=== PATIENT | male | born 1960 | race Caucasian/White ===

== ENCOUNTER → 2023-06-04 13:24 | Outpatient (REF) | payer OTHER, SELFPAY | LOC: HWRAD 13:24 | PROVIDERS: ATTENDING PHYSICIAN Surgery; FAMILY PHYSICIAN Internal Medicine | DX: K62.89 Other specified diseases of anus and rectum (principal) | CPT/HCPCS: 72192 ==

== ENCOUNTER → 2023-06-16 08:35 | Outpatient (REF) | payer OTHER, SELFPAY | LOC: MRI 3T 08:35 | PROVIDERS: ATTENDING PHYSICIAN Surgery; FAMILY PHYSICIAN Internal Medicine | DX: K62.89 Other specified diseases of anus and rectum (principal) | CPT/HCPCS: 72197; A9575 ==

== ENCOUNTER 2023-06-24 12:11 | Inpatient (IN) | payer OTHER, SELFPAY ==
[2023-06-24] VITALS (18 sets, daily range): BP systolic 65–157; BP diastolic 71–96; BMI 30.8; BMI 30.1
--- NOTE | 2023-06-24 07:31 | ED.GENMED ---
History of Present Illness
General
Chief Complaint: Abdominal Symptoms
Source: patient
Exam Limitations: none
Time Seen by Provider: 06/24/23 07:21
Nursing documentation reviewed up to this point in time: agreed with except (pain went away last p.m. is pain free now)
Travel History
Have you had any contact with someone who has COVID-19?: No
Do you have any symptoms of coronavirus? Fever > 100 degrees, chills, cough, shortness of breath, sore throat, loss of taste or smell, muscle aches, or headache?: No
History of Present Illness
History of Present Illness:
62 yo here for nausea starting last night. Hx Bladder cancer, that is post urostomy status post cystectomy, had sigmoid, anus, rectum resected as the chemo wash for bladder Ca infiltrated per pt and . Surgery done at [facility]. MRI 06/16/23 showing
abscesses and possibly osteomyelitis of sacrum. Hx. coronary artery disease with stent. Scheduled for IR to drain abscess 1 p.m. today but here due to extreme nausea, states pain suddenly dissipated last p.m. He is pain free, but significantly
nauseous, no vomiting. Denies fever, CP, SOB, abdominal pain. Urostomy draining well but with foul odor since yesterday. Producing stool through colostomy well.
Past History
Past History
ED Past Medical History: Other (Bladder cancer, that is post urostomy status post cystectomy, coronary artery disease with stent)
ED Past Surgical History: Bowel resection (has colostomy) and Urological
Social History
Tobacco: Former smoker
Alcohol: Occasional
Drug: None
Personal:
Living: with family
Employment: Employed
Family History
Family History: Other (Noncontributory)
Review of Systems
Review of Systems
Allergies reviewed?: Yes
All Other Systems: ROS reviewed and negative except as documented in HPI and ROS
Constitutional: Denies fever or chills
Respiratory: Denies trouble breathing
Cardiac: Denies chest pain
ABD/GI: Reports nausea; Denies abdominal pain, vomiting, diarrhea or constipated
: Reports other (urostomy draining well urine 'foul odor')
Musculoskeletal: Denies edema
Skin: Reports no symptoms
Neurological: Reports no symptoms
Phy Exam
Physical Exam
Physical Exam:
GENERAL: No acute distress. A&Ox3.
CONSTITUTIONAL: Afebrile.
EYES: clear, conjunctivae normal
ENMT: moist mucus membranes, Pharynx nl
RESPIRATORY: Regular respirations, nonlabored, lungs clear.
CARDIOVASCULAR: Regular rate and rhythm, no murmurs, no rubs.
GI: Soft, nontender, urostomy draining clear tonya urine. Colostomy bag intact stoma normal appearing, normal BS
MUSCULOSKELETAL: Moves with ease. Well perfused.
SKIN: Warm, dry, pink
PSYCH:Depressed mood and affect. Well kept, interactive and appropriate
NEUROLOGIC: Awake, alert and oriented. No focal neurological deficits
Course
Orders/Labs/Results
Orders:
Orders
06/24/23 Breakfast
NPO
Allow oral meds: Yes
Allow clear liquids: No
06/24/23 07:31
Complete Blood Count/With Diff Urgent
Comprehensive Metabolic Panel Urgent
Lactic Acid Urgent
06/24/23 07:33
Ondansetron Injectable [Zofran] 4 mg IV NOW STA
06/24/23 07:34
0.9% Sodium Chloride 500 ml [Nss] 500 ml IV BOLUS
06/24/23 07:36
Blood Culture Q30M
ROXANNE Source: Blood/Venous
Specimen Description:
06/24/23 07:48
Blood Culture Q30M
ROXANNE Source: Blood/Venous
Specimen Description:
06/24/23 09:10
INFECTIOUS DISEASE CONSULT Urgent
Consulting Provider: Nancy Guadalupe
Was physician already notified: Yes
06/24/23 09:11
ColoRectal Surgery Consult Urgent
Consulting Provider: Michael Newman
Was physician already notified: Yes
Reason for consult: abd abscess
06/24/23 09:12
Consult Interventional Radiology [IRAD CONSULT] Routine
Consulting Provider: Michael Newman
Was physician already notified: Yes
Reason for consult: abscess drainage
06/24/23 09:27
Urinalysis Reflex To Culture Urgent
Date Specimen was Collected: 06/24/23
Time Specimen was Collected: 08:13
Urine Microscopic Reflex Cult Urgent
Urine Culture Urgent
ROXANNE Source: U
Specimen Description:
Date Specimen was Collected: 06/24/23
Time Specimen was Collected: 08:13
06/24/23 09:37
Acetaminophen 1000MG/100Ml [Ofirmev] 1,000 mg in 100 ml IV ONCE
Acetaminophen IV Indication:: No OK & No Enteral Access
06/24/23 11:22
HYDROmorphone [Dilaudid] 0.5 mg IV NOW STA
06/24/23 11:49
Admit/Transfer Patient As Directed
Co-Sign Provider:
Level of Care: Inpatient admission
Assign to:: Medical/Surgical
Physician / Group: Cassie/hospitalist
Diagnosis: abdominal abscess
Reason for Hospitalization: abdominal abscess
Expected length of stay greater than two midnights?: Yes
ELOS- Estimated Length of Stay in days: 5
I certify the patient meets the requirements for IP care: Yes
06/24/23 11:50
Code Status As Directed
Resuscitation Status: Full Code
06/24/23 15:04
Acetaminophen [Tylenol] 500 mg PO DAILYPRN PRN
Docusate Sodium [Colace] 200 mg PO DAILYPRN PRN
Ondansetron Injectable [Zofran] 4 mg IV Q6HPRN PRN
Polyethylene Glycol Powder [Miralax] 17 grams PO DAILYPRN PRN
Tramadol HCl [Ultram] 50 mg PO Q6HPRN PRN
vaxnwpk-gbhvabdilemsm-mzvmzidp [Excedrin Extra Strength] 1 tablet PO Q6HPRN PRN
06/24/23 15:04
Activity As Directed
Activity Level: As Tolerated
Vital Signs As Directed
Frequency: Per unit guidelines
DX Deep Vein Thrombosis Video Routine
06/24/23 20:00
Heparin 5,000 units SC Q12
06/25/23 06:00
Complete Blood Count/With Diff IN AM
Comprehensive Metabolic Panel IN AM
Magnesium IN AM
06/25/23 07:00
Levothyroxine [Synthroid] 50 mcg PO DAILY@0700
06/25/23 08:00
Aspirin Low Dose EC [Aspir Low (Enteric Coated)] 81 mg PO DAILY
Abnormal Lab Results
06/24/23 06/24/23
07:31 09:27
WBC 11.8 H 10^3/uL
(4.8-10.8)
MPV 11.3 H fL
(7.4-10.4)
Absolute Neuts (auto) 9.9 H 10^3/uL
(1.4-6.5)
Absolute Lymphs (auto) 0.6 L 10^3/uL
(1.2-3.4)
Absolute Monos (auto) 1.3 H 10^3/uL
(0.1-0.6)
Neutrophils % 83.7 H %
(42.2-75.2)
Lymphocytes % 5.0 L %
(20.5-51.1)
Monocytes % 10.7 H %
(1.7-9.3)
BUN 27 H mg/dl
(9-20)
Creatinine 1.7 H mg/dL
(0.7-1.3)
Glucose 116 H mg/dl
(70-99)
Total Bilirubin 1.5 H mg/dl
(0.2-1.3)
AST 238 H U/L
(17-59)
ALT 300 H U/L
(0-50)
Alkaline Phosphatase 346 H U/L
(38-126)
Ur Occult Blood Reflex 1+ A
(Negative)
Urine Nitrite (Reflex) Positive A
(Negative)
Leukocyte Esterase Rfl 2+ A
(Negative)
Urine RBC 7-10 A /HPF
(0-2)
Urine WBC (Reflex) 80-90 A /HPF
(0-5)
Urine Bacteria (Reflex) Many A
(Negative)
06/24/23 07:31
06/24/23 07:31
Vital Signs
Initial and Last Documented VS:
Initial Vital Signs
Temp Pulse Resp BP Pulse Ox
98.2 F 89 18 122/90 97
06/24/23 07:00 06/24/23 07:00 06/24/23 07:00 06/24/23 07:00 06/24/23 07:00
Last Documented Vital Signs
Temp Pulse Resp BP Pulse Ox
98.1 F 75 18 148/85 95
06/24/23 15:11 06/24/23 15:11 06/24/23 15:11 06/24/23 15:11 06/24/23 15:11
MDM/Problems Addressed
Differential Diagnosis Includes:
ruptured abscess, UTI
MDM/Problems Addressed:
62 yo here for nausea starting last night. Hx Bladder cancer, that is post urostomy status post cystectomy, had sigmoid, anus, rectum resected as the chemo wash for bladder Ca infiltrated per pt and . Surgery done at [facility]. MRI 06/16/23 showing
abscess and possibly osteomyelitis of sacrum. Hx. coronary artery disease with stent. Scheduled for IR to drain abscess 1 p.m. today but here due to extreme nausea, states pain suddenly dissipated last p.m. He is pain free, but significantly
nauseous, no vomiting. Denies fever, CP, SOB, abdominal pain. Urostomy draining well but with foul odor since yesterday. Producing stool through colostomy well.
Afebril, NAD
06/24/2023 0814 AM
CBC: WBC 11.8
CMP: Consistent with his baseline kidney functions with BUN 27, creat 1.7. Liver enzymes were modestly elevated
Notified Dr. Pringle of pt arrival, he will contact Dr. Newman
06/24/2023 0903 AM
Colorectal RAG ROOM SUPERVISOR Velma in to see patient. Requests admit to Hospitalist, ID consult.
Hospitalist and ID Dr. Guadalupe notified.
Pt asking for 'something mild' for pain. Ofirmev ordered as he is npo
06/24/2023 1015 AM
UA results are back, he has a urinary tract infection.
Holding off on antibiotics for now, requested by colorectal until they can culture the abdominal abscess. Patient remained stable, afebrile
Hospitalist notified of UTI
06/24/2023 1122 AM
Patient requesting something stronger for pain in right abdomen, he has to flex his right knee for comfort, Dilaudid 0.5 mg ordered
*Critical Care Note
Total Time (30-74mins, 75-104mins- exclusive of procedures): Not Applicable
ED Attending Note
-
Portions of this chart may have been created with voice recognition software.� Occasional wrong word or��sound alike� substitutions may have occurred due to the inherent limitations of voice recognition software.
Discharge Plan
Departure
Patient Disposition: Admit
Date of Disposition: 06/24/23
Time of Disposition: 09:15
Admit to: Med/Surg
Presentation/result/management discussed w/ accepting MD/DO: Hospitalist
Condition: Fair
Discharge Problem:
Abdominal abscess
Interventions
Interventions:
*Risk Screen - Suicide Last Done: 06/24/23 07:00
*General Assessment Last Done: 06/24/23 07:00
*Neglect/Abuse Screening Last Done: 06/24/23 07:00
*ED COVID-19 Vaccine History Last Done: 06/24/23 15:48
*Nursing Disposition Last Done: 06/24/23 15:02
[facility] Assessment Last Done: 06/24/23 09:03
Discharge Date and Time
Discharge Date/Time: 06/24/23 15:02
[2023-06-24] MEDS: ZOFRAN 4 MG IV (07:37)
[2023-06-24] MEDS: NSS 500 IV (07:38)
[2023-06-24 07:43] LABS: % Basophils 0.2 % (0-2); % Eosinophils 0.1 % (0-6); % Immature Granulocytes 0.3 % (0-0.5); % Monocytes 10.7 % (1.7-9.3); % Neutrophils 83.7 % (42.2-75.2); Absolute Lymphocytes 0.6 10^3/uL (1.2-3.4); Absolute Monocytes 1.3 10^3/uL (0.1-0.6); Absolute Neutrophils 9.9 10^3/uL (1.4-6.5); Mean Corp Hgb Conc. 33.3 g/dL (33.0-37.0); Mean Corpuscular Hgb 29.2 pg (27.0-31.0); Mean Corpuscular Volume 87.5 fL (80.0-94.0); Mean Platelet Volume 11.3 fL (7.4-10.4); Nucleated Red Blood Cells % 0 % (-); Platelet Count 236 10^3/uL (130-400); Red Blood Cell Count 5.14 10^6/uL (4.70-6.10); Red Cell Dist. Width 13.2 % (11.5-14.5); White Blood Cell Count 11.8 10^3/uL (4.8-10.8)
[2023-06-24 07:55] LABS: Lactic Acid 1.5 mmol/L (0.7-2.0)
[2023-06-24 07:56] LABS: ALT (SGPT) 300 U/L (0-50); AST (SGOT) 238 U/L (17-59); Albumin 3.8 g/dl (3.5-5.0); Alkaline Phosphatase 346 U/L (38-126); Blood Urea Nitrogen 27 mg/dl (9-20); Calcium 9.4 mg/dl (8.4-10.2); Carbon Dioxide 24 mmol/L (22-30); Chloride 105 mmol/L (98-107); Estimated Creatinine Clearance 54 ml/min; Glucose 116 mg/dl (70-99); Potassium 4.1 mmol/L (3.5-5.1); Sodium 136 mmol/L (135-145); Total Bilirubin 1.5 mg/dl (0.2-1.3); Total Protein 7.4 g/dl (6.3-8.2); eGFR 45.02
[2023-06-24 09:54] LABS: Urine Albumin Trace (Neg - Trace); Urine Bilirubin Negative (Negative); Urine Character Slightly Cloudy (Clear); Urine Color Yellow; Urine Glucose Negative (Negative); Urine Ketone Negative (Negative); Urine Leukocyte 2+ (Negative); Urine Nitrite Positive (Negative); Urine Occult Blood 1+ (Negative); Urine Specific Gravity 1.015 (<1.030); Urine Urobilinogen Negative (Neg - 1+)
[2023-06-24] MEDS: OFIRMEV 100 IV (10:14)
[2023-06-24 10:37] LABS: Urine Urothelial Cell 0-2 /LPF (FEW)
[2023-06-24 10:38] LABS: Urine White Cell 80-90 /HPF (0-5)
[2023-06-24 10:39] LABS: Urine Bacteria Many (Negative)
--- NOTE | 2023-06-24 11:28 | CON.CRS ---
Consultation
-
Date/Time Consultation Requested: 06/24/2023, 09:11
Date/Time Consultation Performed: 06/24/2023, 9:20
Requesting Provider: Antonina Polanco
Performing Provider: Robin Cruz MD
Reason for Consultation: pelvic abscess
Medical History
-
Chief Complaint: vomiting
History of Present Illness:
62-year-old male presents emergency room drug eluding and vomiting since last night. The patient was recently seen in the office with Dr. Newman on 05/30/2023 due to a complicated surgical history and rectal pain. The patient states that in 2016 he
had blood in his urine that led to a TURP. This was performed at [facility]. 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 subsequent to that he had multiple operations mainly in the [facility]
between 2016 and 2020. He ended up having an ileal conduit on the right side and his bladder and part of his prostate were removed. He also had a left colostomy in the left side and completion proctectomy with anal resection by Dr. Lamar at [facility]
in 2020. He no longer has an anal orifice. His bladder cancer is essentially cured. He has chronic renal insufficiency with a creatinine of 1.7 at baseline. He has had 3 previous MIs but he is not on blood thinners. He has stents. He has
undergone colonoscopies in the past. He thinks he is due in 2024. He had been complaining of rectal pain for at least 2 months in the area where his anus was.
He underwent a pelvic MRI which confirmed an abscess in the pelvis and showed some evidence of sacral osteomyelitis. Dr. Newman reviewed the images with Dr. Lobo of interventional radiology who believes that this could be aspirated. The patient
was scheduled for today at [address] procedure[address] Dr. Newman also contacted Dr. Phelan of infectious disease and he was to follow-up with her in a few days after his drain placement.
The patient states last night he started dry heaving. He has not been able to eat or drink in 'days'. The most he has had has been Jell-O, broth, and soup. He is having normal bowel function out of his colostomy. He denies any bleeding. He felt
'flush' but did not have a recorded fever at home. He denies headaches. Denies abdominal pain. He has had rectal pain over the past couple days but this resolved the other day but now it has returned in the past few hours. We have been consulted
for further surgical opinion.
Past Medical History
Past Medical History: CAD, Cancer (testicular, bladder), Hypercholesterolemia, Hypothyroidism, DC (NSTEMI) and Other (colostomy)
Social History
Tobacco: Former Smoker
Alcohol: None
Personal:
Family History
Family History: Reviewed & Not Pertinent
Allergies / Home Medications
Allergy/AdvReac Type Severity Reaction Status Date / Time
egg Allergy Unknown Verified 04/06/23 11:38
shellfish derived Allergy Unknown Verified 04/06/23 11:38
Medication Instructions Recorded Confirmed Type
aspirin 81 mg tablet,delayed 81 mg PO DAILY 06/23/23 06/24/23 History
release (Ecotrin Low Strength)
lgdmefc-dkfknheskjvpv-dbnndoez 250 1 tab PO Q6HPRN PRN mild pain 06/23/23 06/24/23 History
mg-250 mg-65 mg tablet (Excedrin
Extra Strength)
ezetimibe 10 mg tablet (Zetia) 10 mg PO DAILY 06/23/23 06/24/23 History
Dulcolax (bisacodyl) 2 gummy PO DAILYPRN PRN 06/24/23 06/24/23 History
constipation
acetaminophen 500 mg tablet 500 mg PO DAILYPRN PRN mild pain 06/24/23 06/24/23 History
(Tylenol Extra Strength)
atorvastatin 80 mg tablet 80 mg PO DAILY 06/24/23 06/24/23 History
docusate sodium 100 mg capsule 200 mg PO DAILY PRN constipation 06/24/23 06/24/23 History
(Stool Softener)
levothyroxine 50 mcg tablet 50 mcg PO DAILY 06/24/23 06/24/23 History
polyethylene glycol 3350 17 gram 17 g PO DAILY PRN constipation 06/24/23 06/24/23 History
oral powder packet (Miralax)
tramadol 50 mg tablet 50 mg PO Q6H PRN severe pain 06/24/23 06/24/23 History
Review of Systems
-
History Source: Patient
Constitutional: Other ('flush feeling')
Abdomen/GI: Nausea and Vomiting
A 10 point review of systems was completed, and was negative except as per HPI.
Physical Exam
Vital Signs
Temp 98.2 F 06/24/23 07:00
Pulse 89 06/24/23 07:00
Resp Rate 18 06/24/23 07:00
Blood pressure 136/83 06/24/23 09:00
SaO2 96 06/24/23 09:00
06/23/23 06/24/23 06/25/23
06:59 06:59 06:59
Actual Weight 100 kg
Body Mass Index (BMI) 30.8
Lab Results / Allergies
06/24/23 07:31
06/24/23 07:31
WBC 11.8 10^3/uL (4.8-10.8) H 06/24/23 07:31
Hgb 15.0 g/dL (13.0-18.0) 06/24/23 07:31
Hct 45.0 % (39.0-52.0) 06/24/23 07:31
Plt Count 236 10^3/uL (130-400) 06/24/23 07:31
Abs Immat Gran (auto) 0.0 10^3/uL (0-0.05) 06/24/23 07:31
Neutrophils % 83.7 % (42.2-75.2) H 06/24/23 07:31
Allergy/AdvReac Type Severity Reaction Status Date / Time
egg Allergy Unknown Verified 04/06/23 11:38
shellfish derived Allergy Unknown Verified 04/06/23 11:38
Physical Exam
General: Well Developed and Well Nourished
GI: Soft, Non Tender, Non Distended and Other (colostomy warm and pink, slight prolapse)
Skin: Warm and Dry
Neuro: AO x 3
Psych: Calm
Data Reviewed
-
CT Scan: Report Reviewed by me and Discussed with Physician
Assessment / Plan
-
Assessment: 62yo male with a h/o multiple abdominal surgeries s/p ileal conduit and left colostomy with complettion proctectomy and anal resection by Dr. Lamar at [facility], with known pelvis abscess scheduled for aspiration today by IR, presents to
the ER with vomiting and dry heaving since last night, WBC 11.8, vitals normal.
Plan:
Patient will be admitted. I called IR and they can still place the drain today at 1pm. I have asked them to do cultures. Recommend ID consult for IV antibiotics. Remain NPO for IR. No plans for surgery at this time. Continue IV Zofran. I did offer
patient to be transferred to [facility], but he would like to remain at [facility]. Discussed plan with patient and at bedside.
[2023-06-24] MEDS: DILAUDID 0.5 MG IV (11:29)
--- NOTE | 2023-06-24 11:37 | HPS.HSE ---
Family Physician
-
Family Physician: Sagar Jade
Chief Complaint
-
Nausea
History of Present Illness
62 yo PMH Bladder cancer (s/p cystectomy now), had chemo for bladder cancer which permeated through his gut and resulted in sigmoid/anus/rectum resection now with colostomy, Coronary artery disease with stent; p/w nausea ongoing for days/weeks.
His recent MRI 06/16/23 showed abscesses and possibly osteomyelitis of sacrum.
Pt was scheduled for IR to drain abscess 1 p.m. on DOA but here due to extreme nausea. He denies to significant pain currently.
He denies to fever/chills, CP/SOB etc.
Medical History
Past Medical History
Past Medical History: Reports Other
Additional Past Medical History:
Bladder cancer (s/p cystectomy now)
had chemo for bladder cancer which permeated through bladder to his gut and resulted in sigmoid/anus/rectum resection now with colostomy
Coronary artery disease with stent
Past Surgical History: Reports Other
Additional Past Surgical History:
see above
Social History
Tobacco: Non-smoker
Alcohol: None
Personal:
Living: With Family
Family History
Family History: Not pertinent
Allergies / Home Medications
Allergies reflects when Allergies were last updated in [facility].
Home Medications with original date entered in [facility]
Allergy/Medication List:
Allergies
Allergy/AdvReac Type Severity Reaction Status Date / Time
egg Allergy Unknown Verified 04/06/23 11:38
shellfish derived Allergy Unknown Verified 04/06/23 11:38
Home Medications
aspirin 81 mg tablet,delayed release (Ecotrin Low Strength) 81 mg PO DAILY 06/23/23
sgimasb-rwhbjonnupzye-ocudytiq 250 mg-250 mg-65 mg tablet (Excedrin Extra Strength) 1 tab PO Q6HPRN PRN mild pain 06/23/23
ezetimibe 10 mg tablet (Zetia) 10 mg PO DAILY 06/23/23
Dulcolax (bisacodyl) 2 gummy PO DAILYPRN PRN constipation 06/24/23
acetaminophen 500 mg tablet (Tylenol Extra Strength) 500 mg PO DAILYPRN PRN mild pain 06/24/23
atorvastatin 80 mg tablet 80 mg PO DAILY 06/24/23
docusate sodium 100 mg capsule (Stool Softener) 200 mg PO DAILY PRN constipation 06/24/23
levothyroxine 50 mcg tablet 50 mcg PO DAILY 06/24/23
polyethylene glycol 3350 17 gram oral powder packet (Miralax) 17 g PO DAILY PRN constipation 06/24/23
tramadol 50 mg tablet 50 mg PO Q6H PRN severe pain 06/24/23
Review of Systems
-
Abdomen/GI: Reports See HPI and Nausea
Physical Exam
Vital Signs
Vital Signs
Temp Pulse Resp BP Pulse Ox
36.8 C 89 18 136/83 96
06/24/23 07:00 06/24/23 07:00 06/24/23 07:00 06/24/23 09:00 06/24/23 09:00
Physical Exam
General: Well Developed, Well Nourished, No Apparent Distress, Comfortable and Conversant
HEENT: NormoCephalic, Moist mucous membranes, Atraumatic, Nose Appears Normal and Ears Appear Normal
Respiratory: Clear and Non Labored Respirations; No Accessory Resp Muscle Use
Cardiac: S1/S2 and Regular Rhythm; No Murmur or Rub
GI: Soft, Non Tender and Ostomy
Rectal: Deferred by Provider
Genito-urinary: Other (urostomy)
Musculoskeletal: No Clubbing, No Cyanosis and No Edema
Neuro: Awake and Alert
Psych: Calm and Intact Judgment/Insight
Laboratory Results
-
06/24/23 07:31
06/24/23 07:31
Laboratory Results
Lactic Acid 1.5 mmol/L (0.7-2.0) 06/24/23 07:31
Total Bilirubin 1.5 mg/dl (0.2-1.3) H 06/24/23 07:31
AST 238 U/L (17-59) H 06/24/23 07:31
ALT 300 U/L (0-50) H 06/24/23 07:31
Alkaline Phosphatase 346 U/L (38-126) H 06/24/23 07:31
Data Reviewed
-
Lab Data: Labs Reviewed by me
Impression/Plan
-
HPI: 62 yo PMH Bladder cancer (s/p cystectomy now), had chemo for bladder cancer which permeated through his gut and resulted in sigmoid/anus/rectum resection now with colostomy, Coronary artery disease with stent; p/w nausea ongoing for days/weeks.
His recent MRI 06/16/23 showed abscesses and possibly osteomyelitis of sacrum.
Pt was scheduled for IR to drain abscess 1 p.m. on DOA but here due to extreme nausea. He denies to significant pain currently.
He denies to fever/chills, CP/SOB etc.
A/P:
# Nausea
# Bladder cancer s/p cystectomy, now with urostomy
# Chemo for bladder cancer which permeated through his gut and resulted in sigmoid/anus/rectum resection, now with colostomy
# MRI 06/16/23 showed several abscesses in pelvis, possibly osteomyelitis of sacrum, possibly infectious myositis of the bilateral psoas and obturator muscles.
# ?complicated UTI
Follow blood and urine Cx
IR to drain abdominal abscesses
CRS consulted
ID CS, defer Abx to ID
# CKD stage 3
# Elevated LFT, likely reactive
cont to monitor LFT
Will NOT resume TAXICAB STARTER statin/Zetia for now
Consider Abd US
# CAD s/p stent
DVT ppx: HSQ
FC
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
[2023-06-24] MEDS: NSS (PRESERVATIVE FREE) 10 ML IV (18:15)
[2023-06-24] MEDS: MAXIPIME 2000 MG IV (18:15)
[2023-06-24] MEDS: STERILE WATER FOR INJECTION 10 ML IV (18:16)
[2023-06-24] MEDS: PROTONIX IV 40 MG IV (18:16)
[2023-06-24] MEDS: FLAGYL 500 MG PO (22:03)
[2023-06-24] MEDS: ULTRAM 50 MG PO (22:06)
[2023-06-25] MEDS: ZOFRAN 4 MG IV (01:03)
[2023-06-25 01:20] VITALS: BP 137/87
[2023-06-25] MEDS: DILAUDID 0.5 MG IV ×2 (01:22→11:45)
[2023-06-25] MEDS: STERILE WATER FOR INJECTION 10 ML IV ×2 (05:36→16:48)
[2023-06-25] MEDS: MAXIPIME 2000 MG IV ×2 (05:36→16:47)
[2023-06-25] MEDS: SYNTHROID PO (05:39)
[2023-06-25] MEDS: COMPAZINE 5 MG IV ×3 (06:08→23:27)
[2023-06-25] MEDS: TYLENOL 500 MG PO (06:14)
--- NOTE | 2023-06-25 06:23 | PTCARENOTE ---
Patient with nausea and vomiting this shift. Patient received zofran with some effect but had recurrent n/v and too early for zofran. 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 Patient also received a 1 time dose of dilaudid d/t no relief from tramadol (see
MAR) Patient empties his own urostomy and colostomy bag. Did not know the amounts so that staff could record. Patient states, ' I'm fine. '
[2023-06-25 07:20] VITALS: BP 130/75
[2023-06-25 08:03] LABS: % Basophils 0.2 % (0-2); % Eosinophils 0.2 % (0-6); % Immature Granulocytes 0.3 % (0-0.5); % Lymphocytes 6.1 % (20.5-51.1); % Monocytes 11.7 % (1.7-9.3); % Neutrophils 81.5 % (42.2-75.2); Absolute Lymphocytes 0.6 10^3/uL (1.2-3.4); Absolute Monocytes 1.1 10^3/uL (0.1-0.6); Absolute Neutrophils 7.4 10^3/uL (1.4-6.5); Hematocrit 41.9 % (39.0-52.0); Hemoglobin 13.6 g/dL (13.0-18.0); Mean Corp Hgb Conc. 32.5 g/dL (33.0-37.0); Mean Corpuscular Hgb 28.9 pg (27.0-31.0); Mean Corpuscular Volume 89.1 fL (80.0-94.0); Mean Platelet Volume 11.7 fL (7.4-10.4); Nucleated Red Blood Cells % 0 % (-); Platelet Count 213 10^3/uL (130-400); Red Cell Dist. Width 13.2 % (11.5-14.5); White Blood Cell Count 9.1 10^3/uL (4.8-10.8)
[2023-06-25] MEDS: ASPIR LOW (ENTERIC COATED) PO ×2 (08:19→08:27)
[2023-06-25] MEDS: FLAGYL 500 MG PO (08:19)
[2023-06-25] MEDS: PROTONIX IV 40 MG IV (08:20)
[2023-06-25] MEDS: NSS (PRESERVATIVE FREE) 10 ML IV (08:21)
[2023-06-25 10:05] LABS: ALT (SGPT) 225 U/L (0-50); AST (SGOT) 175 U/L (17-59); Albumin 3.2 g/dl (3.5-5.0); Alkaline Phosphatase 296 U/L (38-126); Blood Urea Nitrogen 31 mg/dl (9-20); Calcium 9.5 mg/dl (8.4-10.2); Carbon Dioxide 28 mmol/L (22-30); Chloride 100 mmol/L (98-107); Estimated Creatinine Clearance 48 ml/min; Glucose 101 mg/dl (70-99); Potassium 4.3 mmol/L (3.5-5.1); Sodium 137 mmol/L (135-145); Total Bilirubin 1.5 mg/dl (0.2-1.3); Total Protein 6.6 g/dl (6.3-8.2); eGFR 45.02
--- NOTE | 2023-06-25 11:32 | W.PN.CRS1 ---
Today's Communication / Plan
-
Abdominal x-rays
Assessment/Plan
-
Assessment: 62yo male with a h/o multiple abdominal surgeries s/p ileal conduit and left colostomy with complettion proctectomy and anal resection by Dr. Lamar at [facility], with known pelvis abscess scheduled for aspiration today by IR, presents to
the ER with vomiting and dry heaving since last night, WBC 11.8, vitals normal.
Plan:
1. Given vomiting, will order an abdominal x-ray.
2. Cultures from aspiration are pending.
3. Continue regular diet.
4. WBC normal. Vitals normal.
5. Antibiotics per infectious disease.
6. Continue daily MiraLAX.
7. No surgery indicated at this time.
Subjective Data
Subjective Data
Date of Service: June 25, 2023
Patient states he vomited a few times last night. Overall his night was 'bad'. He is having flatus. He has not had any bowel movements.
Objective Data
-
Vital Signs
Temp Pulse Resp BP Pulse Ox
98.0 F 65 18 130/75 94
06/25/23 07:20 06/25/23 07:20 06/25/23 07:20 06/25/23 07:20 06/25/23 07:20
Intake & Output
06/24/23 06/25/23 06/26/23
06:59 06:59 06:59
Intake Total 150 / 150
Balance 150 / 150
Intake:
IV piggybacks 150 / 150
Lab Results
06/25/23 06:22
06/25/23 06:22
Physical Exam
-
General: No Acute Distress and AOx3
Abdomen: Soft, Non Distended and Non Tender
Skin: Warm and Dry
--- NOTE | 2023-06-25 11:59 | PTCARENOTE ---
Patient with complaints of pain in sacral area near abcess. Rates pain a 6/10 on pain scale. Patient states that he took Ultram last night and had nausea and vomited. contacted and ordered a one time dose of 0.5 mg dilauded IV. Administered
dilauded and awaiting pain relief.
[2023-06-25] MEDS: MIRALAX 17 GRAMS PO (12:32)
--- NOTE | 2023-06-25 12:42 | PTCARENOTE ---
Patient with abdominal xray showing large amount of stool. Miralax given.
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
--- NOTE | 2023-06-25 13:58 | W.PN.HOSP.TC ---
Today's Communication/Plan
-
cont current ABX
apprec all consultants
Assessment / Plan
Assessment / Plan
pt is a 62 year old male
Nausea--ongoing--initially thought due to pain medications--apprec CRS--x-ray 06/25 with constipation and large fecal burden--will defer to CRS next steps
Bladder cancer s/p cystectomy, now with urostomy (Chemo for bladder cancer which permeated through his gut and resulted in sigmoid/anus/rectum resection) now with colostomy--MRI 06/16/23 showed several abscesses in pelvis, possibly osteomyelitis of
sacrum, possibly infectious myositis of the bilateral psoas and obturator muscles--cont ABX as per ID although aspirate culture is negative --WBC 11 on admission, now WNL--urine with gm negative bacilli--apprec IR/CRS/ID--abx per ID
CKD stage 3--renal dose meds--creat at baseline
Elevated LFT, likely reactive--cont to monitor LFT--Will NOT resume SHERIFFS DETECTIVE statin/Zetia for now
CAD s/p stent
DVT ppx: HSQ
FC
Anticipated Discharge: > 48 hours
Subjective/Interval History
-
Date of Service: June 25, 2023
pt still c/o pain--required IV dose of dilaudid
Objective Data
-
Labs:
Laboratory Results
06/25/23
06:22
WBC 9.1
Hgb 13.6
Hct 41.9
Plt Count 213
Sodium 137
Potassium 4.3
Chloride 100
Carbon Dioxide 28
BUN 31 H
Creatinine 1.7 H
Glucose 101 H
Calcium 9.5
Total Bilirubin 1.5 H
AST 175 H
ALT 225 H
Alkaline Phosphatase 296 H
Vital Signs:
max temp for 24 hours
06/24/23
22:35
Temp 98.1 F
Vital Signs
Temp Pulse Resp BP Pulse Ox
98.0 F 65 18 130/75 97
06/25/23 07:20 06/25/23 07:20 06/25/23 07:20 06/25/23 07:20 06/25/23 11:30
I&O
06/24/23 06/25/23 06/26/23
06:59 06:59 06:59
Intake Total 150 / 150
Balance 150 / 150
Review of Systems
-
All other systems: Reviewed and negative
Physical Exam
-
General: Well Developed, Well Nourished and No Apparent Distress
HEENT: Normocephalic and Atraumatic
Respiratory: Clear to Auscultation; Negative Wheezes, Rales or Rhonchi
Cardiac: Regular Rhythm and S1/S2; Negative Murmur
GI: Soft, Nontender, Nondistended, Normal Bowel Sounds and Ostomy (colostomy, urostomy)
Musculoskeletal: No Clubbing, No Cyanosis and No Edema
Skin: Warm
Neuro: Awake
[2023-06-25] MEDS: FLAGYL PO ×2 (15:17→22:00)
[2023-06-25 15:55] VITALS: BP 132/75
--- NOTE | 2023-06-25 17:01 | CM ---
Patient seen at bedside with physician and patient . Patient lives in a 2 story home with his . Patient PCP is Elisabeth Nugent in [place] and he has no DME. Patient has no discharge planning needs. CM will continue to follow for
discharge planning needs.
Plan; home with no needs anticipated.
--- NOTE | 2023-06-25 19:53 | PTCARENOTE ---
Patient given tap water enema at 6pm - 500 mls. Patient only had a very small piece of stool. Did not have results from enema. Offered him an additional dose of Miralax but refused because he stated that he was sure he would not keep it down.
Patient given Compazine after enema.
[2023-06-25] MEDS: COLACE 200 MG PO (20:08)
[2023-06-25 23:24] VITALS: BP 120/73
[2023-06-25] MEDS: MILK OF MAGNESIA 30 ML PO (23:30)
[2023-06-26] MEDS: MAXIPIME 2000 MG IV (05:09)
[2023-06-26] MEDS: STERILE WATER FOR INJECTION 10 ML IV (05:10)
[2023-06-26] MEDS: SYNTHROID PO (06:10)
--- NOTE | 2023-06-26 06:28 | PTCARENOTE ---
Received patient in bed beginning of shift. 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
Patient states that he is passing gas, no stool. Urostomy draining light tonya colored urine, patient empties himself. Patient refused flagyl last night and refused synthroid this a.m. Patient is currently ambulating around the unit with steady
gait.
[2023-06-26 07:22] VITALS: BP 147/86
[2023-06-26 07:35] LABS: Hematocrit 43.5 % (39.0-52.0); Hemoglobin 14.2 g/dL (13.0-18.0); Mean Corp Hgb Conc. 32.6 g/dL (33.0-37.0); Mean Corpuscular Hgb 29.1 pg (27.0-31.0); Mean Corpuscular Volume 89.1 fL (80.0-94.0); Mean Platelet Volume 11.6 fL (7.4-10.4); Platelet Count 221 10^3/uL (130-400); Red Blood Cell Count 4.88 10^6/uL (4.70-6.10); White Blood Cell Count 8.4 10^3/uL (4.8-10.8)
[2023-06-26 08:14] LABS: ALT (SGPT) 242 U/L (0-50); AST (SGOT) 191 U/L (17-59); Albumin 3.5 g/dl (3.5-5.0); Alkaline Phosphatase 405 U/L (38-126); Blood Urea Nitrogen 31 mg/dl (9-20); Calcium 9.4 mg/dl (8.4-10.2); Carbon Dioxide 27 mmol/L (22-30); Chloride 104 mmol/L (98-107); Estimated Creatinine Clearance 48 ml/min; Glucose 99 mg/dl (70-99); Magnesium 2.2 mg/dl (1.6-2.3); Potassium 4.3 mmol/L (3.5-5.1); Sodium 137 mmol/L (135-145); Total Bilirubin 1.4 mg/dl (0.2-1.3); Total Protein 6.8 g/dl (6.3-8.2); eGFR 45.02
[2023-06-26] MEDS: ULTRAM 50 MG PO (09:53)
[2023-06-26] MEDS: FLAGYL PO (09:59)
[2023-06-26] MEDS: PROTONIX IV 40 MG IV (09:59)
[2023-06-26] MEDS: ASPIR LOW (ENTERIC COATED) PO (09:59)
[2023-06-26] MEDS: NSS (PRESERVATIVE FREE) 10 ML IV (10:00)
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
--- NOTE | 2023-06-26 10:26 | W.PN.CRS1 ---
Today's Communication / Plan
-
magnesium citrate
Assessment/Plan
-
Assessment: 62yo male with a h/o multiple abdominal surgeries s/p ileal conduit and left colostomy with completion proctectomy and anal resection by Dr. Lamar at [facility], with known pelvis abscess scheduled for aspiration today by IR, presents to the
ER with vomiting and dry heaving since last night, WBC 8.4, vitals normal.
Plan:
1.� Patient tried an enema and milk of magnesia yesterday with bowel movement, magnesium citrate ordered this AM.
2.� Cultures from aspiration are pending.
3.� Continue regular diet.
4.� WBC normal.� Vitals normal.
5.� Antibiotics per infectious disease.
6.� Continue daily MiraLAX.
7.� No surgery indicated at this time.
8. Recommend outpatient pain management. Recommendation placed in discharge instructions.
Subjective Data
Subjective Data
Date of Service: June 26, 2023
Patient states he feels a little bit better today. He is still working. He has no stool in his ostomy. He still has rectal pain that comes and goes but is overall improved since the aspiration. He is still nauseous. He had milk of magnesia last
night with no results.
Objective Data
-
Vital Signs
Temp Pulse Resp BP Pulse Ox
98.0 F 80 16 147/86 94
06/26/23 07:22 06/26/23 07:22 06/26/23 07:22 06/26/23 07:22 06/26/23 07:22
Intake & Output
06/25/23 06/26/23 06/27/23
06:59 06:59 06:59
Intake Total 150 / 150 480 / 480
Balance 150 / 150 480 / 480
Intake:
Oral fluids 480 / 480
IV piggybacks 150 / 150
Other:
Number of approximated MODERATE 4
amounts of urine
Number of immeasurable emeses? 1
Lab Results
06/26/23 06:15
06/26/23 06:15
Physical Exam
-
General: No Acute Distress and AOx3
Abdomen: Soft, Non Distended, Non Tender and Other (colostomy warm and pink, fecal smear in bag)
Skin: Warm and Dry
[2023-06-26] MEDS: DILAUDID 0.5 MG IV (10:46)
[2023-06-26] MEDS: COMPAZINE 5 MG IV ×2 (10:52→18:01)
[2023-06-26] MEDS: CITROMA 300 ML PO (11:27)
--- NOTE | 2023-06-26 13:31 | CM ---
Patient seen at bedside with physician and present. ID physician requested CM identify cost of IV antibiotics for patient. CM sent documentation to [facility] and awaiting cost of medications. CM will continue to follow for discharge planning
needs.
Plan; IV antibiotics, pending VN supports
[2023-06-26] MEDS: CUBICIN 10 MG IV (13:35)
--- NOTE | 2023-06-26 14:55 | W.PN.HOSP.TC ---
Today's Communication/Plan
-
CT scan
Assessment / Plan
Assessment / Plan
pt is a 62 year old male
Nausea--ongoing--apprec CRS--x-ray 06/25 with constipation and large fecal burden--did not tolerate mag citrate--CRS checking CT scan
Bladder cancer s/p cystectomy, now with urostomy (Chemo for bladder cancer which permeated through his gut and resulted in sigmoid/anus/rectum resection) now with colostomy
sacral osteomyelitis? and E. coli and Klebsiella oxytoca UTI (although pt does have a urostomy)--MRI 06/16/23 showed several abscesses in pelvis, possibly osteomyelitis of sacrum, possibly infectious myositis of the bilateral psoas and obturator
muscles--cont ABX as per ID although aspirate culture is negative, rec Ertapenem and Daptomycin x 6 weeks, will need PICC line--WBC 11 on admission, now WNL--urine with E. coli and Klebsiella oxytoca apprec IR/CRS/ID
CKD stage 3--renal dose meds--creat at baseline
Elevated LFT, likely reactive--cont to monitor LFT--Will NOT resume SOCKET PULLER statin/Zetia for now
CAD s/p stent
DVT ppx: HSQ
code status--FULL CODE
Anticipated Discharge: > 48 hours
Subjective/Interval History
-
Date of Service: June 26, 2023
pt could not keep down the mag citrate
Objective Data
-
Labs:
Laboratory Results
06/26/23
06:15
WBC 8.4
Hgb 14.2
Hct 43.5
Plt Count 221
Sodium 137
Potassium 4.3
Chloride 104
Carbon Dioxide 27
BUN 31 H
Creatinine 1.7 H
Glucose 99
Calcium 9.4
Total Bilirubin 1.4 H
AST 191 H
ALT 242 H
Alkaline Phosphatase 405 H
Vital Signs:
max temp for 24 hours
06/25/23
23:24
Temp 98.1 F
Vital Signs
Temp Pulse Resp BP Pulse Ox
98.0 F 80 16 147/86 94
06/26/23 07:22 06/26/23 07:22 06/26/23 07:22 06/26/23 07:22 06/26/23 07:22
I&O
06/25/23 06/26/23 06/27/23
06:59 06:59 06:59
Intake Total 150 / 150 480 / 480
Balance 150 / 150 480 / 480
Review of Systems
-
All other systems: Reviewed and negative
Abdomen/GI: Reports Nausea and Vomiting
Physical Exam
-
General: Well Developed, Well Nourished and No Apparent Distress
HEENT: Normocephalic and Atraumatic
Respiratory: Clear to Auscultation; Negative Wheezes or Rhonchi
Cardiac: Regular Rhythm and S1/S2; Negative Murmur
GI: Soft, Nontender, Nondistended and Ostomy; Negative Normal Bowel Sounds (hypoactive)
Genito-urinary: Other (urostomy)
Musculoskeletal: No Clubbing, No Cyanosis and No Edema
Neuro: Awake
Psych: Calm
[2023-06-26] MEDS: INVANZ 60 MG IV (15:05)
[2023-06-26 15:16] VITALS: BP 160/94
[2023-06-26] MEDS: NSS 1000 IV (17:04)
[2023-06-26] MEDS: COMPAZINE IV (17:05)
[2023-06-26 23:06] VITALS: BP 129/76
[2023-06-27] VITALS (10 sets, daily range): BP systolic 62–167; BP diastolic 51–85
[2023-06-27] MEDS: NSS 1000 IV ×3 (01:40→21:40)
--- NOTE | 2023-06-27 04:32 | PTCARENOTE ---
Patient has had several formed bowel movements this shift. Urostomy draining clear tonya urine. No c/o n/v or pain. Plan of care continues
[2023-06-27] MEDS: SYNTHROID 50 MCG PO (05:57)
[2023-06-27 06:34] LABS: % Basophils 0.4 % (0-2); % Eosinophils 0.5 % (0-6); % Immature Granulocytes 0.4 % (0-0.5); % Lymphocytes 8.5 % (20.5-51.1); % Monocytes 11.1 % (1.7-9.3); % Neutrophils 79.1 % (42.2-75.2); Absolute Lymphocytes 0.6 10^3/uL (1.2-3.4); Absolute Monocytes 0.8 10^3/uL (0.1-0.6); Absolute Neutrophils 5.9 10^3/uL (1.4-6.5); Hematocrit 42.4 % (39.0-52.0); Hemoglobin 13.6 g/dL (13.0-18.0); Mean Corp Hgb Conc. 32.1 g/dL (33.0-37.0); Mean Corpuscular Hgb 28.7 pg (27.0-31.0); Mean Corpuscular Volume 89.5 fL (80.0-94.0); Mean Platelet Volume 11.1 fL (7.4-10.4); Nucleated Red Blood Cells % 0 % (-); Platelet Count 217 10^3/uL (130-400); Red Blood Cell Count 4.74 10^6/uL (4.70-6.10); Red Cell Dist. Width 13.1 % (11.5-14.5); White Blood Cell Count 7.5 10^3/uL (4.8-10.8)
[2023-06-27 06:59] LABS: ALT (SGPT) 242 U/L (0-50); AST (SGOT) 258 U/L (17-59); Albumin 3.3 g/dl (3.5-5.0); Alkaline Phosphatase 490 U/L (38-126); Blood Urea Nitrogen 34 mg/dl (9-20); Calcium 9.2 mg/dl (8.4-10.2); Carbon Dioxide 23 mmol/L (22-30); Chloride 106 mmol/L (98-107); Creatine Phosphokinase 99 U/L (55-170); Estimated Creatinine Clearance 54 ml/min; Glucose 83 mg/dl (70-99); Magnesium 2.3 mg/dl (1.6-2.3); Potassium 4.6 mmol/L (3.5-5.1); Sodium 138 mmol/L (135-145); Total Protein 6.6 g/dl (6.3-8.2); eGFR 52.31
[2023-06-27] MEDS: PROTONIX IV 40 MG IV ×2 (08:29→19:52)
[2023-06-27] MEDS: ASPIR LOW (ENTERIC COATED) 81 MG PO (08:29)
[2023-06-27] MEDS: NSS (PRESERVATIVE FREE) 10 ML IV ×2 (08:32→19:50)
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
--- NOTE | 2023-06-27 10:00 | W.PN.CRS1 ---
Addendum entered and electronically signed by Michael Newman MD 06/27/23 17:04:
I saw and examined the patient.
The PA's note was reviewed and I agree with the note.
Comment:
Seen in a.m. with PA.
Still with pelvic discomfort. No vomiting since yesterday, however had some nausea and dry heaving overnight.
Vitals and blood work reasonable. White count normal.
Abdomen unchanged. Both stomas viable and with output.
CT abdomen pelvis reviewed from yesterday. This shows stable pelvic/presacral abscess and stable/unchanged sacral osteomyelitis. The colon is filled with stool being consistent with constipation. There is no evidence for obstruction. Of concern,
the liver shows a number of hypodense lesions concerning for metastatic disease of unclear source.
We did reach out to ET nursing to arrange irrigation of the colostomy. This may help with the constipation.
The nausea is of unclear cause. Dr. Oosrio did reach out to GI again for their opinion. There is no obstruction.
As for the liver nodules, Dr. Osorio has arranged biopsy. Medical oncology evaluation may be considered.
Encourage p.o. intake.
Original Note:
Today's Communication / Plan
-
Medical oncology
GI consult
Stoma flushes
Assessment/Plan
-
Assessment: 62yo male with a h/o multiple abdominal surgeries s/p ileal conduit and left colostomy with completion proctectomy and anal resection by Dr. Lamar at [facility], with known pelvis abscess scheduled for aspiration today by IR, presents to the
ER with vomiting and dry heaving since last night, WBC 8.4, vitals normal.
Plan:
1.� CT abdomen and pelvis performed yesterday shows grossly stable presacral abscess. Moderate fecal material in the colon, stable. Postsurgical changes. Hypodense hepatic lesions consistent with metastatic disease and till proven otherwise.
New. Given these findings, recommend medical oncology consult.
2.� Cultures from aspiration show no growth.
3.� Continue regular diet.
4.� WBC normal.� Vitals normal.
5.� Antibiotics per infectious disease.
6.� Continue daily MiraLAX.
7.� No surgery indicated at this time.
8.� Recommend outpatient pain management. Recommendation placed in discharge instructions.
9. Will discuss stoma irrigations with wound nurse.
10. Given continuous nausea and vomiting, recommend gastroenterology consult.
Subjective Data
Subjective Data
Date of Service: June 27, 2023
Patient states he is still nauseous and vomited yesterday. He is now having bowel function from his ostomy. He still complains of rectal pain and pressure.
Objective Data
-
Vital Signs
Temp Pulse Resp BP Pulse Ox
98.2 F 85 18 150/85 96
06/27/23 07:30 06/27/23 07:30 06/27/23 07:30 06/27/23 07:30 06/27/23 07:30
Intake & Output
06/26/23 06/27/23 06/28/23
06:59 06:59 06:59
Intake Total 480 / 480 1140 / 1140
Balance 480 / 480 1140 / 1140
Intake:
Oral fluids 480 / 480 1140 / 1140
Other:
Number of approximated MODERATE 4 2
amounts of urine
Number of approximated LARGE 1
amounts of urine
Number of immeasurable emeses? 1 2
Lab Results
06/27/23 06:16
06/27/23 06:16
Physical Exam
-
General: No Acute Distress and AOx3
Abdomen: Soft, Non Distended, Non Tender and Other (colostomy warm and pink with function)
Skin: Warm and Dry
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
[2023-06-27 10:44] LABS: INR 1.12; PT 14.3 Sec (11.4-14.6)
--- NOTE | 2023-06-27 10:51 | PTCARENOTE ---
Patient for liver biopsy tomorrow. NPO after midnight tonight. Coagulation studies ordered for the morning.
[2023-06-27] MEDS: CUBICIN 10 MG IV (12:32)
[2023-06-27] MEDS: INVANZ 60 MG IV ×2 (12:32)
--- NOTE | 2023-06-27 13:10 | W.PN.HOSP.TC ---
Addendum entered and electronically signed by Ele Blair MD 06/27/23 17:45:
I saw and examined the patient.
The PASTE UP ARTIST APPRENTICE or PA's note was reviewed and I agree with the note.
Comment:
This patient is a 62-year-old man with a history of bladder cancer status post cystectomy and urostomy who also had a sigmoid and rectal resection with colostomy. He had a question of a sacral osteomyelitis and an abdominal abscess. He has been
having worsening nausea which is why we were consulted. He states that today with his current treatment his nausea has improved he was able to have a fruit cup.
unable to examine abdomen as he is s/p IR bx and on his side
he is alert and oriented
impression:
n/v improved
abnl lfts
plan:
PPI
antiemetics
po as tolerated
follow lfts
hold hepatotoxic meds
Original Note:
Today's Communication/Plan
-
for liver mass biopsy today
consult GI for persist n/v
consideration for brain MRI if not improved
Assessment / Plan
Assessment / Plan
pt is a 62 year old male
Nausea--ongoing--apprec CRS--x-ray 06/25 with constipation and large fecal burden--did not tolerate mag citrate--CT scan shows hypodense hepatic lesions--IR consulted for biopsy
Bladder cancer s/p cystectomy, now with urostomy (Chemo for bladder cancer which permeated through his gut and resulted in sigmoid/anus/rectum resection) now with colostomy
sacral osteomyelitis? and E. coli and Klebsiella oxytoca UTI (although pt does have a urostomy)--MRI 06/16/23 showed several abscesses in pelvis, possibly osteomyelitis of sacrum, possibly infectious myositis of the bilateral psoas and obturator
muscles--cont ABX as per ID although aspirate culture is negative, rec Ertapenem and Daptomycin x 6 weeks, will need PICC line--WBC 11 on admission, now WNL--urine with E. coli and Klebsiella oxytoca apprec IR/CRS/ID
CKD stage 3--renal dose meds--creat at baseline
Elevated LFT, likely reactive--cont to monitor LFT--Will NOT resume MANAGER METAL statin/Zetia for now
CAD s/p stent
DVT ppx: HSQ
code status--FULL CODE
Anticipated Discharge: 24 - 48 hours
Subjective/Interval History
-
Date of Service: June 27, 2023
pt feeling much better with IVF
Objective Data
-
Labs:
Laboratory Results
06/27/23 06/27/23
06:16 10:19
WBC 7.5
Hgb 13.6
Hct 42.4
Plt Count 217
PT 14.3
INR 1.12
Sodium 138
Potassium 4.6
Chloride 106
Carbon Dioxide 23
BUN 34 H
Creatinine 1.5 H
Glucose 83
Calcium 9.2
Total Bilirubin 2.0 H
AST 258 H
ALT 242 H
Alkaline Phosphatase 490 H
Vital Signs:
max temp for 24 hours
06/26/23
23:06
Temp 98.1 F
Vital Signs
Temp Pulse Resp BP Pulse Ox
98.2 F 85 18 150/85 95
06/27/23 07:30 06/27/23 07:30 06/27/23 07:30 06/27/23 07:30 06/27/23 10:38
I&O
06/26/23 06/27/23 06/28/23
06:59 06:59 06:59
Intake Total 480 / 480 1140 / 1140
Balance 480 / 480 1140 / 1140
Review of Systems
-
All other systems: Reviewed and negative
Physical Exam
-
General: Well Developed, Well Nourished and No Apparent Distress
HEENT: Normocephalic and Atraumatic; Negative Oxygen
Respiratory: Clear to Auscultation; Negative Wheezes or Rhonchi
Cardiac: Regular Rhythm and S1/S2; Negative Murmur
GI: Soft, Nontender, Nondistended, Normal Bowel Sounds and Ostomy
Genito-urinary: Other (urostomy)
Musculoskeletal: No Clubbing, No Cyanosis and No Edema
Skin: Warm
Neuro: Awake
Psych: Calm
[2023-06-27 13:24] LABS: Hepatitis B Surface Antigen Negative (Negative)
--- NOTE | 2023-06-27 13:37 | WOUNDNOTE ---
[facility] RN NOTE: Patient consulted for colostomy flush. Reviewed chart and met with patient while he was on the way to liver biopsy. Per patient and RN Alejandra , patient is no longer reports nausea and colostomy is draining soft, formed stool. Velma
Armani notified, and plan is to hold off on stoma flush right now. Will follow as needed.
[2023-06-27 13:41] LABS: Hepatitis B Core Ab, Total Negative (Negative); Hepatitis B Surface Antibody Negative; Hepatitis C Antibody Negative (Negative)
--- NOTE | 2023-06-27 13:54 | PTCARENOTE ---
Patient went for liver biopsy this afternoon. Coags WNL. Awaiting his return to unit.
[2023-06-27 14:19] LABS: Hepatitis A Antibody, Total Negative (Negative)
--- NOTE | 2023-06-27 14:57 | CM ---
Patient seen at bedside with and physician. Patient for liver biopsy possibly today. Patient updated that the IV antibiotics would be covered at 100% per Khadijah from [facility], text to CM. CM called and left message for Khadijah, CM also spoke
with Juliann at [facility]; Patient would not be able to get medication prior to Friday at this time.
However, if PICC and Xray, latest physician note is faxed to Melida from [facility] who is covering over the weekend; call [phone]/fax [phone], [facility] may be able to have medication delivered to patient by Friday pm. CM will continue
to follow for discharge planning needs.
--- NOTE | 2023-06-27 20:06 | PTCARENOTE ---
Patient's activity restrictions removed at 1700. Liver biopsy site on right lower abdomen with band-aid. No bleeding or oozing noted. Patient resting comfortably in bed. Denies nausea or pain. No vomiting. Patient ate small amount of dinner and
tolerated it well.
[2023-06-28 01:58] LABS: PSA Total 0.1 ng/mL (0.0-4.0)
[2023-06-28] MEDS: SYNTHROID 50 MCG PO (06:15)
[2023-06-28 06:58] LABS: Hematocrit 40.9 % (39.0-52.0); Hemoglobin 13.2 g/dL (13.0-18.0); Mean Corp Hgb Conc. 32.3 g/dL (33.0-37.0); Mean Corpuscular Hgb 29.1 pg (27.0-31.0); Mean Corpuscular Volume 90.3 fL (80.0-94.0); Mean Platelet Volume 11.2 fL (7.4-10.4); Platelet Count 202 10^3/uL (130-400); Red Blood Cell Count 4.53 10^6/uL (4.70-6.10); Red Cell Dist. Width 13.2 % (11.5-14.5); White Blood Cell Count 6.7 10^3/uL (4.8-10.8)
[2023-06-28 07:28] LABS: ALT (SGPT) 299 U/L (0-50); AST (SGOT) 415 U/L (17-59); Alkaline Phosphatase 555 U/L (38-126); Blood Urea Nitrogen 30 mg/dl (9-20); Calcium 8.9 mg/dl (8.4-10.2); Carbon Dioxide 25 mmol/L (22-30); Chloride 109 mmol/L (98-107); Estimated Creatinine Clearance 58 ml/min; Glucose 91 mg/dl (70-99); Magnesium 2.2 mg/dl (1.6-2.3); Potassium 4.9 mmol/L (3.5-5.1); Sodium 138 mmol/L (135-145); Total Bilirubin 3.1 mg/dl (0.2-1.3); Total Protein 6.2 g/dl (6.3-8.2); eGFR 56.83
[2023-06-28 07:42] VITALS: BP 137/64
[2023-06-28] MEDS: NSS 1000 IV (08:59)
[2023-06-28] MEDS: ASPIR LOW (ENTERIC COATED) 81 MG PO (09:01)
[2023-06-28] MEDS: NSS (PRESERVATIVE FREE) 10 ML IV ×2 (09:03→20:41)
[2023-06-28] MEDS: FLUSH (NSS) 1 FLUSH IV ×2 (09:03→12:26)
[2023-06-28] MEDS: PROTONIX IV 40 MG IV ×2 (09:03→20:41)
--- NOTE | 2023-06-28 10:49 | W.PN.GI.CBS2 ---
Addendum entered and electronically signed by Ele Blair MD 06/28/23 14:17:
I saw and examined the patient.
The [employer] MAT INSPECTOR or PA's note was reviewed and I agree with the note.
Comment:
Pt w/o n/v this morning. feels better since biopsy
abd soft
impression:
N/v
abnl lfts
plan:
PPI
outpt f/u for liver bx and f/u liver labs
will sign off call with questions
Addendum entered and electronically signed by Mora Major NP 06/28/23 11:46:
If not discharged can repeat labs inpatient Friday. (Hospitalist note reviewed)
Original Note:
Today's Communication / Plan
-
Daily PPI. Once daily MiraLax to avoid constipation. He will follow-up with oncology when his liver biopsy results are back (he is requesting Dr. Martin). Would advise he repeat liver enzymes early next week (slip left on the chart). He can
follow-up in the GI office in 4-6 weeks. Will sign off call back with questions or concerns.
Assessment / Plan
-
The patient is a 62-year-old male with a complex past medical history significant for bladder cancer (diagnosed in 2018) status post chemotherapy with cystectomy secondary to bladder perforation and placement of ileal conduit with subsequent fistula
to the sigmoid colon requiring partial colectomy, anal resection, and prostatectomy with colostomy placement in 2019 at [facility] by Dr. Lamar, CAD status post cardiac stenting in 2017 x 1 stent, remote history of testicular cancer with radiation
therapy in the , chronic kidney disease, hyperlipidemia, hypothyroidism, who presented to the emergency room on 06/24 with complaints of nausea and rectal pain. Events as noted above, with persistent nausea for the past 5 to 6 weeks. Admitted
for sacral abscess which was drained and started on IV antibiotics. Being followed by infectious disease and colorectal surgery. X-ray imaging showed a large fecal burden. CT imaging was done after intolerance of mag citrate which did show a
moderate fecal burden but also with findings concerning for hepatic metastasis. His nausea has since improved after moving his bowels overnight. He has not required any further Compazine since yesterday evening
Problem list:
-Intractable nausea/vomiting, resolved
-Complicated history of bladder cancer with multiple abdominal surgeries with placement ileal conduit and partial colectomy with colostomy
-CT imaging showing concerning findings of hepatic lesions,?malignancy; status post liver biopsy on 06/26
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
-Chronic kidney disease
-Abnormal LFTs; uptrending
Other pertinent medical history:
-CAD status post cardiac stent in 2017
-Remote history of testicular cancer with radiation therapy
-Hyperlipidemia
-Hypothyroidism
Recommendations:
-Etiology of persistent nausea/vomiting possibly secondary to constipation versus other upper GI source (such as H. pylori versus peptic ulcer disease) versus medication induced versus other
---His nausea has resolved at this point in time, likely secondary to constipation with improved bowel habits. He is tolerating his diet and has not required any further antiemetics. He would like to be discharged today.
-Can continue PPI at discharge once daily.
-Would recommend to continue a bowel regimen of some sort. Would recommend MiraLAX 1 capful daily and adjust based on stool response.
-Noted with uptrending LFTs total bilirubin 3.1, AST 415, ALT 299, alk phos 555. He denies any abdominal pain and does not appear to have any significant jaundice. I did discuss with the Dr. Blair who is okay for discharge from GI standpoint in
regards to his LFTs with close follow-up and repeat labs early next week. I did advise patient that if he develops any significant jaundice, dark urine, or abdominal pain he will need to return to the emergency room for reevaluation. There could be
many reason for this elevation with his liver lesions versus recent liver biopsy versus drug-induced versus other. Discussed with Dr. Osorio.
-Hepatitis serologies are negative
-To consider eventual outpatient EGD if recurrent nausea symptoms.
-Infectious disease and colorectal surgery are following
-Antibiotics as per ID
-No new GI recommendations at this time. He will follow-up with oncology when his liver biopsy results are back (he is requesting Dr. Martin). Would advise he repeat liver enzymes early next week (slip left on the chart). He can follow-up in
the GI office if he wishes. Will have our office reach out to him for a follow-up in 4 to 6 weeks. Will sign off call back with questions or concerns.
Discharge recommendations:
-Once daily PPI, can continue for 2 to 4 weeks and wean off if no recurrent nausea/no reflux symptoms. Consider OP EGD.
-Recommend to start on a daily bowel regimen with MiraLAX 1 capful daily/17 g and adjust based on stool response to avoid constipation.
-Repeat LFTs early next week. I did give him ER precautions for signs of obstructive jaundice.
-Follow-up with oncology pending liver biopsy results.
-Outpatient GI follow-up in 4 to 6 weeks for follow-up on liver enzymes and nausea.
Subjective
Subjective
Date of Service: June 28, 2023
The pt was seen and examined at the bedside. He is tolerating regular diet with adequate output from his colostomy. He would like to be discharged today. He has not had no further nausea or vomiting. Notable with increasing liver enzymes. He
denies abdominal pain and does not appear jaundiced. Status post liver biopsy yesterday.
Objective
Data Reviewed
Laboratory Data:
Laboratory Results
06/28/23 06:22
06/28/23 06:22
Laboratory Results
PT 14.3 Sec (11.4-14.6) 06/27/23 10:19
INR 1.12 06/27/23 10:19
Magnesium 2.2 mg/dl (1.6-2.3) 06/28/23 06:22
Total Bilirubin 3.1 mg/dl (0.2-1.3) H D 06/28/23 06:22
AST 415 U/L (17-59) H 06/28/23 06:22
ALT 299 U/L (0-50) H 06/28/23 06:22
Alkaline Phosphatase 555 U/L (38-126) H 06/28/23 06:22
Vital Signs and I&O:
Vital Signs
Temp Pulse Resp BP Pulse Ox
97.4 F 74 18 137/64 99
06/28/23 07:42 06/28/23 07:42 06/28/23 07:42 06/28/23 07:42 06/28/23 08:58
I&O
06/27/23 06/28/23 06/29/23
06:59 06:59 06:59
Intake Total 1140 / 1140 1310 / 1310
Balance 1140 / 1140 1310 / 1310
Physical Exam
Physical Exam
HEENT: Anicteric
Cardiology: S1 and S2 (Regular rate/rhythm)
Pulmonary: Clear
GI: Soft, Non Distended, Non Tender, Normal Bowel Sounds and Other (Left lower quadrant ileal conduit with yellow drainage, right lower quadrant colostomy)
Extremities: No Edema
Neuro: Non Focal
--- NOTE | 2023-06-28 11:21 | W.PN.HOSP.TC ---
Today's Communication/Plan
-
cannot leave until Friday--needs IV ABX set up
Picc today
follow LFTs
Assessment / Plan
Assessment / Plan
pt is a 62 year old male
Nausea-resolved/constipation resolved---apprec CRS--x-ray 06/25 with constipation and large fecal burden---CT scan shows hypodense hepatic lesions
Bladder cancer s/p cystectomy, now with urostomy (Chemo for bladder cancer which permeated through his gut and resulted in sigmoid/anus/rectum resection) now with colostomy
sacral osteomyelitis? and E. coli and Klebsiella oxytoca UTI (although pt does have a urostomy)--MRI 06/16/23 showed several abscesses in pelvis, possibly osteomyelitis of sacrum, possibly infectious myositis of the bilateral psoas and obturator
muscles--cont ABX as per ID although aspirate culture is negative, Ertapenem and Daptomycin daily x 6 weeks-- PICC line--WBC 11 on admission, now WNL--urine with E. coli and Klebsiella oxytoca apprec IR/CRS/ID
CKD stage 3--renal dose meds--creat at baseline
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
CAD s/p stent
DVT ppx: HSQ
code status--FULL CODE
Anticipated Discharge: > 48 hours
Subjective/Interval History
-
Date of Service: June 28, 2023
pt wants to go home but IV ABX not set up yet
Objective Data
-
Labs:
Laboratory Results
06/28/23
06:22
WBC 6.7
Hgb 13.2
Hct 40.9
Plt Count 202
Sodium 138
Potassium 4.9
Chloride 109 H
Carbon Dioxide 25
BUN 30 H
Creatinine 1.4 H
Glucose 91
Calcium 8.9
Total Bilirubin 3.1 H D
AST 415 H
ALT 299 H
Alkaline Phosphatase 555 H
Vital Signs:
max temp for 24 hours
06/27/23
23:34
Temp 98.6 F
Vital Signs
Temp Pulse Resp BP Pulse Ox
97.4 F 74 18 137/64 99
06/28/23 07:42 06/28/23 07:42 06/28/23 07:42 06/28/23 07:42 06/28/23 08:58
I&O
06/27/23 06/28/23 06/29/23
06:59 06:59 06:59
Intake Total 1140 / 1140 1310 / 1310
Balance 1140 / 1140 1310 / 1310
Review of Systems
-
All other systems: Reviewed and negative
Physical Exam
-
General: Well Developed, Well Nourished and No Apparent Distress
HEENT: Normocephalic and Atraumatic
Respiratory: Clear to Auscultation; Negative Wheezes or Rhonchi
Cardiac: Regular Rhythm and S1/S2; Negative Murmur
GI: Soft, Nontender, Nondistended, Normal Bowel Sounds, Ostomy and Other (urostomy)
Musculoskeletal: No Clubbing, No Cyanosis and No Edema
Neuro: Awake
--- NOTE | 2023-06-28 11:35 | W.PN.GS2 ---
Today's Communication / Plan
-
Care per primary, surgery will sign off at this time.
Assessment / Plan
-
This is a 62-year-old male with a history of multiple abdominal surgeries status post ileal conduit and left colostomy with completion proctectomy and anal resection at [facility] here with a pelvic abscess as well as nausea vomiting
? Possible ileus that is now resolved.
Can advance diet as tolerated.
Antibiotics per ID.
No acute surgical intervention warranted, colorectal surgery will sign off for now.
Please call with any questions or concerns. Patient to follow-up with his surgeon at [facility] [place]
Time Spent
Total Time Spent with Patient (in minutes): 20
Subjective Data
-
Date of Service: June 28, 2023
Interval Events:
No acute events overnight. Slept well. Pain Controlled. Denies Nausea/Vomiting, ostomy working. Pain resolved.
Objective Data
-
Intake and Output
06/27/23 06/28/23 06/29/23
06:59 06:59 06:59
Intake Total 1140 / 1140 1310 / 1310
Balance 1140 / 1140 1310 / 1310
Intake:
Oral fluids 1140 / 1140 360 / 360
IV fluids (Total) 800 / 800
IV piggybacks 150 / 150
Other:
Number of approximated MODERATE 2
amounts of urine
Number of approximated LARGE 1 1
amounts of urine
Number of immeasurable emeses? 2
Vital Signs
Temp Pulse Resp BP Pulse Ox
97.4 F 74 18 137/64 99
06/28/23 07:42 06/28/23 07:42 06/28/23 07:42 06/28/23 07:42 06/28/23 08:58
Lab Results
06/28/23 06:22
06/28/23 06:22
Calcium 8.9 mg/dl (8.4-10.2) 06/28/23 06:22
Magnesium 2.2 mg/dl (1.6-2.3) 06/28/23 06:22
Total Bilirubin 3.1 mg/dl (0.2-1.3) H D 06/28/23 06:22
AST 415 U/L (17-59) H 06/28/23 06:22
ALT 299 U/L (0-50) H 06/28/23 06:22
Alkaline Phosphatase 555 U/L (38-126) H 06/28/23 06:22
Total Protein 6.2 g/dl (6.3-8.2) L 06/28/23 06:22
Albumin 3.0 g/dl (3.5-5.0) L 06/28/23 06:22
Physical Exam
-
GENERAL/NEURO: Awake, Alert, no distress
CHEST: Unlabored breathing on RA
ABDOMEN: Soft, Non-Tender, Non-Distended, stomas are pink patent and productive. His urostomy is productive of urine, his left colostomy is productive of stool and gas.
[2023-06-28] MEDS: INVANZ 60 MG IV (12:25)
[2023-06-28] MEDS: CUBICIN 10 MG IV (12:25)
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
[2023-06-28] MEDS: TYLENOL 650 MG PO (15:28)
--- NOTE | 2023-06-28 15:34 | CM ---
Addendum entered by Rhiannon Muir 06/28/23 15:45:
Chest xray completed and faxed to [facility].
Original Note:
Chart reviewed and PICC line has been placed for home IV ABX, still waiting on chest xray. Will need to fax both to [facility] infusion, case resource manager will also re fax prescription for IV ABX.
Plan; To follow up with [facility] infusion, and fax PICC line information, chest xray information.
[2023-06-28 15:38] VITALS: BP 138/85
--- NOTE | 2023-06-28 15:57 | PTCARENOTE ---
Pt AAO x3, LIMON well, OOB in room/woods, laney well. VSS. On room air- pulse ox 96%, no SOB noted. Abd large, soft, laney reg diet. Colostomy patent soft brown BM- self care by pt. Urostomy patent tonya urine-self care by pt; pt instructed on
monitoring I&O. RUE single PICC intact; CXR to verify placement completed. Resting in bed at present, no c/o. Will continue to monitor.
[2023-06-28 23:30] VITALS: BP 153/82
[2023-06-29] MEDS: COMPAZINE 5 MG IV ×3 (04:07→17:06)
[2023-06-29] MEDS: TYLENOL 650 MG PO ×3 (04:17→21:01)
[2023-06-29] MEDS: SYNTHROID 50 MCG PO (06:06)
[2023-06-29 07:05] VITALS: BP 142/88
[2023-06-29 08:18] LABS: Hematocrit 41.7 % (39.0-52.0); Hemoglobin 13.5 g/dL (13.0-18.0); Mean Corp Hgb Conc. 32.4 g/dL (33.0-37.0); Mean Corpuscular Hgb 28.9 pg (27.0-31.0); Mean Corpuscular Volume 89.3 fL (80.0-94.0); Mean Platelet Volume 11.1 fL (7.4-10.4); Platelet Count 183 10^3/uL (130-400); Red Blood Cell Count 4.67 10^6/uL (4.70-6.10); Red Cell Dist. Width 13.2 % (11.5-14.5); White Blood Cell Count 10.1 10^3/uL (4.8-10.8)
[2023-06-29] MEDS: ASPIR LOW (ENTERIC COATED) 81 MG PO (08:26)
--- NOTE | 2023-06-29 08:30 | PTCARENOTE ---
Pt. refused to let this nurse assess his sacrum and liver biopsy sites. Education provided on the importance of this assessment. Pt. still unwilling to allow this nurse to assess his skin. Will continue to monitor and report on pt.
[2023-06-29] MEDS: NSS (PRESERVATIVE FREE) IV (08:31)
[2023-06-29] MEDS: PROTONIX IV IV (08:31)
[2023-06-29 08:53] LABS: ALT (SGPT) 406 U/L (0-50); AST (SGOT) 642 U/L (17-59); Albumin 3.3 g/dl (3.5-5.0); Alkaline Phosphatase 628 U/L (38-126); Blood Urea Nitrogen 23 mg/dl (9-20); Calcium 8.8 mg/dl (8.4-10.2); Carbon Dioxide 25 mmol/L (22-30); Chloride 106 mmol/L (98-107); Estimated Creatinine Clearance 58 ml/min; Glucose 158 mg/dl (70-99); Potassium 3.7 mmol/L (3.5-5.1); Sodium 136 mmol/L (135-145); Total Bilirubin 5.2 mg/dl (0.2-1.3); Total Protein 6.4 g/dl (6.3-8.2); eGFR 56.83
--- NOTE | 2023-06-29 10:05 | PTCARENOTE ---
Dr. Osorio made aware pt with c/o right side abd severe pain, Pt. states, its right under his rib. Pt. doesn't want anything but Tylenol and it is to early at this time to administer, this nurse will administer when it is time. No new orders at
this time. Will continue to monitor and report on pt.
--- NOTE | 2023-06-29 11:20 | W.PN.HOSP.TC ---
Today's Communication/Plan
-
home with IV abx after set up tomorrow
Assessment / Plan
Assessment / Plan
pt is a 62 year old male
Nausea-resolved/constipation resolved---apprec CRS--x-ray 06/25 showed constipation and large fecal burden---CT scan shows hypodense hepatic lesions
Bladder cancer s/p cystectomy, now with urostomy (Chemo for bladder cancer which permeated through his gut and resulted in sigmoid/anus/rectum resection) now with colostomy
sacral osteomyelitis? and E. coli and Klebsiella oxytoca UTI (although pt does have a urostomy)--MRI 06/16/23 showed several abscesses in pelvis, possibly osteomyelitis of sacrum, possibly infectious myositis of the bilateral psoas and obturator
muscles--cont ABX as per ID although aspirate culture is negative, Ertapenem and Daptomycin IV daily x 6 weeks at home-- PICC line placed--WBC 11 on admission, now WNL--urine with E. coli and Klebsiella oxytoca apprec IR/CRS/ID
presumed muscular pain--will try lidoderm patch
CKD stage 3--renal dose meds--creat at baseline
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
CAD s/p stent
DVT ppx: HSQ
code status--FULL CODE
Anticipated Discharge: Within 24 hours
Subjective/Interval History
-
Date of Service: June 29, 2023
pt c/o right sided pain above iliac crest but below ribs--tender to touch
Objective Data
-
Labs:
Laboratory Results
06/29/23
08:07
WBC 10.1
Hgb 13.5
Hct 41.7
Plt Count 183
Sodium 136
Potassium 3.7
Chloride 106
Carbon Dioxide 25
BUN 23 H
Creatinine 1.4 H
Glucose 158 H
Calcium 8.8
Total Bilirubin 5.2 H D
AST 642 H*
ALT 406 H
Alkaline Phosphatase 628 H
Vital Signs:
max temp for 24 hours
06/28/23
23:30
Temp 97.8 F
Vital Signs
Temp Pulse Resp BP Pulse Ox
98 F 80 16 142/88 93
06/29/23 07:05 06/29/23 07:05 06/29/23 07:05 06/29/23 07:05 06/29/23 07:05
I&O
06/28/23 06/29/23 06/30/23
06:59 06:59 06:59
Intake Total 1310 / 1310 1300 / 1300
Output Total 900 / 900
Balance 1310 / 1310 400 / 400
Review of Systems
-
All other systems: Reviewed and negative
Musculoskeletal: Reports Other (pain)
Physical Exam
-
General: Well Developed, Well Nourished and No Apparent Distress
HEENT: Normocephalic and Atraumatic
Respiratory: Clear to Auscultation; Negative Wheezes or Rhonchi
Cardiac: Regular Rhythm and S1/S2; Negative Murmur
GI: Soft, Nontender, Nondistended, Normal Bowel Sounds, Ostomy and Other (urostomy)
Musculoskeletal: No Clubbing, No Cyanosis, No Edema and Other (right sided muscular pain)
Neuro: Awake
Psych: Calm
[2023-06-29] MEDS: INVANZ 60 MG IV (11:25)
[2023-06-29] MEDS: LIDOCAINE 4% PATCH 1 PATCH TOPICAL (11:25)
--- NOTE | 2023-06-29 14:14 | W.DCSUMMARY ---
Discharge Summary
Discharge Data
Date of Admission: 06/24/23
Date of Discharge: 06/29/23
-
Pending Results: Yes
Additional Pending Results:
Liver mass biopsy
Hospital Course
Primary care physician : Sagar Jade
Principal Discharge diagnosis : Nausea/vomiting/constipation, pelvic abscesses, elevated liver function tests, Escherichia coli and Klebsiella oxytoca urinary tract infection
Chronic Discharge diagnosis : Bladder cancer status post cystectomy and urostomy, colostomy as a result of chemo from bladder cancer which permeated through his gut and resulted in sigmoid/anus/rectum resection, chronic kidney disease stage III,
coronary artery disease status post stent
Hospital Course : Patient was a 62-year-old male with a history of bladder cancer and chemotherapy for bladder cancer now with colostomy who presented with nausea and vomiting for days to weeks. He had a recent pelvic MRI which showed abscesses and
possible osteomyelitis of the sacrum. Patient presented due to extreme nausea. He was admitted.
Problem #1: Nausea/vomiting/constipation. Patient initially thought this was due to the pain medications he was taking as an outpatient. However, imaging studies revealed significant constipation. He did not tolerate the magnesium citrate. He
was seen in consultation by GI and colorectal surgery. Eventually CAT scan was done which showed moderate fecal material in the colon. Eventually, he did get his bowels moving and nausea and vomiting improved. He was also given IV fluids while he
was nauseous.
Problem #2: Pelvic abscesses. Aspiration by interventional radiology was obtained, however, cultures were negative. MRI shows the possibility of osteomyelitis of the sacrum along with infectious myositis of the bilateral psoas and obturator
muscles. White blood cell count was 11 on admission and now is within normal limits. Plan is for 6 weeks of IV ertapenem and daptomycin. Conversation was had with orthopedics but formal consult was not placed as this is not an orthopedic surgical
issue.
Problem #3: Elevated liver function test. Patient did have a biopsy which could have resulted in some elevated liver function test. Patient was on a statin and daptomycin. Daptomycin was stopped by ID and labs should be followed. It is unclear
at this time whether daptomycin will continue on his discharge antibiotic regimen.
Problem #4: Escherichia coli and Klebsiella oxytoca urinary tract infection. Both of these bacteria were isolated from his urine culture. However, patient does have a urostomy and is unclear whether this is truly an infection or colonization.
Nevertheless, he is being treated with IV ertapenem for the pelvic abscesses/sacral osteomyelitis which covers both of these organisms.
Problem #5: All other medical issues. These include Bladder cancer status post cystectomy and urostomy, colostomy as a result of chemo from bladder cancer which permeated through his gut and resulted in sigmoid/anus/rectum resection, chronic kidney
disease stage III, coronary artery disease status post stent. These medical issues were stable during his hospitalization. Medications were continued as able.
Patient is stable to return home with visiting nurses for his IV antibiotics. PICC line has been placed. If there are any questions regarding this dictation or his hospital stay, please not hesitate to call. Our office number is [phone].
Time for discharge 40 minutes.
Important imaging findings :
PELVIC MRI 06/16 IMPRESSION:
Severe presacral inflammatory change with abscesses as described.
Probable reactive lymphadenopathy within the pelvis and left inguinal regions.
Findings highly suspicious for osteomyelitis involving the right hemisacrum inferiorly.
Edema involving the medial aspects of the bilateral psoas and obturator muscles which likely reflects reactive sterile versus infectious myositis.
ABDOMEN/PELVIS CT IMPRESSION: Findings suggesting a grossly stable presacral abscess as described above.
Moderate fecal material in the colon. Stable.
Postsurgical change. Stable
Hypodense hepatic lesions consistent with metastatic disease until proven otherwise. New
Punctate hepatic and splenic calcifications consistent with prior benign granulomatous disease.
Procedure findings :
ASPIRATION IMPRESSION:
Successful CT guided aspiration of presacral fluid collection.
Discharge Plan
-
Patient Disposition: Home with Home Care
Discharge Diagnosis/Procedures: Abdominal pain with nausea and vomiting�resolved, pelvic abscesses along with sacral osteomyelitis, Escherichia coli and Klebsiella oxytoca urinary tract infection, history of bladder cancer status post cystectomy
with urostomy and ostomy from chemo for bladder cancer which permeated through the gut resulted in sigmoid anus and rectum resection, liver mass status post biopsy, elevated liver function test, chronic kidney disease stage III, coronary artery
disease, presumed muscular pain
Condition: Good
Diet: As tolerated
Activity: As tolerated
Driving Restrictions: As prior to admission
Bathing Restrictions: None
Other Services: VN
Activity Restrictions/Additional Instructions:
Will need IV antibiotics for 6 weeks at home
Referrals:
William Méndez MD [Active] - in one to two weeks
Sagar Jade MD [Family Provider] - in less than 1 week
Nancy Guadalupe MD [Active] - in three to four weeks
Prescriptions:
New
DAPTOmycin [Cubicin] 500 MG
Syringe [Syringe-Pump] 0 ML
As Directed mls/hr IV Q24H
Reason for use: Infection
Ordered By: Kristi Osorio MD
Last Taken: 06/28/23 12:25 10 mls
Ertapenem [Invanz] 1000 MG
0.9% Sodium Chloride [Nss] 50 ML
120 mls/hr IV Q24H
Reason for use: Infection
Ordered By: Kristi Osorio MD
Last Taken: 06/29/23 11:25 60 mls
Continued
aspirin [Ecotrin Low Strength] 81 mg Tablet,Delayed Release (Dr/Ec)
81 mg PO DAILY
ezetimibe [Zetia] 10 mg Tablet
10 mg PO DAILY
atorvastatin 80 mg Tablet
80 mg PO DAILY
polyethylene glycol 3350 [Miralax] 17 gram Powder In Packet
17 g PO DAILY PRN (Reason: constipation)
tramadol 50 mg Tablet
50 mg PO Q6H PRN (Reason: severe pain)
Patient Comments:
06/24/2023, pt. filled this med. on 06/20/2023 for 25 tablets according to PDMP.
levothyroxine 50 mcg Tablet
50 mcg PO DAILY
docusate sodium [Stool Softener] 100 mg Capsule
200 mg PO DAILY PRN (Reason: constipation)
Dulcolax (bisacodyl)
2 gummy PO DAILYPRN PRN (Reason: constipation)
acetaminophen [Tylenol Extra Strength] 500 mg Tablet
500 mg PO DAILYPRN PRN (Reason: mild pain)
Discontinued
Excedrin Extra Strength 250-250-65 mg Tablet
1 tab PO Q6HPRN PRN (Reason: mild pain)
[2023-06-29 15:15] VITALS: BP 119/81
[2023-06-29] MEDS: DILAUDID 0.5 MG IV (15:33)
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
--- NOTE | 2023-06-29 17:10 | PTCARENOTE ---
Pt. reported n/v, Compazine administer as ordered. Will continue to monitor and report on pt.
[2023-06-29 18:12] LABS: Creatine Phosphokinase 164 U/L (55-170)
--- NOTE | 2023-06-29 18:30 | PTCARENOTE ---
Pt. resting in bed at this time comfortably. Reports Compazine was effective.
[2023-06-29] MEDS: PROTONIX IV 40 MG IV (20:58)
[2023-06-29] MEDS: NSS (PRESERVATIVE FREE) 10 ML IV (20:58)
[2023-06-29 23:23] VITALS: BP 123/75
--- NOTE | 2023-06-30 04:00 | PTCARENOTE ---
Pt is complaining 8/10 pain but refusing pain medication besides Tylenol due to n/v. RN notified [employer] due to high LFT's- ordered to continue Tylenol PRN. RN given Tylenol for pain. Pt is now resting comfortably w/ call talavera within reach.
[2023-06-30] MEDS: TYLENOL 650 MG PO ×3 (04:13→23:41)
[2023-06-30] MEDS: SYNTHROID 50 MCG PO (04:13)
[2023-06-30 05:39] LABS: Hematocrit 41.3 % (39.0-52.0); Hemoglobin 13.5 g/dL (13.0-18.0); Mean Corp Hgb Conc. 32.7 g/dL (33.0-37.0); Mean Corpuscular Hgb 28.8 pg (27.0-31.0); Mean Corpuscular Volume 88.2 fL (80.0-94.0); Mean Platelet Volume 11.6 fL (7.4-10.4); Platelet Count 176 10^3/uL (130-400); Red Blood Cell Count 4.68 10^6/uL (4.70-6.10); Red Cell Dist. Width 13.6 % (11.5-14.5)
[2023-06-30 05:58] LABS: ALT (SGPT) 342 U/L (0-50); AST (SGOT) 418 U/L (17-59); Albumin 3.1 g/dl (3.5-5.0); Alkaline Phosphatase 593 U/L (38-126); Blood Urea Nitrogen 21 mg/dl (9-20); Calcium 8.8 mg/dl (8.4-10.2); Carbon Dioxide 26 mmol/L (22-30); Chloride 105 mmol/L (98-107); Estimated Creatinine Clearance 58 ml/min; Glucose 114 mg/dl (70-99); Magnesium 1.8 mg/dl (1.6-2.3); Potassium 3.6 mmol/L (3.5-5.1); Sodium 136 mmol/L (135-145); Total Bilirubin 6.9 mg/dl (0.2-1.3); Total Protein 6.2 g/dl (6.3-8.2); eGFR 56.83
[2023-06-30 07:35] VITALS: BP 147/84
[2023-06-30] MEDS: PROTONIX IV 40 MG IV ×2 (08:17→20:19)
[2023-06-30] MEDS: NSS (PRESERVATIVE FREE) 10 ML IV ×2 (08:18→20:19)
--- NOTE | 2023-06-30 09:03 | W.PN.GI.CBS2 ---
Addendum entered and electronically signed by Ele Blair MD 06/30/23 18:24:
I saw and examined the patient.
The TOUCHER [employer] or PA's note was reviewed and I agree with the note.
Comment:
Pt with pain yesterday, liver bx alice. CTA today showed dilated biliary ducts. Unclear if new
icteric
oriented
impression:
jaundice
abnl lfts etiology is metastatic liver lesions vs obstructive causes
plan:
EUS +/- ERCP tomorrow
follow lfts
Addendum entered and electronically signed by Mora Major NP 06/30/23 14:56:
Updated the pt and his at the bedside. They are agreeable with the plan for EUS/ERCP tomorrow.
Addendum entered and electronically signed by Mora Major NP 06/30/23 14:13:
Discussed the case with Dr. Beltran. He will do EUS/ERCP tomorrow. MRCP cancelled. Dr. Blair to discuss with the pt. The nurse is aware. OK for CLD and NPO after MN.
Addendum entered and electronically signed by Mora Major NP 06/30/23 13:36:
CT findings noted. Discussed with radiologist and Dr. Blair. Will order MRI with MRCP for further evaluation. Will discuss with the patient at the bedside.
Original Note:
Today's Communication / Plan
-
Will check CT angio abdomen/pelvis as recommended by IR physician. Trend LFTs. Avoid hepatotoxins. N.p.o. until CT scan is complete/resulted.
Assessment / Plan
-
The patient is a 62-year-old male with a complex past medical history significant for bladder cancer (diagnosed in 2018) status post chemotherapy with cystectomy secondary to bladder perforation and placement of ileal conduit with subsequent fistula
to the sigmoid colon requiring partial colectomy, anal resection, and prostatectomy with colostomy placement in 2019 at [facility] by Dr. Lamar, CAD status post cardiac stenting in 2017 x 1 stent, remote history of testicular cancer with radiation
therapy in the , chronic kidney disease, hyperlipidemia, hypothyroidism, who presented to the emergency room on 06/24 with complaints of nausea and rectal pain. Events as noted above, with persistent nausea for the past 5 to 6 weeks. Admitted
for sacral abscess which was drained and started on IV antibiotics. Being followed by infectious disease and colorectal surgery. X-ray imaging showed a large fecal burden. CT imaging was done after intolerance of mag citrate which did show a
moderate fecal burden but also with findings concerning for hepatic metastasis. S/p liver bx on 06/26, pathology is pending. After improvement of his bowels he did have resolution of his nausea and vomiting. He has had increased LFT's since admission
but onset of RUQ pain on 06/28 with up-trending bilirubin which continues to rise.
Problem list:
-Hyperbilirubinemia, abnormal LFTs; rising
-Complicated history of bladder cancer with multiple abdominal surgeries with placement ileal conduit and partial colectomy with colostomy
-CT imaging showing concerning findings of hepatic lesions,?malignancy; status post liver biopsy on 06/26
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
-Chronic kidney disease, stable
-Intractable nausea/vomiting, resolved
Other pertinent medical history:
-CAD status post cardiac stent in 2017
-Remote history of testicular cancer with radiation therapy
-Hyperlipidemia
-Hypothyroidism
Recommendations:
-Etiology of rising LFTs possibly secondary to hepatic lesions versus DILI (Cubicin was discontinued by ID) versus complication from liver biopsy (cannot rule out hematoma with new onset of right upper quadrant pain) versus other biliary etiology
---Hepatitis serologies are negative. His acute right upper quadrant pain has improved this morning.
-I did reach out to interventional radiology to see what imaging would be best in case there needs to be some IR intervention with his recent liver biopsy. They recommend CT angio of the abdomen and pelvis with IV contrast for further evaluation
(spoke with Dr. Geller).
-Will await CT imaging
-Continue n.p.o.
-Continue to trend LFTs
-Avoid hepatotoxins
-His nausea and vomiting has resolved. Continue daily PPI
-Infectious disease is following, antibiotics per them
-Bowel regimen with MiraLAX 1 capful/17 g daily if the patient is agreeable to this, otherwise can use as needed
-Will follow
Subjective
Subjective
Date of Service: June 30, 2023
The patient seen and examined at the bedside. He reports that his right upper quadrant pain is markedly improved today. His bilirubin continues to trend up today at 6.9, otherwise LFTs remain stable. He denies any blood from his ostomy.
Ultrasound the abdomen is pending today.
Objective
Data Reviewed
Laboratory Data:
Laboratory Results
06/30/23 05:12
06/30/23 05:12
Laboratory Results
PT 14.3 Sec (11.4-14.6) 06/27/23 10:19
INR 1.12 06/27/23 10:19
Magnesium 1.8 mg/dl (1.6-2.3) 06/30/23 05:12
Total Bilirubin 6.9 mg/dl (0.2-1.3) H 06/30/23 05:12
AST 418 U/L (17-59) H 06/30/23 05:12
ALT 342 U/L (0-50) H 06/30/23 05:12
Alkaline Phosphatase 593 U/L (38-126) H 06/30/23 05:12
Vital Signs and I&O:
Vital Signs
Temp Pulse Resp BP Pulse Ox
98 F 80 16 147/84 95
06/30/23 07:35 06/30/23 07:35 06/30/23 07:35 06/30/23 07:35 06/30/23 07:35
I&O
06/29/23 06/30/23 07/01/23
06:59 06:59 06:59
Intake Total 1300 / 1300 [id number]
Output Total 900 / 900
Balance 400 / 400 2039
Physical Exam
Physical Exam
Cardiology: S1 and S2 (Regular rate/rhythm)
Pulmonary: Clear
GI: Soft, Non Distended, Tender (Minimally tender to the right upper quadrant), Normal Bowel Sounds and Other (Right lower quadrant ileal conduit with dark tonya urine, left lower quadrant colostomy with brown stool and pink stoma)
Extremities: No Edema
Neuro: Non Focal
[2023-06-30] MEDS: NSS 500 IV ×2 (09:36→11:23)
[2023-06-30 09:52] LABS: Direct Bilirubin 5.3 mg/dl (0.0-0.4)
--- NOTE | 2023-06-30 11:07 | W.PN.HOSP.TC ---
Today's Communication/Plan
-
cannot discharge today with persistent severe nausea and now vomiting
Compazine PRN
follow CT AP angio,
NPO for now, cont IVF
Assessment / Plan
Assessment / Plan
A/P:
# Nausea
# constipation, resolved
apprec CRS
x-ray 06/25 showed constipation and large fecal burden
CT scan shows hypodense hepatic lesions
CT angio abdomen/pelvis was obtained 06/29 due to elevated LFT, pending report
NPO until CT AP report is out, cont IVF before and after CT scan for renal protection
Compazine PRN for nausea/vomiting
# Elevated LFT, likely due to metastatic disease
CT imaging showed concerning findings of hepatic lesions,?malignancy;�status post liver biopsy on 06/26, Pending path
Daptomycin was stopped
Trend LFTs- improving
Avoid hepatotoxins. [employer] statin/Zetia stopped. Informed about judicious use of Tylenol
# RUQ abd pain, ?due to liver mass
Informed about judicious use of Tylenol
Cont lidocaine patch
consider tramadol PRN with daily Miralax to prevent constipation
# Bladder cancer s/p cystectomy, now with urostomy (Chemo for bladder cancer which permeated through his gut and resulted in sigmoid/anus/rectum resection- now with colostomy)
# sacral osteomyelitis?
# E. coli and Klebsiella oxytoca UTI (although pt does have a urostomy)
urine with E. coli and Klebsiella oxytoca
MRI 06/16/23 showed several abscesses in pelvis, possibly osteomyelitis of sacrum, possibly infectious myositis of the bilateral psoas and obturator muscles
cont ABX as per ID although aspirate culture is negative: Cont Ertapenem and added Vancomycin, with plan for IV Abx for 6 weeks at home
Off Daptomycin due to elevated LFT
PICC line placed
WBC was 11 on admission, now WNL
apprec IR/CRS/ID
# presumed muscular pain
cont trial of lidoderm patch
# CKD stage 3--renal dose meds--creat at baseline
# CAD s/p stent
DVT ppx: HSQ
code status--FULL CODE
DW RN
DW at bedside
total time spent 52 min
Anticipated Discharge: 24 - 48 hours
Subjective/Interval History
-
Date of Service: June 30, 2023
Objective Data
-
Labs:
Laboratory Results
06/30/23
05:12
WBC 12.0 H
Hgb 13.5
Hct 41.3
Plt Count 176
Sodium 136
Potassium 3.6
Chloride 105
Carbon Dioxide 26
BUN 21 H
Creatinine 1.4 H
Glucose 114 H
Calcium 8.8
Total Bilirubin 6.9 H
AST 418 H
ALT 342 H
Alkaline Phosphatase 593 H
Vital Signs:
Vital Signs
Temp Pulse Resp BP Pulse Ox
36.6 C 80 16 147/84 95
06/30/23 07:35 06/30/23 07:35 06/30/23 07:35 06/30/23 07:35 06/30/23 09:58
I&O
06/29/23 06/30/23 07/01/23
06:59 06:59 06:59
Intake Total 1300 / 1300 2039
Output Total 900 / 900
Balance 400 / 400 2039
Review of Systems
-
All other systems: Reviewed and negative
Abdomen/GI: Reports Nausea and Vomiting
Physical Exam
-
General: Well Developed, Well Nourished and No Apparent Distress
HEENT: Normocephalic and Atraumatic
Respiratory: Clear to Auscultation and Non Labored Respirations; Negative Wheezes, Rhonchi or Accessory Resp Muscle Use
Cardiac: Regular Rhythm and S1/S2; Negative Murmur
GI: Soft, Nontender, Nondistended, Normal Bowel Sounds, Ostomy and Other (urostomy)
Musculoskeletal: No Clubbing, No Cyanosis and No Edema
Neuro: Awake
Psych: Calm and Intact Judgement/Insight
Data Reviewed
-
Labs: Labs Reviewed by me
[2023-06-30] MEDS: LIDOCAINE 4% PATCH 1 PATCH TOPICAL (11:24)
[2023-06-30] MEDS: INVANZ 60 MG IV (11:24)
[2023-06-30] MEDS: COMPAZINE 5 MG IV ×2 (12:34→18:34)
--- NOTE | 2023-06-30 12:35 | PHA.VAN.IN ---
Assessment
- Assessment
Renal Function: Appears similar to baseline
Maximum Temperature: 98.8
Minimum Temperature: 97.4
Concomitant Antimicrobials: Ertapenem
Plan
- Plan
Initial / Loading Dose: 1500mg
Maintenance Regimen: Dose by level
Monitoring: Random level ordered for 06/30 @0600
Pharmacokinetics Vancomycin I
- -
Patient Age: 62
Patient Sex: Male
Vancomycin Day #: 1
Indication: Gi / Intra-Abdominal
Requesting Provider: Vaishnavi Guadalupe
Pertinent Antimicrobial Allergies:
NKDA
Height / Weight:
Height 5 ft 11 in
Actual Weight 97.749 kg
Pertinent Past Medical History: CKD, Bladder cancer
- Vital Signs / Lab Results
Temp Pulse Resp BP Pulse Ox
98 F 80 16 147/84 95
06/30/23 07:35 06/30/23 07:35 06/30/23 07:35 06/30/23 07:35 06/30/23 09:58
Lab Results - Hematology
06/28/23 06/29/23 06/30/23
06:22 08:07 05:12
WBC 6.7 10.1 12.0 H
Lab Results - Chemistry
06/28/23 06/29/23 06/30/23
06:22 08:07 05:12
BUN 30 H 23 H 21 H
Creatinine 1.4 H 1.4 H 1.4 H
Estimated Creat Clear 58 58 58
Albumin 3.0 L 3.3 L 3.1 L
Microbiology Results
06/24/23 07:36 Blood Culture - Final
Blood/Venous No Growth - Final Report
06/24/23 07:48 Blood Culture - Final
Blood/Venous No Growth - Final Report
[2023-06-30] MEDS: KCL 20 MEQ PO (13:01)
[2023-06-30] MEDS: ASPIR LOW (ENTERIC COATED) 81 MG PO (13:02)
[2023-06-30] MEDS: VANCOCIN 300 ML IV (13:03)
[2023-06-30] MEDS: VANCOCIN 300 MG IV (13:03)
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
[2023-06-30 15:45] VITALS: BP 143/87
[2023-06-30 23:35] VITALS: BP 129/74
[2023-07-01] VITALS (12 sets, daily range): BP systolic 121–147; BP diastolic 66–89; BMI 30.1
[2023-07-01] MEDS: COMPAZINE 5 MG IV ×2 (00:37→07:20)
[2023-07-01 04:51] LABS: Hematocrit 38.6 % (39.0-52.0); Hemoglobin 12.7 g/dL (13.0-18.0); Mean Corp Hgb Conc. 32.9 g/dL (33.0-37.0); Mean Corpuscular Hgb 29.1 pg (27.0-31.0); Mean Corpuscular Volume 88.3 fL (80.0-94.0); Mean Platelet Volume 11.7 fL (7.4-10.4); Platelet Count 160 10^3/uL (130-400); Red Blood Cell Count 4.37 10^6/uL (4.70-6.10); Red Cell Dist. Width 13.7 % (11.5-14.5); White Blood Cell Count 11.5 10^3/uL (4.8-10.8)
[2023-07-01 05:15] LABS: ALT (SGPT) 261 U/L (0-50); AST (SGOT) 242 U/L (17-59); Albumin 2.8 g/dl (3.5-5.0); Alkaline Phosphatase 440 U/L (38-126); Blood Urea Nitrogen 22 mg/dl (9-20); Carbon Dioxide 28 mmol/L (22-30); Chloride 105 mmol/L (98-107); Estimated Creatinine Clearance 58 ml/min; Glucose 108 mg/dl (70-99); Potassium 3.6 mmol/L (3.5-5.1); Sodium 139 mmol/L (135-145); Total Bilirubin 6.8 mg/dl (0.2-1.3); Total Protein 5.9 g/dl (6.3-8.2); eGFR 56.83
[2023-07-01 05:25] LABS: Vancomycin Random 10.5 ug/ml
[2023-07-01] MEDS: SYNTHROID 50 MCG PO (05:57)
[2023-07-01] MEDS: NSS (PRESERVATIVE FREE) 10 ML IV (08:19)
[2023-07-01] MEDS: PROTONIX IV 40 MG IV (08:19)
[2023-07-01] MEDS: LIDOCAINE 4% PATCH TOPICAL (08:20)
[2023-07-01] MEDS: FLUSH (NSS) 2 FLUSH IV (08:21)
--- NOTE | 2023-07-01 08:57 | PHA.VAN.FU ---
Vancomycin Assessment / Plan
- Assessment
Renal Function: Stable
WBC's are: Stable
In the past 24 hrs, patient has been: Afebrile
Concomitant Antimicrobials: ertapenem
- Assessment - Therapeutic Drug Monitoring
Random Level: 10.5 - drawn ~15.5H after initial dose of 1500mg
- Dosing Plan
Dosing by Level: Re-dose today (Vanc 1500mg)
Dosing Comments: re-dose with ~15mg/kg today to follow accumulation trend
- Monitoring Plan
Random Level: 07/01 0600
- Follow Up
Pharmacy will continue to follow.
Vancomycin Follow UP
- -
Patient Age: 62
Patient Sex: Male
Vancomycin Day #: 2
Indication: Gi / Intra-Abdominal
Requesting Provider: Dr. Guadalupe
Pertinent Antimicrobial Allergies:
NKDA
Height / Weight:
Height 5 ft 11 in
Actual Weight 97.749 kg
Pertinent Past Medical History: BMI ~30, CKD, Bladder cancer
- Vital Signs / Lab Results
Temp Pulse Resp BP Pulse Ox
98.7 F 71 18 136/81 96
07/01/23 07:45 07/01/23 07:45 07/01/23 07:45 07/01/23 07:45 07/01/23 07:45
Lab Results - Hematology
06/29/23 06/30/23 07/01/23
08:07 05:12 04:25
WBC 10.1 12.0 H 11.5 H
Lab Results - Chemistry
06/29/23 06/30/23 07/01/23
08:07 05:12 04:25
BUN 23 H 21 H 22 H
Creatinine 1.4 H 1.4 H 1.4 H
Estimated Creat Clear 58 58 58
Albumin 3.3 L 3.1 L 2.8 L
Microbiology Results
06/24/23 07:36 Blood Culture - Final
Blood/Venous No Growth - Final Report
06/24/23 07:48 Blood Culture - Final
Blood/Venous No Growth - Final Report
Therapeutic Drug Monitoring
Random Vancomycin 10.5 ug/ml 07/01/23 04:25
--- NOTE | 2023-07-01 11:27 | W.PN.HOSP.TC ---
Today's Communication/Plan
-
see A/P
Assessment / Plan
Assessment / Plan
A/P:
# Nausea
# constipation, resolved
apprec CRS
x-ray 06/25 showed constipation and large fecal burden
CT scan shows hypodense hepatic lesions
CT angio AP obtained 06/29 due to elevated LFT, noted possible vascular injury related to recent hepatic biopsy, also moderate to severe intrahepatic and extrahepatic biliary dilation, again innumerable hepatic metastases,
Retroperitoneal/peritoneal/pelvic and inguinal lymphadenopathy consistent with metastasis.
s/p ERCP by GI 06/30: noted a single severe biliary stricture at the lower third of the main bile duct. The stricture was malignant appearing. A biliary sphincterotomy was performed. Cells for cytology obtained in the lower third of the main duct.
Biopsy was performed in the lower third of the main duct. The lower third of the main bile duct was successfully dilated. One covered metal stent was placed into the common bile duct.
Start clears
Follow cytology results and await path results.
Onc CS
Cont Compazine PRN for nausea/vomiting
# Elevated LFT, likely due to metastatic disease, ?dilated biliary ducts
CT AP noted�hepatic lesions consistent with metastatic disease
status post liver biopsy on 06/26, Pending path
Daptomycin stopped
Trend LFTs- improving
Avoid hepatotoxins. [employer] statin/Zetia stopped. Informed about judicious use of Tylenol
# RUQ abd pain, ?due to liver mass
Informed about judicious use of Tylenol
Cont lidocaine patch
consider tramadol PRN with daily Miralax to prevent constipation
# Bladder cancer s/p cystectomy, now with urostomy (Chemo for bladder cancer which permeated through his gut and resulted in sigmoid/anus/rectum resection- now with colostomy)
# sacral osteomyelitis?
# E. coli and Klebsiella oxytoca UTI (although pt does have a urostomy)
urine with E. coli and Klebsiella oxytoca
MRI 2/19/24 showed several abscesses in pelvis, possibly osteomyelitis of sacrum, possibly infectious myositis of the bilateral psoas and obturator muscles
cont ABX as per ID although aspirate culture is negative: Cont Ertapenem and Vancomycin per ID, plan for IV Abx 6 weeks. Off Daptomycin due to elevated LFT
PICC line placed
WBC was 11 on admission, now WNL
apprec IR/CRS/ID
# presumed muscular pain
cont trial of lidoderm patch
# CKD stage 3--renal dose meds--creat at baseline
# CAD s/p stent
DVT ppx: HSQ
code status--FULL CODE
DW RN
DW at bedside
total time spent 52 min
Anticipated Discharge: > 48 hours
Subjective/Interval History
-
Date of Service: July 01, 2023
Objective Data
-
Labs:
Laboratory Results
07/01/23
04:25
WBC 11.5 H
Hgb 12.7 L
Hct 38.6 L
Plt Count 160
Sodium 139
Potassium 3.6
Chloride 105
Carbon Dioxide 28
BUN 22 H
Creatinine 1.4 H
Glucose 108 H
Calcium 9.0
Total Bilirubin 6.8 H
AST 242 H
ALT 261 H
Alkaline Phosphatase 440 H
Vital Signs:
Vital Signs
Temp Pulse Resp BP Pulse Ox
37.1 C 71 18 136/81 96
07/01/23 07:45 07/01/23 07:45 07/01/23 07:45 07/01/23 07:45 07/01/23 07:45
I&O
06/30/23 07/01/23 07/02/23
06:59 06:59 06:59
Intake Total 2039
Balance 2039
Review of Systems
-
Abdomen/GI: Reports Nausea and Vomiting
Physical Exam
-
General: Well Developed, Well Nourished, No Apparent Distress, Comfortable and Appears Chronically Ill
HEENT: Normocephalic and Atraumatic
Respiratory: Clear to Auscultation and Non Labored Respirations; Negative Wheezes, Rhonchi or Accessory Resp Muscle Use
Cardiac: Regular Rhythm and S1/S2; Negative Murmur
GI: Soft, Nontender, Nondistended, Normal Bowel Sounds, Ostomy and Other (urostomy)
Musculoskeletal: No Clubbing, No Cyanosis and No Edema
Neuro: Awake
Psych: Calm and Intact Judgement/Insight
Data Reviewed
-
CT Scan: Report Reviewed by me
Labs: Labs Reviewed by me
--- NOTE | 2023-07-01 13:02 | PTCARENOTE ---
received from PACU post EUS/ERCP- assisted to bed. drowsy but responding appropriately. denied pain, slight nausea. vitals noted. at bedside, call talavera in reach- plan of care on going.
[2023-07-01] MEDS: INVANZ 60 MG IV (13:08)
[2023-07-01] MEDS: FLUSH (NSS) 3 FLUSH IV (13:09)
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
[2023-07-01] MEDS: NSS 1000 IV (14:13)
[2023-07-01] MEDS: VANCOCIN 300 ML IV (14:13)
[2023-07-01] MEDS: VANCOCIN 300 MG IV (14:13)
[2023-07-01] MEDS: ASPIR LOW (ENTERIC COATED) PO (14:17)
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
[2023-07-01] MEDS: NSS (PRESERVATIVE FREE) IV (20:34)
[2023-07-01] MEDS: PROTONIX IV IV (20:34)
--- NOTE | 2023-07-01 21:09 | PTCARENOTE ---
Patient refused 2000 medications. Patient educated on the importance of Protonix and heparin SC. Patient ambulatory in the halls, no edema. Patient still refused Protonix stating he wants to see how he feels without it.
[2023-07-01] MEDS: TYLENOL 650 MG PO (23:25)
[2023-07-02] MEDS: COMPAZINE 5 MG IV ×2 (00:40→12:15)
[2023-07-02] MEDS: SYNTHROID 50 MCG PO (04:50)
[2023-07-02 06:10] LABS: Hematocrit 39.1 % (39.0-52.0); Hemoglobin 12.5 g/dL (13.0-18.0); Mean Corpuscular Hgb 28.7 pg (27.0-31.0); Mean Corpuscular Volume 89.7 fL (80.0-94.0); Mean Platelet Volume 12.2 fL (7.4-10.4); Platelet Count 220 10^3/uL (130-400); Red Blood Cell Count 4.36 10^6/uL (4.70-6.10); Red Cell Dist. Width 13.9 % (11.5-14.5); White Blood Cell Count 14.8 10^3/uL (4.8-10.8)
[2023-07-02 06:26] LABS: ALT (SGPT) 185 U/L (0-50); AST (SGOT) 145 U/L (17-59); Albumin 2.8 g/dl (3.5-5.0); Alkaline Phosphatase 420 U/L (38-126); Blood Urea Nitrogen 29 mg/dl (9-20); Calcium 8.7 mg/dl (8.4-10.2); Carbon Dioxide 24 mmol/L (22-30); Chloride 109 mmol/L (98-107); Estimated Creatinine Clearance 51 ml/min; Glucose 154 mg/dl (70-99); Sodium 137 mmol/L (135-145); Total Bilirubin 2.2 mg/dl (0.2-1.3); Total Protein 5.8 g/dl (6.3-8.2); eGFR 48.41
[2023-07-02 07:35] VITALS: BP 132/71
[2023-07-02] MEDS: NSS (PRESERVATIVE FREE) 10 ML IV (08:13)
[2023-07-02] MEDS: LIDOCAINE 4% PATCH TOPICAL (08:13)
[2023-07-02] MEDS: NSS 1000 IV (08:14)
[2023-07-02] MEDS: ASPIR LOW (ENTERIC COATED) 81 MG PO (08:14)
[2023-07-02] MEDS: PROTONIX IV 40 MG IV (08:14)
--- NOTE | 2023-07-02 09:20 | W.PN.GI.CBS2 ---
Today's Communication / Plan
-
adv diet
if tolerates ok for DC from GI perspective
Assessment / Plan
-
The patient is a 62-year-old male with a complex past medical history significant for bladder cancer (diagnosed in 2017) status post chemotherapy with cystectomy secondary to bladder perforation and placement of ileal conduit with subsequent fistula
to the sigmoid colon requiring partial colectomy, anal resection, and prostatectomy with colostomy placement in 2019 at [facility] by Dr. Lamar, CAD status post cardiac stenting in 2016 x 1 stent, remote history of testicular cancer with radiation
therapy in the , chronic kidney disease, hyperlipidemia, hypothyroidism, who presented to the emergency room on 06/24 with complaints of nausea and rectal pain. Events as noted above, with persistent nausea for the past 5 to 6 weeks. Admitted
for sacral abscess which was drained and started on IV antibiotics. Being followed by infectious disease and colorectal surgery. X-ray imaging showed a large fecal burden. CT imaging was done after intolerance of mag citrate which did show a
moderate fecal burden but also with findings concerning for hepatic metastasis. S/p liver bx on 06/26, pathology is pending. After improvement of his bowels he did have resolution of his nausea and vomiting. He has had increased LFT's since admission
but onset of RUQ pain on 06/28 with up-trending bilirubin which continues to rise.
Problem list:
-Hyperbilirubinemia, abnormal LFTs; rising
-Complicated history of bladder cancer with multiple abdominal surgeries with placement ileal conduit and partial colectomy with colostomy
-CT imaging showing concerning findings of hepatic lesions,?malignancy; status post liver biopsy on 06/26
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
-Chronic kidney disease, stable
-Intractable nausea/vomiting, resolved
Other pertinent medical history:
-CAD status post cardiac stent in 2016
-Remote history of testicular cancer with radiation therapy
-Hyperlipidemia
-Hypothyroidism
Recommendations:
Metastatic disease with mets to liver and also has malignant biliary stricture, status post liver biopsy on 06/26 Path pending, and status post ERCP 06/30 with metal stent to CBD biopsies and brushings also obtained from malignant biliary stricture
Pain is markedly improved no further nausea or vomiting and LFTs are also trending down.
Will start him on diet and if he tolerates okay to DC home from a GI perspective with follow-up with oncology
Constipation also resolved had a bowel movement yesterday continue bowel regimen.
Noted input from ID no concern for pelvic abscess off antibiotics now
Repeat CT also there was no concern for hematoma post liver biopsy and hemoglobin remained stable
Follow-up with Dr. Beltran as outpatient
will sign off and will be available as needed
Subjective
Subjective
Date of Service: July 02, 2023
Pain is markedly improved today no further nausea or vomiting,
LFTs markedly improved also status post ERCP with stent
Objective
Data Reviewed
Laboratory Data:
Laboratory Results
07/02/23 05:41
07/02/23 05:41
Laboratory Results
PT 14.3 Sec (11.4-14.6) 06/27/23 10:19
INR 1.12 06/27/23 10:19
Magnesium 2.0 mg/dl (1.6-2.3) 07/01/23 04:25
Total Bilirubin 2.2 mg/dl (0.2-1.3) H D 07/02/23 05:41
AST 145 U/L (17-59) H 07/02/23 05:41
ALT 185 U/L (0-50) H 07/02/23 05:41
Alkaline Phosphatase 420 U/L (38-126) H 07/02/23 05:41
Vital Signs and I&O:
Vital Signs
Temp Pulse Resp BP Pulse Ox
97.9 F 51 18 132/71 96
07/02/23 07:35 07/02/23 07:35 07/02/23 07:35 07/02/23 07:35 07/02/23 07:35
I&O
07/01/23 07/02/23 07/03/23
06:59 06:59 06:59
Intake Total 2660 / 2660 2350 / 2350
Output Total 500 / 500
Balance 2660 / 2660 185 / 185
Physical Exam
Physical Exam
Cardiology: Normal Sinus Rhythm
Pulmonary: Clear
GI: Non Distended, Non Tender and Normal Bowel Sounds
--- NOTE | 2023-07-02 11:37 | CM ---
Addendum entered by Rissa Talamantes RN 07/03/23 07:56:
Spoke with patient he did not want VN.
MD placed order for dc after CM left.
PLAN Home no needs
Original Note:
As per ID will not need IV antibiotics at home. Khadijah from [facility] notified.
Started low residue diet.
Has Urostomy he does self care.
Awaiting liver bx results.
Had ERCP.
PLAN Home with ask if he would like VN
--- NOTE | 2023-07-02 12:07 | W.PN.HOSP.TC ---
Addendum entered and electronically signed by Molly Matthews MD 07/02/23 19:06:
total DC time 45 min
Original Note:
Today's Communication/Plan
-
see A/P
Assessment / Plan
Assessment / Plan
A/P:
# Nausea
# constipation, resolved
apprec CRS
x-ray 06/25 showed constipation and large fecal burden
CT scan shows hypodense hepatic lesions
CT angio AP obtained 06/29 due to elevated LFT, noted possible vascular injury related to recent hepatic biopsy, also moderate to severe intrahepatic and extrahepatic biliary dilation, again innumerable hepatic metastases,
Retroperitoneal/peritoneal/pelvic and inguinal lymphadenopathy consistent with metastasis.
s/p ERCP by GI 06/30: noted a single severe biliary stricture at the lower third of the main bile duct. The stricture was malignant appearing. A biliary sphincterotomy was performed. Cells for cytology obtained in the lower third of the main duct.
Biopsy was performed in the lower third of the main duct. The lower third of the main bile duct was successfully dilated. One covered metal stent was placed into the common bile duct.
Restarted diet and advanced to low fat per GI.
Follow cytology results and await path results.
appreciate Onc input
Cont Compazine PRN for nausea/vomiting
# Elevated LFT, likely due to metastatic disease, ?dilated biliary ducts
CT AP noted�hepatic lesions consistent with metastatic disease
status post liver biopsy on 06/26, Pending path
Daptomycin stopped
Trend LFTs- improving
Avoid hepatotoxins. [employer] statin/Zetia stopped. Informed about judicious use of Tylenol
# RUQ abd pain, ?due to liver mass
Informed about judicious use of Tylenol
Cont lidocaine patch
tramadol PRN with daily Miralax to prevent constipation
# Bladder cancer s/p cystectomy, now with urostomy (Chemo for bladder cancer which permeated through his gut and resulted in sigmoid/anus/rectum resection- now with colostomy)
# sacral osteomyelitis?
# E. coli and Klebsiella oxytoca UTI (although pt does have a urostomy)
urine with E. coli and Klebsiella oxytoca
MRI 06/16/23 showed several abscesses in pelvis, possibly osteomyelitis of sacrum, possibly infectious myositis of the bilateral psoas and obturator muscles
ID has discontinued ABx, felt low suspicion for pelvic abscess/osteo. Off Ertapenem and Vancomycin.
If no further IV Abx anticipated upon discharge, would consider discontinue PICC line.
Cont to monitor WBC, increased to 14.8 today (likely reactive), was 11 on admission
apprec IR/CRS/ID
# presumed muscular pain
cont trial of lidoderm patch
# CKD stage 3--renal dose meds--creat at baseline
# CAD s/p stent
DVT ppx: HSQ
code status--FULL CODE
DW RN
DW at bedside
total time spent 50 min
Anticipated Discharge: Within 24 hours
Subjective/Interval History
-
Date of Service: July 02, 2023
Objective Data
-
Labs:
Laboratory Results
07/02/23
05:41
WBC 14.8 H
Hgb 12.5 L
Hct 39.1
Plt Count 220 D
Sodium 137
Potassium 4.0
Chloride 109 H
Carbon Dioxide 24
BUN 29 H
Creatinine 1.6 H
Glucose 154 H
Calcium 8.7
Total Bilirubin 2.2 H D
AST 145 H
ALT 185 H
Alkaline Phosphatase 420 H
Vital Signs:
Vital Signs
Temp Pulse Resp BP Pulse Ox
36.6 C 51 18 132/71 96
07/02/23 07:35 07/02/23 07:35 07/02/23 07:35 07/02/23 07:35 07/02/23 10:24
I&O
07/01/23 07/02/23 07/03/23
06:59 06:59 06:59
Intake Total 2659 / 0 235 / 235
Output Total 500 / 500
Balance 0 / 0 1850 / 1850
Review of Systems
-
Abdomen/GI: Reports Nausea
Physical Exam
-
General: Well Developed, Well Nourished, No Apparent Distress, Comfortable and Appears Chronically Ill
HEENT: Normocephalic and Atraumatic
Respiratory: Clear to Auscultation and Non Labored Respirations; Negative Wheezes, Rhonchi or Accessory Resp Muscle Use
Cardiac: Regular Rhythm and S1/S2; Negative Murmur
GI: Soft, Nontender, Nondistended, Normal Bowel Sounds, Ostomy and Other (urostomy)
Musculoskeletal: No Clubbing, No Cyanosis and No Edema
Neuro: Awake
Psych: Calm and Intact Judgement/Insight
Data Reviewed
-
CT Scan: Report Reviewed by me
Labs: Labs Reviewed by me
[2023-07-02 15:35] VITALS: BP 151/76
--- NOTE | 2023-07-02 18:53 | W.DCSUMMARY ---
Discharge Summary
Discharge Data
Date of Admission: 06/24/23
Date of Discharge: 07/02/23
-
Pending Results: No
Hospital Course
Principal Diagnosis:
Nausea and vomiting, with Right-sided abdominal pain with newly diagnosed liver metastases
Elevated liver enzymes, likely due to metastatic disease versus obstructed biliary ducts
Possible sacral osteomyelitis on imaging, but this was felt less likely per ID
E. coli and Klebsiella oxytoca urinary tract infection
Chronic Diagnoses:�
Chronic kidney disease stage III
Coronary artery disease status post stent
Bladder cancer status post cystectomy
Previous chemo for bladder cancer permeated through gut and resulted in sigmoid/anus/rectum resection- now with colostomy
Consultations:�
Infectious disease
Gastroenterology
Procedures:�
ERCP by GI 06/30:�noted a single severe biliary stricture at the lower third of the main bile duct. The stricture was malignant appearing. A biliary sphincterotomy was performed. Cells for cytology obtained in the lower third of the main duct. Biopsy
was performed in the lower third of the main duct. The lower third of the main bile duct was successfully dilated. One covered metal stent was placed into the common bile duct.
Clinical course:�
This is a 62-year-old male with past medical history as stated above, who presented with nausea, vomiting, and right upper quadrant abdominal pain.
Problem 1:
Nausea and vomiting, with Right-sided abdominal pain with newly diagnosed liver metastases.
This was associated with elevated liver enzymes, likely due to metastatic disease versus obstructed biliary ducts.
His presentation was initially felt to be due to constipation, which resolved after bowel regimen.
He underwent liver biopsy on06/26 (pathology report was still pending at the time of discharge).
However, due to his persistent nausea and vomiting, as well as worsening liver function tests, a subsequent CT angio was obtained which noted moderate to severe intrahepatic and extrahepatic biliary dilation.
The patient underwent ERCP by GI 06/30 with placement of a stent in his common bile duct to relieve the severe biliary stricture that was noted. Cytology was sent (report also still pending at the time of discharge).
He can follow-up the liver biopsy and biliary tract cytology result outpatient with GI oncology.
He can continue to take Compazine as needed for nausea and vomiting.
Due to his elevated LFT, his prior to admission statin and Zetia were discontinued during this admission. He has been informed to use Tylenol judiciously.
He can check repeat LFT with result to his PCP outpatient.
Problem 2:
Possible sacral osteomyelitis on imaging, but this was felt less likely per ID.
The patient also had E. coli and Klebsiella oxytoca urinary tract infection (although he has a urostomy).
He was treated with IV antibiotic during his hospital stay, with ertapenem, daptomycin which was discontinued and changed to vancomycin.
Further antibiotic was discontinued by infectious disease given it was felt less likely that he had pelvic abscess/osteo.
He can check repeat WBC and follow-up with ID outpatient.
As for the rest of his medical problems, they were stable during his hospital stay.
Discharge Plan
-
Patient Disposition: Home with Home Care
Discharge Diagnosis/Procedures: Abdominal pain with nausea and vomiting, liver masses status post biopsy, severe biliary stricture status post stent placement, pelvic abscesses along with sacral osteomyelitis, Escherichia coli and Klebsiella oxytoca
urinary tract infection, history of bladder cancer status post cystectomy with urostomy and ostomy from chemo for bladder cancer which permeated through the gut resulted in sigmoid anus and rectum resection
Condition: Fair
Diet: As tolerated and Low Fat
Activity: As tolerated
Driving Restrictions: As prior to admission
Bathing Restrictions: None
Blood Work: CBC, CMP in 1 week, result to PCP
Other Services: VN
Activity Restrictions/Additional Instructions:
Follow up cytology results and liver biopsy result with GI and oncologist outpatient.
Referrals:
William Méndez MD [Active] - in one to two weeks
Katia Martin MD [Active] - in two to three weeks
Sagar Jade MD [Family Provider] - in less than 1 week
Nancy Guadalupe MD [Active] - in three to four weeks
Additional Discharge Medication Instructions: Take Tylenol sparingly. Stop Lipitor and Zetia due to elevated liver function tests. Continue with Compazine as needed for nausea and vomiting.
Prescriptions:
New
prochlorperazine maleate [Compazine] 10 mg tablet
10 mg PO Q8H PRN (Reason: nausea and vomiting) Qty: 30 0RF
Continued
aspirin [Ecotrin Low Strength] 81 mg Tablet,Delayed Release (Dr/Ec)
81 mg PO DAILY
polyethylene glycol 3350 [Miralax] 17 gram Powder In Packet
17 g PO DAILY PRN (Reason: constipation)
tramadol 50 mg Tablet
50 mg PO Q6H PRN (Reason: severe pain)
Patient Comments:
06/24/2023, pt. filled this med. on 06/20/2023 for 25 tablets according to PDMP.
levothyroxine 50 mcg Tablet
50 mcg PO DAILY
docusate sodium [Stool Softener] 100 mg Capsule
200 mg PO DAILY PRN (Reason: constipation)
Dulcolax (bisacodyl)
2 gummy PO DAILYPRN PRN (Reason: constipation)
acetaminophen [Tylenol Extra Strength] 500 mg Tablet
500 mg PO DAILYPRN PRN (Reason: mild pain)
Discontinued
Excedrin Extra Strength 250-250-65 mg Tablet
1 tab PO Q6HPRN PRN (Reason: mild pain)
ezetimibe [Zetia] 10 mg Tablet
10 mg PO DAILY
atorvastatin 80 mg Tablet
80 mg PO DAILY
Discharge Orders:
Discharge Patient (As Directed); Ordered 07/02/23
Ordered By: Molly Matthews
Discharge Date and Time
Discharge Date/Time: 07/02/23 18:27
== END 2023-07-02 18:27 | disposition home or self-care (01) | DRG 444 ==
LOC: 4 EAST ACU 12:11
PROVIDERS: Internal Medicine; Internal Medicine Gastroenterology; Nurse Practitioner Family; Radiology Vascular & Interventional Radiology; Registered Nurse; ADMITTING PHYSICIAN Internal Medicine; CONSULT PHYSICIAN Internal Medicine; CONSULT PHYSICIAN Internal Medicine Hematology & Oncology; CONSULT PHYSICIAN Internal Medicine Infectious Disease; EMERGENCY PHYSICIAN Student in an Organized Health Care Education/Training Program; FAMILY PHYSICIAN Internal Medicine; OTHER PHYSICIAN Surgery
PROC: 0FB03ZX Excision of Liver, Percutaneous Approach, Diagnostic (ICD-10-PCS; 2023-06-27)
PROC: 0FD98ZX Extraction of Common Bile Duct, Via Natural or Artificial Opening Endoscopic, Diagnostic (ICD-10-PCS; 2023-07-01)
PROC: 02HV33Z Insertion of Infusion Device into Superior Vena Cava, Percutaneous Approach (ICD-10-PCS; 2023-07-01)
PROC: 0F798DZ Dilation of Common Bile Duct with Intraluminal Device, Via Natural or Artificial Opening Endoscopic (ICD-10-PCS; 2023-07-01)
DX: K83.1 Obstruction of bile duct (principal); K65.1 Peritoneal abscess; C78.7 Secondary malignant neoplasm of liver and intrahepatic bile duct; N39.0 Urinary tract infection, site not specified; M46.28 Osteomyelitis of vertebra, sacral and sacrococcygeal region; C67.9 Malignant neoplasm of bladder, unspecified; N18.30 Chronic kidney disease, stage 3 unspecified; Z93.3 Colostomy status; I25.10 Atherosclerotic heart disease of native coronary artery without angina pectoris; Z95.5 Presence of coronary angioplasty implant and graft; Z85.51 Personal history of malignant neoplasm of bladder; Z90.6 Acquired absence of other parts of urinary tract; Z79.82 Long term (current) use of aspirin; K22.89 Other specified disease of esophagus; K86.89 Other specified diseases of pancreas
CPT/HCPCS: 88172; 88173; 88305; 88307; 10160; 47000; 71045; 74019; 74174; 74176; 74330; 76000; 76942; 77012; 80053; 80202; 81003; 81015; 82248; 82550; 83605; 83735; 84153; 84154; 85025; 85027; 85610; 86704; 86706; 86708; 86803; 87040; 87070; 87077; 87086; 87186; 87205; 87340; 88112; 88333; 88341; 88342; 88360; 96361; 96374; 96375; 99152; 99153; 99285; 99406; C1769; J0878; J1335; Q9967

== ENCOUNTER 2023-07-15 15:57 | Emergency (ER) | payer OTHER, SELFPAY ==
[2023-07-15 15:59] VITALS: BP 115/83
--- NOTE | 2023-07-15 16:31 | ED.GENMED ---
History of Present Illness
General
Chief Complaint: Abdominal Symptoms
Time Seen by Provider: 07/15/23 16:20
Travel History
Have you had any contact with someone who has COVID-19?: No
Do you have any symptoms of coronavirus? Fever > 100 degrees, chills, cough, shortness of breath, sore throat, loss of taste or smell, muscle aches, or headache?: No
History of Present Illness
History of Present Illness:
63-year-old male with history of metastatic bladder cancer status post urostomy, testicular cancer, and sigmoid/partial colectomy with subsequent ostomy presents to the emergency department for evaluation of intractable vomiting over the past day.
He was admitted to this hospital 2 weeks ago at which time a bile duct stent was placed. He has tried using Compazine at home without relief. Denies any abdominal pain. Still having good output into his ostomy bag. He also notes
clear/light-colored urine and dark stool output. No fevers or chills.
Past History
Past History
ED Past Medical History: Other (Bladder cancer, that is post urostomy status post cystectomy, coronary artery disease with stent)
ED Past Surgical History: Bowel resection (has colostomy) and Urological
Social History
Tobacco: Former smoker
Alcohol: Occasional
Drug: None
Personal:
Living: with family
Employment: Employed
Family History
Family History: Other (Noncontributory)
Review of Systems
Review of Systems
Allergies reviewed?: Yes
All Other Systems: ROS reviewed and negative except as documented in HPI and ROS
Phy Exam
Physical Exam
Physical Exam:
GEN: Well appearing, NAD, WDWN
Eyes: PERRLA, EOMs intact, no scleral icterus
HENT: NCAT, oral mucosa moist
Lungs: CTAB, no wheezes, rales, rhonchi, normal chest wall excursion
Cardiac: Tachycardic, regular
Abdomen: Soft, nontender. Right lower quadrant urostomy bag is present, no signs of skin infection, urine is clear. Left lower quadrant colostomy noted, no signs of skin infection, brown/green stool in the bag
Neuro: AO x 3, no focal deficits to BUE/BLE, normal sensation throughout
MSK: No gross deformity or ecchymosis. No edema. No digital clubbing
Skin: No rashes, petechiae. Normal color, no pallor or jaundice.
Psych: Calm, cooperative, proper hygiene
Course
Orders/Labs/Results
Orders:
Orders
07/15/23 16:29
Lactated Ringers [Lr] 1,000 ml IV BOLUS
07/15/23 16:33
Complete Blood Count/With Diff Urgent
Comprehensive Metabolic Panel Urgent
Lactic Acid Q4H
Comment: CANCEL 2nd LACTIC ACID IF 1st LACTIC ACID IS LESS THAN 2
Lipase Urgent
Blood Culture Q30M
ROXANNE Source: Blood/Venous
Specimen Description:
07/15/23 16:39
Electrocardiogram (*1) Urgent
Reason for Study: QTc Monitoring
EKG- Treatment ONCE
07/15/23 16:47
Blood Culture Q30M
ROXANNE Source: Blood/Venous
Specimen Description:
07/15/23 17:42
CT Abd/Pel (IV only)-DH only Urgent
Comment:
Reason For Exam: N/V, recent biliary stent placement
07/15/23 19:11
Metoclopramide [Reglan] 10 mg IV NOW STA
Abnormal Lab Results
07/15/23
16:33
WBC 17.9 H 10^3/uL
(4.8-10.8)
MPV 11.8 H fL
(7.4-10.4)
Abs Immat Gran (auto) 0.1 H 10^3/uL
(0-0.05)
Absolute Neuts (auto) 15.0 H 10^3/uL
(1.4-6.5)
Absolute Lymphs (auto) 0.8 L 10^3/uL
(1.2-3.4)
Absolute Monos (auto) 1.9 H 10^3/uL
(0.1-0.6)
Immature Gran % 0.6 H %
(0-0.5)
Neutrophils % 83.8 H %
(42.2-75.2)
Lymphocytes % 4.5 L %
(20.5-51.1)
Monocytes % 10.6 H %
(1.7-9.3)
Sodium 132 L mmol/L
(135-145)
BUN 28 H mg/dl
(9-20)
Creatinine 1.9 H mg/dL
(0.7-1.3)
Glucose 128 H mg/dl
(70-99)
Total Bilirubin 1.9 H mg/dl
(0.2-1.3)
AST 161 H U/L
(17-59)
ALT 84 H U/L
(0-50)
Alkaline Phosphatase 322 H U/L
(38-126)
Lipase 866 H U/L
(23-300)
07/15/23 16:33
07/15/23 16:33
Vital Signs
Initial and Last Documented VS:
Initial Vital Signs
Temp Pulse Resp BP Pulse Ox
98.3 F 131 18 115/83 96
07/15/23 15:59 07/15/23 15:59 07/15/23 15:59 07/15/23 15:59 07/15/23 15:59
Last Documented Vital Signs
Temp Pulse Resp BP Pulse Ox
98.3 F 96 29 140/94 96
07/15/23 15:59 07/15/23 20:30 07/15/23 20:30 07/15/23 20:00 07/15/23 15:59
MDM/Problems Addressed
MDM/Problems Addressed:
62-year-old male presents with intractable vomiting. He was given IV fluids and antiemetics and was able to tolerate p.o. fluids throughout the duration of the emergency department stay. He has noted to have leukocytosis however CT scan shows no
evidence for acute pathology. Patient's transaminases are trending down and this is reassuring against biliary stent obstruction. His mildly elevated lipase is likely on the basis of vomiting coupled with a recent biliary stenting, he has no
abdominal tenderness suggestive of pancreatitis. Patient was given the option for admission for further IV fluid resuscitation however he declines and would prefer discharge home which is not unreasonable given his improved vital signs and
tolerance of p.o. fluids. ED return parameters discussed
*Critical Care Note
Total Time (30-74mins, 75-104mins- exclusive of procedures): Not Applicable
ED Attending Note
-
Portions of this chart may have been created with voice recognition software.� Occasional wrong word or��sound alike� substitutions may have occurred due to the inherent limitations of voice recognition software.
Discharge Plan
Departure
Patient Disposition: Home (Routine Discharge)
Date of Disposition: 07/15/23
Time of Disposition: 20:30
Patient with high blood pressure during this ER visit?: No
Discharge Problem:
Nausea and vomiting
Instructions: Nausea and Vomiting, Adult (DC)
Prescriptions:
No Action
aspirin [Ecotrin Low Strength] 81 mg Tablet,Delayed Release (Dr/Ec)
81 mg PO DAILY
polyethylene glycol 3350 [Miralax] 17 gram Powder In Packet
17 g PO DAILY PRN (Reason: constipation)
tramadol 50 mg Tablet
50 mg PO Q6H PRN (Reason: severe pain)
Patient Comments:
07/15/2023: last filled 06/20/23, 25 tabs for 7 days from [facility]
levothyroxine 50 mcg Tablet
50 mcg PO DAILY
docusate sodium [Stool Softener] 100 mg Capsule
200 mg PO DAILY PRN (Reason: constipation)
Dulcolax (bisacodyl)
2 gummy PO DAILYPRN PRN (Reason: constipation)
acetaminophen [Tylenol Extra Strength] 500 mg Tablet
500 mg PO DAILYPRN PRN (Reason: mild pain)
prochlorperazine maleate [Compazine] 10 mg tablet
10 mg PO Q8H PRN (Reason: nausea and vomiting) Qty: 30 0RF
Referrals:
Sagar Jade MD [Family Provider] -
Activity Restrictions/Additional Instructions:
You may take a repeat dose of compazine tonight at 11pm
Return if symptoms worsen
Interventions
Interventions:
*Risk Screen - Suicide Last Done: 07/15/23 16:31
*General Assessment Last Done: 07/15/23 16:31
*Neglect/Abuse Screening Last Done: 07/15/23 16:31
ED- Fall Risk Assessment Last Done: 07/15/23 16:33
*ED COVID-19 Vaccine History Last Done: 07/15/23 16:31
*Nursing Disposition Last Done: 07/15/23 20:49
KS-Kbjhya-Qqlaqawqvf Assessment Last Done: 07/15/23 16:32
Discharge Date and Time
Discharge Date/Time: 07/15/23 20:50
[2023-07-15] MEDS: LR 1000 IV (16:39)
[2023-07-15 16:51] LABS: % Basophils 0.4 % (0-2); % Eosinophils 0.1 % (0-6); % Immature Granulocytes 0.6 % (0-0.5); % Lymphocytes 4.5 % (20.5-51.1); % Monocytes 10.6 % (1.7-9.3); % Neutrophils 83.8 % (42.2-75.2); Absolute Basophils 0.1 10^3/uL (0-0.2); Absolute Immature Granulocytes 0.1 10^3/uL (0-0.05); Absolute Lymphocytes 0.8 10^3/uL (1.2-3.4); Absolute Monocytes 1.9 10^3/uL (0.1-0.6); Hematocrit 46.7 % (39.0-52.0); Hemoglobin 15.4 g/dL (13.0-18.0); Mean Corpuscular Hgb 28.6 pg (27.0-31.0); Mean Corpuscular Volume 86.6 fL (80.0-94.0); Mean Platelet Volume 11.8 fL (7.4-10.4); Nucleated Red Blood Cells % 0 % (-); Platelet Count 274 10^3/uL (130-400); Red Blood Cell Count 5.39 10^6/uL (4.70-6.10); White Blood Cell Count 17.9 10^3/uL (4.8-10.8)
[2023-07-15 17:04] LABS: Lactic Acid 1.9 mmol/L (0.7-2.0)
[2023-07-15 17:08] VITALS: BP 114/85
[2023-07-15 17:12] LABS: ALT (SGPT) 84 U/L (0-50); AST (SGOT) 161 U/L (17-59); Albumin 3.9 g/dl (3.5-5.0); Alkaline Phosphatase 322 U/L (38-126); Blood Urea Nitrogen 28 mg/dl (9-20); Calcium 9.5 mg/dl (8.4-10.2); Carbon Dioxide 25 mmol/L (22-30); Chloride 99 mmol/L (98-107); Glucose 128 mg/dl (70-99); Lipase 866 U/L (23-300); Potassium 4.8 mmol/L (3.5-5.1); Sodium 132 mmol/L (135-145); Total Bilirubin 1.9 mg/dl (0.2-1.3); Total Protein 7.9 g/dl (6.3-8.2); eGFR 39.15
[2023-07-15 18:00] VITALS: BP 113/71
[2023-07-15 19:00] VITALS: BP 106/67
[2023-07-15] MEDS: REGLAN 10 MG IV (19:33)
[2023-07-15 20:00] VITALS: BP 140/94
== END 2023-07-15 20:50 | disposition home or self-care (01) ==
LOC: EMR 15:57
PROVIDERS: Physician Assistant; EMERGENCY PHYSICIAN Student in an Organized Health Care Education/Training Program; FAMILY PHYSICIAN Internal Medicine
DX: R11.2 Nausea with vomiting, unspecified (principal); Z93.3 Colostomy status; Z98.890 Other specified postprocedural states; Z87.891 Personal history of nicotine dependence
CPT/HCPCS: 99285; 96374; 96361; 74177; 80053; 83605; 83690; 85025; 87040; 93005; Q9967

== ENCOUNTER → 2023-07-17 08:25 | Outpatient (REF) | payer OTHER, SELFPAY ==
[2023-07-17 08:49] VITALS: BP 133/93; BP_SYST 91
[2023-07-17] MEDS: ANCEF 10 IV (09:18)
[2023-07-17] MEDS: COMPAZINE 5 MG IV (10:13)
[2023-07-17 11:15] VITALS: BP 133/74; BP_SYST 81
[2023-07-17 11:28] VITALS: BP 130/79
== END ==
LOC: RADI 08:25
PROVIDERS: ATTENDING PHYSICIAN Internal Medicine Hematology & Oncology; FAMILY PHYSICIAN Internal Medicine
DX: C67.9 Malignant neoplasm of bladder, unspecified (principal)
CPT/HCPCS: 36561; 76937; 77001; 99152; 99153; C1788

== ENCOUNTER 2023-07-20 09:43 | Inpatient (IN) | payer OTHER, SELFPAY ==
[2023-07-20] VITALS (10 sets, daily range): BP systolic 116–158; BP diastolic 80–98; BMI 28.3
--- NOTE | 2023-07-20 07:34 | ED.GENMED ---
History of Present Illness
General
Chief Complaint: Abdominal Symptoms
Source: patient
Time Seen by Provider: 07/20/23 06:59
Travel History
Have you had any contact with someone who has COVID-19?: No
Do you have any symptoms of coronavirus? Fever > 100 degrees, chills, cough, shortness of breath, sore throat, loss of taste or smell, muscle aches, or headache?: Yes
Symptoms:: temp
History of Present Illness
History of Present Illness:
63-year-old male presents to the emergency room complaining of intractable nausea and vomiting. Patient has had recent prolonged hospitalization due to nausea, vomiting, abdominal pain and was found to have extensive metastatic disease to to his
liver with bile duct obstruction. He had a biliary stent placed. He also had a infusion port placed on the . Patient states he has been unable to tolerate much oral intake. He has been using Compazine at home without any improvement.
Past History
Past History
ED Past Medical History: Other (Bladder cancer, that is post urostomy status post cystectomy, coronary artery disease with stent)
ED Past Surgical History: Bowel resection (has colostomy) and Urological
Social History
Tobacco: Former smoker
Alcohol: Occasional
Drug: None
Personal:
Living: with family
Employment: Employed
Family History
Family History: Other (Noncontributory)
Phy Exam
Physical Exam
Physical Exam:
General: Awake, Alert, Oriented X3. No acute distress.
Vitals: Tachycardic
Head: Atraumatic
Eyes: Pupils equal, EOMI
Throat: Airway intact, no exudates, dry mucosa
Neck: Trachea midline
Lungs: Clear and equal b/l
Heart: Regular rate, no murmurs
Abd: Soft, Nontender, ileostomy and urostomy noted both with appropriate amounts of fluid and stool no pulsatile mass
Neuro: non-focal
Skin: Warm, dry, no rash
Extremities: pulses equal b/l, 1+ edema
Course
Orders/Labs/Results
Orders:
Orders
07/20/23 06:45
EKG [Electrocardiogram (*1)] Urgent
Reason for Study: Tachycardia
EKG- Treatment ONCE
07/20/23 07:32
0.9% Sodium Chloride 1000 ml [Nss] 1,000 ml IV BOLUS
Ondansetron Injectable [Zofran] 8 mg IV NOW STA
07/20/23 07:42
Diphenhydramine [Benadryl] 25 mg IV NOW STA
Prochlorperazine [Compazine] 10 mg IV NOW STA
07/20/23 07:45
Complete Blood Count/With Diff Urgent
Comprehensive Metabolic Panel Urgent
Lipase Urgent
07/20/23 08:49
GASTROINTESTINAL CONSULT Routine
Consulting Provider: William Campbell
Was physician already notified: Yes
ONCOLOGY CONSULT Routine
Consulting Provider: Fish Walker
Was physician already notified: Yes
07/20/23 09:27
Admit/Transfer Patient As Directed
Co-Sign Provider:
Level of Care: Inpatient admission
Assign to:: Medical/Surgical
Physician / Group: Cassie/hospitalist
Diagnosis: N/V, metastatic cancer
Reason for Hospitalization: N/V, metastatic cancer
Expected length of stay greater than two midnights?: Yes
ELOS- Estimated Length of Stay in days: 3
I certify the patient meets the requirements for IP care: Yes
07/20/23 09:28
Code Status As Directed
Resuscitation Status: Full Code
07/20/23 Lunch
NPO
Allow oral meds: Yes
Allow clear liquids: Sips of Clears
07/20/23 13:16
Lactated Ringers [Lr] 1,000 ml IV 120 mls/hr
Prochlorperazine [Compazine] 10 mg IV Q6HPRN PRN
07/20/23 13:16
Activity As Directed
Activity Level: As Tolerated
Vital Signs As Directed
Frequency: Per unit guidelines
DX Deep Vein Thrombosis Video Routine
07/20/23 14:00
Pantoprazole [Protonix IV] 40 mg IV DAILY
07/20/23 20:00
Heparin 5,000 units SC Q12
07/21/23 06:00
Complete Blood Count/With Diff IN AM
Comprehensive Metabolic Panel IN AM
Lipase IN AM
Magnesium IN AM
07/21/23 07:00
Levothyroxine [Synthroid] 50 mcg PO DAILY@0700
07/21/23 08:00
Aspirin Low Dose EC [Aspir Low (Enteric Coated)] 81 mg PO DAILY
Abnormal Lab Results
07/20/23
07:45
WBC 15.7 H 10^3/uL
(4.8-10.8)
MCHC 32.9 L g/dL
(33.0-37.0)
MPV 11.9 H fL
(7.4-10.4)
Abs Immat Gran (auto) 0.1 H 10^3/uL
(0-0.05)
Absolute Neuts (auto) 14.4 H 10^3/uL
(1.4-6.5)
Absolute Lymphs (auto) 0.2 L 10^3/uL
(1.2-3.4)
Absolute Monos (auto) 1.0 H 10^3/uL
(0.1-0.6)
Neutrophils % 91.7 H %
(42.2-75.2)
Lymphocytes % 1.0 L %
(20.5-51.1)
Sodium 133 L mmol/L
(135-145)
BUN 26 H mg/dl
(9-20)
Creatinine 1.6 H mg/dL
(0.7-1.3)
Glucose 112 H mg/dl
(70-99)
Total Bilirubin 2.0 H mg/dl
(0.2-1.3)
AST 281 H U/L
(17-59)
ALT 118 H U/L
(0-50)
Alkaline Phosphatase 644 H U/L
(38-126)
Albumin 3.3 L g/dl
(3.5-5.0)
Lipase 1388 H* U/L
(23-300)
07/20/23 07:45
07/20/23 07:45
Vital Signs
Initial and Last Documented VS:
Initial Vital Signs
Pulse Resp Pulse Ox
130 37 94
07/20/23 06:39 07/20/23 06:39 07/20/23 06:39
Last Documented Vital Signs
Temp Pulse Resp BP Pulse Ox
99.3 F 107 20 158/98 97
07/20/23 13:25 07/20/23 13:25 07/20/23 13:25 07/20/23 13:25 07/20/23 13:25
MDM/Problems Addressed
Differential Diagnosis Includes:
Pancreatitis, dehydration, renal failure
MDM/Problems Addressed:
Patient presents with primarily intractable nausea vomiting. Labs showing mildly elevated white blood cell count. BUN and creatinine are. LFTs are elevated more so than they were recently as his his lipase. Lipase suggestive of pancreatitis
though certainly this may be also from obstruction due to his tumor burden. Case discussed with GI. Given he had a CAT scan just 5 days ago they agree there is no need for repeat imaging. Patient will require hospitalization to manage symptoms.
*Pulse Oximetry
Patient hypoxic: no
*EKG
Interpretation: abnormal
Heart Rate: 127
Rate: tachycardiac
Rhythm: sinus tachycardia
Interval: normal interval
QRS Pattern: normal QRS
Ischemia: no ischemia
*Manager Strategy Interpretation
Rate: tachycardiac
Interpretation: abnormal
Heart Rate: 127
Rhythm: sinus tachycardia
*Critical Care Note
Total Time (30-74mins, 75-104mins- exclusive of procedures): Not Applicable
ED Attending Note
-
Portions of this chart may have been created with voice recognition software.� Occasional wrong word or��sound alike� substitutions may have occurred due to the inherent limitations of voice recognition software.
Discharge Plan
Departure
Patient Disposition: Admit
Date of Disposition: 07/20/23
Time of Disposition: 08:35
Admit to: Med/Surg
Presentation/result/management discussed w/ accepting MD/DO: Hospitalist
Condition: Fair
Discharge Problem:
Pancreatitis, acute, Intractable nausea and vomiting
Interventions
Interventions:
*Risk Screen - Suicide Last Done: 07/20/23 06:35
*General Assessment Last Done: 07/20/23 06:35
*Neglect/Abuse Screening Last Done: 07/20/23 06:35
ED- Fall Risk Assessment Last Done: 07/20/23 13:21
*ED COVID-19 Vaccine History Last Done: 07/20/23 07:52
*Nursing Disposition Last Done: 07/20/23 13:22
KH-Cratbg-Rrefftxlru Assessment Last Done: 07/20/23 07:52
Discharge Date and Time
Discharge Date/Time: 07/20/23 13:25
[2023-07-20] MEDS: NSS 1000 IV (07:48)
[2023-07-20] MEDS: BENADRYL 25 MG IV (07:48)
[2023-07-20] MEDS: COMPAZINE 10 MG IV ×2 (07:50→21:02)
[2023-07-20 07:56] LABS: % Basophils 0.3 % (0-2); % Eosinophils 0.1 % (0-6); % Immature Granulocytes 0.5 % (0-0.5); % Monocytes 6.4 % (1.7-9.3); % Neutrophils 91.7 % (42.2-75.2); Absolute Immature Granulocytes 0.1 10^3/uL (0-0.05); Absolute Lymphocytes 0.2 10^3/uL (1.2-3.4); Absolute Neutrophils 14.4 10^3/uL (1.4-6.5); Hematocrit 43.1 % (39.0-52.0); Hemoglobin 14.2 g/dL (13.0-18.0); Mean Corp Hgb Conc. 32.9 g/dL (33.0-37.0); Mean Corpuscular Hgb 28.6 pg (27.0-31.0); Mean Corpuscular Volume 86.7 fL (80.0-94.0); Mean Platelet Volume 11.9 fL (7.4-10.4); Nucleated Red Blood Cells % 0 % (-); Platelet Count 211 10^3/uL (130-400); Red Blood Cell Count 4.97 10^6/uL (4.70-6.10); Red Cell Dist. Width 13.6 % (11.5-14.5); White Blood Cell Count 15.7 10^3/uL (4.8-10.8)
[2023-07-20 08:13] LABS: ALT (SGPT) 118 U/L (0-50); AST (SGOT) 281 U/L (17-59); Albumin 3.3 g/dl (3.5-5.0); Alkaline Phosphatase 644 U/L (38-126); Blood Urea Nitrogen 26 mg/dl (9-20); Carbon Dioxide 24 mmol/L (22-30); Chloride 104 mmol/L (98-107); Estimated Creatinine Clearance 50 ml/min; Glucose 112 mg/dl (70-99); Lipase 1388 U/L (23-300); Potassium 4.3 mmol/L (3.5-5.1); Sodium 133 mmol/L (135-145); Total Protein 6.9 g/dl (6.3-8.2); eGFR 48.11
--- NOTE | 2023-07-20 08:42 | HPS.HSE ---
Addendum entered and electronically signed by Molly Matthews MD 07/20/23 11:11:
per RN, pt states that his urine is darker and foul smelling, UA reflex Cx sent
Original Note:
Family Physician
-
Family Physician: Sagar Jade
Chief Complaint
-
recurrent N/V
History of Present Illness
HPI: 63-year-old male PMH bladder ca with liver mets, recent biliary stent placement; p/w recurrent nausea and vomiting.�
Patient has had a recent prolonged hospitalization due to nausea, vomiting, abdominal pain and was found to have extensive metastatic disease to his liver with bile duct obstruction. He had a biliary stent placed from recent admission.�He also had a
infusion port placed on the .�
Patient states he has been unable to tolerate much oral intake.� He has been using Compazine at home without any improvement.
Medical History
Past Medical History
Past Medical History: Reports Other
Additional Past Medical History:
Bladder cancer (s/p cystectomy) with liver/pancreatic head/CBD mets
s/p biliary stent
had chemo for bladder cancer which permeated through bladder to his gut and resulted in sigmoid/anus/rectum resection, now with colostomy
Coronary artery disease with stent
Past Surgical History: Reports Other
Additional Past Surgical History:
see above
Social History
Tobacco: Non-smoker
Alcohol: None
Personal:
Living: With Family
Family History
Family History: Not pertinent
Allergies / Home Medications
Allergies reflects when Allergies were last updated in [facility].
Home Medications with original date entered in [facility]
Allergy/Medication List:
Allergies
Allergy/AdvReac Type Severity Reaction Status Date / Time
egg Allergy Unknown Verified 04/06/23 11:38
shellfish derived Allergy Unknown Verified 04/06/23 11:38
Home Medications
aspirin 81 mg tablet,delayed release (Ecotrin Low Strength) 81 mg PO DAILY Blood Clot Prevention/Tx 06/23/23
Dulcolax (bisacodyl) 2 gummy PO DAILYPRN PRN constipation 06/24/23
acetaminophen 500 mg tablet (Tylenol Extra Strength) 500 mg PO DAILYPRN PRN mild pain 06/24/23
docusate sodium 100 mg capsule (Stool Softener) 200 mg PO DAILY PRN constipation 06/24/23
levothyroxine 50 mcg tablet 50 mcg PO DAILY Thyroid 06/24/23
polyethylene glycol 3350 17 gram oral powder packet (Miralax) 17 g PO DAILY PRN constipation 06/24/23
tramadol 50 mg tablet 50 mg PO Q6H PRN severe pain 06/24/23
prochlorperazine maleate 10 mg tablet (Compazine) 10 mg PO Q8H PRN nausea and vomiting #30 tabs 07/02/23
Review of Systems
-
Abdomen/GI: Reports See HPI, Nausea and Vomiting
Physical Exam
Vital Signs
Vital Signs
Temp Pulse Resp BP Pulse Ox
36.7 C 128 22 116/91 95
07/20/23 06:54 07/20/23 06:45 07/20/23 06:45 07/20/23 06:54 07/20/23 06:45
Physical Exam
General: Well Developed, No Apparent Distress, Conversant and Appears Chronically Ill
HEENT: NormoCephalic, Moist mucous membranes, Atraumatic, Nose Appears Normal and Ears Appear Normal
Respiratory: Clear and Non Labored Respirations; No Accessory Resp Muscle Use
Cardiac: S1/S2 and Regular Rhythm; No Murmur or Rub
GI: Soft, Non Tender and Ostomy
Rectal: Deferred by Provider
Genito-urinary: Other (urostomy)
Musculoskeletal: No Clubbing, No Cyanosis and No Edema
Neuro: Awake
Psych: Calm
Laboratory Results
-
07/20/23 07:45
07/20/23 07:45
Laboratory Results
Total Bilirubin 2.0 mg/dl (0.2-1.3) H 07/20/23 07:45
AST 281 U/L (17-59) H 07/20/23 07:45
ALT 118 U/L (0-50) H 07/20/23 07:45
Alkaline Phosphatase 644 U/L (38-126) H 07/20/23 07:45
Lipase 1388 U/L (23-300) H* 07/20/23 07:45
Data Reviewed
-
Lab Data: Labs Reviewed by me
Impression/Plan
-
HPI: 63-year-old male PMH bladder ca with liver mets, recent biliary stent placement; p/w recurrent nausea and vomiting.�
Patient has had a recent prolonged hospitalization due to nausea, vomiting, abdominal pain and was found to have extensive metastatic disease to his liver with bile duct obstruction. He had a biliary stent placed from recent admission.�He also had a
infusion port placed on the .�
Patient states he has been unable to tolerate much oral intake.� He has been using Compazine at home without any improvement.
A/P:
# Recurrent Nausea/ Vomiting, suspect relating to metastatic disease
# Bladder cancer with mets to liver, head of pancreas and CBD, s/p recent metal stent placement in CBD
# Elevated LFT due to liver mets
# Elevated lipase level may be related to mets to pancreas
# Leucocytosis likely related to metastatic cancer
suspect recurrent N/V due to progression of cancer metastasis
GI CS
Oncs CS
Keep NPO for now, IVF support with RL
Trend lipase level/ LFT
Defer further imaging to GI/Onc
IV Compazine PRN for nausea/vomiting
# Bladder cancer s/p cystectomy, now with urostomy (Chemo for bladder cancer permeated through his gut and resulted in sigmoid/anus/rectum resection- now with colostomy)
# CKD stage 3
SCr at 1.6; baseline SCr at ~1.6
# CAD s/p stent
DVT ppx: HSQ
code status: FULL CODE
DW at bedside
[2023-07-20 11:22] LABS: Urine Albumin Trace (Neg - Trace); Urine Bilirubin Negative (Negative); Urine Character Slightly Cloudy (Clear); Urine Color Yellow; Urine Glucose Negative (Negative); Urine Ketone Negative (Negative); Urine Leukocyte 1+ (Negative); Urine Nitrite Positive (Negative); Urine Occult Blood Negative (Negative); Urine Urobilinogen Negative (Neg - 1+)
[2023-07-20 11:30] LABS: Urine Squamous Cell 0-2 /LPF (Few)
[2023-07-20 11:31] LABS: Urine Bacteria Many (Negative); Urine Red Blood Cell None Seen /HPF (0-2); Urine White Cell 26-30 /HPF (0-5)
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
--- NOTE | 2023-07-20 13:24 | PTCARENOTE ---
pt admitted from the ED to [facility] by this nurse. pt is newly diagnosed with cancer, presenting with N/V from home. over last month has had a 20lb weight loss due to decreased appetite and weakness. pt has a urostomy bag as well as a colostomy bag.
pt's partner is at the bedside and states she will bring a copy of his advanced directive next time she comes in. pt has a R chest port that was placed on . pt to be a RUE restriction.
[2023-07-20] MEDS: LR 1000 IV ×2 (13:38→21:04)
[2023-07-20] MEDS: PROTONIX IV 40 MG IV (13:38)
[2023-07-20] MEDS: ZOSYN 50 IV ×2 (17:15→21:54)
[2023-07-20] MEDS: FLUSH (NSS) 2 FLUSH IV ×2 (21:03→21:54)
--- NOTE | 2023-07-21 02:46 | PTCARENOTE ---
Patient ambulating to bathroom to empty urostomy and colostomy independently. Asked to measure but patient stated he would rather empty it directly into toilet even after explaining I/O monitoring. Patient stated he had mild nausea tonight but if
feeling better with IVF. IV/IV Abx as ordered.
[2023-07-21] MEDS: ZOSYN 50 IV ×4 (03:24→22:05)
[2023-07-21] MEDS: FLUSH (NSS) 2 FLUSH IV (03:24)
[2023-07-21] MEDS: SYNTHROID 50 MCG PO (06:11)
[2023-07-21] MEDS: LR 1000 IV ×2 (06:11→14:22)
[2023-07-21 06:51] LABS: % Basophils 0.2 % (0-2); % Eosinophils 0.7 % (0-6); % Immature Granulocytes 0.6 % (0-0.5); % Lymphocytes 5.7 % (20.5-51.1); % Neutrophils 83.8 % (42.2-75.2); Absolute Eosinophils 0.1 10^3/uL (0-0.7); Absolute Immature Granulocytes 0.1 10^3/uL (0-0.05); Absolute Lymphocytes 0.7 10^3/uL (1.2-3.4); Absolute Monocytes 1.1 10^3/uL (0.1-0.6); Absolute Neutrophils 10.3 10^3/uL (1.4-6.5); Hematocrit 39.3 % (39.0-52.0); Hemoglobin 12.8 g/dL (13.0-18.0); Mean Corp Hgb Conc. 32.6 g/dL (33.0-37.0); Mean Corpuscular Hgb 28.5 pg (27.0-31.0); Mean Corpuscular Volume 87.5 fL (80.0-94.0); Mean Platelet Volume 11.7 fL (7.4-10.4); Nucleated Red Blood Cells % 0 % (-); Platelet Count 179 10^3/uL (130-400); Red Blood Cell Count 4.49 10^6/uL (4.70-6.10); Red Cell Dist. Width 13.8 % (11.5-14.5); White Blood Cell Count 12.3 10^3/uL (4.8-10.8)
[2023-07-21 07:15] VITALS: BP 134/85
[2023-07-21 07:24] LABS: ALT (SGPT) 87 U/L (0-50); AST (SGOT) 171 U/L (17-59); Albumin 2.8 g/dl (3.5-5.0); Alkaline Phosphatase 469 U/L (38-126); Blood Urea Nitrogen 29 mg/dl (9-20); Calcium 9.1 mg/dl (8.4-10.2); Carbon Dioxide 26 mmol/L (22-30); Chloride 103 mmol/L (98-107); Estimated Creatinine Clearance 47 ml/min; Glucose 101 mg/dl (70-99); Lipase 803 U/L (23-300); Magnesium 1.8 mg/dl (1.6-2.3); Potassium 4.3 mmol/L (3.5-5.1); Sodium 134 mmol/L (135-145); Total Bilirubin 1.7 mg/dl (0.2-1.3); Total Protein 6.2 g/dl (6.3-8.2); eGFR 44.74
--- NOTE | 2023-07-21 08:24 | W.PN.GI.CBS2 ---
Addendum entered and electronically signed by William Campbell MD 07/21/23 09:35:
I saw and examined the patient.
The CLARIFIER OPERATOR's note was reviewed and I agree with the note.
feeling better . Denies any abd pain/ N/V
--Complicated history of bladder cancer with multiple abdominal surgeries with placement ileal conduit and partial colectomy with colostomy
--Metastatic urothelial cancer with mets to liver/ pancreas/biliary ducts -s/p ERCP with placement of covered metal stent 07/01/2023
-- Abdominal pain/nausea/vomiting-possibly secondary to metastatic disease. Liver test remains elevated but relatively stable.� Bilirubin is down to 2 ( was 6.8 on last admission)
-- Elevated lipase -possibly secondary to metastatic disease to pancreas
plan
clear liquid diet. if tolerating advance as tolerated
antiemetics/ pain mx as per medical team
oncology follow up
Original Note:
Today's Communication / Plan
-
continue plan. If feeling ok advance to clears
Assessment / Plan
-
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
colon requiring partial colectomy, anal resection, and prostatectomy with colostomy placement in 2019 at [facility] by Dr. Lamar, CAD status post cardiac stenting in 2017 x 1 stent, remote history of testicular cancer with radiation therapy in the
, chronic kidney disease, hyperlipidemia, hypothyroidism, who presented to the emergency room today c/o of increased abdominal pain associated with nausea/vomiting and unable to tolerate oral intake. Patient was using Compazine at home for
nausea. Awaiting chemo to be started with oncology Dr. Martin this week
Patient was had a prolonged hospital stay during last admission 2023 with pelvic abscess/sacral osteomyelitis and was discharged on 07/02/2023. He underwent liver biopsy/EUS with FNA/ERCP with placement of Covered metallic stent during last
admission. Details above. Liver biopsy/FNA cytology suggestive of metastatic urothelial cancer.
--Complicated history of bladder cancer with multiple abdominal surgeries with placement ileal conduit and partial colectomy with colostomy
--Metastatic urothelial cancer with mets to pancreas/biliary ducts -s/p ERCP with placement of covered metal stent 07/01/2023
-- Abdominal pain/nausea/vomiting-possibly secondary to metastatic disease. Liver test remains elevated but relatively stable. Bilirubin is down to 2 ( was 6.8 on last admission)
-- Elevated lipase -possibly secondary to metastatic disease to pancreas
plan
N.p.o., continue ice chips. Probably advance to clear liquids later if still feeling ok.
IV hydration
Antiemetics/pain management as per medical team
Oncology eval pending -goals of care
Okay to hold off on repeat abdominal imaging for now. Last CT 07/15/2023 reviewed. If worsening symptoms we will consider repeat imaging
Will follow
Subjective
Subjective
Date of Service: July 21, 2023
Patient without any N/V or abdominal pain today. He has ostomy output. Tolerating ice chips. WBC and LFTs trending down.
Objective
Data Reviewed
Laboratory Data:
Laboratory Results
07/21/23 06:33
07/21/23 06:33
Laboratory Results
Magnesium 1.8 mg/dl (1.6-2.3) 07/21/23 06:33
Total Bilirubin 1.7 mg/dl (0.2-1.3) H 07/21/23 06:33
AST 171 U/L (17-59) H 07/21/23 06:33
ALT 87 U/L (0-50) H 07/21/23 06:33
Alkaline Phosphatase 469 U/L (38-126) H 07/21/23 06:33
Lipase 803 U/L (23-300) H 07/21/23 06:33
Vital Signs and I&O:
Vital Signs
Temp Pulse Resp BP Pulse Ox
97.0 F 81 16 134/85 97
07/21/23 07:15 07/21/23 07:15 07/21/23 07:15 07/21/23 07:15 07/21/23 07:15
I&O
07/20/23 07/21/23 07/22/23
06:59 06:59 06:59
Intake Total 2340 / 2340
Output Total 300 / 300
Balance 2039
Physical Exam
Physical Exam
HEENT: Anicteric
Cardiology: Normal Sinus Rhythm
Pulmonary: Clear (anterior)
GI: Soft, Non Distended, Non Tender, Normal Bowel Sounds and Other (ostomy LLQ, urostomy)
Neuro: Non Focal
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
[2023-07-21] MEDS: NSS (PRESERVATIVE FREE) 10 ML IV (09:01)
[2023-07-21] MEDS: PROTONIX IV 40 MG IV (09:01)
[2023-07-21] MEDS: ASPIR LOW (ENTERIC COATED) 81 MG PO (09:01)
--- NOTE | 2023-07-21 09:08 | PTCARENOTE ---
pt refused am dose of heparin despite education
--- NOTE | 2023-07-21 10:17 | W.PN.HOSP.TC ---
Addendum entered and electronically signed by Narciso Gannon MD 07/21/23 23:32:
Attending Addendum-
I saw and evaluated the patient. I reviewed the resident�s note and agree with findings and plan as documented in the resident�s note. Patient denies nausea, still feels weak. Full 12 point ROS reviewed and negative except as documented, Exam: gen
NAD heart RRR lungs clear abd soft urostomy-clear darker yellow urine, and colostomy solid stood LE no edema Plan:
# N/V- resolved advance diet as tolerated cont IVF as still mildly dehydrated
# Sepsis secondary to UTI- cont zosyn urine cx gram neg bacilli cont IVF repeat CBC in am
# CKD 3b- baseline cr @ 1.6 cont IVF repeat BMP in am avoid nephrotoxic agents
# Metastatic Bladder ca- to liver, panc, cbd- urostomy- cont care, colostomy- cont care, for new regimen chemo as OP, delay due to acute infection appreciate onc input
# Acute Pancreatitis- from malignancy, resolving cont IVF
# Acute Transaminitis- from malignancy- cont to trend cont IVF appreciate GI input
Dispo- cont current care- for DC home when able to transition to PO abx/tolerating PO
Time spent coordinating care, review of plan of care with resident, review of records, med rec, consults, notes, labs, rads, d/w nursing � 59 mins
Original Note:
Today's Communication/Plan
-
see a/p
Advance diet as tolerated
Continue Abx for UTI
Assessment / Plan
Assessment / Plan
Assessment
Urinary tract infection
Recurrent Nausea/ Vomiting, suspect relating to metastatic disease
Bladder cancer with mets to liver, head of pancreas and CBD, s/p recent metal stent placement in CBD
Elevated LFT due to liver mets
Elevated lipase level may be related to mets to pancreas
Leucocytosis likely related to metastatic cancer
Conditions Prior to Admission
Bladder cancer status post cystectomy, now with urostomy
History of pancreatitis
Hypothyroidism
History of hypokalemia
History of osteomyelitis of the sacrum
CKD stage III
CAD status post stent
Plan
#Urinary tract infection
-Urinalysis positive for nitrite and leukocyte esterase
-Urine culture pending
-Continue Zosyn pending final cultures
# Recurrent Nausea/ Vomiting, suspect relating to metastatic disease
# Bladder cancer with mets to liver, head of pancreas and CBD, s/p recent metal stent placement in CBD
# Bladder cancer s/p cystectomy, now with urostomy (Chemo for bladder cancer permeated through his gut and resulted in sigmoid/anus/rectum resection- now with colostomy)
# Elevated LFT due to liver mets
# Elevated lipase level may be related to mets to pancreas
# Leucocytosis likely related to metastatic cancer
#suspect recurrent N/V due to progression of cancer metastasis
-GI input appreciated
-Discussed with patient at bedside patient reports no nausea vomiting, advancing to clear liquids per GI recommendation
-Patient tolerated clear liquids, advance to full liquids
-Continue Compazine as needed for nausea
-Continue pain medication
-Oncology to follow
-Trend lipase level/LFT
# CKD stage III
Cre today 1.7, baseline 1.6
Continue to monitor
# Hypothyroidism
-Continue levothyroxine
# CAD s/p stent
DVT ppx: HSQ
code status: FULL CODE
Anticipated Discharge: > 48 hours
Subjective/Interval History
-
Presents with no new complaints today. Reports nausea improved with IVF. Denies abdominal pain. Discussed with RN regarding care. Advancing to clear liquids per GI recommendation
Objective Data
-
Labs:
Laboratory Results
07/21/23
06:33
WBC 12.3 H
Hgb 12.8 L
Hct 39.3
Plt Count 179
Sodium 134 L
Potassium 4.3
Chloride 103
Carbon Dioxide 26
BUN 29 H
Creatinine 1.7 H
Glucose 101 H
Calcium 9.1
Total Bilirubin 1.7 H
AST 171 H
ALT 87 H
Alkaline Phosphatase 469 H
Vital Signs:
Vital Signs
Temp Pulse Resp BP Pulse Ox
97.0 F 81 16 134/85 97
07/21/23 07:15 07/21/23 07:15 07/21/23 07:15 07/21/23 07:15 07/21/23 07:15
I&O
07/20/23 07/21/23 07/22/23
06:59 06:59 06:59
Intake Total 2340 / 2340
Output Total 300 / 300
Balance 2039 / 2039
Review of Systems
-
All other systems: Reviewed and negative (unless as documented )
Physical Exam
-
General: No Apparent Distress
HEENT: Normocephalic and Anicteric
Respiratory: Clear to Auscultation; Negative Rales or Rhonchi
Cardiac: Regular Rhythm and S1/S2
GI: Soft, Nontender, Nondistended, Normal Bowel Sounds and Other (Presents of ostomy LLQ, urostomy)
Musculoskeletal: No Clubbing and No Cyanosis
Skin: Warm
Neuro: Awake, Alert, Oriented and AO x 3
Psych: Calm
Data Reviewed
-
Labs: Labs Reviewed by me, Discussed with Physician and Discussed with Nurse
[2023-07-21 12:27] VITALS: BMI 28.3
--- NOTE | 2023-07-21 13:23 | CM ---
Initial assessment completed with patient and who live in a 2 story home with basement, B/B on 2nd floor with 1/2 bath on 1st, 2 steps to enter. 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
port for chemo. Pharmacy is [facility] in [place] and PCP is Dr. Sagar Jade. is HC POA and no psychiatric hospitalizations. Anticipate no needs at discharge.
[2023-07-21 15:00] VITALS: BP 152/88
[2023-07-21] MEDS: NSS 1000 IV (17:35)
[2023-07-21] MEDS: DECADRON 4 MG PO (17:35)
[2023-07-21 23:38] VITALS: BP 137/83
[2023-07-22] MEDS: ZOSYN 50 IV ×4 (04:36→21:15)
[2023-07-22] MEDS: SYNTHROID 50 MCG PO (05:16)
[2023-07-22] MEDS: NSS 1000 IV ×2 (05:16→16:19)
[2023-07-22 05:21] LABS: % Basophils 0.1 % (0-2); % Immature Granulocytes 0.4 % (0-0.5); % Lymphocytes 5.2 % (20.5-51.1); % Monocytes 5.4 % (1.7-9.3); % Neutrophils 88.9 % (42.2-75.2); Absolute Lymphocytes 0.5 10^3/uL (1.2-3.4); Absolute Monocytes 0.5 10^3/uL (0.1-0.6); Absolute Neutrophils 7.9 10^3/uL (1.4-6.5); Hematocrit 38.1 % (39.0-52.0); Hemoglobin 12.1 g/dL (13.0-18.0); Mean Corp Hgb Conc. 31.8 g/dL (33.0-37.0); Mean Corpuscular Hgb 27.9 pg (27.0-31.0); Mean Corpuscular Volume 87.8 fL (80.0-94.0); Mean Platelet Volume 11.8 fL (7.4-10.4); Nucleated Red Blood Cells % 0 % (-); Platelet Count 181 10^3/uL (130-400); Red Blood Cell Count 4.34 10^6/uL (4.70-6.10); Red Cell Dist. Width 13.5 % (11.5-14.5); White Blood Cell Count 8.9 10^3/uL (4.8-10.8)
[2023-07-22 05:55] LABS: ALT (SGPT) 69 U/L (0-50); AST (SGOT) 122 U/L (17-59); Albumin 2.6 g/dl (3.5-5.0); Alkaline Phosphatase 376 U/L (38-126); Blood Urea Nitrogen 29 mg/dl (9-20); Calcium 8.8 mg/dl (8.4-10.2); Carbon Dioxide 23 mmol/L (22-30); Chloride 104 mmol/L (98-107); Estimated Creatinine Clearance 54 ml/min; Glucose 141 mg/dl (70-99); Potassium 4.5 mmol/L (3.5-5.1); Sodium 132 mmol/L (135-145); Total Bilirubin 1.2 mg/dl (0.2-1.3); Total Protein 5.7 g/dl (6.3-8.2); eGFR 51.99
[2023-07-22 07:00] VITALS: BP 114/52
--- NOTE | 2023-07-22 07:24 | W.PN.ONC ---
Today's Communication / Plan
-
Await brain MRI to r/o metastatic disease as possible etiology for N/V
Continue low dose dexamethasone, 4mg/d, for now. Will switch to IV w/ GI upset. Continue PPI
Abx for Klebs UTI; infection may be contributing to N/V
Will plan to start systemic chemo (Padcev/Keytruda) as soon as he's discharged
Will follow along
Impression
Impression
Metastatic urothelial cancer with mets to liver, pancreas/CBD s/p radical cystectomy with complications
Acute/recurrent nausea, vomiting, poor oral intake (improving)
Recent stenting of CBD via ERCP (06/30/33)
Transaminitis
Leukocytosis
Neutrophilia
Elevated lipase
Hypoalbuminemia
Acute, recurrent UTI with urostomy
Hx CKD3
Plan
Plan
Await brain MRI to r/o metastatic disease as possible etiology for N/V
Continue low dose dexamethasone, 4mg/d, for now. Will switch to IV w/ GI upset. Continue PPI
Abx for Klebs UTI; infection may be contributing to N/V
Will plan to start systemic chemo (Padcev/Keytruda) as soon as he's discharged
Will follow along
Subjective/Objective
Subjective/Objective
Nausea/appetite improved w/ one dose oral decadron yesterday, but he had stomach pain overnight.
Vital Signs:
Vital Signs
Temp Pulse Resp BP Pulse Ox
97.6 F 54 18 114/52 96
07/21/23 23:38 07/22/23 07:00 07/22/23 07:00 07/22/23 07:00 07/22/23 07:00
Lab Results:
Laboratory Data
WBC 8.9 10^3/uL (4.8-10.8) 07/22/23 05:01
Hgb 12.1 g/dL (13.0-18.0) L 07/22/23 05:01
Plt Count 181 10^3/uL (130-400) 07/22/23 05:01
eGFR 51.99 07/22/23 05:01
Orders
Orders
Orders From Last 24 Hours
07/22/23 08:00
Dexamethasone Sod Phosphate [Decadron] 4 mg IV DAILY
[2023-07-22] MEDS: ASPIR LOW (ENTERIC COATED) 81 MG PO (08:10)
[2023-07-22] MEDS: NSS (PRESERVATIVE FREE) 10 ML IV (08:11)
[2023-07-22] MEDS: PROTONIX IV 40 MG IV (08:11)
[2023-07-22] MEDS: DECADRON 4 MG IV (08:11)
--- NOTE | 2023-07-22 10:22 | W.PN.HOSP.TC ---
Addendum entered and electronically signed by Narciso Gannon MD 07/22/23 21:05:
Attending Addendum-
I saw and evaluated the patient. I reviewed the resident�s note and agree with findings and plan as documented in the resident�s note. feels improved. no nausea/vomitting, tolerating PO. Full 12 point ROS reviewed and negative except as documented,
Exam: gen NAD heart RRR lungs clear abd soft urostomy-clear yellow urine, and colostomy solid stood LE no edema Plan:
# N/V- resolved advance diet as tolerated cont IVF for now, MRI brain-07/21-reviewed no acute intracranial process
# Hyponatremia- mildly lower, cont IVF for now, likely due to volume depletion repeat BMP in am
# Sepsis secondary to UTI- cx sensitivities reviewed start PO cipro and see if patient tolerates prior to DC, DC zosyn, repeat CBC in am
# CKD 3b- improved, baseline cr @ 1.6 cont IVF repeat BMP in am avoid nephrotoxic agents
# Metastatic Bladder ca- to liver, panc, cbd- urostomy- cont care, colostomy- cont care, for new regimen chemo as OP, delay due to acute infection appreciate onc input
# Acute Pancreatitis- from malignancy, cont IVF
# Acute Transaminitis- improved, from malignancy- cont to trend cont IVF appreciate GI input
Dispo-for DC home in AM if laney oral abx
Time spent coordinating care, review of plan of care with resident, review of records, med rec, consults, notes, labs, rads, d/w nursing and POA� 55 mins
Original Note:
Today's Communication/Plan
-
see a/p
Switch antibiotics to oral ciprofloxacin
Advance diet as tolerated
Assessment / Plan
Assessment / Plan
Assessment
Sepsis secondary to urinary tract infection
Recurrent Nausea/ Vomiting, suspect relating to metastatic disease
Bladder cancer with mets to liver, head of pancreas and CBD, s/p recent metal stent placement in CBD
Elevated LFT due to liver mets
Elevated lipase level may be related to mets to pancreas
Leucocytosis likely related to metastatic cancer
Conditions Prior to Admission
Bladder cancer status post cystectomy, now with urostomy
History of pancreatitis
Hypothyroidism
History of hypokalemia
History of osteomyelitis of the sacrum
CKD stage III
CAD status post stent
Plan
# Sepsis secondary to urinary tract infection
-Urine culture positive for Citrobacter and Pseudomonas aeruginosa
-Patient initially started on Zosyn, will switch antibiotics regimen to oral ciprofloxacin to target organism.
# Recurrent Nausea/ Vomiting, suspect relating to metastatic disease
-Patient resolved reports nausea and vomiting has resolved after initiation of IV steroids
# Bladder cancer with mets to liver, head of pancreas and CBD, s/p recent metal stent placement in CBD
# Bladder cancer s/p cystectomy, now with urostomy (Chemo for bladder cancer permeated through his gut and resulted in sigmoid/anus/rectum resection- now with colostomy)
# Elevated LFT due to liver mets
# Elevated lipase level may be related to mets to pancreas
# Leucocytosis likely related to metastatic cancer
#suspect recurrent N/V due to progression of cancer metastasis
-Patient tolerated advance to clear liquids, tolerated advance to full liquids, advance diet today as tolerated.
-Continue Compazine as needed for nausea as needed
-Oncology to follow.
-Trend lipase level/LFT
# CKD stage III
Cre today 1.7, baseline 1.6
Continue to monitor
Avoid nephrotoxic agents
# Hypothyroidism
-Continue levothyroxine
# CAD s/p stent
DVT ppx: HSQ
code status: FULL CODE
Anticipated Discharge: 24 - 48 hours
Subjective/Interval History
-
Patient denies nausea and vomiting at bedside. Discussed abdominal pain reported overnight, Patient reports abdominal pain started started a few minutes after being initiated on steroids. Patient reports abdominal pain was generalized and rated
it as 1 out of 10 pain. Patient reports pain lasted for a period of 1 hour. Patient denies abdominal pain at this time.
Objective Data
-
Labs:
Laboratory Results
07/22/23
05:01
WBC 8.9
Hgb 12.1 L
Hct 38.1 L
Plt Count 181
Sodium 132 L
Potassium 4.5
Chloride 104
Carbon Dioxide 23
BUN 29 H
Creatinine 1.5 H
Glucose 141 H
Calcium 8.8
Total Bilirubin 1.2
AST 122 H
ALT 69 H
Alkaline Phosphatase 376 H
Vital Signs:
Vital Signs
Temp Pulse Resp BP Pulse Ox
97.6 F 54 18 114/52 96
07/21/23 23:38 07/22/23 07:00 07/22/23 07:00 07/22/23 07:00 07/22/23 07:00
I&O
07/21/23 07/22/23 07/23/23
06:59 06:59 06:59
Intake Total 2340 / 2340 1360 / 1360
Output Total 300 / 300 2 / 2
Balance 2040 / 2040 1358 / 1358
Review of Systems
-
All other systems: Reviewed and negative (Except as documented)
Physical Exam
-
General: No Apparent Distress
HEENT: Normocephalic
Respiratory: Clear to Auscultation; Negative Wheezes, Rales or Rhonchi
Cardiac: Regular Rhythm and S1/S2
GI: Soft, Nontender, Nondistended and Other (colostomy bag)
Genito-urinary: Other (Presence of urostomy bag. Clear yellow urine. )
Musculoskeletal: No Clubbing, No Cyanosis and No Edema
Skin: Warm
Neuro: Awake, Alert, Oriented and AO x 3
Psych: Calm
Data Reviewed
-
Labs: Labs Reviewed by me and Discussed with Physician
--- NOTE | 2023-07-22 10:29 | W.PN.GI.CBS2 ---
Today's Communication / Plan
-
continue with anti emetics, tolerating CLD, can advance diet gradually as tolerated, GI s/o.
Assessment / Plan
-
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
colon requiring partial colectomy, anal resection, and prostatectomy with colostomy placement in 2019 at [facility] by Dr. Lamar, CAD status post cardiac stenting in 2017 x 1 stent, remote history of testicular cancer with radiation therapy in the
, chronic kidney disease, hyperlipidemia, hypothyroidism, who presented to the emergency room today c/o of increased abdominal pain associated with nausea/vomiting and unable to tolerate oral intake. Patient was using Compazine at home for
nausea. Awaiting chemo to be started with oncology Dr. Martin this week
Patient was had a prolonged hospital stay during last admission 2023 with pelvic abscess/sacral osteomyelitis and was discharged on 07/02/2023. He underwent liver biopsy/EUS with FNA/ERCP with placement of Covered metallic stent during last
admission. Details above. Liver biopsy/FNA cytology suggestive of metastatic urothelial cancer.
CT abd from 07/14 reviewed - metal stent is in good position. LFT continues to improve, normal bili today which confirms stent is functioning well. N/V w/o abdo pain. Denies vomiting and nausea is improving today. Waiting for brain MRI. Mx as
per oncology, anti-emetics, advance diet as tolerated. GI will w/o, pls call with questions.
Total Time Spent with Patient (in minutes): 35
Subjective
Subjective
Date of Service: July 22, 2023
tolerating CLD, denies vomiting, feeling better today.
Objective
Data Reviewed
Laboratory Data:
Laboratory Results
07/22/23 05:01
07/22/23 05:01
Laboratory Results
Magnesium 1.8 mg/dl (1.6-2.3) 07/21/23 06:33
Total Bilirubin 1.2 mg/dl (0.2-1.3) 07/22/23 05:01
AST 122 U/L (17-59) H 07/22/23 05:01
ALT 69 U/L (0-50) H 07/22/23 05:01
Alkaline Phosphatase 376 U/L (38-126) H 07/22/23 05:01
Lipase 803 U/L (23-300) H 07/21/23 06:33
Vital Signs and I&O:
Vital Signs
Temp Pulse Resp BP Pulse Ox
97.6 F 54 18 114/52 96
07/21/23 23:38 07/22/23 07:00 07/22/23 07:00 07/22/23 07:00 07/22/23 07:00
I&O
07/21/23 07/22/23 07/23/23
06:59 06:59 06:59
Intake Total 2340 / 2340 1360 / 1360
Output Total 300 / 300 2 / 2
Balance 2039 / 2039 1358 / 1358
[2023-07-22 16:00] VITALS: BP 138/64
[2023-07-22] MEDS: CIPRO 500 MG PO (20:52)
[2023-07-22] MEDS: TYLENOL 500 MG PO (21:14)
[2023-07-22 22:32] VITALS: BMI 28.2
[2023-07-22 23:10] VITALS: BP 118/67
[2023-07-23] MEDS: ZOSYN 50 IV (03:34)
[2023-07-23] MEDS: COMPAZINE 10 MG IV (04:04)
--- NOTE | 2023-07-23 04:07 | DOWNTIME ---
There was a [employer] Client Postmaster Downtime on 07/23/2023 from 0100 to 07/23/2023 at 0322. Downtime documentation of patient's care, including medication administrations, has been reconciled in the electronic record per guidelines. Refer to the
patient's paper chart under the miscellaneous tab to see printed paper medication records and downtime forms.
[2023-07-23 04:53] LABS: % Basophils 0.1 % (0-2); % Eosinophils 0.2 % (0-6); % Immature Granulocytes 0.5 % (0-0.5); % Lymphocytes 7.4 % (20.5-51.1); % Monocytes 7.7 % (1.7-9.3); % Neutrophils 84.1 % (42.2-75.2); Absolute Immature Granulocytes 0.1 10^3/uL (0-0.05); Absolute Lymphocytes 0.8 10^3/uL (1.2-3.4); Absolute Monocytes 0.9 10^3/uL (0.1-0.6); Absolute Neutrophils 9.4 10^3/uL (1.4-6.5); Hemoglobin 12.1 g/dL (13.0-18.0); Mean Corp Hgb Conc. 31.8 g/dL (33.0-37.0); Mean Corpuscular Hgb 27.7 pg (27.0-31.0); Mean Platelet Volume 11.6 fL (7.4-10.4); Nucleated Red Blood Cells % 0 % (-); Platelet Count 216 10^3/uL (130-400); Red Blood Cell Count 4.37 10^6/uL (4.70-6.10); Red Cell Dist. Width 13.5 % (11.5-14.5); White Blood Cell Count 11.2 10^3/uL (4.8-10.8)
[2023-07-23 05:52] LABS: Blood Urea Nitrogen 31 mg/dl (9-20); Calcium 9.1 mg/dl (8.4-10.2); Carbon Dioxide 23 mmol/L (22-30); Chloride 101 mmol/L (98-107); Estimated Creatinine Clearance 54 ml/min; Glucose 108 mg/dl (70-99); Potassium 4.2 mmol/L (3.5-5.1); Sodium 133 mmol/L (135-145); eGFR 51.99
[2023-07-23] MEDS: NSS 1000 IV (05:55)
[2023-07-23] MEDS: SYNTHROID 50 MCG PO (05:55)
--- NOTE | 2023-07-23 07:51 | W.PN.HOSP.TC ---
Addendum entered and electronically signed by Narciso Gannon MD 07/23/23 20:53:
Severe Protein Calorie Malnutrition
Addendum entered and electronically signed by Narciso Gannon MD 07/23/23 15:01:
Attending Addendum-
I saw and evaluated the patient. I reviewed the resident�s note and agree with findings and plan as documented in the resident�s note. did not like the probiotic, no other complaints. No N/V abd pain. Full 12 point ROS reviewed and negative except
as documented, Exam: gen NAD heart RRR lungs clear abd soft urostomy-clear yellow urine, and colostomy solid stood LE no edema Plan:
# N/V- resolved advance diet as tolerated cont IVF for now, MRI brain-07/21-reviewed no acute intracranial process
# Hyponatremia- improved, dc ivf
# Sepsis secondary to UTI- tolerating well cont PO cipro on DC for total 10 days.
# CKD 3b- improved, baseline cr @ 1.6 cont IVF repeat BMP in am avoid nephrotoxic agents
# Metastatic Bladder ca- to liver, panc, cbd- urostomy- cont care, colostomy- cont care, for new regimen chemo as OP
# Acute Pancreatitis- from malignancy, improved
# Acute Transaminitis- improved, from malignancy
Dispo-for DC home today on oral abx
Time spent coordinating care, review of plan of care with resident, dc planning, review of records, med rec, consults, notes, labs, rads, d/w nursing and POA� 37 mins
Original Note:
Today's Communication/Plan
-
Continue oral ciprofloxacin additional 5 days
D/C home
Follow-up with oncology for systemic chemotherapy outpatient
Assessment / Plan
Assessment / Plan
Assessment
Sepsis secondary to urinary tract infection
Recurrent Nausea/ Vomiting, suspect relating to metastatic disease
Bladder cancer with mets to liver, head of pancreas and CBD, s/p recent metal stent placement in CBD
Elevated LFT due to liver mets
Elevated lipase level may be related to mets to pancreas
Leucocytosis likely related to metastatic cancer
Conditions Prior to Admission
Bladder cancer status post cystectomy, now with urostomy
History of pancreatitis
Hypothyroidism
History of hypokalemia
History of osteomyelitis of the sacrum
CKD stage III
CAD status post stent
Plan
# Sepsis secondary to urinary tract infection
-Urine culture positive for Citrobacter and Pseudomonas aeruginosa
-DC Zosyn. Culture sensitivities reviewed, start p.o. Cipro
# Recurrent Nausea/ Vomiting, suspect relating to metastatic disease
-Patient resolved reports nausea and vomiting has resolved after initiation of IV steroids
-MRI brain 07/21 reviewed no acute intracranial process
# Bladder cancer with mets to liver, head of pancreas and CBD, s/p recent metal stent placement in CBD
# Bladder cancer s/p cystectomy, now with urostomy (Chemo for bladder cancer permeated through his gut and resulted in sigmoid/anus/rectum resection- now with colostomy)
# Elevated LFT due to liver mets
# Elevated lipase level may be related to mets to pancreas
# Leucocytosis likely related to metastatic cancer
#suspect recurrent N/V due to progression of cancer metastasis
-Continue Compazine as needed for nausea as needed
-Oncology to follow.
-Trend lipase level/LFT
# CKD stage III
Cre today 1.7, baseline 1.6
Continue to monitor
Avoid nephrotoxic agents
Hyponatremia
Mildly low
Continue IVF
Likely due to volume depletion
# Hypothyroidism
-Continue levothyroxine
# CAD s/p stent
DVT ppx: HSQ
code status: FULL CODE
Anticipated Discharge: Today
Subjective/Interval History
-
Overnight, patient reports mild lower back pain. Reports back pain is similar to what he has experienced in the past. Reports Tylenol improve the back pain.
Objective Data
-
Labs:
Laboratory Results
07/23/23
04:33
WBC 11.2 H
Hgb 12.1 L
Hct 38.0 L
Plt Count 216
Sodium 133 L
Potassium 4.2
Chloride 101
Carbon Dioxide 23
BUN 31 H
Creatinine 1.5 H
Glucose 108 H
Calcium 9.1
Vital Signs:
Vital Signs
Temp Pulse Resp BP Pulse Ox
98.0 F 56 16 118/67 98
07/22/23 23:10 07/22/23 23:10 07/22/23 23:10 07/22/23 23:10 07/22/23 23:10
I&O
07/22/23 07/23/23 07/24/23
06:59 06:59 06:59
Intake Total 1360 / 1360 1999
Output Total
Balance 1358 / 1358 1997
Review of Systems
-
All other systems: Reviewed and negative (Except as documented.)
Physical Exam
-
General: No Apparent Distress
HEENT: Normocephalic
Respiratory: Clear to Auscultation; Negative Wheezes or Rales
Cardiac: Regular Rhythm and S1/S2
GI: Soft, Nontender, Nondistended and Other (Colostomy bag present with stool)
Genito-urinary: Other (Presence of urostomy bag with urine present)
Musculoskeletal: No Clubbing and No Cyanosis
Skin: Warm
Neuro: Awake, Alert, Oriented and AO x 3
Psych: Calm
[2023-07-23 08:25] VITALS: BP 136/87
--- NOTE | 2023-07-23 08:52 | PN.CDI ---
CDI
- -
CDI:
Physician Documentation Request
Admit Date: 07/20/23 09:43
Dear Doctor Jagdeep,
Patient admitted with sepsis.
07/20 Nutrition note, 'Per ASPEN/AND guidelines, pt meets for severe malnutrition in the context of chronic illness as evidenced by <50% intake est needs x > 1 month, significant weight loss of 6% x 1 month, 11% x 3 months, 14.4% x 6 months.
Please provide in your note the diagnosis associated with the above documentation and your assessment:
Severe protein calorie malnutrition
Moderate protein calorie malnutrition
Other
Evans Criteria ([facility] Hospitalist 2017)
2 or more criteria must be present for either
non severe or severe malnutrition
Note that the criteria differs related to the
presence of an acute or chronic illness
Chronic Illness
Energy Intake Non Severe: <75% for >1 month
Severe: <75% for >1 month
Weight Loss Non Severe: 5% over 1 month
7.5% over 3 months
10% over 6 months
20% over 1 year
Severe: >5% over 1 month
>7.5% over 3 months
>10% over 6 months
>20% over 1 year
Body Fat Non Severe: Mild Loss
Severe: Severe Loss
Muscle Mass Non Severe: Mild Loss
Severe: Severe Loss
Fluid Accumulation Non Severe: Mild Accumulation
Severe: Moderate to severe
accumulation
Reduced Equipment Service Associate Strength Non Severe: N/A
Severe: Measurably reduced
Use of terms such as suspected, likely, concern for, or probable (associated with a specific diagnosis that is being evaluated, monitored, or treated as if it exists) are acceptable and can be coded in the inpatient setting, when documented at the
time of discharge.
Thank you,
Paige PARKER,RN,CCDS
CDI Specialist
Available via tiger text
Please use your independent medical judgment in providing your response.
[2023-07-23] MEDS: NSS (PRESERVATIVE FREE) 10 ML IV (09:09)
[2023-07-23] MEDS: CIPRO 500 MG PO (09:09)
[2023-07-23] MEDS: ASPIR LOW (ENTERIC COATED) 81 MG PO (09:09)
[2023-07-23] MEDS: PROTONIX IV 40 MG IV (09:10)
[2023-07-23] MEDS: DECADRON 4 MG IV (09:10)
[2023-07-23] MEDS: VISBIOME 1 CAP PO (09:12)
[2023-07-23] MEDS: NSS IV (12:48)
--- NOTE | 2023-07-23 13:24 | CM ---
Clear liquid diet and advance as tolerated. MRI brain showed no mets. Discharge Plan of Care: Anticipate home with no additional skilled needs.
--- NOTE | 2023-07-23 13:56 | CM ---
Patient has been medically cleared for discharge to home with no additional skilled services. is present and will transport home.
--- NOTE | 2023-07-23 14:10 | W.DCSUMMARY ---
Addendum entered and electronically signed by Narciso Gannon MD 07/23/23 15:02:
Read, reviewed, and agree.
Carlos Gannon MD
Original Note:
Documented by User: Ambreen Sahu MD, Resident 07/23/23 14:56
Discharge Summary
Discharge Data
Date of Admission: 07/20/23
Date of Discharge: 07/23/23
-
Pending Results: No
Hospital Course
DISCHARGE DIAGNOSIS:
1. Sepsis secondary to UTI
2. Intractable nausea and vomiting
3. Metastatic urothelial cancer with mets to liver, pancreas/CBD s/p radical cystectomy with complications
4. CKD stage III
5. Hypothyroidism
Consults: Gastroenterology, Oncology
Hospital course: This is a 62-year-old male with past medical history of bladder cancer with mets to the liver, pancreas/CBD status post radical cystectomy with complications, CKD, hypothyroidism, who presented to [facility] ED with increased abdominal
pain, nausea and vomiting and unable to tolerate oral intake. On Presentation to the ED, labs showed leukocytosis, hypertension and tachycardia. He presented to the ED 07/15/2023 for similar symptoms and a CT scan was done at that time showing
severe extensive hepatic metastatic disease. At this admission, GI and oncology was consulted. He was kept n.p.o. and started on IV hydration. His diet was advanced as tolerated. Oncology started patient on dexamethasone 4 mg oral for nausea and
later switched to IV due to patient not tolerating oral medication at that time. Examination with MRI of the brain showed no acute intracranial process. Patient reports nausea and vomiting improved with IV steroids and IV fluids. Patient also
reported foul-smelling urine from urostomy bag. urinalysis ordered in the ED positive for UTI. Urine culture positive for gram negative organisms. Patient was initially started on Zosyn and an antibiotic regimen was changed to oral ciprofloxacin
based on culture sensitivities. Patient tolerated oral antibiotics with improvement in white blood cell count. Patient will be discharged home with 5 days of oral ciprofloxacin twice daily. Patient will continue to follow-up with oncology, to
start systemic chemotherapy.
Hypothyroidism; patient will be continued on current regimen
On the day of admission, vitals show temperature; 97.5, BP 136/87, pulse 66, respiratory 18, O2 sat 98% on room air.
Physical examination: Patient is awake alert in no distress, Heart regular rate regular rhythm with S1-S2 present, lungs clear on auscultation, abdomen soft, urostomy presents with clear yellow urine, colostomy solid stool. Extremities show no
peripheral edema
Discharge Plan
-
Patient Disposition: Home (Routine Discharge)
Discharge Diagnosis/Procedures: Sepsis secondary to UTI
Intractable Nausea and Vomiting
Condition: Good
Diet: As tolerated
Activity: No restrictions
Referrals:
Katia Martin MD [Active] - in less than 1 week (follow up with oncology for systemic chemo)
Sagar Jade MD [Family Provider] - None
Additional Discharge Medication Instructions: Continue PO Ciprofloxacin 500mg BID for additional 5 days
Prescriptions:
New
ciprofloxacin HCl 500 mg Tablet
500 mg PO BID Qty: 20 0RF
Continued
aspirin [Ecotrin Low Strength] 81 mg Tablet,Delayed Release (Dr/Ec)
81 mg PO DAILY
polyethylene glycol 3350 [Miralax] 17 gram Powder In Packet
17 g PO DAILY PRN (Reason: constipation)
tramadol 50 mg Tablet
50 mg PO PRN PRN (Reason: severe pain)
Patient Comments:
07/15/2023: last filled 06/20/23, 25 tabs for 7 days from [facility]
levothyroxine 50 mcg Tablet
50 mcg PO DAILY
docusate sodium [Stool Softener] 100 mg Capsule
200 mg PO PRN PRN (Reason: constipation)
Dulcolax (bisacodyl)
2 gummy PO DAILYPRN PRN (Reason: constipation)
acetaminophen [Tylenol Extra Strength] 500 mg Tablet
500 mg PO DAILYPRN PRN (Reason: mild pain)
prochlorperazine maleate [Compazine] 10 mg tablet
10 mg PO Q8H PRN (Reason: nausea and vomiting) Qty: 30 0RF
ranitidine HCl 75 mg Tablet
PRN (Reason: heartburn )
Discharge Orders:
Discharge Patient (As Directed); Ordered 07/23/23
Ordered By: Ambreen Sahu
Discharge Date and Time
Discharge Date/Time: 07/23/23 14:59
Print Language: SINGAPOREAN

Documented by User: Narciso Gannon MD 07/23/23 15:02
Discharge Summary
Discharge Data
Date of Admission: 07/20/23
Date of Discharge: 07/23/23
Discharge Plan
-
Patient Disposition: Home (Routine Discharge)
Discharge Diagnosis/Procedures: Sepsis secondary to UTI
Intractable Nausea and Vomiting
Condition: Good
Diet: As tolerated
Activity: No restrictions
Referrals:
Katia Martin MD [Active] - in less than 1 week (follow up with oncology for systemic chemo)
Sagar Jade MD [Family Provider] - None
Additional Discharge Medication Instructions: Continue PO Ciprofloxacin 500mg BID for additional 5 days
Prescriptions:
New
ciprofloxacin HCl 500 mg Tablet
500 mg PO BID Qty: 20 0RF
Continued
aspirin [Ecotrin Low Strength] 81 mg Tablet,Delayed Release (Dr/Ec)
81 mg PO DAILY
polyethylene glycol 3350 [Miralax] 17 gram Powder In Packet
17 g PO DAILY PRN (Reason: constipation)
tramadol 50 mg Tablet
50 mg PO PRN PRN (Reason: severe pain)
Patient Comments:
07/15/2023: last filled 06/20/23, 25 tabs for 7 days from [facility]
levothyroxine 50 mcg Tablet
50 mcg PO DAILY
docusate sodium [Stool Softener] 100 mg Capsule
200 mg PO PRN PRN (Reason: constipation)
Dulcolax (bisacodyl)
2 gummy PO DAILYPRN PRN (Reason: constipation)
acetaminophen [Tylenol Extra Strength] 500 mg Tablet
500 mg PO DAILYPRN PRN (Reason: mild pain)
prochlorperazine maleate [Compazine] 10 mg tablet
10 mg PO Q8H PRN (Reason: nausea and vomiting) Qty: 30 0RF
ranitidine HCl 75 mg Tablet
PRN (Reason: heartburn )
Discharge Orders:
Discharge Patient (As Directed); Ordered 07/23/23
Ordered By: Ambreen Sahu
Discharge Date and Time
Discharge Date/Time: 07/23/23 14:59
Print Language: SINGAPOREAN
--- NOTE | 2023-07-23 14:10 | PTCARENOTE ---
Port de-accessed by IV team. Discharge instructions printed/read and signed with patient. at bedside, supportive to patient.
--- NOTE | 2023-07-23 20:51 | W.PN.UPDATE ---
Update Note
Progress Note Update
Severe Protein Calorie Malnutrition
== END 2023-07-23 14:59 | disposition home or self-care (01) | DRG 871 ==
LOC: 2 NORTH 09:43
PROVIDERS: Student in an Organized Health Care Education/Training Program; ADMITTING PHYSICIAN Internal Medicine; ATTENDING PHYSICIAN Family Medicine; CONSULT PHYSICIAN Internal Medicine Gastroenterology; EMERGENCY PHYSICIAN Emergency Medicine; FAMILY PHYSICIAN Internal Medicine; OTHER PHYSICIAN Internal Medicine Hematology & Oncology
DX: A41.9 Sepsis, unspecified organism (principal); E43 Unspecified severe protein-calorie malnutrition; C78.7 Secondary malignant neoplasm of liver and intrahepatic bile duct; N39.0 Urinary tract infection, site not specified; E87.1 Hypo-osmolality and hyponatremia; C67.9 Malignant neoplasm of bladder, unspecified; N18.30 Chronic kidney disease, stage 3 unspecified; I12.9 Hypertensive chronic kidney disease with stage 1 through stage 4 chronic kidney disease, or unspecified chronic kidney disease; I25.10 Atherosclerotic heart disease of native coronary artery without angina pectoris; Z95.5 Presence of coronary angioplasty implant and graft; F17.200 Nicotine dependence, unspecified, uncomplicated; Z79.82 Long term (current) use of aspirin; E03.9 Hypothyroidism, unspecified; Z87.440 Personal history of urinary (tract) infections; E88.09 Other disorders of plasma-protein metabolism, not elsewhere classified; Z68.28 Body mass index [BMI] 28.0-28.9, adult
CPT/HCPCS: 70553; 80048; 80053; 81003; 81015; 83690; 83735; 85025; 87077; 87086; 87186; 93005; 96361; 96374; 96375; 99285; A9575

== ENCOUNTER → 2023-08-12 16:20 | Outpatient (REF) | payer OTHER, SELFPAY ==
[2023-08-12 14:04] LABS: % Basophils 0.5 % (0-2); % Eosinophils 2.1 % (0-6); % Immature Granulocytes 1.3 % (0-0.5); % Lymphocytes 14.1 % (20.5-51.1); % Monocytes 15.1 % (1.7-9.3); % Neutrophils 66.9 % (42.2-75.2); Absolute Eosinophils 0.1 10^3/uL (0-0.7); Absolute Immature Granulocytes 0.1 10^3/uL (0-0.05); Absolute Lymphocytes 0.6 10^3/uL (1.2-3.4); Absolute Monocytes 0.6 10^3/uL (0.1-0.6); Absolute Neutrophils 2.6 10^3/uL (1.4-6.5); Hematocrit 41.5 % (39.0-52.0); Hemoglobin 13.7 g/dL (13.0-18.0); Mean Corpuscular Hgb 28.4 pg (27.0-31.0); Mean Corpuscular Volume 86.1 fL (80.0-94.0); Mean Platelet Volume 10.6 fL (7.4-10.4); Platelet Count 390 10^3/uL (130-400); Red Blood Cell Count 4.82 10^6/uL (4.70-6.10); Red Cell Dist. Width 15.3 % (11.5-14.5); White Blood Cell Count 3.9 10^3/uL (4.8-10.8)
[2023-08-12 14:51] LABS: Blood Urea Nitrogen 24 mg/dl (9-20); Glucose 113 mg/dl (70-99)
[2023-08-12 14:53] LABS: eGFR 51.99
[2023-08-12 14:54] LABS: Alkaline Phosphatase 240 U/L (38-126); Calcium 9.1 mg/dl (8.4-10.2); Carbon Dioxide 20 mmol/L (22-30); Chloride 97 mmol/L (98-107); Potassium 4.2 mmol/L (3.5-5.1); Sodium 132 mmol/L (135-145); Total Protein 7.1 g/dl (6.3-8.2)
[2023-08-12 14:55] LABS: ALT (SGPT) 49 U/L (0-50); AST (SGOT) 100 U/L (17-59); Albumin 3.2 g/dl (3.5-5.0); Total Bilirubin 1.4 mg/dl (0.2-1.3)
== END ==
LOC: OIDL 16:20
PROVIDERS: ATTENDING PHYSICIAN Internal Medicine Hematology & Oncology
DX: C67.9 Malignant neoplasm of bladder, unspecified (principal)
CPT/HCPCS: 80053; 85025

== ENCOUNTER → 2023-08-13 12:42 | Outpatient (REF) | payer OTHER, SELFPAY ==
[2023-08-13 12:46] LABS: % Basophils 0.9 % (0-2); % Eosinophils 1.4 % (0-6); % Immature Granulocytes 4.2 % (0-0.5); % Lymphocytes 19.4 % (20.5-51.1); % Monocytes 19.4 % (1.7-9.3); % Neutrophils 54.7 % (42.2-75.2); Absolute Immature Granulocytes 0.1 10^3/uL (0-0.05); Absolute Lymphocytes 0.4 10^3/uL (1.2-3.4); Absolute Monocytes 0.4 10^3/uL (0.1-0.6); Absolute Neutrophils 1.2 10^3/uL (1.4-6.5); Hematocrit 38.1 % (39.0-52.0); Hemoglobin 12.4 g/dL (13.0-18.0); Mean Corp Hgb Conc. 32.5 g/dL (33.0-37.0); Mean Platelet Volume 10.9 fL (7.4-10.4); Platelet Count 313 10^3/uL (130-400); Red Blood Cell Count 4.43 10^6/uL (4.70-6.10); Red Cell Dist. Width 15.3 % (11.5-14.5); White Blood Cell Count 2.2 10^3/uL (4.8-10.8)
[2023-08-13 13:23] LABS: ALT (SGPT) 49 U/L (0-50); AST (SGOT) 86 U/L (17-59); Albumin 2.9 g/dl (3.5-5.0); Alkaline Phosphatase 211 U/L (38-126); Blood Urea Nitrogen 23 mg/dl (9-20); Calcium 8.6 mg/dl (8.4-10.2); Carbon Dioxide 18 mmol/L (22-30); Chloride 99 mmol/L (98-107); Glucose 96 mg/dl (70-99); Potassium 4.1 mmol/L (3.5-5.1); Sodium 133 mmol/L (135-145); Total Bilirubin 1.2 mg/dl (0.2-1.3); Total Protein 6.3 g/dl (6.3-8.2); eGFR 51.99
== END ==
LOC: OIDL 12:42
PROVIDERS: ATTENDING PHYSICIAN Internal Medicine Hematology & Oncology
DX: C67.9 Malignant neoplasm of bladder, unspecified (principal); D63.1 Anemia in chronic kidney disease; N18.30 Chronic kidney disease, stage 3 unspecified
CPT/HCPCS: 80053; 85025

== ENCOUNTER 2023-08-16 18:35 | Inpatient (IN) | payer OTHER, SELFPAY ==
[2023-08-16] VITALS (8 sets, daily range): BP systolic 90–110; BP diastolic 52–67; BMI 26.5; BMI 26.4
[2023-08-16 15:17] LABS: Hematocrit 35.7 % (39.0-52.0); Hemoglobin 12.1 g/dL (13.0-18.0); Mean Corp Hgb Conc. 33.9 g/dL (33.0-37.0); Mean Corpuscular Hgb 27.8 pg (27.0-31.0); Mean Corpuscular Volume 81.9 fL (80.0-94.0); Mean Platelet Volume 10.7 fL (7.4-10.4); Platelet Count 291 10^3/uL (130-400); Red Blood Cell Count 4.36 10^6/uL (4.70-6.10); Red Cell Dist. Width 15.8 % (11.5-14.5)
[2023-08-16 15:30] LABS: White Blood Cell Count 1.3 10^3/uL (4.8-10.8)
[2023-08-16 15:46] LABS: ALT (SGPT) 90 U/L (0-50); AST (SGOT) 92 U/L (17-59); Albumin 2.7 g/dl (3.5-5.0); Alkaline Phosphatase 213 U/L (38-126); Blood Urea Nitrogen 29 mg/dl (9-20); Calcium 7.6 mg/dl (8.4-10.2); Carbon Dioxide 14 mmol/L (22-30); Chloride 103 mmol/L (98-107); Estimated Creatinine Clearance 37 ml/min; Glucose 106 mg/dl (70-99); Potassium 4.2 mmol/L (3.5-5.1); Sodium 131 mmol/L (135-145); Total Bilirubin 1.1 mg/dl (0.2-1.3); Total Protein 6.3 g/dl (6.3-8.2); eGFR 32.83
[2023-08-16 15:50] LABS: Atypical Lymphocytes 3 %; Band Neutrophils 0 % (0-3); Monocytes 34 % (2-9); Myelocytes 2 % (-); Segmented Neutrophils 34 % (42-75)
[2023-08-16 15:51] LABS: Macrocytosis 2+; Normal RBC Morphology No; Platelets Checked Yes; Poikilocytosis Slight
[2023-08-16 15:52] LABS: Burr Cells Slight
[2023-08-16 15:54] LABS: Microcytosis Slight
[2023-08-16 15:55] LABS: Anisocytosis 1+; Total Cells Counted 100
[2023-08-16 15:56] LABS: Absolute Neutrophils -Man Diff 0.4 10^3/uL (1.4-6.5)
--- NOTE | 2023-08-16 16:41 | ED.GENMED ---
History of Present Illness
General
Chief Complaint: Weakness
Source: patient
Exam Limitations: none
Time Seen by Provider: 08/16/23 16:15
Nursing documentation reviewed up to this point in time: agreed with
Travel History
Have you had any contact with someone who has COVID-19?: No
Do you have any symptoms of coronavirus? Fever > 100 degrees, chills, cough, shortness of breath, sore throat, loss of taste or smell, muscle aches, or headache?: No
History of Present Illness
History of Present Illness:
Patient currently receiving treatment for bladder cancer with metastases, presents to ED secondary to continual nausea, vomiting, and inability to eat, which has worsened since receiving second chemo treatment 10 days ago. Denies fever or chills.
Denies coughing. Denies abdominal pain. Per spouse, patient has started to become more weak, sleeping more, and complaining of shortness of breath over the past 2 days. Spoke with on-call oncologist who recommended patient come to ED for
treatment.
Past History
Past History
ED Past Medical History: Other (Bladder cancer, that is post urostomy status post cystectomy, coronary artery disease with stent)
ED Past Surgical History: Bowel resection (has colostomy) and Urological
Social History
Tobacco: Former smoker
Alcohol: Occasional
Drug: None
Personal:
Living: with family
Employment: Employed
Family History
Family History: Other (Noncontributory)
Review of Systems
Review of Systems
Allergies reviewed?: Yes
All Other Systems: ROS reviewed and negative except as documented in HPI and ROS
Constitutional: Reports no symptoms; Denies fever or chills
EENT: Reports no symptoms
Respiratory: Reports trouble breathing
Cardiac: Reports no symptoms
ABD/GI: Reports nausea and vomiting; Denies abdominal pain
: Reports no symptoms
Musculoskeletal: Reports no symptoms
Skin: Reports no symptoms
Neurological: Reports weakness
Phy Exam
Physical Exam
Physical Exam:
Physical Exam
General: mild distress, acutely ill. afebrile. tachycardic. weak appearing
Head: nc/at. eomi
Neck: supple. normal range of motion.
Heart: tachycardic, no murmur. equal radial pulses.
Lungs: no acute respiratory distress. clear bilaterally
Abdomen: normal bowel sounds. not tender.
Neuro: alert and oriented. no focal neurological deficits
Skin: no rash
Psychiatric: well kept. interactive and cooperative
Extremities: no edema. no calf tenderness.
Course
Orders/Labs/Results
Orders:
Orders
08/16/23 15:02
Electrocardiogram (*1) Urgent
Reason for Study: Bradycardia / Tachycardia
EKG- Treatment ONCE
08/16/23 15:07
CMP [Comprehensive Metabolic Panel] Urgent
Complete Blood Count/With Diff Urgent
Manual Differential Urgent
08/16/23 16:48
Lactic Acid Q4H
Comment: CANCEL 2nd LACTIC ACID IF 1st LACTIC ACID IS LESS THAN 2
Blood Culture Q30M
ROXANNE Source: Blood/Venous
Specimen Description:
Blood Culture Q30M
ROXANNE Source: Blood/Venous
Specimen Description:
08/16/23 17:15
Sterile Water For Inj [Sterile Water For Injection 1000 ml] 1,000 ml Sodium Bicarbonate 150 meq IV 125 mls/hr
08/16/23 17:28
Alteplase [Cathflo/Activase] 2 mg IV NOW STA
08/16/23 17:30
0.9% Sodium Chloride 1000 ml [Nss] 1,000 ml IV 2,000 mls/hr
08/16/23 17:33
Admit/Transfer Patient As Directed
Co-Sign Provider:
Level of Care: Inpatient admission
Assign to:: Telemetry
Physician / Group: dayana antonio
Diagnosis: dehydration
Reason for Telemetry: Arrhythmia
Date to Stop Telemetry: 08/19/23
Time to Stop Telemetry: 11:00
Reason for Hospitalization: dehydration
Expected length of stay greater than two midnights?: Yes
ELOS- Estimated Length of Stay in days: 3
I certify the patient meets the requirements for IP care: Yes
08/16/23 17:36
Code Status As Directed
Resuscitation Status: Full Code
08/16/23 17:42
HYDROmorphone [Dilaudid] 1 mg IV NOW STA
Metoclopramide [Reglan] 10 mg IV NOW STA
08/16/23 17:47
Trimethobenzamide [Tigan] 200 mg IM NOW STA
08/16/23 19:54
Bisacodyl [Dulcolax] 10 mg RECTAL [id number] PRN
Docusate W/Senna [Senokot-S] 1 tablet PO BIDPRN PRN
Polyethylene Glycol Powder [Miralax] 17 grams PO DAILYPRN PRN
Trimethobenzamide [Tigan] 200 mg IM Q6HPRN PRN
08/16/23 19:54
HEMATOLOGY CONSULT Routine
Consulting Provider: Ger Ivory
Was physician already notified: Yes
Activity As Directed
Activity Level: As Tolerated
Vital Signs As Directed
Frequency: Per unit guidelines
DX Deep Vein Thrombosis Video Routine
08/16/23 19:59
HYDROmorphone [Dilaudid] 1 mg IV Q3HPRN PRN
08/16/23 20:00
Heparin 5,000 units SC Q12
08/17/23 03:52
Basic Metabolic Panel IN AM
Complete Blood Count/No Diff IN AM
08/17/23 Breakfast
Regular
At Your Request: Full Participation
Levothyroxine [Synthroid] 50 mcg PO DAILY@0600
08/17/23 08:00
Aspirin Low Dose EC [Aspir Low (Enteric Coated)] 81 mg PO DAILY
08/17/23 09:00
Abdomen/Pelvis w Contrast CT [CT Abd/pelvis W Iv Cont] Routine
Comment: with iv and oral contrast
Reason For Exam: abdominal pain
08/18/23 06:00
Basic Metabolic Panel IN AM
Complete Blood Count/No Diff IN AM
08/19/23 06:00
Basic Metabolic Panel IN AM
Complete Blood Count/No Diff IN AM
08/19/23 11:00
DC Protocol for Telemetry ONCE
08/20/23 06:00
Basic Metabolic Panel IN AM
Complete Blood Count/No Diff IN AM
08/21/23 06:00
Basic Metabolic Panel IN AM
Complete Blood Count/No Diff IN AM
Abnormal Lab Results
08/16/23
15:07
WBC 1.3 L* 10^3/uL
(4.8-10.8)
RBC 4.36 L 10^6/uL
(4.70-6.10)
Hgb 12.1 L g/dL
(13.0-18.0)
Hct 35.7 L %
(39.0-52.0)
RDW 15.8 H %
(11.5-14.5)
MPV 10.7 H fL
(7.4-10.4)
Abs Neuts (Manual) 0.4 L* 10^3/uL
(1.4-6.5)
Segmented Neutrophils 34 L %
(42-75)
Monocytes (Manual) 34 H %
(2-9)
Sodium 131 L mmol/L
(135-145)
Carbon Dioxide 14 L* mmol/L
(22-30)
BUN 29 H mg/dl
(9-20)
Creatinine 2.2 H mg/dL
(0.7-1.3)
Glucose 106 H mg/dl
(70-99)
Calcium 7.6 L mg/dl
(8.4-10.2)
AST 92 H U/L
(17-59)
ALT 90 H U/L
(0-50)
Alkaline Phosphatase 213 H U/L
(38-126)
Albumin 2.7 L g/dl
(3.5-5.0)
08/16/23 15:07
08/16/23 15:07
Vital Signs
Initial and Last Documented VS:
Initial Vital Signs
Temp Pulse Resp BP Pulse Ox
98.7 F 123 18 105/67 100
08/16/23 14:56 08/16/23 14:56 08/16/23 14:56 08/16/23 14:56 08/16/23 14:56
Last Documented Vital Signs
Temp Pulse Resp BP Pulse Ox
98 F 124 18 98/57 100
08/17/23 03:00 08/17/23 03:00 08/17/23 03:00 08/17/23 03:00 08/17/23 03:00
MDM/Problems Addressed
MDM/Problems Addressed:
History and exam along with blood work concerning for significant dehydration, secondary to underlying malignancy as well as side effect from recent chemo therapy treatment. Patient will be admitted for further evaluation and treatment.
Neutropenia noted without fever. No indication for antibiotics at this time.
Blood culture pending.
*Critical Care Note
Total Time (30-74mins, 75-104mins- exclusive of procedures): Not Applicable
ED Attending Note
-
Portions of this chart may have been created with voice recognition software.� Occasional wrong word or��sound alike� substitutions may have occurred due to the inherent limitations of voice recognition software.
Discharge Plan
Departure
Patient Disposition: Admit
Date of Disposition: 08/16/23
Time of Disposition: 16:47
Admit to: Telemetry
Presentation/result/management discussed w/ accepting MD/DO: Hospitalist
Discharge Problem:
Dehydration, Metabolic acidosis
Interventions
Interventions:
*Risk Screen - Suicide Last Done: 08/16/23 14:59
*General Assessment Last Done: 08/16/23 14:59
*Neglect/Abuse Screening Last Done: 08/16/23 14:59
*ED COVID-19 Vaccine History Last Done: 08/16/23 14:59
*Nursing Disposition Last Done: 08/16/23 19:52
ED- Cardiac Assessment Last Done: 08/16/23 14:59
ED- Neurological Assessment Last Done: 08/16/23 14:59
ED- Pulmonary Assessment Last Done: 08/16/23 14:59
Discharge Date and Time
Discharge Date/Time: 08/16/23 19:53
--- NOTE | 2023-08-16 16:51 | HPS.HSE ---
Family Physician
-
Family Physician: Sagar Jade
Chief Complaint
-
nausea,vomiting
History of Present Illness
63 year old with PMH for bladder caner, CAD presented to us with lethargy, low blood pressure and elevated heart rate . could not keep him awake. Patient has not been eating or drinking for past several days. Patient denied headache,
dizziness, syncopal episode. Patient denied chest pain, short of breath. Patient denies fever or chills. Denies coughing, runny nose and chest congestion .since he got in the ER, patient is complaining of mid abdominal pain. Per spouse, he
complained of short of breath since yesterday. stated dark urine in urostomy bag.
Patient follows Dr. Martin. He had his last chemo 10 days ago.
Medical History
Past Medical History
Past Medical History: Reports Other
Additional Past Medical History:
Constipation
Hyperlipidemia
Cardiomyopathy
Coronary artery disease
CO
Hypothyroidism
Colostomy present
Bladder cancer
Urostomy in place
Past Surgical History: Reports Other
Additional Past Surgical History:
Coronary artery stent
Bladder resection
Social History
Tobacco: Former Smoker
Alcohol: None
Drug: None
Personal:
Living: With Family
Family History
Family History: Not pertinent
Allergies / Home Medications
Allergies reflects when Allergies were last updated in [facility].
Home Medications with original date entered in [facility]
Allergy/Medication List:
Allergies
Allergy/AdvReac Type Severity Reaction Status Date / Time
egg Allergy Unknown Verified 08/16/23 14:56
shellfish derived Allergy Unknown Verified 08/16/23 14:56
Home Medications
aspirin 81 mg tablet,delayed release (Ecotrin Low Strength) 81 mg PO DAILY Blood Clot Prevention/Tx 06/23/23
Dulcolax (bisacodyl) 2 gummy PO DAILYPRN PRN constipation 06/24/23
acetaminophen 500 mg tablet (Tylenol Extra Strength) 500 mg PO DAILYPRN PRN mild pain 06/24/23
docusate sodium 100 mg capsule (Stool Softener) 200 mg PO PRN PRN constipation 06/24/23
levothyroxine 50 mcg tablet 50 mcg PO DAILY Thyroid 06/24/23
polyethylene glycol 3350 17 gram oral powder packet (Miralax) 17 g PO DAILY PRN constipation 06/24/23
tramadol 50 mg tablet 50 mg PO PRN PRN severe pain 06/24/23
prochlorperazine maleate 10 mg tablet (Compazine) 10 mg PO Q8H PRN nausea and vomiting #30 tabs 07/02/23
ranitidine HCl 75 mg tablet mg PRN heartburn 07/20/23
ciprofloxacin HCl 500 mg tablet 500 mg PO BID #20 tabs 07/23/23
Review of Systems
-
Constitutional: Reports Fatigue
EENT: Reports No Symptoms
Respiratory: Reports Trouble Breathing
Cardiac: Reports No Symptoms
Abdomen/GI: Reports Abdominal Pain
: Reports No Symptoms
Musculoskeletal: Reports No Symptoms
Skin: Reports No Symptoms
Neurological: Reports Weakness
Endocrine: Reports No Symptoms
Hematologic/Lymphatic: Reports No Symptoms
Psych: Reports No Symptoms
Physical Exam
Vital Signs
Vital Signs
Temp Pulse Resp BP Pulse Ox
98.7 F 122 14 106/64 99
08/16/23 14:56 08/16/23 15:45 08/16/23 15:45 08/16/23 15:00 08/16/23 15:45
Physical Exam
General: Well Developed, Well Nourished and No Apparent Distress
HEENT: NormoCephalic, Moist mucous membranes and Atraumatic
Respiratory: Clear
Cardiac: S1/S2 and Regular Rhythm; No Murmur or Rub
GI: Soft, Non Tender, Non Distended, Normal Bowel Sounds and Ostomy; No Organomegaly
Rectal: Deferred by Provider
Genito-urinary: Other (Urostomy)
Musculoskeletal: No Clubbing, No Cyanosis and No Edema
Skin: No Rash
Neuro: AO x 3 and Nonfocal/grossly intact
Psych: Calm
Laboratory Results
-
08/16/23 15:07
08/16/23 15:07
Laboratory Results
Total Bilirubin 1.1 mg/dl (0.2-1.3) 08/16/23 15:07
AST 92 U/L (17-59) H 08/16/23 15:07
ALT 90 U/L (0-50) H 08/16/23 15:07
Alkaline Phosphatase 213 U/L (38-126) H 08/16/23 15:07
Data Reviewed
-
Lab Data: Labs Reviewed by me
Impression/Plan
-
# Acute kidney injury on CKD stage 3b/hyponatremia/metabolic acidosis likely from dehydration
-na 131, co2 14, cr 2.2, BUN 29
-sodium bicarbonate continued
-will bolus with normal saline x2 bag
-monitor BMP in am
# Chronic LFT elevation likely from metastatic disease
-AST 92, ALT 90, alkaline phosphatase 213
-continue to trend
#tachycardia likely from dehydration
-EKg with sinus Tachycardia with PACs
-continue to monitor
# lower abdominal pain likely from metastatic disease
-obtain US of abdomen with iv and oral contrast
-Dilaudid prn for pain
-Reglan prn for n/v
# Bladder cancer with mets to liver, head of pancreas and CBD, s/p metal stent placement in CBD
# Bladder cancer s/p cystectomy, now with urostomy (Chemo for bladder cancer permeated through his gut and resulted in sigmoid/anus/rectum resection- now with colostomy)
#suspect recurrent N/V due to progression of cancer metastasis
-Continue tigan as needed for nausea
-wbc 1.3
-Oncology to follow.
# Hypothyroidism
-Continue levothyroxine
# CAD s/p stent
DVT ppx: HSQ
code status: FULL CODE
[2023-08-16 17:08] LABS: Lactic Acid 1.9 mmol/L (0.7-2.0)
--- NOTE | 2023-08-16 17:08 | W.PN.UPDATE ---
Update Note
Progress Note Update
I saw and examined the patient.
The HYPERBARIC WELDER DIVER or PA's note was reviewed and I agree with the note.
Comment: 63-year-old male with past medical history significant for bladder cancer with metastases who presents with chief complaint of weakness.
106/64, 122, 14, 98.7 �F, 99% RA
Appears chronically ill and in pain/discomfort. NCAT
tachy, reg rhythm, normal S1/S2
CTAB anteriorly
+BS/soft/ND/TTP greatest in the periumbilical region. Urostomy with clear urine.
WBC 1.3, Hb 12.1, plt 291, ANC 400
Na 131, HCO3- 14, BUN 29, Cr 2.2
08/15/23 PET: Prominent mildly FDG avid left supraclavicular and high prevascular lymph nodes, suspicious for metastases. Redemonstration of extensive infiltrative lesions throughout the liver although only a few scattered hepatic lesions demonstrate
significant increased FDG activity above baseline, consistent with metastatic disease. Mildly FDG avid soft tissue metastatic disease about the common bile duct/pancreatic head and in the retroperitoneal and mesenteric regions, overall slightly
improved from prior CT.
JANEY/dehydration/non-AG met acidosis:
-With hypotension and tachycardia give 2 L normal saline wide open followed by NaHCO3 150meq/L @ 125cc/hr
-trend BMP
Abdominal pain:
-likely due to malignancy
-afebrile
-pain control with IV dilaudid
-antiemetics
-CT A/P with PO and IV contrast in AM (after symptom management as I would like the patient to be able to take oral contrast)
-Oncology to see for patient's bladder cancer
--- NOTE | 2023-08-16 17:20 | VATNOTE ---
Per patient, port did not have blood return on Friday when used by the cancer center. Per patient and family, cancer center heparin flushed the port but did not treat it with alteplase. Requested alteplase order from Dr. Francis.
[2023-08-16] MEDS: DILAUDID 1 MG IV (18:02)
[2023-08-16] MEDS: NSS 1000 IV (18:03)
[2023-08-16] MEDS: CATHFLO/ACTIVASE 2 MG IV (18:06)
--- NOTE | 2023-08-16 18:06 | VATNOTE ---
Cathflo instilled per protocol at this time. Procedure explained to pt. PCN aware.
--- NOTE | 2023-08-16 20:37 | VATNOTE ---
CATHFLO ASPIRATED FROM R SUBQ PRT AND EXCELLENT BR OBTAINED. PRT FLUSHED AND IVF RESUMED VIA PRT ORDERED. PCN AWARE OF INTERVENTION AND OUTOCME.
[2023-08-16] MEDS: SODIUM BICARBONATE 1150 MEQ IV (21:11)
[2023-08-16] MEDS: NSS IV (21:26)
[2023-08-16] MEDS: HEPARIN SC ×2 (21:40→21:46)
[2023-08-17 03:00] VITALS: BP 98/57
--- NOTE | 2023-08-17 03:58 | PTCARENOTE ---
Pt admitted from ED. AAOx3. No c/o pain, + nausea. Pt afebrile, VSS. IV team at bedside to assess port. Sodium bicarb infusing without issues. Urostomy and colostomy in place. Awaiting further plan. will CTM.
[2023-08-17 04:07] LABS: Hematocrit 32.6 % (39.0-52.0); Hemoglobin 11.2 g/dL (13.0-18.0); Mean Corp Hgb Conc. 34.4 g/dL (33.0-37.0); Mean Corpuscular Hgb 28.3 pg (27.0-31.0); Mean Corpuscular Volume 82.3 fL (80.0-94.0); Mean Platelet Volume 10.6 fL (7.4-10.4); Platelet Count 246 10^3/uL (130-400); Red Blood Cell Count 3.96 10^6/uL (4.70-6.10); Red Cell Dist. Width 15.9 % (11.5-14.5)
[2023-08-17 04:12] LABS: White Blood Cell Count 1.2 10^3/uL (4.8-10.8)
[2023-08-17 04:33] LABS: Blood Urea Nitrogen 28 mg/dl (9-20); Calcium 6.8 mg/dl (8.4-10.2); Carbon Dioxide 18 mmol/L (22-30); Chloride 106 mmol/L (98-107); Estimated Creatinine Clearance 40 ml/min; Glucose 89 mg/dl (70-99); Potassium 3.9 mmol/L (3.5-5.1); Sodium 132 mmol/L (135-145); eGFR 36.81
[2023-08-17] MEDS: CALCIUM GLUCONATE 100 IV (05:22)
[2023-08-17] MEDS: SODIUM BICARBONATE 1150 MEQ IV ×2 (05:55→16:52)
[2023-08-17 06:00] VITALS: BMI 26.4
--- NOTE | 2023-08-17 07:11 | W.PN.HOSP.TC ---
Addendum entered and electronically signed by Subhash Cox MD 08/17/23 08:35:
Correction: CT A/P WITHOUT IV contrast with JANEY/CKD.
Original Note:
Today's Communication/Plan
-
see bold
Assessment / Plan
Assessment / Plan
Gen: Appears in pain, no respiratory distress, Awake and alert, appears chronically ill.
Eyes: EOMI, PERRLA, no scleral icterus.
Neck: supple.
CV: tachy, reg rhythm, +S1/S2, no m/r/g.
Resp: CTAB, no rales, wheezes, or rhonchi.
Abd: +BS, soft, minimal L-sided TTP, ND
Skin: No rashes.
Neuro: CN 2-12 intact, non-focal.
Psych: Normal mood and affect.
08/15/23 PET: Prominent mildly FDG avid left supraclavicular and high prevascular lymph nodes, suspicious for metastases. Redemonstration of extensive infiltrative lesions throughout the liver although only a few scattered hepatic lesions demonstrate
significant increased FDG activity above baseline, consistent with metastatic disease. Mildly FDG avid soft tissue metastatic disease about the common bile duct/pancreatic head and in the retroperitoneal and mesenteric regions, overall slightly
improved from prior CT.
JANEY on CKD3b/dehydration/non-AG met acidosis:
-s/p IVF bolus on admission
-cont NaHCO3 150meq/L @ 125cc/hr
-Cr/HCO3 improving
Abdominal pain:
-likely due to malignancy
-afebrile
-pain control with IV dilaudid
-antiemetics (tigan)
-check CT A/P with IV contrast (PO contrast ordered but pt states he will not be able to tolerate)
Metastatic Bladder CA:
-with chronic LFT elevation due to metastatic disease
-s/p metal stent placement in CBD
-s/p cystectomy, now with urostomy (chemo for bladder cancer permeated through his gut and resulted in sigmoid/anus/rectum resection- now with colostomy)
-c/s ONC
Other problems:
Hypothyroidism: Continue levothyroxine
CAD s/p stent: cont ASA
FULL/Heparin
Anticipated Discharge: 24 - 48 hours
Subjective/Interval History
-
Date of Service: August 17, 2023
Pt still with nausea. Abd pain improving.
Objective Data
-
Labs:
Laboratory Results
08/17/23
03:52
WBC 1.2 L*
Hgb 11.2 L
Hct 32.6 L
Plt Count 246
Sodium 132 L
Potassium 3.9
Chloride 106
Carbon Dioxide 18 L
BUN 28 H
Creatinine 2.0 H
Glucose 89
Calcium 6.8 L*
Vital Signs:
Vital Signs
Temp Pulse Resp BP Pulse Ox
98 F 124 18 98/57 100
08/17/23 03:00 08/17/23 03:00 08/17/23 03:00 08/17/23 03:00 08/17/23 03:00
[2023-08-17] MEDS: HEPARIN SC ×2 (07:38→19:52)
[2023-08-17] MEDS: DILAUDID 1 MG IV ×2 (07:55→16:51)
[2023-08-17] MEDS: NSS 1000 IV (07:55)
[2023-08-17] MEDS: FLUSH (NSS) 2 FLUSH IV (07:56)
[2023-08-17] MEDS: ASPIR LOW (ENTERIC COATED) PO (07:57)
--- NOTE | 2023-08-17 08:10 | CON.ONC ---
Impression
Impression
Metastatic bladder carcinoma
Status post Padcev/Keytruda
Inadequate p.o. intake
Dehydration
Leukopenia monitor for neutropenia
Hypocalcemia corrected calcium 7.5
Elevated transaminase and alkaline phosphatase
Plan
Plan
Suspect symptoms are secondary to combination of malignancy and treatment toxicity
No specific checkpoint inhibitor mediated toxicities suspected
Renal insufficiency secondary to prerenal azotemia
Continue hydration
Monitor CBC with differential and chemistries creatinine trending down to 2.[address] scan to evaluate abdominal pain without contrast
Will follow
Patient History
History of Present Illness
63 year old with PMH for bladder caner, CAD contacted me through the service yesterday with symptoms of tachycardia, lethargy and hypotension. His was directed to bring him to the emergency room for evaluation. He has not been admitted to the
hospital with dehydration and JANEY presumably secondary to prerenal azotemia. Patient really recently initiated systemic therapy for metastatic bladder carcinoma with Padcev/Keytruda for which she received a 8tx of his first cycle on 08/06. Since
that time he has had difficulty maintaining hydration. He was brought into the office for IV fluids, IV famotidine and granisetron on 08/11. Patient denies headache, dizziness or syncopal episode. Patient denied chest pain, short of
breath,fever,chills, chest congestion or cough.he has had nausea and mild abdominal pain.
Past-Medical/Surgical History
Past Medical History:
Constipation
Hyperlipidemia
Cardiomyopathy
Coronary artery disease
MA
Hypothyroidism
Colostomy present
Bladder cancer
Urostomy in place
Past Surgical History:
Coronary artery stent
Bladder resection
Social History:
Tobacco: Former Smoker
Alcohol: None
Drug: None
Personal:
Living: With Family
Family History:
Family History: Not pertinent
Patient Medication
�Medication �Instructions �Recorded �Confirmed �Last Taken �Type
aspirin 81 mg tablet,delayed 81 mg PO DAILY Blood Clot 06/23/23 07/20/23 07/19/23 08:00 History
release (Ecotrin Low Strength) Prevention/Tx
Dulcolax (bisacodyl) 2 gummy PO DAILYPRN PRN 06/24/23 07/20/23 1 Week Ago History
constipation ~06/17/23
acetaminophen 500 mg tablet 500 mg PO DAILYPRN PRN mild pain 06/24/23 07/20/23 07/20/23 05:30 History
(Tylenol Extra Strength)
docusate sodium 100 mg capsule 200 mg PO PRN PRN constipation 06/24/23 07/20/23 2 Weeks Ago History
(Stool Softener) ~06/10/23
levothyroxine 50 mcg tablet 50 mcg PO DAILY Thyroid 06/24/23 07/20/23 07/19/23 08:00 History
polyethylene glycol 3350 17 gram 17 g PO DAILY PRN constipation 06/24/23 07/20/23 07/19/23 08:00 History
oral powder packet (Miralax)
tramadol 50 mg tablet 50 mg PO PRN PRN severe pain 06/24/23 07/20/23 06/22/23 History
prochlorperazine maleate 10 mg 10 mg PO Q8H PRN nausea and 07/02/23 07/20/23 07/20/23 03:00 Rx
tablet (Compazine) vomiting #30 tabs
ranitidine HCl 75 mg tablet mg PRN heartburn 07/20/23 07/19/23 20:00 History
ciprofloxacin HCl 500 mg tablet 500 mg PO BID #20 tabs 07/23/23 Unknown Rx
Active Medications
Generic Name Dose Route Start Last Admin
Trade Name Freq PRN Reason Stop Dose Admin
Aspirin 81 mg 08/17/23 08:00 08/17/23 07:57
Aspirin 81 Mg (Enteric Coated) Tablet PO 09/14/23 07:59 Not Given
DAILY PAMELA
Bisacodyl 10 mg 08/16/23 19:54
Bisacodyl 10 Mg Rectal Suppository RECTAL 09/13/23 19:53
[id number] PRN
constipation
Heparin Sodium 5,000 units 08/16/23 20:00 08/17/23 07:38
Heparin 5,000 Units/Ml 1 Ml Vial SC 09/13/23 19:59 Not Given
Q12 PAMELA
Hydromorphone HCl 1 mg 08/16/23 19:59 08/17/23 07:55
Hydromorphone 1 Mg/Ml Carpuject IV 08/30/23 19:58 1 mg
Q3HPRN PRN Administration
severe pain
Sodium Bicarbonate 150 meq/ 1,150 mls @ 125 mls/hr 08/16/23 17:15 08/17/23 05:55
Sterile Water IV 08/17/23 17:14 1,150 mls
.Q9H12M PAMELA Administration
Levothyroxine Sodium 50 mcg 08/17/23 06:00 08/17/23 07:35
Levothyroxine 50 Mcg Tablet PO 09/14/23 05:59 Not Given
DAILY@0600 PAMELA
Polyethylene Glycol 17 grams 08/16/23 19:54
Polyethylene Glycol Powder 17 Grams Packet PO 09/13/23 19:53
DAILYPRN PRN
constipation
Senna/Docusate Sodium 1 tablet 08/16/23 19:54
Docusate W/Senna (Gosia-Colace) Tablet PO 09/13/23 19:53
BIDPRN PRN
constipation
Sodium Chloride 0 flush 08/16/23 20:00 08/17/23 07:56
Sodium Chloride 0.9% (Flush) Syringe IV 09/13/23 19:59 2 flush
PER PROTOCOL PAMELA Administration
Trimethobenzamide HCl 200 mg 08/16/23 19:54
Trimethobenzamide 200 Mg/2 Ml Vial IM 09/13/23 19:53
Q6HPRN PRN
NAUSEA/VOMITING
Review of Systems
-
12 point review systems fails to elicit additional complaints other than those reviewed in the HPI.
Physical Exam
-
Physical Exam
General: Well Developed, Well Nourished and No Apparent Distress
HEENT: NormoCephalic, Moist mucous membranes and Atraumatic
Respiratory: Clear
Cardiac: S1/S2 and Regular Rhythm; No Murmur or Rub tachycardic at 113
GI: Soft, Non Tender, Non Distended, Normal Bowel Sounds and Ostomy; No Organomegaly
Genito-urinary: Other (Urostomy)
Musculoskeletal: No Clubbing, No Cyanosis and No Edema
Skin: No Rash
Neuro: AO x 3 and Nonfocal/grossly intact
Psych: Calm
Labs
Lab Results
WBC 1.2 10^3/uL (4.8-10.8) L* 08/17/23 03:52
RBC 3.96 10^6/uL (4.70-6.10) L 08/17/23 03:52
Hgb 11.2 g/dL (13.0-18.0) L 08/17/23 03:52
Hct 32.6 % (39.0-52.0) L 08/17/23 03:52
MCV 82.3 fL (80.0-94.0) 08/17/23 03:52
MCH 28.3 pg (27.0-31.0) 08/17/23 03:52
MCHC 34.4 g/dL (33.0-37.0) 08/17/23 03:52
RDW 15.9 % (11.5-14.5) H 08/17/23 03:52
Plt Count 246 10^3/uL (130-400) 08/17/23 03:52
MPV 10.6 fL (7.4-10.4) H 08/17/23 03:52
Creatinine 2.0 mg/dL (0.7-1.3) H 08/17/23 03:52
Vital Signs
Vital Signs
Temp Pulse Resp BP Pulse Ox
98 F 124 18 98/57 100
08/17/23 03:00 08/17/23 03:00 08/17/23 03:00 08/17/23 03:00 08/17/23 03:00
[2023-08-17 08:13] VITALS: BP 91/60
[2023-08-17] MEDS: TIGAN 200 MG IM ×2 (11:01→16:51)
[2023-08-17 11:12] VITALS: BP 105/80
[2023-08-17] MEDS: DESENEX/MITRAZOL/ZEASORB 1 APPLIC TOPICAL (15:02)
[2023-08-17 15:21] VITALS: BP 99/62
[2023-08-17] MEDS: FLUSH (NSS) 1 FLUSH IV (16:54)
[2023-08-17 19:59] VITALS: BP 96/54
[2023-08-17 23:08] VITALS: BP 96/63
[2023-08-18] MEDS: DILAUDID 1 MG IV ×3 (02:30→18:21)
[2023-08-18 03:05] VITALS: BP 90/61
[2023-08-18 05:57] VITALS: BMI 27.6
[2023-08-18] MEDS: TIGAN 200 MG IM ×2 (06:32→20:04)
[2023-08-18 07:41] VITALS: BP 94/57
[2023-08-18 08:10] LABS: Hematocrit 34.5 % (39.0-52.0); Hemoglobin 11.6 g/dL (13.0-18.0); Mean Corp Hgb Conc. 33.6 g/dL (33.0-37.0); Mean Corpuscular Volume 83.3 fL (80.0-94.0); Mean Platelet Volume 10.8 fL (7.4-10.4); Platelet Count 234 10^3/uL (130-400); Red Blood Cell Count 4.14 10^6/uL (4.70-6.10); Red Cell Dist. Width 15.9 % (11.5-14.5)
[2023-08-18] MEDS: HEPARIN SC ×2 (08:37→20:05)
[2023-08-18] MEDS: ASPIR LOW (ENTERIC COATED) PO (08:37)
[2023-08-18 09:03] LABS: Blood Urea Nitrogen 34 mg/dl (9-20); Calcium 5.5 mg/dl (8.4-10.2); Carbon Dioxide 23 mmol/L (22-30); Chloride 99 mmol/L (98-107); Estimated Creatinine Clearance 37 ml/min; Glucose 100 mg/dl (70-99); Potassium 3.8 mmol/L (3.5-5.1); Sodium 132 mmol/L (135-145); eGFR 32.83
--- NOTE | 2023-08-18 10:06 | PHA.VAN.IN ---
Assessment
- Assessment
Renal Function: Appears elevated from baseline
Maximum Temperature: 98.7
Minimum Temperature: 97.9
Plan
- Plan
Initial / Loading Dose: 1500mg 08/17
Maintenance Regimen: Dose by level
Monitoring: Random 08/18 @0600
Pharmacokinetics Vancomycin I
- -
Patient Age: 63
Patient Sex: Male
Vancomycin Day #: 1
Indication: Bacteremia
Requesting Provider: Dr. Yao
Pertinent Antimicrobial Allergies:
none
Height / Weight:
Height 5 ft 11 in
Actual Weight 89.6 kg
Pertinent Past Medical History: CKD, Metastatic bladder cancer
- Vital Signs / Lab Results
Temp Pulse Resp BP Pulse Ox
98.6 F 112 18 94/57 97
08/18/23 07:41 08/18/23 07:41 08/18/23 07:41 08/18/23 07:41 08/18/23 07:41
Lab Results - Hematology
08/16/23 08/17/23 08/18/23
15:07 03:52 07:48
WBC 1.3 L* 1.2 L* 2.0 L*
Band Neutrophils 0
Lab Results - Chemistry
08/16/23 08/17/23 08/18/23
15:07 03:52 07:48
BUN 29 H 28 H 34 H
Creatinine 2.2 H 2.0 H 2.2 H
Estimated Creat Clear 37 40 37
Albumin 2.7 L
08/16/23 08/16/23
16:48 20:45
Lactic Acid 1.9 Cancelled
Microbiology Results
08/16/23 16:48 Blood Culture - Preliminary
Blood/Venous Positive culture in progress
Gram Stain - Preliminary
08/16/23 16:48 Blood Culture - Preliminary
Blood/Venous No Growth in 24 hours- Final report to follow
[2023-08-18] MEDS: CALCIUM GLUCONATE 130 MG IV (10:11)
[2023-08-18 10:25] LABS: ALT (SGPT) 94 U/L (0-50); AST (SGOT) 87 U/L (17-59); Albumin 2.3 g/dl (3.5-5.0); Alkaline Phosphatase 211 U/L (38-126); Total Protein 5.4 g/dl (6.3-8.2)
[2023-08-18] MEDS: VANCOCIN 300 ML IV (11:26)
[2023-08-18] MEDS: VANCOCIN 300 MG IV (11:26)
[2023-08-18 11:46] VITALS: BP 98/63
[2023-08-18 15:26] VITALS: BP 95/62
--- NOTE | 2023-08-18 16:31 | CM ---
Addendum entered by Kera Orlando 08/18/23 16:36:
Pharm - [facility]
Original Note:
Met with pt and his at bedside
pt lives with his in a 2 story home
Mostly independent - recently needing assist at home
DME - [employer]
Denies past SNF
HH - past [facility]
Has ride at d/c
PCP - Dr Sagar Jade
Plan - home with poss HH
--- NOTE | 2023-08-18 16:52 | W.PN.HOSP.TC ---
Today's Communication/Plan
-
continue IVF and supportive care
Vanco pending further Bcx data (possible contaminant)
Venous dopplers for LE swelling
Patient hesitant for repeat CT with contrast (both oral due to inability to take it and IV Due to concern of CKD progression) - will d/w .
anti-emetics, pain control
follow Onc recs
Assessment / Plan
Assessment / Plan
08/15/23 PET: Prominent mildly FDG avid left supraclavicular and high prevascular lymph nodes, suspicious for metastases. Redemonstration of extensive infiltrative lesions throughout the liver although only a few scattered hepatic lesions demonstrate
significant increased FDG activity above baseline, consistent with metastatic disease. Mildly FDG avid soft tissue metastatic disease about the common bile duct/pancreatic head and in the retroperitoneal and mesenteric regions, overall slightly
improved from prior CT.
Assessment:
JANEY on CKD3b/dehydration/non-AG met acidosis
- s/p IVF bolus on admission
- cont NSS (bicarb stopped with improved bicarb level)
- monitor BMP
Abdominal pain:
- likely due to malignancy
- afebrile
- pain control with IV dilaudid
- antiemetics (tigan due to prolonged QTC)
- Noncontrasted CT with nonspecific colitis but otherwise no acute findings.
- patient to consider CT with contrast but with risks of CKD progression
Metastatic Bladder CA:
- with chronic LFT elevation due to metastatic disease
- s/p metal stent placement in CBD
- s/p cystectomy, now with urostomy (chemo for bladder cancer permeated through his gut and resulted in sigmoid/anus/rectum resection- now with colostomy)
- ONC following
Hypocalcemia
- replete via IV
strep bacteremia
- 1/2 bottles, possible contaminant
- Vanco pending further data
Hyponatremia
Hypothyroidism: Continue levothyroxine
CAD s/p stent: cont ASA
FULL/Heparin
Anticipated Discharge: > 48 hours
Subjective/Interval History
-
Date of Service: August 18, 2023
not eating or drinking, intermittently vomiting
legs swollen (L>R)
denies any significant abd pain
today found to have strep in blood culture x 1 bottle, no fevers
Objective Data
-
Labs:
Laboratory Results
08/18/23
07:48
WBC 2.0 L*
Hgb 11.6 L
Hct 34.5 L
Plt Count 234
Sodium 132 L
Potassium 3.8
Chloride 99
Carbon Dioxide 23
BUN 34 H
Creatinine 2.2 H
Glucose 100 H
Calcium 5.5 L*
Total Bilirubin 1.0
AST 87 H
ALT 94 H
Alkaline Phosphatase 211 H
Vital Signs:
Vital Signs
Temp Pulse Resp BP Pulse Ox
98.4 F 121 16 95/62 95
08/18/23 15:26 08/18/23 15:26 08/18/23 15:26 08/18/23 15:26 08/18/23 15:26
I&O
08/17/23 08/18/23 08/19/23
06:59 06:59 06:59
Intake Total 3745 / 3745
Output Total 730 / 730
Balance 3015 / 3015
Physical Exam
-
General: Appears Chronically Ill
HEENT: Normocephalic and Atraumatic
Respiratory: Negative Wheezes
Cardiac: Regular Rhythm and S1/S2
GI: Soft and Other (colostomy, urostomy bags)
Musculoskeletal: No Edema
Neuro: AO x 3
Psych: Calm
Data Reviewed
-
Total Time Spent with Patient (in minutes): 55
Labs: Labs Reviewed by me
[2023-08-18] MEDS: NSS 1000 IV (17:29)
[2023-08-18 18:37] LABS: Magnesium 1.2 mg/dl (1.6-2.3); Phosphorus 3.3 mg/dl (2.5-4.5)
--- NOTE | 2023-08-18 18:57 | W.PN.ONC2 ---
Addendum entered and electronically signed by Evie Reagan MD 08/18/23 19:34:
Mag 1.2, IV repletion ordered,
Synthroid changed to IV beginning this evening.
Case discussed at length with Dr. Yao.
Original Note:
Today's Communication / Plan
-
Continue supportive care.
Anticipate starting steroids next day or two.
Impression
Impression
Metastatic bladder carcinoma for lab post Padcev last 08/06, Keytruda last 07/30, representing cycle 1
Unclear volume status with ART, tachycardia and hypotension, but lower extremity swelling and apparent 10 lb weight gain. (last weight in the office was 180)
Neutropenia - needs daily diff
Hypocalcemia - admits to leg cramping
Elevated transaminase and alkaline phosphatase
Failure to thrive
Plan
Plan
Needs renal consult to eval hypocalcemia, ARF, volume status.
He currently has hypocalcemia symptoms. Sent today: PTH, Mag, Phos.
Not sure he is actually dry given the lower extremity swelling and what appears to have been at least a 10 lbs weight gain since he was last in the office (181 at that time.) Would not be comfortable diuresing with current Cr however.
Check TSH and thyroid panel as he had not been able to take synthroid for a week.
Needs diff with daily CBC.
Consider:
- Swallowing study
- Change diet to clears and meds to IV
- Cardiology consult re volume status and vital sign instability
- Neuro consult for progressive weakness if no electrolyte deficiency identified
Precipitous decline concerning for autoimmune phenomena.
Check CK, aldolase troponin, nt-proBNP, AM cortisol. May need to send serologies for autoimmune neuro phenomena as well.
Prognosis may be fair if his decline is due to autoimmune phenomena that could be reversible with steroids, otherwise prognosis appears grave.
Suggest starting empiric prednisone 1 mg/kg after he is seen by specialists tomorrow and diagnostic workups ordered.
Subjective/Objective
Chief Complaint
Heme/Onc follow up of widely metastatic urothelial carcinoma s/p cycle 1 Padcev/Keytruda 07/30 - 08/13.
Subjective
Pt has had increasing difficulties with nausea, which sounds primarily anticipatory in nature. For the last week, he has been drinking only water and not taking his pills including his Synthroid. Even the thought of drinking oral contrast for plan
CT made him vomit. He states that his urine has been dark since . Complains of swelling in the legs. Of note, his blood pressure was normal prior to starting chemotherapy but since then, there has been abrupt onset of hypotension and
tachycardia. Weakness has been an issue. His states that he was able to walk in [address] [place] [address] for PET scan on August 14 but now, he finds it exhausting to roll over in bed. Neutropenic on admission, last ANC was 402 days ago when WBC was
1.3, has not been checked since then. He has been afebrile since admission. Today, patient is drowsy having just been treated with IV opiate for pain, but and daughter are able to provide history.
Vital Signs:
Vital Signs
Temp Pulse Resp BP Pulse Ox
98.4 F 121 16 95/62 95
08/18/23 15:26 08/18/23 15:26 08/18/23 15:26 08/18/23 15:26 08/18/23 15:26
Lab Results:
Laboratory Data
WBC 2.0 10^3/uL (4.8-10.8) L* 08/18/23 07:48
Hgb 11.6 g/dL (13.0-18.0) L 08/18/23 07:48
Plt Count 234 10^3/uL (130-400) 08/18/23 07:48
eGFR 32.83 08/18/23 07:48
Physical Exam
Drowsy but arousable and interactive. Ill-appearing.
HEENT: No Jaundice or Moist Mucous Membranes
Cardiology: Other ( Tachycardic the)
Pulmonary: No Wheezes or Rales
GI: Soft; No Distended
Extremities: Edema (to mid gimenez bilaterally)
Neuro: Non Focal (Motor 2 out of 4 bilateral lower extremities)
Review of Systems
Review of Systems
Constitutional: Reports Fatigue
Head: Reports Other (States unable to swallow)
Respiratory: Denies Dyspnea or Cough
Cardiovascular: Denies Chest Pain or Palpitations
Gastrointestinal: Reports Nausea/Vomiting
Genitourinary: Denies Hematuria
Skin: Reports Rash and Pruritis
Neurological: Denies Headache or Numbness
Orders
Orders
Orders From Last 24 Hours
08/18/23 18:04
Add On- LAB Routine
08/19/23 06:00
Complete Blood Count/With Diff IN AM
08/20/23 06:00
Complete Blood Count/With Diff IN AM
08/21/23 06:00
Complete Blood Count/With Diff IN AM
08/22/23 06:00
Complete Blood Count/With Diff IN AM
08/23/23 06:00
Complete Blood Count/With Diff IN AM
08/24/23 06:00
Complete Blood Count/With Diff IN AM
08/25/23 06:00
Complete Blood Count/With Diff IN AM
08/26/23 06:00
Complete Blood Count/With Diff IN AM
08/27/23 06:00
Complete Blood Count/With Diff IN AM
08/28/23 06:00
Complete Blood Count/With Diff IN AM
08/29/23 06:00
Complete Blood Count/With Diff IN AM
08/30/23 06:00
Complete Blood Count/With Diff IN AM
08/31/23 06:00
Complete Blood Count/With Diff IN AM
09/01/23 06:00
Complete Blood Count/With Diff IN AM
[2023-08-18 19:46] LABS: Vitamin D, 25-OH*** < 12.8 ng/mL (30-80)
[2023-08-18] MEDS: MAGNESIUM SULFATE 100 IV (20:02)
[2023-08-18] MEDS: LEVOTHROID 37.5 MCG IV (20:04)
[2023-08-18 20:26] VITALS: BP 84/58
[2023-08-18 20:52] LABS: Creatine Phosphokinase 143 U/L (55-170); Total CK 143 U/L (55-170)
[2023-08-18 21:08] LABS: NT-proBNP 4830 pg/ml; Troponin I 0.041 ng/ml
[2023-08-18 21:10] LABS: CKMB 1.9 ng/ml (0.0-2.4)
[2023-08-18 21:24] LABS: TSH Reflex To Free T4 4.42 uIU/ml (0.47-4.68)
--- NOTE | 2023-08-18 21:26 | W.PN.UPDATE ---
Update Note
Progress Note Update
Troponin is 0.041, Patient denied chest pain and SOB. Will trend troponin and monitor for any new symptoms.
[2023-08-18 23:37] VITALS: BP 86/46
[2023-08-19] VITALS (8 sets, daily range): BP systolic 78–101; BP diastolic 45–66; BMI 27.4
[2023-08-19 05:44] LABS: Hematocrit 33.4 % (39.0-52.0); Hemoglobin 11.3 g/dL (13.0-18.0); Mean Corp Hgb Conc. 33.8 g/dL (33.0-37.0); Mean Corpuscular Hgb 28.1 pg (27.0-31.0); Mean Corpuscular Volume 83.1 fL (80.0-94.0); Mean Platelet Volume 10.9 fL (7.4-10.4); Nucleated Red Blood Cells % 1.3 % (-); Platelet Count 171 10^3/uL (130-400); Red Blood Cell Count 4.02 10^6/uL (4.70-6.10); Red Cell Dist. Width 15.9 % (11.5-14.5); White Blood Cell Count 3.1 10^3/uL (4.8-10.8)
[2023-08-19 05:55] LABS: Ionized Calcium 0.74 mMOL/L (1.15-1.33)
[2023-08-19 06:08] LABS: Vancomycin Random 15.7 ug/ml
[2023-08-19] MEDS: NSS 1000 IV (06:24)
[2023-08-19 06:26] LABS: ALT (SGPT) 103 U/L (0-50); AST (SGOT) 90 U/L (17-59); Albumin 2.1 g/dl (3.5-5.0); Alkaline Phosphatase 201 U/L (38-126); Blood Urea Nitrogen 42 mg/dl (9-20); Calcium 5.8 mg/dl (8.4-10.2); Carbon Dioxide 21 mmol/L (22-30); Chloride 101 mmol/L (98-107); Direct Bilirubin 0.9 mg/dl (0.0-0.4); Estimated Creatinine Clearance 28 ml/min; Glucose 95 mg/dl (70-99); Magnesium 1.5 mg/dl (1.6-2.3); Potassium 3.8 mmol/L (3.5-5.1); Sodium 133 mmol/L (135-145); Total Protein 5.2 g/dl (6.3-8.2); eGFR 23.57
[2023-08-19 06:33] LABS: Troponin I 0.051 ng/ml
[2023-08-19 06:45] LABS: Cortisol, Random 57.3 ug/dl
[2023-08-19] MEDS: HEPARIN SC ×2 (07:37→19:54)
[2023-08-19] MEDS: ASPIR LOW (ENTERIC COATED) PO (07:37)
[2023-08-19 08:26] LABS: Absolute Neutrophils -Man Diff 2.1 10^3/uL (1.4-6.5); Band Neutrophils 19 % (0-3); Lymphocytes 12 % (20-51); Monocytes 14 % (2-9); Segmented Neutrophils 50 % (42-75)
[2023-08-19 08:27] LABS: Metamyelocytes 3 % (-); Myelocytes 2 % (-); Normal RBC Morphology No; Nucleated Red Blood Cells 2 (-); Platelets Checked YES
[2023-08-19 08:30] LABS: Burr Cells FEW; Ovalocytes FEW; Poikilocytosis Slight; Schistocytes RARE; Tear Drop Red Blood Cells FEW
[2023-08-19 08:31] LABS: Total Cells Counted 100
[2023-08-19 08:32] LABS: Target Cells FEW
[2023-08-19] MEDS: DILAUDID 1 MG IV ×2 (08:55→21:00)
--- NOTE | 2023-08-19 08:56 | CON.NEURO4 ---
Consultation - Neurology 4
-
CONSULTING PHYSICIAN: Yunier Mina
REFERRING PHYSICIAN: Oncology
DICTATED BY: Yunier Mina
DATE/TIME OF REQUEST: 08/19/23
DATE/TIME OF CONSULTATION: 08/19/23
Reason for Consultation: Generalized decline concern for autoimmune effects of Kayruda/Padcev
History of Present Illness:
Patient is a 63-year-old male with a past medical history of metastatic urothelial carcinoma, coronary artery disease, cardiomyopathy presents to the hospital with generalized weakness and lethargy, found on lab work to have JANEY, metabolic acidosis,
hypocalcemia, with likely dehydration.
Patient and give a history that he has had some intermittent vomiting issues since around April of this year to the point where sometimes he has a reflexive type of gag to food or liquids or especially p.o. contrast agents, will get
occasional pangs of random nausea frequently.
He had combination of Padvec and Ketruda July 30 and then Padcev on August 06.
Has had generalized weakness for a couple of weeks, seem to have more weakness in the lower extremities with some pain in the calves bilaterally along with lower extremity edema in the calves and legs bilaterally. Patient did walk a little bit last
Friday to a medical facility but otherwise has been walking very little for the past month
There has not been any history of neuropathy or myopathy with any type of chemotherapy or cancer in the past no history of involvement of cancer to the brain or spine. Patient with no current paresthesias.
Not been able to take PO medications for the past week very well with nausea and vomiting issues, poor PO intake for weeks.
Past Medical History: Metastatic urothelial carcinoma, CAD, cardiomyopathy, hypothyroidism, hyperlipidemia, hypothyroidism
Surgical History: Bladder resection, urostomy and colostomy, coronary stent
Family History: Reviewed and non-contributory
Social History: Patient is retired lives with his , no significant tobacco alcohol or recreational drugs
Review of Symptoms:
Patient denies any fever, headache, chest pain, shortness of breath, GI or symptoms.
Physical Exam:
Middle-age man, no acute distress, normocephalic, no signs of head or neck trauma, oropharynx is clear moist mucous membranes eyes clear neck with no masses heart rate regular breathing unlabored abdomen is soft nontender edema 1+ is present
bilaterally no rashes.
Neurologic Examination:
Mental status shows mildly drowsy patient who awakens easily, good insight and good conversation and history, has some difficulty with complex cognitive tasks like reciting the months of the year backwards as he misses the month of October, naming
repetition and comprehension of complex multistep commands is intact.
Cranial nerves II through XII are normal
Motor examination shows normal muscle bulk and tone no fasciculations or tremor or rigidity. Mild pain to palpation of the calf muscles bilaterally. Power is 5/5 for shoulder abduction arm flexion wrist extension hip flexion/abduction/abduction,
and ankle dorsiflexion plantarflexion and toe extension bilaterally.
Intact sensation to pinprick, vibration, cold touch and light touch in upper and lower extremities including the distal lower extremities.
Reflexes are 2+ in biceps triceps brachialis patella and Achilles Babinski is negative no clonus
Normal finger-nose testing bilateral
Gait examination is deferred
Neuro Imaging: Brain MRI June 2023 with and without contrast no abnormal enhancement or acute abnormalities, small vessel ischemic disease seen and generalized volume loss
Impressions
1. Generalized weakness and fatigue which is most likely due to combination of hypocalcemia, poor p.o. intake, dehydration and JANEY. His neurologic examination shows good strength testing to confrontation as well as intact reflexes and intact
sensation to all modalities. Examination does not support peripheral neuropathy or myopathy. Keytruda can cause various neurologic issues through autoimmune mechanisms but at this time his neurologic examination does not support these issues.
2. Recent chemotherapy Padvec and Ketruda suspected as partially causative for some of his symptoms
3. Poor p.o. intake and frequent nausea and occasional vomiting contributed to dehydration JANEY and electrolyte disorders
4. Urothelial carcinoma, metastatic. No previous history of metastases to spine or brain.
Recommendations:
1. Check CK, vitamin B1 B12
2. Follow calcium magnesium and electrolytes and replete accordingly
3. Discussed with patient, hospitalist medicine and oncology that EMG is unlikely to be helpful for decision making given his neurologic examination not supporting neuropathy/myopathy. Will hold off testing with EMG but can readdress if desired.
4. No concerns on my part for use of steroids if it is felt this would help symptoms
5. PT/OT mobilization as able
6. Treating lower extremity edema may help with strength and ambulation
Discussed patient care with: Patient
Home Medications
-
Home Medications
aspirin 81 mg tablet,delayed release (Ecotrin Low Strength) 81 mg PO DAILY Blood Clot Prevention/Tx 06/23/23
Dulcolax (bisacodyl) 2 gummy PO DAILYPRN PRN constipation 06/24/23
acetaminophen 500 mg tablet (Tylenol Extra Strength) 500 mg PO DAILYPRN PRN mild pain 06/24/23
docusate sodium 100 mg capsule (Stool Softener) 200 mg PO PRN PRN constipation 06/24/23
levothyroxine 50 mcg tablet 50 mcg PO DAILY Thyroid 06/24/23
polyethylene glycol 3350 17 gram oral powder packet (Miralax) 17 g PO DAILY PRN constipation 06/24/23
tramadol 50 mg tablet 50 mg PO PRN PRN severe pain 06/24/23
prochlorperazine maleate 10 mg tablet (Compazine) 10 mg PO Q8H PRN nausea and vomiting #30 tabs 07/02/23
Allergies
-
Allergies
Allergy/AdvReac Type Severity Reaction Status Date / Time
egg Allergy Unknown Verified 08/16/23 14:56
shellfish derived Allergy Unknown Verified 08/16/23 14:56
Vital Signs / Labs
-
Vital Signs and Labs:
Temp Pulse Resp BP Pulse Ox
98.4 F 110 16 86/55 100
08/19/23 03:03 08/19/23 03:03 08/19/23 03:03 08/19/23 03:03 04/23/24 03:03
08/19/23 04:04
08/19/23 04:05
08/18/23 08/18/23 08/19/23
07:48 20:36 04:04
WBC 3.1 L
RBC 4.02 L
Hgb 11.3 L
Hct 33.4 L
RDW 15.9 H
MPV 10.9 H
Band Neutrophils 19 H D
Lymphocytes (Manual) 12 L
Monocytes (Manual) 14 H
Sodium 132 L
Carbon Dioxide
BUN 34 H
Creatinine 2.2 H
Glucose 100 H
Calcium 5.5 L*
Ionized Calcium 0.74 L
Magnesium 1.2 L
Direct Bilirubin
AST 87 H
ALT 94 H
Alkaline Phosphatase 211 H
Troponin I 0.041 H* 0.051 H*
Total Protein 5.4 L
Albumin 2.3 L
Vitamin D 25-Hydroxy < 12.8 L
08/19/23
04:05
WBC
RBC
Hgb
Hct
RDW
MPV
Band Neutrophils
Lymphocytes (Manual)
Monocytes (Manual)
Sodium 133 L
Carbon Dioxide 21 L
BUN 42 H
Creatinine 2.9 H
Glucose
Calcium 5.8 L*
Ionized Calcium
Magnesium 1.5 L
Direct Bilirubin 0.9 H
AST 90 H
ALT 103 H
Alkaline Phosphatase 201 H
Troponin I
Total Protein 5.2 L
Albumin 2.1 L
Vitamin D 25-Hydroxy
[2023-08-19 09:30] LABS: Intact PTH 551.7 pg/ml (13.6-85.8)
--- NOTE | 2023-08-19 09:34 | PHA.VAN.FU ---
Vancomycin Assessment / Plan
- Assessment
Renal Function: SCR Increasing
WBC's are: Trending Up
Neutropenia: ANC = 2100
In the past 24 hrs, patient has been: Afebrile
- Assessment - Therapeutic Drug Monitoring
Random Level: 15.7 - drawn ~16.5H after 1500mg initial dose
- Dosing Plan
Dosing by Level: Re-dose today (Vanc 750mg)
- Monitoring Plan
Random Level: 08/19 0600
- Follow Up
Pharmacy will continue to follow.
Vancomycin Follow UP
- -
Patient Age: 63
Patient Sex: Male
Vancomycin Day #: 2
Indication: Bacteremia
Requesting Provider: Dr. Ibanez
Pertinent Antimicrobial Allergies:
no pertinent antibiotic allergies
Height / Weight:
Height 5 ft 11 in
Actual Weight 89.176 kg
Pertinent Past Medical History: CKD, Metastatic bladder cancer
- Vital Signs / Lab Results
Temp Pulse Resp BP Pulse Ox
98.4 F 112 22 92/46 97
08/19/23 07:25 08/19/23 07:25 08/19/23 07:25 08/19/23 09:02 08/19/23 07:25
Lab Results - Hematology
08/16/23 08/17/23 08/18/23
15:07 03:52 07:48
WBC 1.3 L* 1.2 L* 2.0 L*
Band Neutrophils 0
08/19/23
04:04
WBC 3.1 L
Band Neutrophils 19 H D
Lab Results - Chemistry
08/16/23 08/17/23 08/18/23
15:07 03:52 07:48
BUN 29 H 28 H 34 H
Creatinine 2.2 H 2.0 H 2.2 H
Estimated Creat Clear 37 40 37
Albumin 2.7 L 2.3 L
08/19/23
04:05
BUN 42 H
Creatinine 2.9 H
Estimated Creat Clear 28
Albumin 2.1 L
08/16/23 08/16/23
16:48 20:45
Lactic Acid 1.9 Cancelled
Microbiology Results
08/16/23 16:48 Blood Culture - Preliminary
Blood/Venous No Growth in 48 hours- Final report to follow
08/16/23 16:48 Blood Culture - Preliminary
Blood/Venous Streptococcus species
Gram Stain - Preliminary
Therapeutic Drug Monitoring
Random Vancomycin 15.7 ug/ml 08/19/23 04:05
[2023-08-19] MEDS: TIGAN 200 MG IM (10:57)
--- NOTE | 2023-08-19 11:30 | W.PN.HOSP.TC ---
Today's Communication/Plan
-
IVF
replete electrolytes
Nephrology evaluation for JANEY
Cardiology evaluation for tachycardia, edema
ID evaluation of strep bacteremia
Echo pending
Renal US pending
follow Onc recs: regarding possible steroids
speech eval; keep meds as non-oral for now
may need swallow study eventually
d/w at length
Assessment / Plan
Assessment / Plan
08/15/23 PET: Prominent mildly FDG avid left supraclavicular and high prevascular lymph nodes, suspicious for metastases. Redemonstration of extensive infiltrative lesions throughout the liver although only a few scattered hepatic lesions demonstrate
significant increased FDG activity above baseline, consistent with metastatic disease. Mildly FDG avid soft tissue metastatic disease about the common bile duct/pancreatic head and in the retroperitoneal and mesenteric regions, overall slightly
improved from prior CT.
Assessment:
JANEY on CKD3b/dehydration/non-AG met acidosis
- cont NSS (previously on IVF Bicarb)
- monitor BMP; Cr min today
- check renal US and UA/lytes, protein/cr ratio
- Nephrology consulted; concern for checkpoint inhibitor nephrotoxicity
- onc may consider steroids today
Abdominal pain:
- likely due to malignancy
- afebrile
- pain control with IV Dilaudid
- antiemetics (Tigan due to prolonged QTC)
- Noncontrasted CT with nonspecific colitis but otherwise no acute findings.
Metastatic Bladder CA:
- with chronic LFT elevation due to metastatic disease; notably somewhat improved over 2 months
- s/p metal stent placement in CBD
- s/p cystectomy, now with urostomy (chemo for bladder cancer permeated through his gut and resulted in sigmoid/anus/rectum resection- now with colostomy)
- Oncology following
- onc may consider steroids today
Hypocalcemia
Hypomagnesemia
- replete via IV
LE Edema, multifactorial from JANEY, moderate protein caloric malnutrition
- Dopplers negative
- apply tubi-pilot instructor
- nutrition consult
Non-MT trop elevation
Tachycardia, sinus with APCs
- Cards consulted
- Echo pending
Viridans strep bacteremia
- 1/2 bottles
- Echo pending
- Vancomycin, day 2
- ID consulted
Hyponatremia
Hypothyroidism: Continue levothyroxine via IV
CAD s/p stent: cont ASA
FULL/Heparin
Anticipated Discharge: > 48 hours
Subjective/Interval History
-
Date of Service: August 19, 2023
he feels the same, not eating much
BP remains marginally low, HR high - no chest pain or dizziness
Objective Data
-
Labs:
Laboratory Results
08/19/23 08/19/23
04:04 04:05
WBC 3.1 L
Hgb 11.3 L
Hct 33.4 L
Plt Count 171 D
Sodium 133 L
Potassium 3.8
Chloride 101
Carbon Dioxide 21 L
BUN 42 H
Creatinine 2.9 H
Glucose 95
Calcium 5.8 L*
Total Bilirubin 1.0
AST 90 H
ALT 103 H
Alkaline Phosphatase 201 H
Vital Signs:
Vital Signs
Temp Pulse Resp BP Pulse Ox
98.4 F 112 22 92/46 97
08/19/23 07:25 08/19/23 07:25 08/19/23 07:25 08/19/23 09:02 08/19/23 10:23
I&O
08/18/23 08/19/23 08/20/23
06:59 06:59 06:59
Intake Total 3745 / 3745 480 / 480
Output Total 730 / 730 300 / 300
Balance 3015 / 3015 180 / 180
Physical Exam
-
General: Appears Chronically Ill
HEENT: Normocephalic and Atraumatic
Respiratory: Negative Wheezes
Cardiac: Regular Rhythm and S1/S2
GI: Soft
Musculoskeletal: Edema, Right Lower Extrem and Edema, Left Lower Extrem
Neuro: AO x 3
Psych: Calm
Data Reviewed
-
Total Time Spent with Patient (in minutes): 47
Labs: Labs Reviewed by me
--- NOTE | 2023-08-19 11:49 | W.PN.ONC ---
Addendum entered and electronically signed by Katia Martin MD 08/19/23 16:06:
Addendum:
Will start steroids, IV initially until able to switch to po prednisone.
Continue ABX per ID, bacteremia may be contaminant.
Original Note:
Today's Communication / Plan
-
Await input from renal and cardiology re volume status, kidney function, etc.
His clinical status was declining (nausea, weakness, weight loss) even before he started chemo/immunotherapy, so cannot blame treatment solely
Continue electrolyte repletion
Continue antiemetics
Pending input from cardiology and renal, would like to start steroids empirically, to help nausea, appetite, pruritus (IV solumedrol 100mg/d to start, change to Prednisone 1mg/kg/d when able to tolerate PO)
TSH normal, cortisol is high. Aldolase pending.
Appreciate neuro input. No obvious neurologic findings.
Discussed goals of care with , still would like to pursue more treatment (of note, Alk phos has improved significantly with just one cycle of treatment)
Will follow along.
Impression
Impression
Metastatic bladder carcinoma for lab post Padcev last 08/06, Keytruda last 07/30, representing cycle 1
Unclear volume status with ART, tachycardia and hypotension, but lower extremity swelling and apparent 10 lb weight gain. (last weight in the office was 180)
Neutropenia - resolved
Hypocalcemia - admits to leg cramping
Elevated transaminase and alkaline phosphatase
Failure to thrive
Pruritus
Plan
Plan
Await input from renal and cardiology re volume status, kidney function, etc.
His clinical status was declining (nausea, weakness, weight loss) even before he started chemo/immunotherapy, so cannot blame treatment solely
Continue electrolyte repletion
Continue antiemetics
Pending input from cardiology and renal, would like to start steroids empirically, to help nausea, appetite, pruritus (IV solumedrol 100mg/d to start, change to Prednisone 1mg/kg/d when able to tolerate PO)
TSH normal, cortisol is high. Aldolase pending.
Appreciate neuro input. No obvious neurologic findings.
Discussed goals of care with , still would like to pursue more treatment (of note, Alk phos has improved significantly with just one cycle of treatment)
Will follow along.
Subjective/Objective
Subjective/Objective
Sleepy, at bedside. Still with nausea, much is anticipatory nausea. c/o itching.
Vital Signs:
Vital Signs
Temp Pulse Resp BP Pulse Ox
98.4 F 112 22 92/46 97
08/19/23 07:25 08/19/23 07:25 08/19/23 07:25 08/19/23 09:02 08/19/23 10:23
Lab Results:
Laboratory Data
WBC 3.1 10^3/uL (4.8-10.8) L 08/19/23 04:04
Hgb 11.3 g/dL (13.0-18.0) L 08/19/23 04:04
Plt Count 171 10^3/uL (130-400) D 08/19/23 04:04
eGFR 23.57 08/19/23 04:05
[2023-08-19] MEDS: CALCIUM GLUCONATE 290 MG IV ×2 (12:30→17:20)
[2023-08-19] MEDS: VANCOCIN 150 IV (12:32)
[2023-08-19 13:03] LABS: Troponin I 0.048 ng/ml
--- NOTE | 2023-08-19 13:12 | CON.ID ---
Consultation
-
Date/Time Consultation Requested: 08/19/23 11:40
Date/Time Consultation Performed: 08/19/23 13:12
Requesting Provider: Dr Ibanez
Performing Provider: Dr Meza
Reason for Consultation: VGS bacteremia
Chief Complaint / Past History
Chief Complaint
nausea,vomiting
History of Present Illness
Mr Singh is a 63 year old male with history of bladder cancer on Padcev/Keytruda received a 8tx of his first cycle on 08/06, who presented here 08/15 for lethargy, tachycardia and hypotension. Reports difficulty maintaining oral intake. He was
brought to oncology office for IV fluids on 08/11 (4 days prior to arrival). + Nausea and mild abdominal pain. Denies: fevers, chills, chest pain, congestion, cough, runny nose. Urostomy with dark fluid. Has a port, reports intermittent
difficulties with function since it was placed; it was last declotted in the ER this admission. No erythema, warmth, swelling or tenderness. No hardwear.
Since arrival here he has been afebrile, bp with mild hypotension, mildly tachycardic, wbc on arrival 1.3 and ANC ws 0.4, today ANC 2.1 and WBC 3.1, hgb 11.3, plt 171, cr baseline 1.5 on arrival it was 2.2 and today 2.9, a UA is ordered for today
and pending, fluid eos in urine not seen, vanc level today 15.7, renal US: no obstruction, there is chronic medical renal disease, known hepatic met seen, 08/17: venous US: no dvt, ct a/p without contrast 08/16: Possible nonspecific colitis involving
the ascending colon, minimal ascites, patent biliary stent, fluid in the gallbladder, one of two sets of blood cultures from 08/15 with VGS, started on vancomycin 08/17, repeating blood cultures now, echo is ordered, ID is consulted for assistance
with management.
Past History
Additional Past Medical History:
Constipation
Hyperlipidemia
Cardiomyopathy
Coronary artery disease
NM
Hypothyroidism
Colostomy present
Bladder cancer
Urostomy in place
Additional Past Surgical History:
Port placement
Coronary artery stent
Bladder resection
Allergy History:
egg Allergy (Verified 08/16/23 14:56)
Unknown
shellfish derived Allergy (Verified 08/16/23 14:56)
Unknown
Medications Reviewed: Yes
Social History
Tobacco: Former Smoker
Alcohol: None
Drug: None
Family History
Family History: Not Pertinent
Review of Systems
Review of Systems
General: Negative Fever or Chills
All systems: All other systems were reviewed and were negative
Vital Signs
Temp Pulse Resp BP Pulse Ox
98.6 F 117 18 85/45 97
08/19/23 11:40 08/19/23 11:40 08/19/23 11:40 08/19/23 11:40 08/19/23 11:40
Physical Exam
Physical Exam
Constitutional: No Acute Distress and Chronically Ill
Cardiovascular: Regular Rate and S1/S2; Negative Murmur or Rub
Pulmonary: Clear and Symmetric; Negative Wheezes, Rales or Rhonchi
Gastrointestinal: Soft, Non Tender, Non Distended and Normal Bowel Sounds
Skin: Warm and Dry; Negative Rash or Jaundice
Lines: Other (port - no erythema, warmth, tenderness or swelling)
Lab / Diagnostic Study Results
08/19/23 04:04
08/19/23 04:05
Total Counted 100 08/19/23 04:04
Abs Neuts (Manual) 2.1 10^3/uL (1.4-6.5) 08/19/23 04:04
Segmented Neutrophils 50 % (42-75) 08/19/23 04:04
Band Neutrophils 19 % (0-3) H D 08/19/23 04:04
Lymphocytes (Manual) 12 % (20-51) L 08/19/23 04:04
Basophils (Manual) 3 % 08/16/23 15:07
Lactic Acid Cancelled 08/16/23 20:45
Microbiology Results
Micro:
08/16/23 16:48 Blood Culture - Preliminary
Blood/Venous Viridans Streptococcus Group
Gram Stain - Preliminary
08/16/23 16:48 Blood Culture - Preliminary
Blood/Venous No Growth in 48 hours- Final report to follow
Assessment / Plan
VGS Bacteremia
Neutropenia - resolved, due to chemotherapy
Bladder Cancer on chemotherapy - Padcev/Keytruda
JANEY
Dehydration
- repeat blood cultures x2
- agree with echo
- 08/16 CT a/p without evidence of abscesses; note known hepatic mets which were described as stable
- asked lab to get sensitives on the VGS given immune status
- no objection to steroids benefits likely outweigh risks which are relatively low from my standpoint - majority of VGS are ultimately found to be contaminants, note possible significant benefit of steroids which could profoundly impact prognosis,
patient has been on antibiotics that should be effective over 24 hours, no longer neutropenic
- continue vancomycin
- add ceftriaxone
- follow clinically
[2023-08-19] MEDS: MAGNESIUM SULFATE 100 IV (13:39)
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
[2023-08-19] MEDS: STERILE WATER FOR INJECTION 20 ML IV (14:04)
[2023-08-19] MEDS: ROCEPHIN 2000 MG IV (14:04)
--- NOTE | 2023-08-19 14:37 | PTOTSP ---
ST Evaluation
Oropharyngeal function appears intact at the bedside. Questionable esophageal impairment v. sensitive gag/aversion
Pt received awake/alert spouse present at the bedside. Ongoing retching/gagging and vomiting. Per spouse has been taking multiple anti-nausea meds but does not appear to be effective.
He was able to take small/single sips of thin liquids by straw. Adequate oral access/anterior containment, timely bolus transfers and swallow appears prompt. No overt s/sx of aspiration. Following intake (after swallow) pt exhibited retching and
vomited up small amount of bile. He declined all solid trials. Per spouse, pt had recent endoscopy biliary stent + biopsy but with no reported findings re: his esophagus. He is unable to participate in esophagram d/t inability to drink contrast.
Recommend
1. Continue clear liquids and advance diet as tolerated from oropharyngeal standpoint
2. Pt is not currently meeting primary means of nutrition/hydration by mouth due to sensitive gag, retching and vomiting. Advise physician guided discussion re: medical terminologist alternative access if aligned with pt/family desires.
3. No further acute ASSOCIATE ACCOUNTANT tx indicated. ASSOCIATE ACCOUNTANT signing off, reconsult as needed
--- NOTE | 2023-08-19 15:59 | W.CON.NEPH ---
Consultation
-
Date/Time Consultation Requested: 08/19/2023 9 AM
Date/Time Consultation Performed: 08/19/2023 3PM
Requesting Provider: Dr. Ibanez
Performing Provider: Dr. Payan
Reason for Consultation: Acute kidney injury
Medical History
-
Chief Complaint: Acute kidney injury
History of Present Illness:
This is a 63-year-old gentleman with significant history of metastatic bladder carcinoma to the liver who has been receiving chemotherapy and immunotherapy last dose 08/06 Padcev, 07/30 Keytruda. He has a urostomy in place with out issues of output.
He has been having progressive nausea over time. He has been drinking water but has not had difficulty with pills and solids. His urine has become darker. He has worsening lower extremity edema. His blood pressure has typically been good and
more recently has been low. He has significant weakness. At the time of admission he was neutropenic. His blood pressure was low under 100 systolic. His creatinine was elevated already at 2.2 from his baseline of 1.5 and now has risen further to
2.9. He also has significant hypocalcemia and hypomagnesemia for which we are asked to assist with management of. He is currently critically ill.
Past Medical History
Metastatic bladder cancer, bladder resection, urostomy, cardiomyopathy, hyperlipidemia, coronary disease, myocardial infarction, CKD 3
Social History
Tobacco: Former Smoker
Alcohol: None
Family History
Family History: Not Pertinent
Allergies / Home Medications
Allergy/AdvReac Type Severity Reaction Status Date / Time
egg Allergy Unknown Verified 08/16/23 14:56
shellfish derived Allergy Unknown Verified 08/16/23 14:56
�Medication �Instructions �Recorded �Confirmed �Type
aspirin 81 mg tablet,delayed 81 mg PO DAILY Blood Clot 06/23/23 08/18/23 History
release (Ecotrin Low Strength) Prevention/Tx
Dulcolax (bisacodyl) 2 gummy PO DAILYPRN PRN 06/24/23 08/18/23 History
constipation
acetaminophen 500 mg tablet 500 mg PO DAILYPRN PRN mild pain 06/24/23 08/18/23 History
(Tylenol Extra Strength)
docusate sodium 100 mg capsule 200 mg PO PRN PRN constipation 06/24/23 08/18/23 History
(Stool Softener)
levothyroxine 50 mcg tablet 50 mcg PO DAILY Thyroid 06/24/23 08/18/23 History
polyethylene glycol 3350 17 gram 17 g PO DAILY PRN constipation 06/24/23 08/18/23 History
oral powder packet (Miralax)
tramadol 50 mg tablet 50 mg PO PRN PRN severe pain 06/24/23 08/18/23 History
prochlorperazine maleate 10 mg 10 mg PO Q8H PRN nausea and 07/02/23 08/18/23 Rx
tablet (Compazine) vomiting #30 tabs
Review of Systems
-
Some pain in the pelvis. Appetite is decreased. No chest pain or shortness of breath. He denies lightheadedness. There is reports of weakness. The remainder of the complete review of systems is negative
Physical Exam
Vital Signs
Vital Signs
Temp Pulse Resp BP Pulse Ox
98.6 F 117 18 85/45 97
08/19/23 11:40 08/19/23 11:40 08/19/23 11:40 08/19/23 11:40 08/19/23 11:40
Lab Results
WBC 3.1 10^3/uL (4.8-10.8) L 08/19/23 04:04
RBC 4.02 10^6/uL (4.70-6.10) L 08/19/23 04:04
Hgb 11.3 g/dL (13.0-18.0) L 08/19/23 04:04
Hct 33.4 % (39.0-52.0) L 08/19/23 04:04
Plt Count 171 10^3/uL (130-400) D 08/19/23 04:04
Sodium 133 mmol/L (135-145) L 08/19/23 04:05
Potassium 3.8 mmol/L (3.5-5.1) 08/19/23 04:05
Chloride 101 mmol/L (98-107) 08/19/23 04:05
Carbon Dioxide 21 mmol/L (22-30) L 08/19/23 04:05
BUN 42 mg/dl (9-20) H 08/19/23 04:05
Creatinine 2.9 mg/dL (0.7-1.3) H 08/19/23 04:05
eGFR 23.57 08/19/23 04:05
Glucose 95 mg/dl (70-99) 08/19/23 04:05
Calcium 5.8 mg/dl (8.4-10.2) L* 08/19/23 04:05
Phosphorus 3.3 mg/dl (2.5-4.5) 08/18/23 07:48
Opn-K-Lobafkhncoc Pept 4830 pg/ml 08/18/23 20:36
Albumin 2.1 g/dl (3.5-5.0) L 08/19/23 04:05
Physical Exam
Patient is awake alert oriented and in no distress. Mood and affect were pleasant, insight and judgment were good. Pupils are equal round and reactive to light, extraocular movements are intact, sclera were anicteric. Hearing was normal, ears and
nose are intact. Neck was supple with trachea midline and no thyromegaly. Heart was regular rate and rhythm without rubs. Lower extremities with 3+ edema. Lungs were clear to auscultation bilaterally and with normal excursion. Abdomen was soft,
nontender, with normal active bowel sounds, and no hepatosplenomegaly. Skin was without rash and with normal turgor.
Data Reviewed
-
CT Scan: Report Reviewed by me (CT abdomen and pelvis without contrast on 08/17/2023 shows multiple liver lesions, biliary stent, spleen granuloma, ascending colitis)
Ultrasound: Report Reviewed by me (Renal ultrasound on 08/19/2023 shows right kidney 8.5 cm, left kidney 9.8 cm, liver lesions noted)
Labs: Labs Reviewed by me (Creatinine 2.9, bicarbonate 21, potassium 3.8, sodium 133, calcium 5.8, magnesium 1.5, phosphorus 3.3, hemoglobin 11.3)
Old Records: Reviewed (On 08/12/2022 creatinine 1.5, sodium 133, calcium 8.6)
Assessment/Plan
-
Assessment:
Acute kidney injury
Hypotension
Hypocalcemia
Hyponatremia
Hypomagnesemia
Metabolic acidosis
Bladder cancer metastatic to liver status post resection
Urostomy
Hypothyroid
Plan:
Midodrine 3 times daily
Replace calcium further
Replace magnesium
IV fluids with bicarbonate
Await urine studies
Echocardiogram
No issues with steroids from a renal perspective
If blood pressure cannot be controlled will require IV pressors
Discussed with patient
Critical care time spent 32 minutes
[2023-08-19] MEDS: ProAmatine 5 MG PO (17:18)
[2023-08-19] MEDS: LEVOTHROID 37.5 MCG IV (17:21)
[2023-08-19] MEDS: SOLU-MEDROL PF 100 MG IV (17:21)
[2023-08-19] MEDS: SODIUM BICARBONATE 1150 MEQ IV (18:03)
[2023-08-19 20:01] LABS: Urine Albumin 1+ (Neg - Trace); Urine Bilirubin 2+ (Negative); Urine Character Clear (Clear); Urine Color Yellow; Urine Glucose Negative (Negative); Urine Ketone Trace (Negative); Urine Leukocyte Trace (Negative); Urine Nitrite Positive (Negative); Urine Occult Blood 3+ (Negative); Urine Specific Gravity 1.015 (<1.030); Urine Urobilinogen 1+ (Neg - 1+)
[2023-08-19 20:11] LABS: Urine Squamous Cell 0-2 /LPF (Few)
[2023-08-19 20:12] LABS: Urine Yeast Few (Negative)
[2023-08-19 20:29] LABS: Protein/creatinine Ratio 0.3; Urine Protein 76 mg/dl
[2023-08-19 20:45] LABS: Urine Sodium 62 mmol/L (30-90)
[2023-08-20] VITALS (8 sets, daily range): BP systolic 90–164; BP diastolic 56–90; PULSE 89–130; O2SAT 97
[2023-08-20 04:48] LABS: Hematocrit 33.9 % (39.0-52.0); Hemoglobin 11.5 g/dL (13.0-18.0); Mean Corp Hgb Conc. 33.9 g/dL (33.0-37.0); Mean Corpuscular Hgb 28.4 pg (27.0-31.0); Mean Corpuscular Volume 83.7 fL (80.0-94.0); Mean Platelet Volume 11.9 fL (7.4-10.4); Nucleated Red Blood Cells % 1.3 % (-); Platelet Count 174 10^3/uL (130-400); Red Blood Cell Count 4.05 10^6/uL (4.70-6.10); White Blood Cell Count 5.5 10^3/uL (4.8-10.8)
[2023-08-20 05:13] LABS: Vancomycin Random 18.6 ug/ml
[2023-08-20 05:23] LABS: Blood Urea Nitrogen 49 mg/dl (9-20); Calcium 7.5 mg/dl (8.4-10.2); Carbon Dioxide 23 mmol/L (22-30); Chloride 99 mmol/L (98-107); Creatine Phosphokinase 186 U/L (55-170); Estimated Creatinine Clearance 24 ml/min; Glucose 158 mg/dl (70-99); Potassium 3.7 mmol/L (3.5-5.1); Sodium 132 mmol/L (135-145); eGFR 20.18
[2023-08-20 06:06] LABS: Vitamin B12 > 1000 pg/ml (239-931)
[2023-08-20 07:23] LABS: Absolute Neutrophils -Man Diff 4.7 10^3/uL (1.4-6.5); Band Neutrophils 20 % (0-3); Lymphocytes 5 % (20-51); Monocytes 5 % (2-9); Segmented Neutrophils 67 % (42-75)
[2023-08-20 07:24] LABS: Acanthocytes Occasional; Anisocytosis 1+; Metamyelocytes 3 % (-); Normal RBC Morphology No; Ovalocytes 1+; Platelets Checked Yes
[2023-08-20 07:25] LABS: Polychromasia 1+
[2023-08-20 07:27] LABS: Basophilic Stippling Slight; Total Cells Counted 100
[2023-08-20 07:28] LABS: Macrocytosis 1+
[2023-08-20 07:34] LABS: Hypochromasia 1+
--- NOTE | 2023-08-20 07:48 | W.PN.ONC2 ---
Today's Communication / Plan
-
Clinically seems better on steroids. Not exactly sure what we are treating there is some concern that there could be an autoimmune component from Keytruda pembrolizumab given on 07/30.
Impression
Impression
Metastatic bladder carcinoma on Padcev last 08/06, Keytruda last 07/30, representing cycle 1
Unclear volume status with ART, tachycardia and hypotension, but lower extremity swelling and apparent 10 lb weight gain. (last weight in the office was 180)
Neutropenia - resolved
Hypocalcemia - admits to leg cramping
Elevated transaminase and alkaline phosphatase
Failure to thrive
Pruritus
Plan
Plan
His clinical status was declining (nausea, weakness, weight loss) even before he started chemo/immunotherapy, so cannot blame treatment solely
Continue electrolyte repletion
Continue antiemetics
Patient was empirically started on Solu-Medrol 08/18 to help nausea, appetite, pruritus (IV solumedrol 100mg/d to start, change to Prednisone 1mg/kg/d when able to tolerate PO)
TSH normal, cortisol is high. Aldolase pending.
SG discussed goals of care with , still would like to pursue more treatment (of note, Alk phos has improved significantly with just one cycle of treatment)
Will follow along.
Subjective/Objective
Chief Complaint
ACS Heme Onc
Subjective
No fever or SOB. N/V improved. Started yesterday empirically on Solu-Medrol 100 mg IV daily
Vital Signs:
Vital Signs
Temp Pulse Resp BP Pulse Ox
97.6 F 105 18 128/75 99
08/20/23 03:13 08/20/23 03:13 08/20/23 03:13 08/20/23 03:13 08/20/23 03:13
Lab Results:
Laboratory Data
WBC 5.5 10^3/uL (4.8-10.8) 08/20/23 04:40
Hgb 11.5 g/dL (13.0-18.0) L 08/20/23 04:40
Plt Count 174 10^3/uL (130-400) 08/20/23 04:40
eGFR 20.18 08/20/23 04:40
Physical Exam
Chronically ill and frail
HEENT: No Jaundice
Cardiology: S1 and S2
Pulmonary: Clear
GI: Soft
Extremities: Edema (1-2+ B/L)
--- NOTE | 2023-08-20 08:25 | W.PN.CARDCBS ---
Today's Communication / Plan
-
Cont medical therapy of nonMI top with peak 0.051.
Remains sinus rhythm with prior sinus tachycardia multifactorial including volume contraction, bacteremia, hypotension.
He does not appear volume overloaded.
Replete lytes as needed as per nephrology. Midodrine for bp support.
Abx as per ID and hospitalist. Await echo pending, requested given bacteremia; pt could not move into position August 18 for the study to be completed.
Oncology considering starting steroids; not be opposed from cardiac standpoint.
Reviewed with family member at bedside.
Impression / Plan
-
PCP: Sagar Jade
Occupational Therapy Supervisor: Dr. Thomas
Impression:
Presented 08/16/2023 weakness, lethargy, tachycardia
+Viridans Streptococcus
Abdominal pain
Electrolyte disturbance
Dehydration
JANEY on CKD
Leukopenia
Failure to thrive
Abnormal troponin
Metastatic bladder carcinoma w/ urostomy ( liver, pancreas, common bile duct ) post Padcev last 08/06, Keytruda last 07/30
CAD
status post OM stent 02/2017
History of pancreatitis
Hypothyroidism
History of hypokalemia
History of osteomyelitis of the sacrum
CKD stage III
Metastatic bladder carcinoma w/ urostomy
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
Echo 08/19/2023: Ordered
Echocardiogram 06/13/2021: Ejection fraction 55%, ��no significant valvular disease
Lexiscan sestamibi stress test 06/14/2021: Negative for ischemia at 8.5 mets.
Plan:
-Presented 08/16/2023 weakness, lethargy, tachycardia
Cont medical therapy of nonMI top with peak 0.051.
Remains sinus rhythm with prior sinus tachycardia multifactorial including volume contraction, bacteremia, hypotension.
He does not appear volume overloaded.
Replete lytes as needed as per nephrology. Midodrine for bp support.
Abx as per ID and hospitalist. Await echo pending, requested given bacteremia; pt could not move into position August 18 for the study to be completed.
Oncology considering starting steroids; not be opposed from cardiac standpoint.
Reviewed with family member at bedside.
HPI 08/19/2023:
Patient is a 63-year-old male with past medical history significant for coronary artery disease status post OM stent 2016, recovered cardiomyopathy, hyperlipidemia, bladder cancer with mets to liver, pancreas, common bile duct now on
Padcev/Keytruda who presented to emergency department 08/16/2023 with complaints of weakness, lethargy, tachycardia and hypotension and abdominal pain. He was recently admitted and discharged on 07/23/2023 for sepsis secondary to UTI. He continued
to have poor oral and food intake after discharge. On presentation back to the emergency room 08/16/2023 he was noted to have dehydration with JANEY, electrolyte abnormalities and abdominal pain. Noncontrast CT showed nonspecific colitis. Venous
ultrasound was negative for DVT. 1 of 2 sets of blood cultures from 08/16/2023 grew Viridans Streptococcus. He was placed on IV vancomycin and is being followed by ID. Noted to have abnormal troponin which peaked at 0.051. EKG showed sinus
tachycardia. Cardiology being asked to evaluate patient secondary to ongoing tachycardia and mildly elevated troponin.
Progress Note - Occupational Therapy Supervisor
Subjective
Date of Service: August 20, 2023
Pt seen and examined. No cp.
Objective
Labs:
08/20/23 04:40
08/20/23 04:40
Labs
Hgb 11.5 g/dL (13.0-18.0) L 08/20/23 04:40
Hct 33.9 % (39.0-52.0) L 08/20/23 04:40
Plt Count 174 10^3/uL (130-400) 08/20/23 04:40
Sodium 132 mmol/L (135-145) L 08/20/23 04:40
Potassium 3.7 mmol/L (3.5-5.1) 08/20/23 04:40
BUN 49 mg/dl (9-20) H 08/20/23 04:40
Creatinine 3.3 mg/dL (0.7-1.3) H 08/20/23 04:40
Glucose 158 mg/dl (70-99) H 08/20/23 04:40
Troponins
08/18/23 08/19/23 08/19/23
20:36 04:04 12:15
Troponin I 0.041 H* 0.051 H* 0.048 H*
Vital Signs and I&O:
Vital Signs
Temp Pulse Resp BP Pulse Ox
97.7 F 111 18 95/64 96
08/20/23 07:00 08/20/23 07:00 08/20/23 07:00 08/20/23 07:00 08/20/23 07:00
Vital Signs
Temp Pulse Resp BP Pulse Ox
97.7 F 111 18 95/64 96
08/20/23 07:00 08/20/23 07:00 08/20/23 07:00 08/20/23 07:00 08/20/23 07:00
Intake & Output
08/18/23 08/19/23 08/20/23 08/21/23
06:59 06:59 06:59 06:59
Intake Total 3745 / 3745 480 / 480 660 / 660
Output Total 730 / 730 300 / 300 600 / 600
Balance 3015 / 3015 180 / 180 60 / 60
Physical Exam
Physical Exam
General: No acute distress, AAOX3
Neck: Negative JVD
Heart: Regular, Negative S3 positive S1/S2, Negative S4, No murmur
Lungs: CTA b/l, negative wheezes/rales/rhonchi
Abd: Positive BS, NT/ND, neg rebound/rigidity/guarding
Ext: Negative cyanosis/clubbing/edema
Neuro: nonfocal
[2023-08-20] MEDS: HEPARIN SC ×2 (08:28→20:47)
[2023-08-20] MEDS: SOLU-MEDROL PF 100 MG IV (08:28)
[2023-08-20] MEDS: ASPIR LOW (ENTERIC COATED) PO (08:28)
--- NOTE | 2023-08-20 08:29 | PHA.VAN.FU ---
Vancomycin Assessment / Plan
- Assessment
Renal Function: SCR Increasing
WBC's are: WNL
In the past 24 hrs, patient has been: Afebrile
Concomitant Antimicrobials: ceftriaxone
- Assessment - Therapeutic Drug Monitoring
Random Level: 18.6 - drawn ~16H after previous dose of 750mg
- Dosing Plan
Dosing by Level: Hold off on dosing today (anticipate will maintain level with increasing SCR)
- Monitoring Plan
Random Level: 08/20 06
- Follow Up
Pharmacy will continue to follow.
Vancomycin Follow UP
- -
Patient Age: 63
Patient Sex: Male
Vancomycin Day #: 3
Indication: Bacteremia
Requesting Provider: Dr. Ibanez / Susana
Pertinent Antimicrobial Allergies:
no pertinent antibiotic allergies
Height / Weight:
Height 5 ft 11 in
Actual Weight 89.176 kg
Pertinent Past Medical History: CKD, Metastatic bladder cancer
- Vital Signs / Lab Results
Temp Pulse Resp BP Pulse Ox
97.7 F 111 18 95/64 96
08/20/23 07:00 08/20/23 07:00 08/20/23 07:00 08/20/23 07:00 08/20/23 07:00
Lab Results - Hematology
08/18/23 08/19/23 08/20/23
07:48 04:04 04:40
WBC 2.0 L* 3.1 L 5.5
Band Neutrophils 19 H D 20 H
Lab Results - Chemistry
08/18/23 08/19/23 08/20/23
07:48 04:05 04:40
BUN 34 H 42 H 49 H
Creatinine 2.2 H 2.9 H 3.3 H
Estimated Creat Clear 37 28 24
Albumin 2.3 L 2.1 L
Lab Results - Urine
08/19/23
09:55
Urine Nitrite (Reflex) Positive A
Leukocyte Esterase Rfl Trace A
Ur Squamous Epith Cells 0-2
Microbiology Results
08/16/23 16:48 Blood Culture - Preliminary
Blood/Venous No Growth in 72 hours- Final report to follow
08/16/23 16:48 Blood Culture - Preliminary
Blood/Venous Viridans Streptococcus Group
Gram Stain - Preliminary
Therapeutic Drug Monitoring
Random Vancomycin 18.6 ug/ml 08/20/23 04:40
[2023-08-20] MEDS: NSS (PRESERVATIVE FREE) 10 ML IV (08:30)
[2023-08-20] MEDS: PROTONIX IV 40 MG IV (08:30)
[2023-08-20] MEDS: ProAmatine 5 MG PO (08:30)
[2023-08-20] MEDS: SODIUM BICARBONATE 1150 MEQ IV (08:35)
--- NOTE | 2023-08-20 11:05 | W.PN.NEPH.PH ---
Today's Communication / Plan
-
Escalate midodrine to 10 mg 3 times daily
Isotonic saline provide
Follow-up BMP
Assessment/Plan
-
Assessment:
Acute kidney injury
Hypotension
Hypocalcemia
Hyponatremia
Hypomagnesemia
Metabolic acidosis
Bladder cancer metastatic to liver status post resection
Urostomy
Hypothyroid
Plan:
JANEY continues to worsen with creatinine up to 3.3 with oliguric urine output via urostomy
Midodrine 3 times daily, will escalate to 10 mg 3 times daily due to low MAP
Maintain isotonic IV fluids to support blood pressure
Follow-up ionized calcium and magnesium in a.m.
Fractional excretion of sodium appears to be more consistent with prerenal stimulus
I suspect acute kidney injury is prerenal he mediated in setting of sepsis with hemodynamic compromise
Renal ultrasound without hydronephrosis findings consistent with underlying bilateral medical renal disease
Echocardiogram pending
No issues with steroids from a renal perspective
If blood pressure cannot be controlled will require IV pressors
Discussed with patient
Patient is at high clinical risk due to further deterioration of renal failure in setting of hemodynamic instability
-
-
Date of Service: August 20, 2023
CC / HPI / ROS
-
Chief Complaint:
Acute kidney injury
History of Present Illness:
JANEY worsening with creatinine up to 3.3
Hemodynamically labile on midodrine and IV fluids
On vancomycin and ceftriaxone in setting of sepsis
Review of Systems:
Oliguric via right lower quadrant urostomy
No fevers
No shortness of breath or chest pain
Persistent malaise
Labs
-
Labs:
08/20/23 04:40
08/20/23 04:40
WBC 5.5 10^3/uL (4.8-10.8) 08/20/23 04:40
RBC 4.05 10^6/uL (4.70-6.10) L 08/20/23 04:40
Hgb 11.5 g/dL (13.0-18.0) L 08/20/23 04:40
Hct 33.9 % (39.0-52.0) L 08/20/23 04:40
Plt Count 174 10^3/uL (130-400) 08/20/23 04:40
Sodium 132 mmol/L (135-145) L 08/20/23 04:40
Potassium 3.7 mmol/L (3.5-5.1) 08/20/23 04:40
Chloride 99 mmol/L (98-107) 08/20/23 04:40
Carbon Dioxide 23 mmol/L (22-30) 08/20/23 04:40
BUN 49 mg/dl (9-20) H 08/20/23 04:40
Creatinine 3.3 mg/dL (0.7-1.3) H 08/20/23 04:40
eGFR 20.18 08/20/23 04:40
Glucose 158 mg/dl (70-99) H 08/20/23 04:40
Calcium 7.5 mg/dl (8.4-10.2) L D 08/20/23 04:40
Phosphorus 3.3 mg/dl (2.5-4.5) 08/18/23 07:48
Arz-B-Mcuivgijobo Pept 4830 pg/ml 08/18/23 20:36
Albumin 2.1 g/dl (3.5-5.0) L 08/19/23 04:05
Physical Exam
-
Vital Signs:
Vital Signs
Temp Pulse Resp BP Pulse Ox
97.7 F 111 18 95/64 96
08/20/23 07:00 08/20/23 08:30 08/20/23 07:00 08/20/23 08:30 08/20/23 07:00
Cardiovascular:: Regular rate and rhythm
Respiratory:: Bilateral: Coarse
Lung Excursion:: Normal
Abdomen:: Nontender, Soft and Tender
Bowel Sounds:: Decreased
Extremity Edema:: None: Bilateral:
Robbins Catheter: No
Other Findings::
Right lower quadrant urostomy
--- NOTE | 2023-08-20 11:26 | PN.CDI ---
CDI
- -
CDI:
Physician Documentation Request
Admit Date: 08/16/23 18:35
Dear Doctor Shamar,
Patient admitted with malignancy.
08/18 Hospitalist PN: 'Non-VT trop elevation. Tachycardia, sinus with APCs'
Please clarify the following regarding the documented troponin elevation:
Non-ischemic myocardial injury
Lab abnormality
Other
Use of terms such as suspected, likely, concern for, or probable (associated with a specific diagnosis that is being evaluated, monitored, or treated as if it exists) are acceptable and can be coded in the inpatient setting, when documented at the
time of discharge.
Thank you,
Monae Padron RN, BSN
CDI Specialist
Available via [place] text
Please use your independent medical judgment in providing your response.
--- NOTE | 2023-08-20 11:33 | PN.CDI ---
CDI
- -
CDI:
Physician Documentation Request
Admit Date: 08/16/23 18:35
Dear Doctor Shamar,
Patient admitted with malignancy.
08/18 Hospitalist PN: 'Per ASPEN/AND guidelines, pt meets for severe malnutrition in the context of chronic illness as evidenced by < 50% intake est needs x > 1 month, significant weight loss of 19 lb (9%) in 2 months'
Based on the information, which of the following most accurately represents the patient's nutritional status?
Severe protein calorie malnutrition
Other
[place] Criteria ([facility] Hospitalist 2017)
2 or more criteria must be present for either
non severe or severe malnutrition
Note that the criteria differs related to the
presence of an acute or chronic illness
Acute Illness Chronic Illness
Energy Intake Non Severe: <75% for >7 days Non Severe: <75% for >1 month
Severe: <50% for >5 days Severe: <75% for >1 month
Weight Loss Non Severe: 1-2% over 1 week Non Severe: 5% over 1 month
5% over 1 month 7.5% over 3 months
7.5% over 3 months 10% over 6 months
1 year N/A 20% over 1 year
Severe: >2% over 1 week Severe: >5% over 1 month
>5% over 1 month >7.5% over 3 months
>7.5% over 3 months >10% over 6 months
1 year N/A >20% over 1 year
Body Fat Non Severe: Mild Decrease Non Severe: Mild Loss
Severe: Moderate Decrease Severe: Severe Loss
Muscle Mass Non Severe: Mild Decrease Non Severe: Mild Loss
Severe: Moderate Decrease Severe: Severe Loss
Fluid Accumulation Non Severe: Mild Accumulation Non Severe: Mild Accumulation
Severe: Moderate to severe Severe: Moderate to severe
accumulation accumulation
Reduced Leather Stripping Machine Operator Strength Non Severe: N/A Non Severe: N/A
Severe: Measurably reduced Severe: Measurably reduced
Use of terms such as suspected, likely, concern for, or probable (associated with a specific diagnosis that is being evaluated, monitored, or treated as if it exists) are acceptable and can be coded in the inpatient setting, when documented at the
time of discharge.
Thank you,
Monae Padron RN, BSN
CDI Specialist
Available via [place] text
Please use your independent medical judgment in providing your response.
[2023-08-20] MEDS: NSS 1000 IV (13:23)
[2023-08-20] MEDS: ROCEPHIN 2000 MG IV (13:23)
[2023-08-20] MEDS: STERILE WATER FOR INJECTION 20 ML IV (13:23)
[2023-08-20] MEDS: ProAmatine 10 MG PO ×2 (13:23→17:21)
--- NOTE | 2023-08-20 13:29 | W.PN.HOSP.TC ---
Today's Communication/Plan
-
add supplements and encourage oral intake; if no improvement in 24 hours, will need Dobhoff and TFs
continue steroids per Onc
continue IV abx per ID
continue fluids/midodrine per Nephrology and follow labs
Assessment / Plan
Assessment / Plan
08/15/23 PET: Prominent mildly FDG avid left supraclavicular and high prevascular lymph nodes, suspicious for metastases. Redemonstration of extensive infiltrative lesions throughout the liver although only a few scattered hepatic lesions demonstrate
significant increased FDG activity above baseline, consistent with metastatic disease. Mildly FDG avid soft tissue metastatic disease about the common bile duct/pancreatic head and in the retroperitoneal and mesenteric regions, overall slightly
improved from prior CT.
Assessment:
JANEY on CKD3b/dehydration/non-AG met acidosis
- JANEY likely from hypotension and hemodynamic compromise
- Renal US without obstruction
- lytes suggest pre-renal etiology
- cont NSS (previously on IVF Bicarb)
- monitor BMP
- Nephrology following; concern for checkpoint inhibitor nephrotoxicity
Hypotension
- continue Midodrine TID
- if no improvement, will need pressors
Abdominal pain:
- likely due to malignancy
- afebrile
- pain control with IV Dilaudid
- antiemetics (Tigan due to prolonged QTC)
- Noncontrasted CT with nonspecific colitis but otherwise no acute findings.
- check AXR with distention today
Metastatic Bladder CA:
- with chronic LFT elevation due to metastatic disease; notably somewhat improved over 2 months
- s/p metal stent placement in CBD
- s/p cystectomy, now with urostomy (chemo for bladder cancer permeated through his gut and resulted in sigmoid/anus/rectum resection- now with colostomy)
- Oncology following
- continue steroids for concern of autoimmune phenomenon of Keytruda
Hypocalcemia
Hypomagnesemia
- replete via IV
LE Edema, multifactorial from JANEY, moderate protein caloric malnutrition
- Dopplers negative
- apply tubi-supervisor product inspection
- nutrition consulted
- Severe protein calorie malnutrition - Ensure added. may need TF
Non-MN trop elevation (Non-ischemic myocardial injury)
Tachycardia, sinus with APCs
- Cards consulted
- Echo pending
Viridans strep bacteremia
- 1/2 bottles
- Echo pending
- Vancomycin, day 3
- ID following
- follow repeat cultures
Hyponatremia
Hypothyroidism: Continue levothyroxine via IV
CAD s/p stent: cont ASA
FULL/Heparin
Anticipated Discharge: > 48 hours
Subjective/Interval History
-
Date of Service: August 20, 2023
willing to try and drink supplements
Objective Data
-
Labs:
Laboratory Results
08/20/23
04:40
WBC 5.5
Hgb 11.5 L
Hct 33.9 L
Plt Count 174
Sodium 132 L
Potassium 3.7
Chloride 99
Carbon Dioxide 23
BUN 49 H
Creatinine 3.3 H
Glucose 158 H
Calcium 7.5 L D
Vital Signs:
Vital Signs
Temp Pulse Resp BP Pulse Ox
98.5 F 104 18 94/61 96
08/20/23 11:00 08/20/23 11:00 08/20/23 11:00 08/20/23 11:00 08/20/23 11:00
I&O
08/19/23 08/20/23 08/21/23
06:59 06:59 06:59
Intake Total 480 / 480 660 / 660
Output Total 300 / 300 600 / 600
Balance 180 / 180 60 / 60
Physical Exam
-
General: No Apparent Distress
HEENT: Normocephalic and Atraumatic
Respiratory: Negative Wheezes or Rales
Cardiac: Regular Rhythm and S1/S2
GI: Soft and Nontender
Genito-urinary: No Costovertebral Tender
Musculoskeletal: No Edema
Neuro: AO x 3
Hematologic / Lymphatic: No Lymphadenopathy
Psych: Calm
Data Reviewed
-
Total Time Spent with Patient (in minutes): 45
Labs: Labs Reviewed by me
[2023-08-20] MEDS: TIGAN 200 MG IM (13:41)
--- NOTE | 2023-08-20 15:21 | W.PN.ID1 ---
Date of Service
Date of Service: August 20, 2023
Today's Communication
await echo
continue ceftriaxone, stop vancomycin
Assessment / Plan
S mitis (VGS) Bacteremia vs Pseudobacteremia
Neutropenia - resolved, due to chemotherapy
Bladder Cancer on chemotherapy - Padcev/Keytruda
JANEY - progressing
Dehydration
- repeat blood cultures x2 are in progress
- s mitis sensitive to penicillin
- agree with echo - pending
- 08/16 CT a/p without evidence of abscesses; note known hepatic mets which were described as stable
- agree with steroids, management per oncology
- stop vancomycin
- continue ceftriaxone
- follow clinically
Chief Complaint
-: Bacteremia
Subjective / Review of Systems
afebrile
bp mildly hypotensive this afternoon - improved from yesterday
leukopenia has resolved
cr worsening
AXR today: awaiting read
urine culture: c albicans and lactobacillus
bacteria is s mitis
more alert today
no changes in vision or new back pain
no tenderness redness or drainage from the port
Vital Signs / Physical Exam
Vital Signs
Vital Signs
Temp Pulse Resp BP Pulse Ox
98.5 F 104 18 94/61 96
08/20/23 11:00 08/20/23 13:23 08/20/23 11:00 08/20/23 13:23 08/20/23 11:00
Physical Exam
Constitutional: No Acute Distress
Cardiovascular: Regular Rate and S1/S2; Negative Murmur or Rub
Pulmonary: Clear and Symmetric; Negative Wheezes or Rales
Gastrointestinal: Soft, Non Tender, Non Distended and Normal Bowel Sounds
Skin: Warm and Dry; Negative Rash or Jaundice
Lines: Port (no redness, tenderness or drainage)
Objective Data
Lab Data
Lab Results
08/20/23 04:40
08/20/23 04:40
Estimated Creat Clear 24 ml/min 08/20/23 04:40
Lactic Acid Cancelled 08/16/23 20:45
Total Bilirubin 1.0 mg/dl (0.2-1.3) 08/19/23 04:05
AST 90 U/L (17-59) H 08/19/23 04:05
ALT 103 U/L (0-50) H 08/19/23 04:05
Alkaline Phosphatase 201 U/L (38-126) H 08/19/23 04:05
Most recent labs reviewed.
Micro Results:
08/19/23 15:05 Blood Culture - Preliminary
Blood/Venous No Growth in 24 hours- Final report to follow
08/19/23 09:55 Urine Culture - Final
Urine Mariam albicans
Lactobacillus species
08/16/23 16:48 Blood Culture - Preliminary
Blood/Venous Strep mitis/oralis
Gram Stain - Preliminary
08/16/23 16:48 Blood Culture - Preliminary
Blood/Venous No Growth in 72 hours- Final report to follow
08/19/23 15:26 Blood Culture - Pending
Blood/Venous
--- NOTE | 2023-08-20 16:17 | PTCARENOTE ---
Pt's colostomy bag changed 08/19 by this RN with at bedside.
[2023-08-20] MEDS: NSS (PRESERVATIVE FREE) 8 ML IV (17:22)
[2023-08-20] MEDS: PEPCID 20 MG IV (17:22)
[2023-08-20] MEDS: DILAUDID 1 MG IV (18:44)
[2023-08-21] VITALS (9 sets, daily range): BP systolic 92–142; BP diastolic 68–89
[2023-08-21] MEDS: NSS 1000 IV ×2 (03:05→17:59)
[2023-08-21] MEDS: TIGAN 200 MG IM ×2 (04:15→18:34)
[2023-08-21 04:48] LABS: Ionized Calcium 1.03 mMOL/L (1.15-1.33)
[2023-08-21 05:11] LABS: Hematocrit 33.9 % (39.0-52.0); Hemoglobin 11.4 g/dL (13.0-18.0); Mean Corp Hgb Conc. 33.6 g/dL (33.0-37.0); Mean Corpuscular Hgb 27.7 pg (27.0-31.0); Mean Corpuscular Volume 82.5 fL (80.0-94.0); Mean Platelet Volume 11.6 fL (7.4-10.4); Nucleated Red Blood Cells % 0.7 % (-); Platelet Count 173 10^3/uL (130-400); Red Blood Cell Count 4.11 10^6/uL (4.70-6.10); Red Cell Dist. Width 16.5 % (11.5-14.5); White Blood Cell Count 12.1 10^3/uL (4.8-10.8)
[2023-08-21 05:40] LABS: Blood Urea Nitrogen 60 mg/dl (9-20); Calcium 8.2 mg/dl (8.4-10.2); Carbon Dioxide 22 mmol/L (22-30); Chloride 98 mmol/L (98-107); Estimated Creatinine Clearance 23 ml/min; Glucose 141 mg/dl (70-99); Magnesium 2.3 mg/dl (1.6-2.3); Potassium 3.3 mmol/L (3.5-5.1); Sodium 131 mmol/L (135-145); eGFR 18.81
[2023-08-21 07:13] LABS: Absolute Neutrophils -Man Diff 9.4 10^3/uL (1.4-6.5); Anisocytosis 1+; Band Neutrophils 17 % (0-3); Hypochromasia 1+; Lymphocytes 11 % (20-51); Macrocytosis 1+; Monocytes 8 % (2-9); Myelocytes 3 % (-); Normal RBC Morphology No; Platelets Checked Yes; Polychromasia Slight; Segmented Neutrophils 61 % (42-75)
[2023-08-21 07:14] LABS: Ovalocytes 1+; Total Cells Counted 100
[2023-08-21] MEDS: KCL 270 MEQ IV (08:13)
[2023-08-21] MEDS: ASPIR LOW (ENTERIC COATED) PO (08:13)
[2023-08-21] MEDS: HEPARIN SC ×2 (08:13→20:03)
[2023-08-21] MEDS: PROTONIX IV 40 MG IV (08:14)
[2023-08-21] MEDS: COMPAZINE 5 MG IV ×2 (08:14→18:09)
[2023-08-21] MEDS: NSS (PRESERVATIVE FREE) 10 ML IV (08:14)
[2023-08-21] MEDS: SOLU-MEDROL PF 100 MG IV (08:14)
[2023-08-21] MEDS: ProAmatine PO ×3 (08:18→17:51)
--- NOTE | 2023-08-21 09:51 | W.PN.ONC ---
Today's Communication / Plan
-
Continues to suffer paroxysms of pain significantly worse this morning
Abdominal 1 view reveals evidence of small bowel obstruction likely related to malignancy
Consult surgery
Continues with nausea and anorexia despite aggressive antinausea therapy
Continue electrolyte and fluid repletion
Patient was empirically started on Solu-Medrol 08/18 to help nausea, appetite, pruritus (IV solumedrol 100mg/d to start, change to Prednisone 1mg/kg/d when able to tolerate PO)
TSH normal, cortisol is high. Aldolase pending
SG discussed goals of care with , still would like to pursue more treatment (of note, Alk phos has improved significantly with just one cycle of treatment)
Pain management
Impression
Impression
Metastatic bladder carcinoma on Padcev last 08/06, Keytruda last 07/30, representing cycle 1
Small bowel obstruction with worsening pain
Neutropenia - resolved
Hypocalcemia - admits to leg cramping
Elevated transaminase and alkaline phosphatase
Failure to thrive
Pruritus
Subjective/Objective
Subjective/Objective
Patient with substantial discomfort and intermittent nausea
Vital Signs:
Vital Signs
Temp Pulse Resp BP Pulse Ox
97.8 F 103 18 113/76 100
08/21/23 07:00 08/21/23 07:00 08/21/23 07:00 08/21/23 07:00 08/21/23 07:00
PE:
Heart mildly tachycardic without murmur
Lungs clear
Abdomen soft tender particularly subxiphoid and left lower quadrant
Extremities without pretibial edema
Lab Results:
Laboratory Data
WBC 12.1 10^3/uL (4.8-10.8) H 08/21/23 04:40
Hgb 11.4 g/dL (13.0-18.0) L 08/21/23 04:40
Plt Count 173 10^3/uL (130-400) 08/21/23 04:40
eGFR 18.81 08/21/23 04:40
--- NOTE | 2023-08-21 11:09 | CON.GS ---
Addendum entered and electronically signed by Santi Solano MD 08/21/23 13:12:
Patient seen and examined earlier today with surgical nurse practitioner. Agree with documented consultation note consistent with my simultaneous examination and evaluation.
HPI: Patient is a 63-year-old male with known history of metastatic bladder carcinoma, status post cystectomy with urostomy, colostomy and biliary stent for obstruction from metastatic disease. Recently initiated on systemic therapy with resultant
lethargy, anorexia and nausea/abdominal pain. Surgical consultation requested due to persistent symptoms despite supportive care measures since admission on 08/17/2023. Follow-up abdominal x-rays yesterday suggestive of developing small bowel
obstruction.
Patient's at bedside during our evaluation. He reports persistent pain, nausea and dry heaves but without much emesis. Patient and his state his ostomy has generally remained functional throughout this entire period with loose/liquid
stool and some gas.
Past medical and surgical history as per detailed consultation report.
Afebrile, normotensive, sinus tachycardia noted.
Patient appears in mild distress/uncomfortable secondary to pain and nausea, chronically ill appearing.
ABD: Softly distended but not tense. Mild generalized tenderness but no rebound rigidity or guarding. Right side urostomy with yellow urine. Left-sided end colostomy with pink mucosa and liquid stool but no melena or hematochezia.
Abdominal x-ray 08/20/2023: Dilated loops of small bowel up to 5 cm. Paucity of gas within the right/transverse colon. Findings suggestive of small bowel obstruction versus ileus.
CT abdomen/pelvis imaging 08/17/2023: Postop changes consistent with sigmoid resection, left-sided colostomy, cystectomy with ileal conduit. Soft tissue stranding with the ascending colon, no dilated loops of small bowel, small bowel within the
pelvis contiguous with postsurgical soft tissue attenuation. No free fluid.
Assessment and plan: 63-year-old male with possible/probable malignant obstruction versus ileus in the setting of neutropenia, elevated transaminases, progressive renal failure and worsening medical illness as well as metastatic bladder carcinoma
with recent initiation of systemic therapy.
From a surgical standpoint I offered either intervention with NG tube decompression to alleviate symptoms -patient declined at this time as he would rather medically manage his intractable nausea.
In addition we discussed that noncontrast CT imaging and x-ray alone has its limitations in being able to differentiate between ileus versus malignant obstruction. That being said repeat CT imaging without oral contrast would likely be of limited
utility. CT imaging with contrast also deferred on by patient at this point.
I did not have more detailed discussions with patient nor his at bedside however given his acute decline and what appears to be rather widely metastatic intra-abdominal bladder carcinoma probably involving both peritoneum/mesentery etc. even if
a transition point/malignant obstruction/bowel compromise or threat confirmed surgical intervention would likely not be possible with degree of intra-abdominal metastatic disease
Will follow
Consider contrast imaging if patient agreeable and there is no improvement
Current supportive care measures
Original Note:
Consultation
-
Date/Time Consultation Requested: 08/21/23 [id number]
Requesting Provider: Shamar
Performing Provider: Luke Solano
Medical History
-
Chief Complaint: nausea
History of Present Illness:
This is a 63 yo male with a history of stage 4 bladder ca with liver/pancreatic head/CBD mets with stent placement and prior cystectomy with urostomy and colostomy on Padcev/Keytruda who presents with ongoing nausea with dehydration. He is currently
quite nauseated and uncomfortable appearing. He notes dry heaving but no emesis. He denies active abdominal pain. Colostomy is still productive of stool. He was able to drink one ensure yesterday but notes it took him hours to do so and worsened his
nausea symptoms.
Past Medical History
Past Medical History: CAD, Cancer (stage 4 bladder ca), Hypothyroidism and MD
Past Surgical History: Bowel Resection (urostomy and colostomy) and Cardiac (cardiac stent)
Social History
Tobacco: Former Smoker
Personal:
Living: With Family
Family History
Family History: Reviewed & Not Pertinent
Allergies / Home Medications
Allergy/AdvReac Type Severity Reaction Status Date / Time
egg Allergy Unknown Verified 08/16/23 14:56
shellfish derived Allergy Unknown Verified 08/16/23 14:56
�Medication �Instructions �Recorded �Confirmed �Type
aspirin 81 mg tablet,delayed 81 mg PO DAILY Blood Clot 06/23/23 08/18/23 History
release (Ecotrin Low Strength) Prevention/Tx
Dulcolax (bisacodyl) 2 gummy PO DAILYPRN PRN 06/24/23 08/18/23 History
constipation
acetaminophen 500 mg tablet 500 mg PO DAILYPRN PRN mild pain 06/24/23 08/18/23 History
(Tylenol Extra Strength)
docusate sodium 100 mg capsule 200 mg PO PRN PRN constipation 06/24/23 08/18/23 History
(Stool Softener)
levothyroxine 50 mcg tablet 50 mcg PO DAILY Thyroid 06/24/23 08/18/23 History
polyethylene glycol 3350 17 gram 17 g PO DAILY PRN constipation 06/24/23 08/18/23 History
oral powder packet (Miralax)
tramadol 50 mg tablet 50 mg PO PRN PRN severe pain 06/24/23 08/18/23 History
prochlorperazine maleate 10 mg 10 mg PO Q8H PRN nausea and 07/02/23 08/18/23 Rx
tablet (Compazine) vomiting #30 tabs
Review of Systems
-
History Source: Patient and Family
All other systems: Negative unless noted
A 10 point review of systems was completed, and was negative except as per HPI.
Physical Exam
Vital Signs
Temp Pulse Resp BP Pulse Ox
97.8 F 103 18 113/76 100
08/21/23 07:00 08/21/23 07:00 08/21/23 07:00 08/21/23 07:00 08/21/23 07:00
Body Mass Index (BMI) 27.4
Lab Results
08/21/23 04:40
08/21/23 04:40
WBC 12.1 10^3/uL (4.8-10.8) H 08/21/23 04:40
Hgb 11.4 g/dL (13.0-18.0) L 08/21/23 04:40
Hct 33.9 % (39.0-52.0) L 08/21/23 04:40
Plt Count 173 10^3/uL (130-400) 08/21/23 04:40
Physical Exam
General: Poor Appetite; Negative Comfortable
HEENT: Moist Mucous Membranes
Respiratory: Non Labored Respirations
GI: Soft, Tender (minimal generalized tenderness), Distended and Other (urostomy with pink stoma and urine output present, colostomy with pink stoma and stool/flatus present in appliance)
Skin: Warm and Dry
Neuro: Awake, Alert and AO x 3
Psych: Calm
Data Reviewed
-
Radiology: Image Personally Visualized and interpreted, Report Reviewed by me, Discussed with Physician, Discussed with Nurse and Discussed with Patient
CT Scan: Image Personally Visualized and interpreted, Report Reviewed by me, Discussed with Physician, Discussed with Nurse and Discussed with Patient
Labs: Labs Reviewed by me
Old Records: Reviewed
Assessment / Plan
-
This is a 63 yo male with a history of stage 4 bladder ca with liver/pancreatic head/CBD mets with stent placement and prior cystectomy with urostomy and colostomy on Padcev/Keytruda who presents with ongoing nausea with dehydration and JANEY. Seen
today in consult given ongoing nausea and concern for sbo on follow up xr imaging. CT imaging on presentation w/o contrast with metastatic disease without obstruction. XR on 08/19 with dilated small bowel rising concern for possible partial SBO d/t
adhesions vs mets vs more likely Ileus. AFVSS. Mild leukocytosis (leukopenic on arrival).
No operative intervention recommended. Would follow with supportive measures including bowel rest, analgesics/antiemetics and hydration
Offered NGT in an attempt to relieve nausea/distention; patient currently declining
--- NOTE | 2023-08-21 11:30 | W.PN.HOSP.TC ---
Today's Communication/Plan
-
continue fluids, continue midodrine, may need pressors
continue IV abx per ID
ileus - patient refusing NGT. will keep NPO bowel rest and supportive care
Assessment / Plan
Assessment / Plan
08/15/23 PET: Prominent mildly FDG avid left supraclavicular and high prevascular lymph nodes, suspicious for metastases. Redemonstration of extensive infiltrative lesions throughout the liver although only a few scattered hepatic lesions demonstrate
significant increased FDG activity above baseline, consistent with metastatic disease. Mildly FDG avid soft tissue metastatic disease about the common bile duct/pancreatic head and in the retroperitoneal and mesenteric regions, overall slightly
improved from prior CT.
Assessment:
JANEY on CKD3b/dehydration/non-AG met acidosis
- JANEY likely from hypotension and hemodynamic compromise
- Renal US without obstruction
- lytes suggest pre-renal etiology
- cont NSS (previously on IVF Bicarb)
- monitor BMP
- Nephrology following; concern for checkpoint inhibitor nephrotoxicity
Hypotension
- continue Midodrine TID; if patient unable to tolerate PO meds then will need pressors
Abdominal pain
pSBO vs ileus on AXR 08/19
- likely due to malignancy, acute medical illness
- pain control with IV Dilaudid
- antiemetics Tigan and Compazine to limit QTC prolongation as much as possible
- previously Noncontrasted CT with nonspecific colitis but otherwise no acute findings
- GS consulted; offered NGT but patient declined. supportive measures including bowel rest, analgesics/antiemetics and hydration
Metastatic Bladder CA:
- with chronic LFT elevation due to metastatic disease; notably somewhat improved over 2 months
- s/p metal stent placement in CBD
- s/p cystectomy, now with urostomy (chemo for bladder cancer permeated through his gut and resulted in sigmoid/anus/rectum resection- now with colostomy)
- Oncology following
- continue steroids for concern of autoimmune phenomenon of Keytruda
Hypocalcemia
Hypomagnesemia
Hypokalemia
- replete via IV
LE Edema, multifactorial from JANEY, moderate protein caloric malnutrition
- Dopplers negative
- apply tubi-senior billing consultant
- nutrition consulted
- Severe protein calorie malnutrition - Ensure added. may need TF if ileus resolves.
Non-IA trop elevation (Non-ischemic myocardial injury)
Tachycardia, sinus with APCs
- Cards consulted
- Echo: Appears normal left ventricular wall thickness. Normal left ventricular chamber size. Normal left ventricular systolic function. Left ventricular ejection
fraction is 60-65% by visual assessment. Accurate regional wall motion assessment not possible due to technical limitations.
strep mitis bacteremia
- 1/2 bottles
- Echo: no vegetations seen
- continue Rocephin, day 3
- ID following
- follow repeat cultures
Hyponatremia
Hypothyroidism: Continue levothyroxine via IV
CAD s/p stent: cont ASA
FULL/Heparin
Transfer to IMU with potential for pressor needs
Anticipated Discharge: > 48 hours
Subjective/Interval History
-
Date of Service: August 21, 2023
remains nauseous
AXR showing ileus vs pSBO
has declined NGT per GS
Objective Data
-
Labs:
Laboratory Results
08/21/23
04:40
WBC 12.1 H
Hgb 11.4 L
Hct 33.9 L
Plt Count 173
Sodium 131 L
Potassium 3.3 L
Chloride 98
Carbon Dioxide 22
BUN 60 H
Creatinine 3.5 H
Glucose 141 H
Calcium 8.2 L
Vital Signs:
Vital Signs
Temp Pulse Resp BP Pulse Ox
97.8 F 103 18 113/76 100
08/21/23 07:00 08/21/23 07:00 08/21/23 07:00 08/21/23 07:00 08/21/23 07:00
I&O
08/20/23 08/21/23 08/22/23
06:59 06:59 06:59
Intake Total 660 / 660 720 / 720
Output Total 600 / 600 300 / 300
Balance 60 / 60 420 / 420
Physical Exam
-
General: Appears in Distress and Pain
HEENT: Normocephalic and Atraumatic
Cardiac: Regular Rhythm and S1/S2
GI: Tender and Distended
Musculoskeletal: Edema, Right Lower Extrem and Edema, Left Lower Extrem
Neuro: AO x 3
Psych: Calm
Data Reviewed
-
Total Time Spent with Patient (in minutes): 44
Labs: Labs Reviewed by me
--- NOTE | 2023-08-21 12:18 | CM ---
Case management following for d/c needs
Pt has ileus. IVF's, antibiotics
In need of more supportive care and may need pressors
CM will cont to follow for needs
Plan - transfer to IMU
[2023-08-21] MEDS: DILAUDID 1 MG IV ×2 (12:38→18:00)
[2023-08-21] MEDS: ProAmatine 10 MG PO (12:39)
[2023-08-21] MEDS: NSS IV (12:53)
--- NOTE | 2023-08-21 13:49 | W.PN.NEPH.PH ---
Today's Communication / Plan
-
maintain IVFs
for pressors to keep MAPj>65
Assessment/Plan
-
Assessment:
Acute kidney injury
Hypotension
Hypocalcemia
Hyponatremia
Hypomagnesemia
Metabolic acidosis
Bladder cancer metastatic to liver status post resection
Urostomy
Hypothyroid
Plan:
JANEY continues to worsen with creatinine up to 3.5 with oliguric urine output via urostomy
Midodrine at 10 mg 3 times daily due to low MAP
Patient to be transferred to ICU for pressor support as hypotension continues to exacerbate with systolic blood pressures as low as 78
Maintain isotonic IV fluids to support blood pressure
Potassium repleted
Follow-up ionized calcium , will provide IV calcium
Fractional excretion of sodium appears to be more consistent with prerenal stimulus
I suspect acute kidney injury is prerenal he mediated in setting of sepsis with hemodynamic compromise
Renal ultrasound without hydronephrosis findings consistent with underlying bilateral medical renal disease
Echocardiogram pending
No issues with steroids from a renal perspective
Discussed with patient and daughter
Patient is at high clinical risk due to further deterioration of renal failure in setting of hemodynamic instability
-
-
Date of Service: August 21, 2023
CC / HPI / ROS
-
Chief Complaint:
Acute kidney injury
History of Present Illness:
JANEY worsening with creatinine up to 3.5
Hemodynamically labile on midodrine and IV fluids
On vancomycin and ceftriaxone in setting of sepsis
Review of Systems:
Oliguric via right lower quadrant urostomy
No fevers
No shortness of breath or chest pain
Persistent malaise
Labs
-
Labs:
WBC 12.1 10^3/uL (4.8-10.8) H 08/21/23 04:40
RBC 4.11 10^6/uL (4.70-6.10) L 08/21/23 04:40
Hgb 11.4 g/dL (13.0-18.0) L 08/21/23 04:40
Hct 33.9 % (39.0-52.0) L 08/21/23 04:40
Plt Count 173 10^3/uL (130-400) 08/21/23 04:40
Sodium 131 mmol/L (135-145) L 08/21/23 04:40
Potassium 3.3 mmol/L (3.5-5.1) L 08/21/23 04:40
Chloride 98 mmol/L (98-107) 08/21/23 04:40
Carbon Dioxide 22 mmol/L (22-30) 08/21/23 04:40
BUN 60 mg/dl (9-20) H 08/21/23 04:40
Creatinine 3.5 mg/dL (0.7-1.3) H 08/21/23 04:40
eGFR 18.81 08/21/23 04:40
Glucose 141 mg/dl (70-99) H 08/21/23 04:40
Calcium 8.2 mg/dl (8.4-10.2) L 08/21/23 04:40
Phosphorus 3.3 mg/dl (2.5-4.5) 08/18/23 07:48
Kom-N-Qwpoivtsepe Pept 4830 pg/ml 08/18/23 20:36
Albumin 2.1 g/dl (3.5-5.0) L 08/19/23 04:05
Physical Exam
-
Vital Signs:
Vital Signs
Temp Pulse Resp BP Pulse Ox
97.8 F 112 18 118/74 96
08/21/23 11:00 08/21/23 12:39 08/21/23 11:00 08/21/23 12:39 08/21/23 11:00
Cardiovascular:: Regular rate and rhythm
Respiratory:: Bilateral: Coarse
Lung Excursion:: Normal
Abdomen:: Nontender
Extremity Edema:: None: Bilateral:
Robbins Catheter: No
--- NOTE | 2023-08-21 13:53 | W.PN.ID1 ---
Date of Service
Date of Service: August 21, 2023
Today's Communication
- echo very limited; if abdominal pain/ileus under better control in next several days then would reattempt
- 08/16 CT a/p without evidence of abscesses; note known hepatic mets which were described as stable; if a repeat is obtained will follow up
- agree with steroids, management per oncology
- continue ceftriaxone - tentatively for a two week course 08/16-08/29
Assessment / Plan
S mitis (VGS) Bacteremia vs Pseudobacteremia
Neutropenia - resolved, due to chemotherapy
Bladder Cancer on chemotherapy - Padcev/Keytruda
JANEY - progressing
Dehydration
Port
- repeat blood cultures x2 are in progress
- s mitis sensitive to penicillin
- echo very limited; if abdominal pain/ileus under better control in next several days then would reattempt
- 08/16 CT a/p without evidence of abscesses; note known hepatic mets which were described as stable; if a repeat is obtained will follow up
- agree with steroids, management per oncology
- continue ceftriaxone - tentatively for a two week course 08/16-08/29
- follow clinically
Chief Complaint
-: Bacteremia
Subjective / Review of Systems
afebrile
bp stable
mild leukocytosis today on high dose steroids
cr progressed
repeat blood cultures no growth to date
echo: extremely limited, unchanged
malignant obstruction vs ileus - refusing ngt
patient reported pressure of the echo probe was too painful to tolerate
Vital Signs / Physical Exam
Vital Signs
Vital Signs
Temp Pulse Resp BP Pulse Ox
97.8 F 112 18 118/74 96
08/21/23 11:00 08/21/23 12:39 08/21/23 11:00 08/21/23 12:39 08/21/23 11:00
Physical Exam
Constitutional: No Acute Distress and Chronically Ill
Cardiovascular: Regular Rate and S1/S2; Negative Murmur or Rub
Pulmonary: Clear and Symmetric; Negative Wheezes or Rales
Gastrointestinal: Soft, Tender, Distended and Normal Bowel Sounds
Skin: Warm and Dry; Negative Rash or Jaundice
Lines: Port (no erythema, warmth, tenderness or drainage)
Objective Data
Lab Data
Lab Results
08/21/23 04:40
08/21/23 04:40
Estimated Creat Clear 23 ml/min 08/21/23 04:40
Lactic Acid Cancelled 08/16/23 20:45
Total Bilirubin 1.0 mg/dl (0.2-1.3) 08/19/23 04:05
AST 90 U/L (17-59) H 08/19/23 04:05
ALT 103 U/L (0-50) H 08/19/23 04:05
Alkaline Phosphatase 201 U/L (38-126) H 08/19/23 04:05
Most recent labs reviewed.
Micro Results:
08/16/23 16:48 Blood Culture - Preliminary
Blood/Venous No Growth in 4 days- Final report to follow
08/19/23 15:26 Blood Culture - Preliminary
Blood/Venous No Growth in 24 hours- Final report to follow
08/19/23 15:05 Blood Culture - Preliminary
Blood/Venous No Growth in 24 hours- Final report to follow
08/19/23 09:55 Urine Culture - Final
Urine Mariam albicans
Lactobacillus species
08/16/23 16:48 Blood Culture - Preliminary
Blood/Venous Strep mitis/oralis
Gram Stain - Preliminary
[2023-08-21] MEDS: ROCEPHIN 2000 MG IV (15:05)
[2023-08-21] MEDS: STERILE WATER FOR INJECTION 20 ML IV (15:06)
--- NOTE | 2023-08-21 15:55 | W.PN.CARDCBS ---
Addendum entered and electronically signed by Maria Isabel Awan DO 08/21/23 19:04:
I saw and examined the patient.
The Support Services Rep's note was reviewed and I agree with the note.
Comment: Patient seen and examined with his at bedside while still up in 330 bed 1 awaiting transfer to IMU. reports patient had abdominal pain and nausea vomiting with retching earlier this morning which fortunately has subsided. No
chest pain or pressure. Overall generalized fatigue.
General: No acute distress, AAOX3
Heart: Regular, positive S1/S2, No murmur
Lungs: Bronchovesicular breath sounds decreased bilaterally. Positive port
Abd: Abdomen soft with urostomy with pink stoma and urine output present, colostomy with pink stoma and stool
Ext:+1 edema
Plan:
-S mitis (VGS) Bacteremia vs Pseudobacteremia with neutropenia due to chemotherapy secondary to bladder cancer
-ID following on IV antibiotics
-Follow blood cultures
-2D echocardiogram without definitive evidence of vegetation although very limited study. Patient not clinically stable for TAMMY given ongoing nausea vomiting and retching. Could consider repeat transthoracic echocardiogram if clinically indicated
-Nonischemic myocardial injury noted with peak troponin of 0.051.
-Continue medical management. On aspirin 81mg daily.
-Remains sinus rhythm with prior sinus tachycardia related to volume contraction, bacteremia, and hypotension.
-Appears euvolemic. Not on diuretic as OP
Acute kidney insufficiency with worsening creatinine up to 3.5
-Nephrology consulted
-Continue midodrine and close monitoring of blood pressures. Being transferred to ICU for closer nursing support and possible pressors
Small bowel obstruction with continued pain nausea vomiting and history of metastatic bladder cancer
-Surgery and oncology following
Original Note:
Today's Communication / Plan
-
Echo without evidence of definitive vegetation, although limited study
May consider repeating later this admission if pain improves.
Continue abx per ID
Follow up arranged.
Impression / Plan
-
PCP: Sagar Jade
Bisque Placer: Dr. Thomas
Impression:
Presented 08/16/2023 weakness, lethargy, tachycardia
+Viridans Streptococcus
Abdominal pain
Electrolyte disturbance
Dehydration
JANEY on CKD
Leukopenia
Failure to thrive
Abnormal troponin
Metastatic bladder carcinoma w/ urostomy ( liver, pancreas, common bile duct ) post Padcev last 08/06, Keytruda last 07/30
CAD
status post OM stent 02/2017
History of pancreatitis
Hypothyroidism
History of hypokalemia
History of osteomyelitis of the sacrum
CKD stage III
Metastatic bladder carcinoma w/ urostomy
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
Lexiscan sestamibi stress test 06/14/2021: Negative for ischemia at 8.5 mets.
Echo 06/13/2021: Ejection fraction 55%,�no significant valvular disease
Echo 08/20/2023: Extremely limited study with only subcostal views available, EF 60-65%, aortic valve not assessed, mitral valve opens normally and Doppler not assessed
Plan:
-Patient presented with weakness, lethargy, and tachycardia. Found to have bacteremia and placed on abx.
-Echo 08/19 extremely limited study, although no definitive vegetation noted. Continue abx per ID. May consider repeating study if abdominal pain improves for better imaging.
-Nonischemic myocardial injury noted with peak troponin of 0.051. Continue medical management. On aspirin 81mg daily.
-Remains sinus rhythm with prior sinus tachycardia related to volume contraction, bacteremia, and hypotension.
-Appears euvolemic. Not on diuretic as OP
-K 3.3. Agree w/ repletion. Nephrology following.
-Continues to be hypotensive despite midodrine.
-Oncology considering starting steroids; not be opposed from cardiac standpoint.
HPI 08/19/2023: Patient is a 63-year-old male with past medical history significant for coronary artery disease status post OM stent 2017, recovered cardiomyopathy, hyperlipidemia, bladder cancer with mets to liver, pancreas, common bile duct now on
Padcev/Keytruda who presented to emergency department 08/16/2023 with complaints of weakness, lethargy, tachycardia and hypotension and abdominal pain. He was recently admitted and discharged on 07/23/2023 for sepsis secondary to UTI. He continued
to have poor oral and food intake after discharge. On presentation back to the emergency room 08/16/2023 he was noted to have dehydration with JANEY, electrolyte abnormalities and abdominal pain. Noncontrast CT showed nonspecific colitis. Venous
ultrasound was negative for DVT. 1 of 2 sets of blood cultures from 08/16/2023 grew Viridans Streptococcus. He was placed on IV vancomycin and is being followed by ID. Noted to have abnormal troponin which peaked at 0.051. EKG showed sinus
tachycardia. Cardiology being asked to evaluate patient secondary to ongoing tachycardia and mildly elevated troponin.
Progress Note - Bisque Placer
Subjective
Date of Service: August 21, 2023
Still w/ nausea/abdominal pain.
Objective
Labs:
08/21/23 04:40
08/21/23 04:40
Labs
Hgb 11.4 g/dL (13.0-18.0) L 08/21/23 04:40
Hct 33.9 % (39.0-52.0) L 08/21/23 04:40
Plt Count 173 10^3/uL (130-400) 08/21/23 04:40
Sodium 131 mmol/L (135-145) L 08/21/23 04:40
Potassium 3.3 mmol/L (3.5-5.1) L 08/21/23 04:40
BUN 60 mg/dl (9-20) H 08/21/23 04:40
Creatinine 3.5 mg/dL (0.7-1.3) H 08/21/23 04:40
Glucose 141 mg/dl (70-99) H 08/21/23 04:40
Troponins
08/18/23 08/19/23 08/19/23
20:36 04:04 12:15
Troponin I 0.041 H* 0.051 H* 0.048 H*
Vital Signs and I&O:
Vital Signs
Temp Pulse Resp BP Pulse Ox
97.8 F 112 18 118/74 96
08/21/23 11:00 08/21/23 12:39 08/21/23 11:00 08/21/23 12:39 08/21/23 11:00
Vital Signs
Temp Pulse Resp BP Pulse Ox
97.8 F 112 18 118/74 96
08/21/23 11:00 08/21/23 12:39 08/21/23 11:00 08/21/23 12:39 08/21/23 11:00
Intake & Output
08/19/23 08/20/23 08/21/23 08/22/23
06:59 06:59 06:59 06:59
Intake Total 480 / 480 660 / 660 720 / 720
Output Total 300 / 300 600 / 600 300 / 300 200 / 200
Balance 180 / 180 60 / 60 420 / 420 -200 / -200
--- NOTE | 2023-08-21 17:15 | PTCARENOTE ---
Report called to IMU nurse Gee. Will transport patient when room is available and clean.
[2023-08-21] MEDS: LEVOTHROID 37.5 MCG IV (17:52)
--- NOTE | 2023-08-21 18:43 | PTCARENOTE ---
Patient received from [facility]. Patient already in IMU bed, accompanied with family. Oriented to room. AAO, VSS. Diminished breath sounds bilaterally. Colostomy and Urostomy. NSS @ 100mL/hr. Patient with nausea upon arrival, see MAR. Call talavera in
reach.
[2023-08-22] VITALS (15 sets, daily range): BP systolic 98–134; BP diastolic 59–89; PULSE 103; O2SAT 98
--- NOTE | 2023-08-22 02:44 | PTCARENOTE ---
assumed care of patient, pt sleeping at start of shift, easily arousable. pt denies any abdominal pain or nausea. colostomy and urostomy emptied. care ongoing.
[2023-08-22] MEDS: NSS 1000 IV ×2 (03:16→12:59)
[2023-08-22 03:36] LABS: Hematocrit 34.7 % (39.0-52.0); Hemoglobin 11.3 g/dL (13.0-18.0); Mean Corp Hgb Conc. 32.6 g/dL (33.0-37.0); Mean Corpuscular Hgb 27.8 pg (27.0-31.0); Mean Corpuscular Volume 85.3 fL (80.0-94.0); Mean Platelet Volume 12.6 fL (7.4-10.4); Platelet Count 129 10^3/uL (130-400); Red Blood Cell Count 4.07 10^6/uL (4.70-6.10); Red Cell Dist. Width 16.5 % (11.5-14.5); White Blood Cell Count 12.9 10^3/uL (4.8-10.8)
[2023-08-22 04:08] LABS: ALT (SGPT) 125 U/L (0-50); AST (SGOT) 82 U/L (17-59); Albumin 2.1 g/dl (3.5-5.0); Alkaline Phosphatase 273 U/L (38-126); Blood Urea Nitrogen 71 mg/dl (9-20); Calcium 8.8 mg/dl (8.4-10.2); Carbon Dioxide 20 mmol/L (22-30); Chloride 103 mmol/L (98-107); Estimated Creatinine Clearance 23 ml/min; Glucose 134 mg/dl (70-99); Potassium 3.9 mmol/L (3.5-5.1); Sodium 133 mmol/L (135-145); Total Bilirubin 0.8 mg/dl (0.2-1.3); Total Protein 5.1 g/dl (6.3-8.2); eGFR 18.81
[2023-08-22 04:14] LABS: Absolute Neutrophils -Man Diff 11.4 10^3/uL (1.4-6.5); Band Neutrophils 13 % (0-3); Lymphocytes 3 % (20-51); Metamyelocytes 3 % (-); Monocytes 5 % (2-9); Segmented Neutrophils 76 % (42-75)
[2023-08-22 04:15] LABS: Normal RBC Morphology No; Platelets Checked Yes; Total Cells Counted 100
[2023-08-22] MEDS: ASPIR LOW (ENTERIC COATED) 81 MG PO (07:32)
--- NOTE | 2023-08-22 07:32 | W.PN.ID1 ---
Date of Service
Date of Service: August 22, 2023
Today's Communication
Continue abx.
Assessment / Plan
S. mitis (VGS) Bacteremia vs Pseudobacteremia
Neutropenia - resolved, due to chemotherapy
Bladder Cancer on chemotherapy - Padcev/Keytruda
JANEY
Dehydration
Port in place
- repeat blood cultures x2 are in progress but NGTD
- s mitis sensitive to penicillin
- echo very limited; if abdominal pain/ileus under better control in next several days then would reattempt
- 08/16 CT a/p without evidence of abscesses; note known hepatic mets which were described as stable; if a repeat is obtained will follow up
- agree with steroids, management per oncology
- Continue ceftriaxone - tentatively for a two week course (08/16 to 08/29)
- follow clinically
Chief Complaint
-: Bacteremia
Subjective / Review of Systems
Patient seen and examined. Reports generalized weakness, but denies fevers or chills. No pain at his port site. No nausea or vomiting. No difficulty with antibiotics.
Review of Systems: No Fever and No Chills
Vital Signs / Physical Exam
Vital Signs
Vital Signs
Temp Pulse Resp BP Pulse Ox
97.2 F 120 22 118/77 97
08/22/23 03:27 08/22/23 06:00 08/22/23 06:00 08/22/23 06:00 08/22/23 04:00
Physical Exam
Constitutional: No Acute Distress, Comfortable and Non-toxic
Eyes: Sclera Anicteric
Cardiovascular: S1/S2; Negative S3/S4
Pulmonary: Clear and Non Labored
Gastrointestinal: Soft, Non Tender and Non Distended
Extremities: Edema (3+ bilateral lower extremities); Negative Cyanosis or Erythema
Neurological: Awake and Alert
Psychological: Calm
Objective Data
Lab Data
Lab Results
08/22/23 03:21
08/22/23 03:21
Estimated Creat Clear 23 ml/min 08/22/23 03:21
Lactic Acid Cancelled 08/16/23 20:45
Total Bilirubin 0.8 mg/dl (0.2-1.3) 08/22/23 03:21
AST 82 U/L (17-59) H 08/22/23 03:21
ALT 125 U/L (0-50) H 08/22/23 03:21
Alkaline Phosphatase 273 U/L (38-126) H 08/22/23 03:21
Most recent labs reviewed.
Micro Results:
08/16/23 16:48 Blood Culture - Final
Blood/Venous No Growth - Final Report
08/19/23 15:26 Blood Culture - Preliminary
Blood/Venous No Growth in 48 hours- Final report to follow
08/19/23 15:05 Blood Culture - Preliminary
Blood/Venous No Growth in 48 hours- Final report to follow
08/19/23 09:55 Urine Culture - Final
Urine Mariam albicans
Lactobacillus species
08/16/23 16:48 Blood Culture - Preliminary
Blood/Venous Strep mitis/oralis
Gram Stain - Preliminary
[2023-08-22] MEDS: SOLU-MEDROL PF 100 MG IV (07:33)
[2023-08-22] MEDS: HEPARIN SC ×3 (07:33→19:31)
[2023-08-22] MEDS: PROTONIX IV 40 MG IV (07:34)
[2023-08-22] MEDS: NSS (PRESERVATIVE FREE) 10 ML IV (07:34)
[2023-08-22] MEDS: ProAmatine 10 MG PO ×2 (07:35→12:56)
[2023-08-22] MEDS: DILAUDID 1 MG IV ×3 (07:35→18:16)
--- NOTE | 2023-08-22 08:51 | PTOTSP ---
Reviewed chart and noted pt was transferred from [facility] to IMU with hypotension and PT order was not continued upon transfer. Will need updated PT order if stable to resume PT activity.
--- NOTE | 2023-08-22 11:08 | W.PN.NEPH.PH ---
Today's Communication / Plan
-
follow BMP
Assessment/Plan
-
Assessment:
Acute kidney injury
Hypotension
Hypocalcemia
Hyponatremia
Hypomagnesemia
Metabolic acidosis
Bladder cancer metastatic to liver status post resection
Urostomy
Hypothyroid
Plan:
Midodrine at 10 mg 3 times daily due to low MAP, hope to wean over weekend
follow BP
follow BMP, hopefully will begin to improve now that sepsis is improving and BP controlled
continue IVF
may need TPN, will need to verify from oncology that port could be used for TPN if needed or if he needs a PICC
-
-
Date of Service: August 22, 2023
CC / HPI / ROS
-
Chief Complaint:
Acute kidney injury
History of Present Illness:
JANEY with creatinine up to 3.5 stable today
Hemodynamically more stable on midodrine and IVF
On vancomycin and ceftriaxone in setting of sepsis
Review of Systems:
Oliguric via right lower quadrant urostomy
No fevers
No shortness of breath or chest pain
Persistent malaise
Labs
-
Labs:
WBC 12.9 10^3/uL (4.8-10.8) H 08/22/23 03:21
RBC 4.07 10^6/uL (4.70-6.10) L 08/22/23 03:21
Hgb 11.3 g/dL (13.0-18.0) L 08/22/23 03:21
Hct 34.7 % (39.0-52.0) L 08/22/23 03:21
Plt Count 129 10^3/uL (130-400) L D 08/22/23 03:21
Sodium 133 mmol/L (135-145) L 08/22/23 03:21
Potassium 3.9 mmol/L (3.5-5.1) 08/22/23 03:21
Chloride 103 mmol/L (98-107) 08/22/23 03:21
Carbon Dioxide 20 mmol/L (22-30) L 08/22/23 03:21
BUN 71 mg/dl (9-20) H 08/22/23 03:21
Creatinine 3.5 mg/dL (0.7-1.3) H 08/22/23 03:21
eGFR 18.81 08/22/23 03:21
Glucose 134 mg/dl (70-99) H 08/22/23 03:21
Calcium 8.8 mg/dl (8.4-10.2) 08/22/23 03:21
Phosphorus 3.3 mg/dl (2.5-4.5) 08/18/23 07:48
Omh-I-Ectmnhogsuj Pept 4830 pg/ml 08/18/23 20:36
Albumin 2.1 g/dl (3.5-5.0) L 08/22/23 03:21
Physical Exam
-
Vital Signs:
Vital Signs
Temp Pulse Resp BP Pulse Ox
97.5 F 99 0 103/69 95
08/22/23 07:20 08/22/23 08:00 08/22/23 08:00 08/22/23 08:00 08/22/23 08:55
Cardiovascular:: Regular rate and rhythm
Respiratory:: Bilateral: Coarse
Lung Excursion:: Normal
Abdomen:: Nontender and Soft
Bowel Sounds:: Normal
Extremity Edema:: None: Bilateral:
--- NOTE | 2023-08-22 11:16 | W.PN.CARDCBS ---
Today's Communication / Plan
-
Stable cardiology status
Sign off
Impression / Plan
-
PCP: Sagar Jade
Shipmaster: Dr. Thomas
Impression:
Presented 08/16/2023 weakness, lethargy, tachycardia
+Viridans Streptococcus
Abdominal pain
Electrolyte disturbance
Dehydration
JANEY on CKD
Leukopenia
Failure to thrive
Nonischemic myocardial injury
Metastatic bladder carcinoma w/ urostomy ( liver, pancreas, common bile duct ) post Padcev last 08/06, Keytruda last 07/30
CAD
status post OM stent 02/2017
History of pancreatitis
Hypothyroidism
History of hypokalemia
History of osteomyelitis of the sacrum
CKD stage III
Metastatic bladder carcinoma w/ urostomy
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
Lexiscan sestamibi stress test 06/14/2021: Negative for ischemia at 8.5 mets.
Echo 06/13/2021: Ejection fraction 55%,�no significant valvular disease
Echo 08/20/2023: Extremely limited study with only subcostal views available, EF 60-65%, aortic valve not assessed, mitral valve opens normally and Doppler not assessed
Plan:
Stable cardiology status at present
He has edema but reluctant to give diuretics with renal insufficiency
Nephrology is managing volume status
Discussed with patient's at bedside
We will sign off, call with questions
HPI 08/19/2023: Patient is a 63-year-old male with past medical history significant for coronary artery disease status post OM stent 2016, recovered cardiomyopathy, hyperlipidemia, bladder cancer with mets to liver, pancreas, common bile duct now on
Padcev/Keytruda who presented to emergency department 08/16/2023 with complaints of weakness, lethargy, tachycardia and hypotension and abdominal pain. He was recently admitted and discharged on 07/23/2023 for sepsis secondary to UTI. He continued
to have poor oral and food intake after discharge. On presentation back to the emergency room 08/16/2023 he was noted to have dehydration with JANEY, electrolyte abnormalities and abdominal pain. Noncontrast CT showed nonspecific colitis. Venous
ultrasound was negative for DVT. 1 of 2 sets of blood cultures from 08/16/2023 grew Viridans Streptococcus. He was placed on IV vancomycin and is being followed by ID. Noted to have abnormal troponin which peaked at 0.051. EKG showed sinus
tachycardia. Cardiology being asked to evaluate patient secondary to ongoing tachycardia and mildly elevated troponin.
Progress Note - Shipmaster
Subjective
Date of Service: August 22, 2023
No complaints
Objective
Labs:
08/22/23 03:21
08/22/23 03:21
Labs
Hgb 11.3 g/dL (13.0-18.0) L 08/22/23 03:21
Hct 34.7 % (39.0-52.0) L 08/22/23 03:21
Plt Count 129 10^3/uL (130-400) L D 08/22/23 03:21
Sodium 133 mmol/L (135-145) L 08/22/23 03:21
Potassium 3.9 mmol/L (3.5-5.1) 08/22/23 03:21
BUN 71 mg/dl (9-20) H 08/22/23 03:21
Creatinine 3.5 mg/dL (0.7-1.3) H 08/22/23 03:21
Glucose 134 mg/dl (70-99) H 08/22/23 03:21
Troponins
08/19/23
12:15
Troponin I 0.048 H*
Vital Signs and I&O:
Vital Signs
Temp Pulse Resp BP Pulse Ox
97.5 F 99 0 103/69 95
08/22/23 07:20 08/22/23 08:00 08/22/23 08:00 08/22/23 08:00 08/22/23 08:55
Vital Signs
Temp Pulse Resp BP Pulse Ox
97.5 F 99 0 103/69 95
08/22/23 07:20 08/22/23 08:00 08/22/23 08:00 08/22/23 08:00 08/22/23 08:55
Intake & Output
08/20/23 08/21/23 08/22/23 08/23/23
06:59 06:59 06:59 06:59
Intake Total 660 / 660 720 / 720
Output Total 600 / 600 300 / 300 550 / 550
Balance 60 / 60 420 / 420 -550 / -550
Physical Exam
Physical Exam
General: Well developed, well nourished in NAD.
Neck: Supple, no JVD, HJR, carotids +2 B/L, no bruits bilaterally.
Heart: Non displaced PMI, RRR, no murmurs, No S3, S4, no rubs.
Lungs: Clear to auscultation bilaterally, no wheeze, rhonchi, rubs bilaterally,
normal expiratory phase.
Extremities: Mild to moderate edema bilaterally.
Neuro: Grossly nonfocal, awake, alert and oriented x3.
--- NOTE | 2023-08-22 12:38 | W.PN.GS2 ---
Addendum entered and electronically signed by Luís Barber MD 08/22/23 13:18:
I saw and examined the patient.
The Berry Grower's note was reviewed and I agree with the note.
Comment: Reports feeling about the same. Ongoing nausea without active vomiting. Pain is controlled. Stoma is PPV, putting out small amounts of gas and liquid stool. He is not interested in contrast imaging at this time. Unclear if he would
tolerate TF, there are indications he would have issues with enteral feeds. Will start TPN. If he becomes agreeable to PO contrast study would pursue that when possible.
Original Note:
Today's Communication / Plan
-
Initiate TPN
Assessment / Plan
-
63-year-old male with possible/probable malignant obstruction versus ileus in the setting of neutropenia, elevated transaminases, progressive renal failure and worsening medical illness as well as metastatic bladder carcinoma with recent initiation
of systemic therapy.
Some symptomatic improvement overnight. Offered NGT if persistent vomiting, holding off for now
Plan:
Will follow nonoperatively at this time with supportive measures
Continue IV narcotics as needed, but will add IV Ofirmev ATC in attempt to minimize narcotics
Hold off on diet advancement given persistent nausea
Prolonged NPO status, discussed initiation of TPN which patient and spouse agreeable to. Given ongoing renal dysfunction, discussed dosing of TPN with nephrology who are agreeable to manage dosing.
Consider contrast imaging if patient agreeable and there is no improvement
Subjective Data
-
Date of Service: August 22, 2023
Patient seen and examined at bedside with Dr. Barber. Patient's spouse present during exam, questions addressed. He reports continued nausea but no vomiting. Abdominal pain persists but managed will with IV narcotics.
Objective Data
-
Intake and Output
08/21/23 08/22/23 08/23/23
06:59 06:59 06:59
Intake Total 720 / 720
Output Total 300 / 300 550 / 550
Balance 420 / 420 -550 / -550
Intake:
Oral fluids 720 / 720
Output:
Liquid stool amount 150 / 150 100 / 100
Colostomy 150 / 150 100 / 100
Urostomy output 150 / 150 450 / 450
Vital Signs
Temp Pulse Resp BP Pulse Ox
97.5 F 102 0 129/85 98
08/22/23 07:20 08/22/23 10:00 08/22/23 08:00 08/22/23 10:00 08/22/23 10:00
Lab Results
08/22/23 03:21
08/22/23 03:21
Calcium 8.8 mg/dl (8.4-10.2) 08/22/23 03:21
Phosphorus 3.3 mg/dl (2.5-4.5) 08/18/23 07:48
Magnesium 2.3 mg/dl (1.6-2.3) 08/21/23 04:40
Total Bilirubin 0.8 mg/dl (0.2-1.3) 08/22/23 03:21
Direct Bilirubin 0.9 mg/dl (0.0-0.4) H 08/19/23 04:05
AST 82 U/L (17-59) H 08/22/23 03:21
ALT 125 U/L (0-50) H 08/22/23 03:21
Alkaline Phosphatase 273 U/L (38-126) H 08/22/23 03:21
Total Protein 5.1 g/dl (6.3-8.2) L 08/22/23 03:21
Albumin 2.1 g/dl (3.5-5.0) L 08/22/23 03:21
Physical Exam
-
GENERAL/NEURO: Awake, Alert, no distress
CHEST: Unlabored breathing on RA
ABDOMEN: Soft, Non-Tender, Non-Distended, stomas are pink patent and productive. His urostomy is productive of urine, his left colostomy is productive of stool and gas.
[2023-08-22] MEDS: OFIRMEV 100 IV ×3 (12:56→23:24)
--- NOTE | 2023-08-22 13:12 | PTCARENOTE ---
TPN ordered for [facility]. Per kayden Pelletier to use SQ PORT for TPN.
[2023-08-22 13:43] LABS: Magnesium 2.2 mg/dl (1.6-2.3); Phosphorus 5.6 mg/dl (2.5-4.5); Triglycerides 270 mg/dl (10-149)
[2023-08-22] MEDS: ROCEPHIN 2000 MG IV (14:58)
[2023-08-22] MEDS: STERILE WATER FOR INJECTION 20 ML IV (14:58)
--- NOTE | 2023-08-22 15:10 | W.PN.HOSP.TC ---
Today's Communication/Plan
-
initiate TPN
continue IV Abx
continue IVF
monitor Labs
Assessment / Plan
Assessment / Plan
08/15/23 PET: Prominent mildly FDG avid left supraclavicular and high prevascular lymph nodes, suspicious for metastases. Redemonstration of extensive infiltrative lesions throughout the liver although only a few scattered hepatic lesions demonstrate
significant increased FDG activity above baseline, consistent with metastatic disease. Mildly FDG avid soft tissue metastatic disease about the common bile duct/pancreatic head and in the retroperitoneal and mesenteric regions, overall slightly
improved from prior CT.
Assessment:
JANEY on CKD3b/dehydration/non-AG met acidosis
- JANEY likely from hypotension and hemodynamic compromise
- Renal US without obstruction
- lytes suggest pre-renal etiology
- cont NSS (previously on IVF Bicarb)
- monitor BMP
- Nephrology following; concern for checkpoint inhibitor nephrotoxicity
- Cr stable at 3.5
Hypotension
- continue Midodrine TID; if patient unable to tolerate PO meds then will need pressors
Abdominal pain
pSBO vs ileus on AXR 08/19
- likely due to malignancy, acute medical illness
- pain control with IV Dilaudid
- antiemetics Tigan and Compazine to limit QTC prolongation as much as possible
- previously Noncontrasted CT with nonspecific colitis but otherwise no acute findings
- GS consulted; offered NGT but patient declined. supportive measures including bowel rest, analgesics/antiemetics and hydration
- TPN to start 08/21; cannot tolerate TFs currently
Metastatic Bladder CA:
- with chronic LFT elevation due to metastatic disease; notably somewhat improved over 2 months
- s/p metal stent placement in CBD
- s/p cystectomy, now with urostomy (chemo for bladder cancer permeated through his gut and resulted in sigmoid/anus/rectum resection- now with colostomy)
- Oncology following
- continue steroids for concern of autoimmune phenomenon of Keytruda
Hypocalcemia
Hypomagnesemia
Hypokalemia
- replete via IV and TPN formulation
LE Edema, multifactorial from JANEY, moderate protein caloric malnutrition
- Dopplers negative
- apply tubi-dater assembler
- nutritionfollowing
- Severe protein calorie malnutrition - TPN To start
Non-OR trop elevation (Non-ischemic myocardial injury)
Tachycardia, sinus with APCs
- Cards consulted
- Echo: Appears normal left ventricular wall thickness. Normal left ventricular chamber size. Normal left ventricular systolic function. Left ventricular ejection
fraction is 60-65% by visual assessment. Accurate regional wall motion assessment not possible due to technical limitations.
strep mitis bacteremia
- 1/2 bottles
- Echo: no vegetations seen but was limited study due to patients position. Consider repeat
- continue Rocephin, day 4
- ID following
- repeat cultures negative
Hyponatremia
Hypothyroidism: Continue levothyroxine via IV
CAD s/p stent: cont ASA
FULL/Heparin
Anticipated Discharge: > 48 hours
Subjective/Interval History
-
Date of Service: August 22, 2023
weakness but no other complaints
for TPN initiation this evening
Objective Data
-
Labs:
Laboratory Results
08/22/23
03:21
WBC 12.9 H
Hgb 11.3 L
Hct 34.7 L
Plt Count 129 L D
Sodium 133 L
Potassium 3.9
Chloride 103
Carbon Dioxide 20 L
BUN 71 H
Creatinine 3.5 H
Glucose 134 H
Calcium 8.8
Total Bilirubin 0.8
AST 82 H
ALT 125 H
Alkaline Phosphatase 273 H
Vital Signs:
Vital Signs
Temp Pulse Resp BP Pulse Ox
97.1 F 106 22 117/75 98
08/22/23 11:15 04/26/24 12:56 08/22/23 12:00 08/22/23 12:56 08/22/23 13:16
I&O
08/21/23 08/22/23 08/23/23
06:59 06:59 06:59
Intake Total 720 / 720
Output Total 300 / 300 550 / 550
Balance 420 / 420 -550 / -550
Physical Exam
-
General: Well Developed and Well Nourished
HEENT: Normocephalic and Atraumatic
Respiratory: Negative Wheezes or Rales
Cardiac: Regular Rhythm and S1/S2
GI: Soft and Nontender
Genito-urinary: No Costovertebral Tender
Musculoskeletal: No Edema
Neuro: AO x 3
Hematologic / Lymphatic: No Lymphadenopathy
Psych: Calm
Data Reviewed
-
Total Time Spent with Patient (in minutes): 42
Labs: Labs Reviewed by me
--- NOTE | 2023-08-22 16:20 | W.PN.ONC ---
Today's Communication / Plan
-
Plans noted to initiate TPN, agree
Will wean steroids to methylprednisolone 50mg/d starting 08/22 - monitor for worsening of pruritus, nausea
Impression
Impression
Metastatic bladder carcinoma on Padcev last 08/06, Keytruda last 07/30, representing cycle 1
Small bowel obstruction/ileus with worsening pain
Neutropenia - resolved
Hypocalcemia - admits to leg cramping
Elevated transaminase and alkaline phosphatase
Failure to thrive
Pruritus
Plan
Plan
Plans noted to initiate TPN, agree
Will wean steroids to methylprednisolone 50mg/d starting 08/22 - monitor for worsening of pruritus, nausea
On 08/18, I discussed goals of care with , still would like to pursue more treatment (of note, Alk phos has improved significantly with just one cycle of treatment)
Will follow along.
Subjective/Objective
Subjective/Objective
sleepy, just got dilaudid. at bedside. Nausea a bit better, itching improved since steroids started 08/19/23.
Vital Signs:
Vital Signs
Temp Pulse Resp BP Pulse Ox
97 F 112 22 115/76 96
08/22/23 15:36 08/22/23 14:00 08/22/23 14:00 08/22/23 14:00 08/22/23 14:00
anasarca ntoed
Lab Results:
Laboratory Data
WBC 12.9 10^3/uL (4.8-10.8) H 08/22/23 03:21
Hgb 11.3 g/dL (13.0-18.0) L 08/22/23 03:21
Plt Count 129 10^3/uL (130-400) L D 08/22/23 03:21
eGFR 18.81 08/22/23 03:21
--- NOTE | 2023-08-22 17:09 | CM ---
Patient with Hx Metastatic Bladder CA with Dx JANEY/dehydration/non-AG met acidosis, hypotension, abdominal pain pSBO vs ileus. NPO/TPN/IVF. Receiving IV Abx, IV Solumedrol. PT & OT; requires assist of 2, recommend skilled rehab.
CM continuing to follow for d/c needs.
Plan follow patient's mobility and nutrition.
Plan contact patient/family about SNF for rehab.
[2023-08-22] MEDS: NOVOLOG FLEXPEN-LOW RESISTANCE SC (18:08)
[2023-08-22] MEDS: ProAmatine PO (18:09)
[2023-08-22] MEDS: LEVOTHROID 37.5 MCG IV (18:15)
[2023-08-22] MEDS: NSS IV (20:54)
[2023-08-22] MEDS: Parenteral Nutrition, Central 2000 IV (21:00)
[2023-08-22 23:22] LABS: Glucose - Point of Care 200 mg/dl (70-99)
[2023-08-22] MEDS: NOVOLOG FLEXPEN-LOW RESISTANCE 2 UNITS SC (23:24)
--- NOTE | 2023-08-22 23:32 | PTCARENOTE ---
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 TPN going through SQ port- new IV placed in L AC for other IV meds. pt now accu checks q6- given insulin per protocol. pt explained need for checked
blood sugar and insulin initiation. pt is forgetful at times, educated on protocol as well. pt denies any pain or nausea at present. care ongoing.
[2023-08-23] VITALS (13 sets, daily range): BP systolic 95–135; BP diastolic 60–95; BMI 29.6
[2023-08-23 04:06] LABS: % Basophils 0.1 % (0-2); % Immature Granulocytes 6.8 % (0-0.5); % Lymphocytes 3.4 % (20.5-51.1); % Monocytes 3.4 % (1.7-9.3); % Neutrophils 86.3 % (42.2-75.2); Absolute Lymphocytes 0.5 10^3/uL (1.2-3.4); Absolute Monocytes 0.5 10^3/uL (0.1-0.6); Hematocrit 31.2 % (39.0-52.0); Hemoglobin 10.4 g/dL (13.0-18.0); Mean Corp Hgb Conc. 33.3 g/dL (33.0-37.0); Mean Corpuscular Hgb 28.7 pg (27.0-31.0); Mean Corpuscular Volume 86.2 fL (80.0-94.0); Mean Platelet Volume 12.5 fL (7.4-10.4); Nucleated Red Blood Cells % 0.5 % (-); Platelet Count 101 10^3/uL (130-400); Red Blood Cell Count 3.62 10^6/uL (4.70-6.10); Red Cell Dist. Width 16.3 % (11.5-14.5); White Blood Cell Count 13.9 10^3/uL (4.8-10.8)
[2023-08-23 04:31] LABS: ALT (SGPT) 127 U/L (0-50); AST (SGOT) 71 U/L (17-59); Alkaline Phosphatase 261 U/L (38-126); Blood Urea Nitrogen 80 mg/dl (9-20); Calcium 9.3 mg/dl (8.4-10.2); Carbon Dioxide 20 mmol/L (22-30); Chloride 105 mmol/L (98-107); Estimated Creatinine Clearance 22 ml/min; Glucose 206 mg/dl (70-99); Potassium 3.4 mmol/L (3.5-5.1); Sodium 131 mmol/L (135-145); Total Bilirubin 0.7 mg/dl (0.2-1.3); Total Protein 4.8 g/dl (6.3-8.2); eGFR 18.18
[2023-08-23] MEDS: COMPAZINE 5 MG IV (04:38)
[2023-08-23] MEDS: DILAUDID 1 MG IV ×4 (04:38→15:26)
--- NOTE | 2023-08-23 04:50 | PTCARENOTE ---
pt mentation more confused per , says during the day he has been more and more loopy- pulled out IV line, screaming out in pain saying stomach hurts, stating tylenol does not work. IV dilaudid given.
[2023-08-23] MEDS: OFIRMEV IV (04:53)
[2023-08-23 05:44] LABS: Glucose - Point of Care 230 mg/dl (70-99)
[2023-08-23] MEDS: NOVOLOG FLEXPEN-LOW RESISTANCE 2 UNITS SC (05:49)
--- NOTE | 2023-08-23 06:21 | W.PN.ONC2 ---
Today's Communication / Plan
-
For now, plans noted to continue supportive care with hopes that he will improve with conservative supportive measures. Unfortunately seems to be worsening, not improving over past few days.
Impression
Impression
Metastatic bladder carcinoma on Padcev last 08/06, Keytruda last 07/30, representing cycle 1
Small bowel obstruction/ileus with worsening pain
Neutropenia - resolved
Hypocalcemia - resolved
Elevated transaminase and alkaline phosphatase
Failure to thrive
Pruritus
Plan
Plan
TPN initiated.
Multiple goals of care conversations had with per different specialities (medicine, surgery, oncology). On 08/18, SG discussed goals of care with , still would like to pursue more treatment (of note, Alk phos has improved significantly with
just one cycle of treatment)
Weaning steroids to methylprednisolone 50mg/d starting 08/22 - monitor for worsening of pruritus, nausea
NGT or CT scan as per surgery if patient agrees.
Prognosis poor.
Subjective/Objective
Chief Complaint
ACS Heme Onc
Subjective
Somewhat confused. Feels 'lousy' (seems like lousy = nausea). On interview began to insist he get out of bed. Seems anxious and in some degree of pain. Exam cut short. Spoke with nurse tells me having more pain and confusion and seems to be
clinically worsening. Now on Dilaudid - works tocontrol pain but leads to confusion. Started on TPN.
Vital Signs:
Vital Signs
Temp Pulse Resp BP Pulse Ox
97.0 F 110 9 108/70 95
08/23/23 03:25 08/23/23 06:00 08/23/23 06:00 08/23/23 06:00 08/23/23 06:00
Lab Results:
Laboratory Data
WBC 13.9 10^3/uL (4.8-10.8) H 08/23/23 03:52
Hgb 10.4 g/dL (13.0-18.0) L 08/23/23 03:52
Plt Count 101 10^3/uL (130-400) L D 08/23/23 03:52
eGFR 18.18 08/23/23 03:52
Physical Exam
Exam cut short. Well developed and well nourished. Strength intact.
Cardiology: S1 and S2
Neuro: Other (slight delirium)
[2023-08-23] MEDS: HEPARIN SC ×3 (08:19→19:29)
[2023-08-23] MEDS: ASPIR LOW (ENTERIC COATED) 81 MG PO (08:19)
[2023-08-23] MEDS: ProAmatine 10 MG PO (08:19)
[2023-08-23] MEDS: SOLU-MEDROL PF 50 MG IV (08:20)
[2023-08-23] MEDS: NSS (PRESERVATIVE FREE) 10 ML IV (08:20)
[2023-08-23] MEDS: PROTONIX IV 40 MG IV (08:20)
--- NOTE | 2023-08-23 09:00 | PTCARENOTE ---
Patient very restless this morning. Attempting to get OOB. Patient asking to stand up. Advised patient he is very weak and he may not be able to. He continued to attempt to get OOB despite direction from RN. We compromised by sitting on the side of
the bed. Pt wanted to lay back down only after sitting for a few minutes. About a half hour later, patient wanting to get up again. Pt was assisted to the chair, hoping he would be more comfortable, but patient only sat for a few minutes and wanted
to get back to bed. Pt reporting pain this time and pt medicated per JUN. Pt was also only oriented to self and slow to answer questions. He is not following commands and he is very weak, unable to hold a cup at times. He was barely able to take
morning medications due to not following commands. Assessment, care and VS as charted.
--- NOTE | 2023-08-23 09:46 | W.PN.NEPH.PH ---
Today's Communication / Plan
-
TPN
Assessment/Plan
-
Assessment:
Acute kidney injury
Hypotension
Hypocalcemia
Hyponatremia
Hypomagnesemia
Metabolic acidosis
Bladder cancer metastatic to liver status post resection
Urostomy
Hypothyroid
Plan:
Midodrine at 10 mg 3 times daily due to low MAP
follow BP
follow BMP
TPN ordered
lasix to balance I/O
replete K
prognosis is poor
-
-
Date of Service: August 23, 2023
CC / HPI / ROS
-
Chief Complaint:
Acute kidney injury
History of Present Illness:
JANEY with creatinine up to 3.6
Hemodynamically stable on midodrine
On vancomycin and ceftriaxone in setting of sepsis
K low today
Review of Systems:
Oliguric via right lower quadrant urostomy
No fevers
No shortness of breath or chest pain
Persistent malaise
Labs
-
Labs:
WBC 13.9 10^3/uL (4.8-10.8) H 08/23/23 03:52
RBC 3.62 10^6/uL (4.70-6.10) L 08/23/23 03:52
Hgb 10.4 g/dL (13.0-18.0) L 08/23/23 03:52
Hct 31.2 % (39.0-52.0) L 08/23/23 03:52
Plt Count 101 10^3/uL (130-400) L D 08/23/23 03:52
Sodium 131 mmol/L (135-145) L 08/23/23 03:52
Potassium 3.4 mmol/L (3.5-5.1) L 08/23/23 03:52
Chloride 105 mmol/L (98-107) 08/23/23 03:52
Carbon Dioxide 20 mmol/L (22-30) L 08/23/23 03:52
BUN 80 mg/dl (9-20) H 08/23/23 03:52
Creatinine 3.6 mg/dL (0.7-1.3) H 08/23/23 03:52
eGFR 18.18 08/23/23 03:52
Glucose 206 mg/dl (70-99) H 08/23/23 03:52
Calcium 9.3 mg/dl (8.4-10.2) 08/23/23 03:52
Phosphorus 5.6 mg/dl (2.5-4.5) H 08/22/23 13:08
Qer-F-Vptuymzfqdf Pept 4830 pg/ml 08/18/23 20:36
Albumin 2.0 g/dl (3.5-5.0) L 08/23/23 03:52
Physical Exam
-
Vital Signs:
Vital Signs
Temp Pulse Resp BP Pulse Ox
97.9 F 95 9 107/74 95
08/23/23 07:30 08/23/23 08:19 08/23/23 06:00 08/23/23 08:19 08/23/23 06:00
Cardiovascular:: Regular rate and rhythm
Respiratory:: Bilateral: Coarse
Lung Excursion:: Normal
Abdomen:: Nontender and Soft
Bowel Sounds:: Normal
Extremity Edema:: +3: Bilateral:
--- NOTE | 2023-08-23 10:29 | W.PN.HOSP.TC ---
Today's Communication/Plan
-
CW ABX
CW TPN
Follow lytes
Hospice consult
Assessment / Plan
Assessment / Plan
08/15/23 PET: Prominent mildly FDG avid left supraclavicular and high prevascular lymph nodes, suspicious for metastases. Redemonstration of extensive infiltrative lesions throughout the liver although only a few scattered hepatic lesions demonstrate
significant increased FDG activity above baseline, consistent with metastatic disease. Mildly FDG avid soft tissue metastatic disease about the common bile duct/pancreatic head and in the retroperitoneal and mesenteric regions, overall slightly
improved from prior CT.
Assessment:
JANEY on CKD3b/dehydration/non-AG met acidosis
- JANEY likely from hypotension and hemodynamic compromise
- Renal US without obstruction
- lytes suggest pre-renal etiology
- cont NSS (previously on IVF Bicarb)
- monitor BMP
- Nephrology following; concern for checkpoint inhibitor nephrotoxicity
- Cr 3.6 today
Hypotension
- continue Midodrine TID; if patient unable to tolerate PO meds then will need pressors
Abdominal pain
pSBO vs ileus on AXR 08/19
- likely due to malignancy, acute medical illness
- pain control with IV Dilaudid
- antiemetics Tigan and Compazine to limit QTC prolongation as much as possible
- previously Noncontrasted CT with nonspecific colitis but otherwise no acute findings
- GS consulted; offered NGT but patient declined. supportive measures including bowel rest, analgesics/antiemetics and hydration
- TPN to start 08/21; cannot tolerate TFs currently
Metastatic Bladder CA:
- with chronic LFT elevation due to metastatic disease; notably somewhat improved over 2 months
- s/p metal stent placement in CBD
- s/p cystectomy, now with urostomy (chemo for bladder cancer permeated through his gut and resulted in sigmoid/anus/rectum resection- now with colostomy)
- Oncology following
- continue steroids for concern of autoimmune phenomenon of Keytruda
Hypokalemia
- replete via IV and TPN formulation
LE Edema, multifactorial from JANEY, moderate protein caloric malnutrition
- Dopplers negative
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
- nutritionfollowing
- Severe protein calorie malnutrition - TPN To start
Non-OK trop elevation (Non-ischemic myocardial injury)
Tachycardia, sinus with APCs
- Cards consulted
- Echo: Appears normal left ventricular wall thickness. Normal left ventricular chamber size. Normal left ventricular systolic function. Left ventricular ejection
fraction is 60-65% by visual assessment. Accurate regional wall motion assessment not possible due to technical limitations.
strep mitis bacteremia
- 1/2 bottles
- Echo: no vegetations seen but was limited study due to patients position. Consider repeat
- continue Rocephin, day 4
- ID following
- repeat cultures negative
Hyponatremia
Hypothyroidism: Continue levothyroxine via IV
CAD s/p stent: cont ASA
FULL/Heparin
With significant metastatic cancer currently with acute kidney injury and small bowel obstruction the prognosis is poor.
at bedside understands prognosis. She states that she had a discussions with her about goals of care, comfort and hospice last week. She wants to speak to hospice people.
She tells me that Francisco told no surgeries and also does not want to be on ventilator.
Addressed the CODE STATUS-she is okay for brief CPR or defibrillation but not prolonged efforts.
DW today
Total time spent on today's encounter was 52 minutes which included time spent in counseling the patient/family regarding diagnosis and treatment plan as listed above, goals of care, and symptom management. Case was discussed with nursing staff,
specialists, . All labs and imaging personally reviewed by me. Remainder the time spent in detailed review of previous records, lab data, imaging, and other medical provider documentation.
Anticipated Discharge: > 48 hours
Subjective/Interval History
-
Date of Service: August 23, 2023
Patient little restless and wanted sit in a chair.
He denies any nausea. He states his abdominal pain is better today.
at bedside-patient has been confused especially so in the last 2 days. He apparently had a head CT starting of July and it did not show any metastatic disease. No agitation.
Objective Data
-
Labs:
Laboratory Results
08/23/23
03:52
WBC 13.9 H
Hgb 10.4 L
Hct 31.2 L
Plt Count 101 L D
Sodium 131 L
Potassium 3.4 L
Chloride 105
Carbon Dioxide 20 L
BUN 80 H
Creatinine 3.6 H
Glucose 206 H
Calcium 9.3
Total Bilirubin 0.7
AST 71 H
ALT 127 H
Alkaline Phosphatase 261 H
Vital Signs:
Vital Signs
Temp Pulse Resp BP Pulse Ox
97.9 F 95 9 107/74 95
08/23/23 07:30 08/23/23 08:19 08/23/23 06:00 08/23/23 08:19 08/23/23 06:00
I&O
08/22/23 08/23/23 08/24/23
06:59 06:59 06:59
Output Total 550 / 550 250 / 250
Balance -550 / -550 -250 / -250
Review of Systems
-
Constitutional: Reports Weakness; Denies Fever
Cardiac: Denies Chest Pain
Neuro: Reports Dizzy (but no orthostatic drop in BP)
Physical Exam
-
General: No Apparent Distress
HEENT: Moist Mucous Membranes
Respiratory: Clear to Auscultation
Cardiac: Regular Rhythm
GI: Soft and Ostomy; Negative Normal Bowel Sounds
Neuro: Awake, Alert, Oriented (place and person) and No Motor Deficits; Negative Tremors
Psych: Calm
Data Reviewed
-
Labs: Labs Reviewed by me
[2023-08-23] MEDS: NSS IV ×2 (10:55→17:57)
--- NOTE | 2023-08-23 10:56 | W.PN.ID1 ---
Date of Service
Date of Service: August 23, 2023
Today's Communication
Continue ceftriaxone.
Assessment / Plan
S. mitis (VGS) Bacteremia (1 set) vs Pseudobacteremia
Neutropenia - resolved, due to chemotherapy
Bladder Cancer on chemotherapy - Padcev/Keytruda
JANEY
Dehydration
Acute small bowel obstruction
Port in place
- repeat blood cultures x2 are in progress but NGTD
- s mitis sensitive to penicillin
- echo very limited; if abdominal pain/ileus under better control in next several days then would reattempt
- 08/16 CT a/p without evidence of abscesses; note known hepatic mets which were described as stable; if a repeat is obtained will follow up
- agree with steroids, management per oncology
- Continue ceftriaxone - tentatively for a two week course (08/16 to 08/29)
- follow clinically
Chief Complaint
-: Bacteremia
Subjective / Review of Systems
No BM yet. Feels tired.
Vital Signs / Physical Exam
Vital Signs
Vital Signs
Temp Pulse Resp BP Pulse Ox
97.9 F 95 9 107/74 95
08/23/23 07:30 08/23/23 08:19 08/23/23 06:00 08/23/23 08:19 08/23/23 06:00
Physical Exam
Constitutional: Acutely Ill
Cardiovascular: Regular Rate and S1/S2
Pulmonary: Clear
Gastrointestinal: Soft and Decreased Bowel Sounds
Genito-Urinary: Negative CVA Tenderness
Extremities: Edema (3+ BLE)
Lines: Port
Physical Exam:
no erythema
Objective Data
Lab Data
Lab Results
08/23/23 03:52
08/23/23 03:52
Estimated Creat Clear 22 ml/min 08/23/23 03:52
Lactic Acid Cancelled 08/16/23 20:45
Total Bilirubin 0.7 mg/dl (0.2-1.3) 08/23/23 03:52
AST 71 U/L (17-59) H 08/23/23 03:52
ALT 127 U/L (0-50) H 08/23/23 03:52
Alkaline Phosphatase 261 U/L (38-126) H 08/23/23 03:52
Most recent labs reviewed.
Micro Results:
08/19/23 15:26 Blood Culture - Preliminary
Blood/Venous No Growth in 72 hours- Final report to follow
08/19/23 15:05 Blood Culture - Preliminary
Blood/Venous No Growth in 72 hours- Final report to follow
08/16/23 16:48 Blood Culture - Final
Blood/Venous No Growth - Final Report
08/19/23 09:55 Urine Culture - Final
Urine Mariam albicans
Lactobacillus species
08/16/23 16:48 Blood Culture - Preliminary
Blood/Venous Strep mitis/oralis
Gram Stain - Preliminary
--- NOTE | 2023-08-23 11:09 | W.PN.GS2 ---
Addendum entered and electronically signed by Robin Cruz MD 08/23/23 13:50:
I saw and examined the patient.
The PA's note was reviewed and I agree with the note.
Comment:
More confused this a.m., A&O x 2 (to name and president), continues to have significant pain requiring IV Dilaudid, having nausea, but no vomiting; denies bloating
AF, HR 100s, normotensive, ABD soft/nondistended/mildly to moderately tender in the bilateral lower quadrants, no rebound or guarding; ostomy pink with minimal brown stool in bag, urostomy pink with urine in bag
� Had extensive discussion with patient's ; currently, he does not need urgent surgery; however, his prognosis is tenuous with his worsening JANEY, AMS, leukocytosis, recent chemo and metastatic disease
-I discussed the preferences if he continues to worsen from an abdominal standpoint; with his current medical condition, NSQIP estimates his perioperative risk for an exploratory laparotomy only to include serious complication at about 33% (ie- UT,
CVA, respiratory failure, etc) and perioperative mortality at 50%; I explained that if he required an additional procedure such as bowel resection, the risk of complication is higher; additionally, his risk is likely underestimated as the fact that
he is on chemotherapy is not taken into account with NSQIP
-The patient's became teary-eyed, and expressed that knowing her , he would not want to undergo major surgery at this point, even if it means clinical worsening and ; and he would not want to be intubated for a prolonged period;
she is interested in finding out more about hospice, especially the resources of hospice at home versus inpatient hospice; discussed this with Dr. Mcfarlane who will reach out
�Regarding further surgical management, no need for further imaging from our standpoint; I confirmed with the that currently, they would not want surgery even if something surgical was discovered
�Therefore, surgery will sign off; please call back for any further questions or concerns; I explained to the that if she changes her mind, we will rediscuss options with her
Original Note:
Today's Communication / Plan
-
NPO on TPN
Pain management
Assessment / Plan
-
63-year-old male with possible/probable malignant obstruction versus ileus in the setting of neutropenia, elevated transaminases, progressive renal failure and worsening medical illness as well as metastatic bladder carcinoma with recent initiation
of systemic therapy.
Continues to decline medically
Tachycardic without fevers
ARF persists, mild leukocytosis
Plan:
Continue analgesics
Hold off on diet advancement given persistent nausea
On TPN given prolonged NPO, nephrology managing
Will plan discussion with patient's spouse regarding operative options and high risk of surgery. Poor prognosis.
Subjective Data
-
Date of Service: August 23, 2023
Patient seen and examined at bedside with Dr. Cruz at 0920am. Patient ill appearing. Notes significant belly pain, writhing and asking for Dilaudid. Disoriented. Reports nausea and abdominal pain.
Objective Data
-
Intake and Output
08/22/23 08/23/23 08/24/23
06:59 06:59 06:59
Output Total 550 / 550 250 / 250
Balance -550 / -550 -250 / -250
Output:
Liquid stool amount 100 / 100
Colostomy 100 / 100
Urostomy output 450 / 450 250 / 250
Other:
Number of approximated MODERATE 1
amounts of urine
Vital Signs
Temp Pulse Resp BP Pulse Ox
97.9 F 115 24 125/93 97
08/23/23 07:30 08/23/23 10:13 08/23/23 10:13 08/23/23 10:13 08/23/23 10:58
Lab Results
08/23/23 03:52
08/23/23 03:52
Calcium 9.3 mg/dl (8.4-10.2) 08/23/23 03:52
Phosphorus 5.6 mg/dl (2.5-4.5) H 08/22/23 13:08
Magnesium 2.2 mg/dl (1.6-2.3) 08/22/23 13:08
Total Bilirubin 0.7 mg/dl (0.2-1.3) 08/23/23 03:52
Direct Bilirubin 0.9 mg/dl (0.0-0.4) H 08/19/23 04:05
AST 71 U/L (17-59) H 08/23/23 03:52
ALT 127 U/L (0-50) H 08/23/23 03:52
Alkaline Phosphatase 261 U/L (38-126) H 08/23/23 03:52
Total Protein 4.8 g/dl (6.3-8.2) L 08/23/23 03:52
Albumin 2.0 g/dl (3.5-5.0) L 08/23/23 03:52
Physical Exam
-
Awake, sleepy, uncomfortable appearing. Ox2, reoriented to place
Abdomen Soft, mild generalized tenderness, mildly distended, Ostomy stoma pink patent and productive of minimal liquid stool. His urostomy is productive of urine with pink stoma
[2023-08-23] MEDS: LASIX 20 MG IV (11:40)
[2023-08-23] MEDS: KCL ELIXIR 40 MEQ PO (11:40)
[2023-08-23] MEDS: ProAmatine PO ×2 (12:21→18:01)
[2023-08-23 12:23] LABS: Glucose - Point of Care 282 mg/dl (70-99)
--- NOTE | 2023-08-23 12:41 | PTCARENOTE ---
Pt's blood sugar resulted 282. made aware. No new orders at this time.
[2023-08-23] MEDS: ROCEPHIN 2000 MG IV (13:01)
[2023-08-23] MEDS: NOVOLOG FLEXPEN-LOW RESISTANCE 3 UNITS SC ×2 (13:01→23:42)
[2023-08-23] MEDS: STERILE WATER FOR INJECTION 20 ML IV (13:01)
--- NOTE | 2023-08-23 15:24 | HOSPNOTE ---
Referral received. Called patients spouse and left a voicemail for her to return my call. Awaiting return call at this time. CM updated.
[2023-08-23] MEDS: ZOFRAN 4 MG IV ×2 (15:26→19:30)
--- NOTE | 2023-08-23 16:00 | PTCARENOTE ---
TT to to update him on patient. Pt has been in constant pain, getting Dilaudid Q3 as able, see MAR. He does rest for a while but when he awakes he is extremely anxious and confused, tries to get OOB and cannot communicate what he wants. He
is unable to take any medications or swallow right now. At times, water was just dribbling back out of his mouth when he tries to take sips. Dr. Mcfarlane ordered PRN Ativan IV.
[2023-08-23] MEDS: LEVOTHROID 37.5 MCG IV (17:40)
[2023-08-23] MEDS: NOVOLOG FLEXPEN-LOW RESISTANCE 1 UNITS SC (17:45)
[2023-08-23 17:55] LABS: Glucose - Point of Care 164 mg/dl (70-99)
[2023-08-23] MEDS: ATIVAN 0.5 MG IV (19:22)
[2023-08-23] MEDS: Parenteral Nutrition, Central 1700 IV (21:24)
[2023-08-23 23:52] LABS: Glucose - Point of Care 251 mg/dl (70-99)
[2023-08-24] VITALS (13 sets, daily range): BP systolic 82–141; BP diastolic 49–92
[2023-08-24] MEDS: ZOFRAN 4 MG IV ×4 (02:09→20:27)
[2023-08-24] MEDS: DILAUDID 1 MG IV ×3 (02:10→21:06)
[2023-08-24 05:04] LABS: ALT (SGPT) 117 U/L (0-50); AST (SGOT) 66 U/L (17-59); Alkaline Phosphatase 276 U/L (38-126); Blood Urea Nitrogen 92 mg/dl (9-20); Calcium 10.2 mg/dl (8.4-10.2); Carbon Dioxide 22 mmol/L (22-30); Chloride 105 mmol/L (98-107); Estimated Creatinine Clearance 24 ml/min; Glucose 270 mg/dl (70-99); Magnesium 2.3 mg/dl (1.6-2.3); Phosphorus 3.1 mg/dl (2.5-4.5); Potassium 3.3 mmol/L (3.5-5.1); Sodium 133 mmol/L (135-145); Total Bilirubin 0.9 mg/dl (0.2-1.3); Total Protein 4.8 g/dl (6.3-8.2); eGFR 19.47
[2023-08-24 05:11] LABS: % Basophils 0.9 % (0-2); % Immature Granulocytes 8.1 % (0-0.5); Absolute Basophils 0.2 10^3/uL (0-0.2); Absolute Immature Granulocytes 1.4 10^3/uL (0-0.05); Absolute Lymphocytes 0.5 10^3/uL (1.2-3.4); Absolute Monocytes 0.7 10^3/uL (0.1-0.6); Absolute Neutrophils 14.5 10^3/uL (1.4-6.5); Hematocrit 33.6 % (39.0-52.0); Hemoglobin 10.9 g/dL (13.0-18.0); Mean Corp Hgb Conc. 32.4 g/dL (33.0-37.0); Mean Corpuscular Hgb 28.6 pg (27.0-31.0); Mean Corpuscular Volume 88.2 fL (80.0-94.0); Red Blood Cell Count 3.81 10^6/uL (4.70-6.10); Red Cell Dist. Width 16.3 % (11.5-14.5); White Blood Cell Count 17.3 10^3/uL (4.8-10.8)
[2023-08-24] MEDS: NOVOLOG FLEXPEN-LOW RESISTANCE 2 UNITS SC ×2 (05:25→13:09)
[2023-08-24 05:36] LABS: Glucose - Point of Care 249 mg/dl (70-99)
--- NOTE | 2023-08-24 05:41 | PTCARENOTE ---
family at bedside earlier in the shift, stated that patient was trying to get up oob, restless, pulling at things. PRN Ativan given per families request. pt sleeping shortly after. woke up around 2am, moaning and trying to pull at monitors again. pt
saying he wanted to leave. pt saying he was in pain but unable to tell me where exactly. PRN Dilaudid given. pt sleeping shortly after.
--- NOTE | 2023-08-24 07:09 | W.PN.ONC2 ---
Today's Communication / Plan
-
Agree with Hospice eval. Survival < 1 mo (days to weeks)
Impression
Impression
Metastatic bladder carcinoma on Padcev last 08/06, Keytruda last 07/30, representing cycle 1
Small bowel obstruction/ileus with worsening pain
Neutropenia - resolved
Hypocalcemia - resolved
Elevated transaminase and alkaline phosphatase
Failure to thrive
Pruritus
Plan
Plan
Chart reviewed. Plans are to proceed with hospice care and NO surgery. Agree that this is the most appropriate step as clinically he has POD with SBO likely cancer related and poor PS. Also, TPN is not usually a long term care phlebotomist solution (end point) in
advanced cancer patients. Not candidate for further chemotherapy.
Prognosis poor. Survival < 1 mo (days to weeks)
Subjective/Objective
Chief Complaint
ACS Heme Onc
Subjective
Currently resting/sleeping. Did not awake. Per RN was restless earlier in night but Ativan seems to help a lot. Also got some Dilaudid (but she thinks Ativan helped his restlessness the best).
Vital Signs:
Vital Signs
Temp Pulse Resp BP Pulse Ox
97.8 F 112 13 109/57 98
08/24/23 03:19 08/24/23 06:00 08/24/23 06:00 08/24/23 06:00 08/24/23 06:00
Lab Results:
Laboratory Data
WBC 17.3 10^3/uL (4.8-10.8) H 08/24/23 04:07
Hgb 10.9 g/dL (13.0-18.0) L 08/24/23 04:07
Plt Count 101 10^3/uL (130-400) L D 08/23/23 03:52
eGFR 19.47 08/24/23 04:07
Physical Exam
Reg rhythm per tele.
[2023-08-24] MEDS: ATIVAN 0.5 MG IV ×2 (07:14→15:53)
[2023-08-24] MEDS: NSS (PRESERVATIVE FREE) 0.25 ML IV ×2 (07:14→15:54)
[2023-08-24 07:52] LABS: Mean Platelet Volume 12.5 fL (7.4-10.4); Platelet Count 71 10^3/uL (130-400)
[2023-08-24] MEDS: ASPIR LOW (ENTERIC COATED) PO (08:06)
[2023-08-24] MEDS: ProAmatine PO ×3 (08:06→18:25)
[2023-08-24] MEDS: HEPARIN 5000 UNITS SC (08:09)
[2023-08-24] MEDS: SOLU-MEDROL PF 50 MG IV (08:10)
[2023-08-24] MEDS: NSS (PRESERVATIVE FREE) 10 ML IV (08:13)
[2023-08-24] MEDS: PROTONIX IV 40 MG IV (08:13)
--- NOTE | 2023-08-24 09:03 | PTCARENOTE ---
Assumed care of pt from night RN. Pt restless at times, able to verbalize he is in pain. PRN Dilaudid administered as ordered with + effect noted. Pt's family at bedside, tearful, emotional support given. Pt repositioned in bed frequently, appears
comfortable at this time. TPN infusing as ordered. Oral care completed through shift. Family in discussions re: hospice at this time. Will continue to monitor through shift.
--- NOTE | 2023-08-24 09:29 | HOSPNOTE ---
Spoke to spouse regarding hospice. She is in agreement with hospice. She asked to speak with patients sisters and their children to ensure they are all in agreement as well. Also reviewed insurance verification of coverage will need to occur, this
will occur tomorrow morning as well. Patient at this time meets GIP criteria for the management of pain and anxiety with IV medications that could not be met in the outpatient setting. Attending in agreement. Attending and CM updated on plan.
Hospice will admit GIP 08/24 after family is confirmed to be in agreement and insurance is verified for coverage.
--- NOTE | 2023-08-24 09:47 | CM ---
Chart reviewed and plan is for hospice, hospice options were viewed and patient and family selected [facility] yesterday, immigration case worker received a call from [facility] that plan is to start GIP tomorrow after family discussion.
Plan; Patient to transfer to possible GIP tomorrow.
--- NOTE | 2023-08-24 09:51 | W.PN.ID1 ---
Date of Service
Date of Service: August 24, 2023
Today's Communication
Continue ceftriaxone for now pending hospice.
Assessment / Plan
S. mitis (VGS) Bacteremia (1 set) vs Pseudobacteremia
Acute small bowel obstruction without improvement. Not surgical candidate per colorectal
Stage IV Bladder Cancer on chemotherapy - Padcev/Keytruda
JANEY
Leukocytosis - trending up
Port in place
- repeat blood cultures negative
- echo very limited - no gross vegetation
- 08/16 CT a/p without evidence of abscesses; note known hepatic mets which were described as stable;
-Overall poor prognosis. For hospice eval. wants to continue abx for now.
- Continue ceftriaxone - tentatively for a two week course (08/16 to 08/29), pending hospice.
Chief Complaint
-: Bacteremia
Subjective / Review of Systems
and son at bedside.
Pt very lethargic. Per , was agitated, restless, in pain last night.
Vital Signs / Physical Exam
Vital Signs
Vital Signs
Temp Pulse Resp BP Pulse Ox
97.6 F 112 13 109/57 97
08/24/23 07:20 08/24/23 06:00 08/24/23 06:00 08/24/23 06:00 08/24/23 07:45
Physical Exam
Constitutional: Acutely Ill
Cardiovascular: Other (Tachycardic)
Gastrointestinal: Decreased Bowel Sounds
Extremities: Edema (3+ edema bilaterally)
Neurological: Other (Lethargic)
Objective Data
Lab Data
Lab Results
08/24/23 04:07
08/24/23 04:07
Estimated Creat Clear 24 ml/min 08/24/23 04:07
Lactic Acid Cancelled 08/16/23 20:45
Total Bilirubin 0.9 mg/dl (0.2-1.3) 08/24/23 04:07
AST 66 U/L (17-59) H 08/24/23 04:07
ALT 117 U/L (0-50) H 08/24/23 04:07
Alkaline Phosphatase 276 U/L (38-126) H 08/24/23 04:07
Most recent labs reviewed.
Micro Results:
08/19/23 15:26 Blood Culture - Preliminary
Blood/Venous No Growth in 4 days- Final report to follow
08/19/23 15:05 Blood Culture - Preliminary
Blood/Venous No Growth in 4 days- Final report to follow
08/16/23 16:48 Blood Culture - Final
Blood/Venous Strep mitis/oralis
Gram Stain - Final
08/16/23 16:48 Blood Culture - Final
Blood/Venous No Growth - Final Report
08/19/23 09:55 Urine Culture - Final
Urine Mariam albicans
Lactobacillus species
--- NOTE | 2023-08-24 10:07 | W.PN.NEPH.PH ---
Today's Communication / Plan
-
TPN
Assessment/Plan
-
Assessment:
Acute kidney injury
Hypotension
Hypocalcemia
Hyponatremia
Hypomagnesemia
Metabolic acidosis
Bladder cancer metastatic to liver status post resection
Urostomy
Hypothyroid
Plan:
Midodrine at 10 mg 3 times daily due to low MAP, but po intake poor
follow BP
follow BMP
TPN ordered, no lipids given egg allergy, which is stomach upset with straight egg (not in baked goods)
lasix to balance I/O daily
replete K
prognosis is poor
d/w and family. There is no expectation that he will be able to undergo or accept further CA treatment. Comfort with some lucidity is the goal
can try to reduce use of opiates/BDZ to see if that helps lucidity and pt can decide how much pain he can tolerate for lucidity
hospice consult. no TPN once on hospice
40 minutes total time spent on care
-
-
Date of Service: August 24, 2023
CC / HPI / ROS
-
Chief Complaint:
Acute kidney injury
History of Present Illness:
JANEY/Cr down to 3.4
K low
TPN infusing
Hemodynamically stable on midodrine
sleeping
Review of Systems:
Oliguric via right lower quadrant urostomy
No fevers
Labs
-
Labs:
WBC 17.3 10^3/uL (4.8-10.8) H 08/24/23 04:07
RBC 3.81 10^6/uL (4.70-6.10) L 08/24/23 04:07
Hgb 10.9 g/dL (13.0-18.0) L 08/24/23 04:07
Hct 33.6 % (39.0-52.0) L 08/24/23 04:07
Plt Count 71 10^3/uL (130-400) L D 08/24/23 04:07
Sodium 133 mmol/L (135-145) L 08/24/23 04:07
Potassium 3.3 mmol/L (3.5-5.1) L 08/24/23 04:07
Chloride 105 mmol/L (98-107) 08/24/23 04:07
Carbon Dioxide 22 mmol/L (22-30) 08/24/23 04:07
BUN 92 mg/dl (9-20) H 08/24/23 04:07
Creatinine 3.4 mg/dL (0.7-1.3) H 08/24/23 04:07
eGFR 19.47 08/24/23 04:07
Glucose 270 mg/dl (70-99) H 08/24/23 04:07
Calcium 10.2 mg/dl (8.4-10.2) 08/24/23 04:07
Phosphorus 3.1 mg/dl (2.5-4.5) 08/24/23 04:07
Vbd-U-Pyunlmnvzow Pept 4830 pg/ml 08/18/23 20:36
Albumin 2.0 g/dl (3.5-5.0) L 08/24/23 04:07
Physical Exam
-
Vital Signs:
Vital Signs
Temp Pulse Resp BP Pulse Ox
97.6 F 112 13 109/57 97
08/24/23 07:20 08/24/23 06:00 08/24/23 06:00 08/24/23 06:00 08/24/23 07:45
Cardiovascular:: Regular rate and rhythm
Respiratory:: Bilateral: Coarse
Lung Excursion:: Normal
Abdomen:: Nontender and Soft
Bowel Sounds:: Normal
Extremity Edema:: +3: Bilateral:
--- NOTE | 2023-08-24 10:32 | W.PN.HOSP.TC ---
Today's Communication/Plan
-
CW abx ,TPN, pain regimen
Ongoing hospice eval
DNR
Assessment / Plan
Assessment / Plan
08/15/23 PET: Prominent mildly FDG avid left supraclavicular and high prevascular lymph nodes, suspicious for metastases. Redemonstration of extensive infiltrative lesions throughout the liver although only a few scattered hepatic lesions demonstrate
significant increased FDG activity above baseline, consistent with metastatic disease. Mildly FDG avid soft tissue metastatic disease about the common bile duct/pancreatic head and in the retroperitoneal and mesenteric regions, overall slightly
improved from prior CT.
Assessment:
JANEY on CKD3b/dehydration/non-AG met acidosis
- JANEY likely from hypotension and hemodynamic compromise
- Oliguric based on Urostomy output
- CW midodrine.
- Renal US without obstruction
- lytes suggest pre-renal etiology
- monitor BMP
- Nephrology following; concern for checkpoint inhibitor nephrotoxicity
- Cr 3.4 today
Hypotension
- Improved
- continue Midodrine TID; if patient unable to tolerate PO meds then will need pressors
Abdominal pain
pSBO vs ileus on AXR 08/19
- likely due to malignancy, acute medical illness
- pain control with IV Dilaudid
- antiemetics Tigan and Compazine to limit QTC prolongation as much as possible
- previously Noncontrasted CT with nonspecific colitis but otherwise no acute findings
- GS consulted; offered NGT but patient declined. supportive measures including bowel rest, analgesics/antiemetics and hydration
- TPN to start 08/21; cannot tolerate TFs currently
- No surgery planned - high risk and with poor Oncological prognosis family doesn't wish to put him through further surgeries.
Metastatic Bladder CA:
- with chronic LFT elevation due to metastatic disease; notably somewhat improved over 2 months
- s/p metal stent placement in CBD
- s/p cystectomy, now with urostomy (chemo for bladder cancer permeated through his gut and resulted in sigmoid/anus/rectum resection- now with colostomy)
- Oncology following -prognosis is less than 1 month [days or weeks] noted
- continue steroids for concern of autoimmune phenomenon of Keytruda
Hypokalemia
- replete via IV and TPN formulation
LE Edema, multifactorial from JANEY, moderate protein caloric malnutrition
- Dopplers negative
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
- nutritionfollowing
- Severe protein calorie malnutrition - TPN To start
Non-[place] trop elevation (Non-ischemic myocardial injury)
Tachycardia, sinus with APCs
- Cards consulted
- Echo: Appears normal left ventricular wall thickness. Normal left ventricular chamber size. Normal left ventricular systolic function. Left ventricular ejection
fraction is 60-65% by visual assessment. Accurate regional wall motion assessment not possible due to technical limitations.
strep mitis bacteremia
- 1/2 bottles
- Echo: no vegetations seen but was limited study due to patients position. Consider repeat
- continue Rocephin, day 4
- ID following
- repeat cultures negative
Hyponatremia
Hypothyroidism: Continue levothyroxine via IV
CAD s/p stent: cont ASA
FULL/Heparin
08/22 with significant metastatic cancer currently with acute kidney injury and small bowel obstruction the prognosis is poor.
at bedside understands prognosis. She states that she had a discussions with her about goals of care, comfort and hospice last week. She wants to speak to hospice people.
She tells me that Francisco told no surgeries and also does not want to be on ventilator.
Addressed the CODE STATUS-she is okay for brief CPR or defibrillation but not prolonged efforts.
08/23-patient had a discussion with hospice team today. She understands the poor prognosis, the critical nature of his illness and worsening clinical status. She wants to talk with the rest of the family and consider hospice initiation.
With the changes in goals of care, cardiac resuscitation does not align with the goals of care. She wishes him to be comfortable and in the event of cardiac arrest no CPR or electrical cardioversion.
DW RN
DW Hospice team
Total time spent on today's encounter was 52 minutes which included time spent in counseling the patient/family regarding diagnosis and treatment plan as listed above, goals of care, and symptom management. Case was discussed with nursing staff,
specialists, . All labs and imaging personally reviewed by me. Remainder the time spent in detailed review of previous records, lab data, imaging, and other medical provider documentation.
Anticipated Discharge: > 48 hours
Subjective/Interval History
-
Date of Service: August 24, 2023
Patient comfortable ;sedated. Did not disturb him.
Discussed with RN-he was very uncomfortable this morning-got a dose of Dilaudid and Ativan.
Ativan was introduced yesterday which has helped him to be more calmer. Yesterday he was restless.
Objective Data
-
Labs:
Laboratory Results
08/24/23
04:07
WBC 17.3 H
Hgb 10.9 L
Hct 33.6 L
Plt Count 71 L D
Sodium 133 L
Potassium 3.3 L
Chloride 105
Carbon Dioxide 22
BUN 92 H
Creatinine 3.4 H
Glucose 270 H
Calcium 10.2
Total Bilirubin 0.9
AST 66 H
ALT 117 H
Alkaline Phosphatase 276 H
Vital Signs:
Vital Signs
Temp Pulse Resp BP Pulse Ox
97.6 F 112 13 109/57 97
08/24/23 07:20 08/24/23 06:00 08/24/23 06:00 08/24/23 06:00 08/24/23 07:45
I&O
08/23/23 08/24/23 08/25/23
06:59 06:59 06:59
Intake Total 963 / 963
Output Total 250 / 250 350 / 350
Balance -250 / -250 613 / 613
Review of Systems
-
Unable to obtain full review of systems at this time due to: Other (Sedate)
Physical Exam
-
General: No Apparent Distress
HEENT: Moist Mucous Membranes
Respiratory: Clear to Auscultation (anterior) and Non Labored Respirations; Negative Accessory Resp Muscle Use
Cardiac: Regular Rhythm and S1/S2
GI: Soft
Neuro: Sedated
Psych: Calm
Data Reviewed
-
Labs: Labs Reviewed by me
[2023-08-24] MEDS: KCL 270 MEQ IV ×2 (10:41→15:53)
[2023-08-24] MEDS: LASIX 20 MG IV (10:42)
[2023-08-24 12:38] LABS: Vitamin B1, Whole Blood 71 nmol/L (70-180)
[2023-08-24 12:48] LABS: Glucose - Point of Care 210 mg/dl (70-99)
[2023-08-24] MEDS: ROCEPHIN 2000 MG IV (13:11)
[2023-08-24] MEDS: STERILE WATER FOR INJECTION 20 ML IV (13:11)
[2023-08-24] MEDS: DILAUDID 0.5 MG IV ×2 (13:34→18:38)
--- NOTE | 2023-08-24 13:58 | PTCARENOTE ---
Colostomy bag changed per request, using pt's own supplies. Wafer appears intact, stoma pink and budded. Approx 50ml liquid brown output.
[2023-08-24] MEDS: LEVOTHROID 37.5 MCG IV (18:30)
[2023-08-24] MEDS: NOVOLOG FLEXPEN-LOW RESISTANCE 1 UNITS SC (18:30)
[2023-08-24 18:41] LABS: Glucose - Point of Care 178 mg/dl (70-99)
[2023-08-24] MEDS: HEPARIN SC (20:32)
--- NOTE | 2023-08-24 20:55 | PTCARENOTE ---
Addendum entered by Emily Cesar RN 08/25/23 05:04:
Pt did well throughout the night with pain and anxiety management . Pt nodding head yes and no to questions.
Original Note:
While in room Pt responded ' yes i am' to his when asked if he was in pain. outside production inspector showing pt with slight agitation moving legs wincing and pulling blankets. This RN having discussion about when pain medication is due with pt . Pt
made clear she does not want him in a lot of pain. Jorge COMMERCIAL CORRESPONDENT made aware. Dilaudid changed to 1mg Q3 hr after again verifying with that she is ok with the change in pain medication. Reassessment Pt appears to be resting comfortably.
Respiration even and unlabored. vitals stable at this time.
--- NOTE | 2023-08-24 21:00 | W.PN.UPDATE ---
Update Note
Progress Note Update
Dilaudid decreased today due to more lethargy. But unfortunately pt now in more pain. wants 1mg Dilaudid reinstated for pain. Will re-order.
[2023-08-24] MEDS: Parenteral Nutrition, Central 1700 IV (21:19)
[2023-08-25] VITALS (9 sets, daily range): BP systolic 86–113; BP diastolic 54–68; BMI 30.1
[2023-08-25 00:57] LABS: Glucose - Point of Care 292 mg/dl (70-99)
[2023-08-25] MEDS: NSS (PRESERVATIVE FREE) 0.25 ML IV (01:14)
[2023-08-25] MEDS: ATIVAN 0.5 MG IV (01:14)
[2023-08-25] MEDS: NOVOLOG FLEXPEN-LOW RESISTANCE 3 UNITS SC (01:18)
[2023-08-25] MEDS: ZOFRAN 4 MG IV ×3 (01:50→16:02)
[2023-08-25] MEDS: DILAUDID 1 MG IV ×4 (03:50→17:01)
[2023-08-25 04:14] LABS: Hematocrit 33.7 % (39.0-52.0); Hemoglobin 10.6 g/dL (13.0-18.0); Mean Corp Hgb Conc. 31.5 g/dL (33.0-37.0); Mean Corpuscular Hgb 27.9 pg (27.0-31.0); Mean Corpuscular Volume 88.7 fL (80.0-94.0); Mean Platelet Volume 11.7 fL (7.4-10.4); Platelet Count 63 10^3/uL (130-400); Red Cell Dist. Width 16.6 % (11.5-14.5); White Blood Cell Count 18.5 10^3/uL (4.8-10.8)
[2023-08-25 04:33] LABS: ALT (SGPT) 103 U/L (0-50); AST (SGOT) 60 U/L (17-59); Alkaline Phosphatase 374 U/L (38-126); Blood Urea Nitrogen 98 mg/dl (9-20); Calcium 9.2 mg/dl (8.4-10.2); Carbon Dioxide 19 mmol/L (22-30); Chloride 110 mmol/L (98-107); Estimated Creatinine Clearance 26 ml/min; Glucose 313 mg/dl (70-99); Potassium 3.9 mmol/L (3.5-5.1); Sodium 136 mmol/L (135-145); Total Bilirubin 0.9 mg/dl (0.2-1.3); Total Protein 4.8 g/dl (6.3-8.2); eGFR 18.81
[2023-08-25 05:26] LABS: Absolute Neutrophils -Man Diff 17.3 10^3/uL (1.4-6.5); Band Neutrophils 9 % (0-3); Lymphocytes 2 % (20-51); Metamyelocytes 3 % (-); Myelocytes 1 % (-); Segmented Neutrophils 85 % (42-75)
[2023-08-25 05:27] LABS: Normal RBC Morphology Yes; Platelets Checked Yes
[2023-08-25 05:28] LABS: Total Cells Counted 100
[2023-08-25] MEDS: NOVOLOG FLEXPEN-LOW RESISTANCE 4 UNITS SC (06:22)
[2023-08-25 06:26] LABS: Glucose - Point of Care 342 mg/dl (70-99)
[2023-08-25] MEDS: NSS (PRESERVATIVE FREE) 10 ML IV (08:58)
[2023-08-25] MEDS: PROTONIX IV 40 MG IV (08:58)
[2023-08-25] MEDS: LASIX 20 MG IV (08:59)
[2023-08-25] MEDS: FLUSH (NSS) 4 FLUSH IV (09:01)
[2023-08-25] MEDS: FLUSH (NSS) 1 FLUSH IV (09:12)
--- NOTE | 2023-08-25 09:52 | W.PN.HOSP.TC ---
Addendum entered and electronically signed by Marek Mcfarlane MD 08/25/23 15:32:
Discussed with Dianna on the phone and she wants to move ahead with the hospice and signed in for hospice. Needs inpatient hospice and plan is to do inpatient hospice at [facility].
Discussed with hospice team.
Total time of discharge 35 minutes
Original Note:
Today's Communication/Plan
-
Follow with family regarding GOC later today again.
Assessment / Plan
Assessment / Plan
08/15/23 PET: Prominent mildly FDG avid left supraclavicular and high prevascular lymph nodes, suspicious for metastases. Redemonstration of extensive infiltrative lesions throughout the liver although only a few scattered hepatic lesions demonstrate
significant increased FDG activity above baseline, consistent with metastatic disease. Mildly FDG avid soft tissue metastatic disease about the common bile duct/pancreatic head and in the retroperitoneal and mesenteric regions, overall slightly
improved from prior CT.
Assessment:
JANEY on CKD3b/dehydration/non-AG met acidosis
- JANEY likely from hypotension and hemodynamic compromise
- Oliguric based on Urostomy output
- CW midodrine.
- Renal US without obstruction
- lytes suggest pre-renal etiology
- Nephrology following; concern for checkpoint inhibitor nephrotoxicity
- Cr 3.5 today
Hypotension
- Improved
- continue Midodrine TID; if patient unable to tolerate PO meds then will need pressors
Abdominal pain
pSBO vs ileus on AXR 08/19
- likely due to malignancy, acute medical illness
- pain control with IV Dilaudid
- antiemetics Tigan and Compazine to limit QTC prolongation as much as possible
- previously Noncontrasted CT with nonspecific colitis but otherwise no acute findings
- GS consulted; offered NGT but patient declined. supportive measures including bowel rest, analgesics/antiemetics and hydration
- TPN to start 08/21; cannot tolerate TFs currently
- No surgery planned - high risk and with poor Oncological prognosis family doesn't wish to put him through further surgeries.
Metastatic Bladder CA:
- with chronic LFT elevation due to metastatic disease; notably somewhat improved over 2 months
- s/p metal stent placement in CBD
- s/p cystectomy, now with urostomy (chemo for bladder cancer permeated through his gut and resulted in sigmoid/anus/rectum resection- now with colostomy)
- Oncology following -prognosis is less than 1 month [days or weeks] noted
- continue steroids for concern of autoimmune phenomenon of Keytruda
LE Edema, multifactorial from JANEY, moderate protein caloric malnutrition
- Dopplers negative
- apply tubi-form grader
- nutrition following
- Severe protein calorie malnutrition - TPN
Non-[place] trop elevation (Non-ischemic myocardial injury)
Tachycardia, sinus with APCs
- Cards consulted
- Echo: Appears normal left ventricular wall thickness. Normal left ventricular chamber size. Normal left ventricular systolic function. Left ventricular ejection
fraction is 60-65% by visual assessment. Accurate regional wall motion assessment not possible due to technical limitations.
strep mitis bacteremia
- 1/2 bottles
- Echo: no vegetations seen but was limited study due to patients position. Consider repeat
- continue Rocephin
- ID following
- repeat cultures negative
Worsening leukocytosis, thrombocytopenia , tachy concerning for worsening sepsis
Hypothyroidism: Continue levothyroxine via IV
CAD s/p stent: cont ASA
FULL/Heparin
08/22 with significant metastatic cancer currently with acute kidney injury and small bowel obstruction the prognosis is poor.
at bedside understands prognosis. She states that she had a discussions with her about goals of care, comfort and hospice last week. She wants to speak to hospice people.
She tells me that Francisco told no surgeries and also does not want to be on ventilator.
Addressed the CODE STATUS-she is okay for brief CPR or defibrillation but not prolonged efforts.
08/23-patient had a discussion with hospice team today. She understands the poor prognosis, the critical nature of his illness and worsening clinical status. She wants to talk with the rest of the family and consider hospice initiation.
With the changes in goals of care, cardiac resuscitation does not align with the goals of care. She wishes him to be comfortable and in the event of cardiac arrest no CPR or electrical cardioversion.
08/24 - Discussion with and other family at bedside. says she spoke with that the family members about the poor prognosis and hospice plans.She is waiting to see other medical providers /renal prior to making final decision today.
ATIF RN
Discussed with renal today - she will speak with family.
Total time spent on today's encounter was 52 minutes which included time spent in counseling the patient/family regarding diagnosis and treatment plan as listed above, goals of care, and symptom management. Case was discussed with nursing staff,
specialists, . All labs and imaging personally reviewed by me. Remainder the time spent in detailed review of previous records, lab data, imaging, and other medical provider documentation.
Anticipated Discharge: > 48 hours
Subjective/Interval History
-
Date of Service: August 25, 2023
Patient's pain medication uptitrated again last evening because of inadequate pain control.
Patient sedated from pain medication. He opens eyes. Not reporting any conversation.
According to RN patient is awake and miserable due to pain or sedated from medication.
The family at bedside also notes that ever is miserable in pain when awake or sedate with medication. He was not holding any conversations with the family either.
Objective Data
-
Labs:
Laboratory Results
08/25/23
03:57
WBC 18.5 H
Hgb 10.6 L
Hct 33.7 L
Plt Count 63 L
Sodium 136
Potassium 3.9
Chloride 110 H
Carbon Dioxide 19 L
BUN 98 H
Creatinine 3.5 H
Glucose 313 H
Calcium 9.2
Total Bilirubin 0.9
AST 60 H
ALT 103 H
Alkaline Phosphatase 374 H
Vital Signs:
Vital Signs
Temp Pulse Resp BP Pulse Ox
97.0 F 104 11 107/67 98
08/25/23 07:23 08/25/23 06:00 08/25/23 06:00 08/25/23 06:00 08/25/23 06:00
I&O
08/24/23 08/25/23 08/26/23
06:59 06:59 06:59
Intake Total 963 / 963 1310 / 1310
Output Total 350 / 350 750 / 750
Balance 613 / 613 560 / 560
Review of Systems
-
Unable to obtain full review of systems at this time due to: Other (sedate)
Physical Exam
-
General: Negative No Apparent Distress (when woken )
Respiratory: Non Labored Respirations (at rest); Negative Accessory Resp Muscle Use
Cardiac: Regular Rhythm, S1/S2 and Tachycardic
GI: Soft
Neuro: Sedated
Psych: Calm and Confused
Data Reviewed
-
Labs: Labs Reviewed by me
--- NOTE | 2023-08-25 11:25 | W.PN.ID1 ---
Date of Service
Date of Service: August 25, 2023
Today's Communication
Continue ceftriaxone pending final decision on hospice.
Assessment / Plan
S. mitis (VGS) Bacteremia (1 set) vs Pseudobacteremia
Acute small bowel obstruction without improvement. Not surgical candidate per colorectal
Stage IV Bladder Cancer on chemotherapy - Padcev/Keytruda
JANEY
Leukocytosis - continues to trend up
Port in place
- repeat blood cultures negative
- echo very limited - no gross vegetation
- 08/16 CT a/p without evidence of abscesses; note known hepatic mets which were described as stable;
- On ceftriaxone tentatively for a two week course (08/16 to 08/29), pending hospice.
-Overall poor prognosis. For hospice after family discussion.
Chief Complaint
-: Bacteremia
Subjective / Review of Systems
at bedside.
Continues with abdominal pain last night requiring narcotic resulting in lethargy.
Vital Signs / Physical Exam
Vital Signs
Vital Signs
Temp Pulse Resp BP Pulse Ox
96.3 F L 112 11 91/54 98
08/25/23 11:14 08/25/23 10:13 08/25/23 10:13 08/25/23 10:13 08/25/23 08:00
Physical Exam
Constitutional: Acutely Ill
Cardiovascular: S1/S2 and Other (tachycardic)
Gastrointestinal: Decreased Bowel Sounds
Extremities: Edema (3+ edema bilaterally)
Neurological: Other (lethargic)
Objective Data
Lab Data
Lab Results
08/25/23 03:57
08/25/23 03:57
Estimated Creat Clear 26 ml/min 08/25/23 03:57
Lactic Acid Cancelled 08/16/23 20:45
Total Bilirubin 0.9 mg/dl (0.2-1.3) 08/25/23 03:57
AST 60 U/L (17-59) H 08/25/23 03:57
ALT 103 U/L (0-50) H 08/25/23 03:57
Alkaline Phosphatase 374 U/L (38-126) H 08/25/23 03:57
Most recent labs reviewed.
Micro Results:
08/19/23 15:26 Blood Culture - Final
Blood/Venous No Growth - Final Report
08/19/23 15:05 Blood Culture - Final
Blood/Venous No Growth - Final Report
08/16/23 16:48 Blood Culture - Final
Blood/Venous Strep mitis/oralis
Gram Stain - Final
08/16/23 16:48 Blood Culture - Final
Blood/Venous No Growth - Final Report
08/19/23 09:55 Urine Culture - Final
Urine Mariam albicans
Lactobacillus species
--- NOTE | 2023-08-25 11:35 | W.PN.NEPH.PH ---
Today's Communication / Plan
-
hospice
Assessment/Plan
-
Assessment:
Acute kidney injury
Hypotension
Hypocalcemia
Hyponatremia
Hypomagnesemia
Metabolic acidosis
Bladder cancer metastatic to liver status post resection
Urostomy
Hypothyroid
Plan:
JANEY-no change cr high at 3.5
very lethargic and no po intake
complete TPN bag, no further TPN
BP soft, can not take po Midodrine
ok to hold lasix
prognosis is poor
d/w family, at bedside and she already spoke to Hospice and willing to move forward with them
likely inpt hospice
d/w nursing and primary
-
-
Date of Service: August 25, 2023
CC / HPI / ROS
-
Chief Complaint:
Acute kidney injury
History of Present Illness:
JANEY/Cr at 3.5,
K better at 3.9
TPN infusing
BP soft, can not take any po or midodrine
sleeping
Review of Systems:
Oliguric via right lower quadrant urostomy
No fevers
Labs
-
Labs:
WBC 18.5 10^3/uL (4.8-10.8) H 08/25/23 03:57
RBC 3.80 10^6/uL (4.70-6.10) L 08/25/23 03:57
Hgb 10.6 g/dL (13.0-18.0) L 08/25/23 03:57
Hct 33.7 % (39.0-52.0) L 08/25/23 03:57
Plt Count 63 10^3/uL (130-400) L 08/25/23 03:57
Sodium 136 mmol/L (135-145) 08/25/23 03:57
Potassium 3.9 mmol/L (3.5-5.1) 08/25/23 03:57
Chloride 110 mmol/L (98-107) H 08/25/23 03:57
Carbon Dioxide 19 mmol/L (22-30) L 08/25/23 03:57
BUN 98 mg/dl (9-20) H 08/25/23 03:57
Creatinine 3.5 mg/dL (0.7-1.3) H 08/25/23 03:57
eGFR 18.81 08/25/23 03:57
Glucose 313 mg/dl (70-99) H 08/25/23 03:57
Calcium 9.2 mg/dl (8.4-10.2) 08/25/23 03:57
Phosphorus 3.1 mg/dl (2.5-4.5) 08/24/23 04:07
Qym-V-Xruivvgraoo Pept 4830 pg/ml 08/18/23 20:36
Albumin 2.0 g/dl (3.5-5.0) L 08/25/23 03:57
Physical Exam
-
Vital Signs:
Vital Signs
Temp Pulse Resp BP Pulse Ox
96.3 F L 112 11 91/54 98
08/25/23 11:14 08/25/23 10:13 08/25/23 10:13 08/25/23 10:13 08/25/23 08:00
Cardiovascular:: Regular rate and rhythm
Respiratory:: Bilateral: CTA (anteriolry)
Lung Excursion:: Normal
Abdomen:: Nontender and Soft
Other Findings::
comfortable, no distress
lethargic
[2023-08-25] MEDS: ProAmatine PO ×2 (11:53→14:48)
[2023-08-25] MEDS: HEPARIN SC (11:53)
[2023-08-25] MEDS: ASPIR LOW (ENTERIC COATED) PO (11:53)
[2023-08-25] MEDS: SOLU-MEDROL PF 50 MG IV (11:55)
[2023-08-25] MEDS: NOVOLOG FLEXPEN-LOW RESISTANCE 5 UNITS SC (11:56)
[2023-08-25 12:07] LABS: Glucose - Point of Care 362 mg/dl (70-99)
[2023-08-25] MEDS: FLUSH (NSS) 2 FLUSH IV ×4 (13:43→17:01)
[2023-08-25] MEDS: STERILE WATER FOR INJECTION 20 ML IV (13:50)
[2023-08-25] MEDS: ROCEPHIN 2000 MG IV (13:51)
--- NOTE | 2023-08-25 15:34 | W.DS.TRANS ---
DC Summary - Strategy Director
-
Discharge Instructions:
Discharge Diagnosis/Procedures Metastatic bladder cancer
Additional Diets NPO
Activity As tolerated
Driving Restrictions No driving
Bathing Restrictions None
Other Services Hospice
Instructions:
Stand-Alone Forms:
Changes to Home Medications: No
Discharge Medications:
DC Medications w/original date entered in [employer]
hydromorphone (PF) 0.5 mg/0.5 mL injection syringe (Dilaudid (PF)) 1 mg IV Q3HPRN PRN severe pain #5 mL 08/25/23
lorazepam 2 mg/mL injection solution (Ativan) 0.5 mg (0.25 mL) IV Q6HPRN PRN anxiety /agitation #1 mL 08/25/23
prochlorperazine edisylate 10 mg/2 mL (5 mg/mL) injection solution 5 mg IV Q6HPRN PRN nausea/vomiting #1 mL 08/25/23
Home Medication Changes
Pending Results: No
--- NOTE | 2023-08-25 15:35 | W.DCSUMMARY ---
Discharge Summary
Discharge Data
Date of Admission: 08/16/23
Date of Discharge: 08/25/23
-
Pending Results: No
Hospital Course
Primary diagnosis:
Metastatic progressive bladder cancer
Acute kidney injury on chronic kidney disease stage IIIb
Partial small bowel obstruction versus ileus
Streptococcus mitis bacteremia
Secondary diagnosis:
Coronary disease status post prior stent
Hypothyroidism
Hospital course:
Patient with metastatic bladder cancer had 1 dose of chemotherapy/immunotherapy.
08/15/23 PET: Prominent mildly FDG avid left supraclavicular and high prevascular lymph nodes, suspicious for metastases. Redemonstration of extensive infiltrative lesions throughout the liver although only a few scattered hepatic lesions demonstrate
significant increased FDG activity above baseline, consistent with metastatic disease. Mildly FDG avid soft tissue metastatic disease about the common bile duct/pancreatic head and in the retroperitoneal and mesenteric regions, overall slightly
improved from prior CT.
He presents with acute kidney injury on chronic kidney disease stage IIIb. JANEY was felt secondary to hypotension and hemodynamic compromise. There is also oliguria from urostomy bag. There is no evidence of obvious obstruction. There is a
concern about checkpoint inhibitor nephrotoxicity. He was put on steroids. He also had GI symptoms concerning for either small bowel obstruction or ileus and he was not tolerating oral diet. He was put on TPN. Was seen by surgery. It was felt
high risk candidate for any surgical intervention. He had a prior abdominal resection including cystectomy bowel resection and has a urostomy and ileostomy.
Step meters bacteremia 1 out of 2 bottles. Echo showed no vegetation but was limited study. Was put on IV Rocephin.
Despite aggressive active treatments he continued to deteriorate and with prognosis less than 1 month per oncology and now with active other medical issues , family opted comfort as goal and transitioned into inpatient hospice at .
Consultants on board:
Oncology-Ricardo Whitten
Infectious disease-Antonietta Hdz
Cardiology-Jacob Domingo
Nephrology-Bolivar Luevano
Discharge Plan
-
Patient Disposition: Hospice - Inpatient
Discharge Diagnosis/Procedures: Metastatic bladder cancer
Additional Diets: NPO
Activity: As tolerated
Driving Restrictions: No driving
Bathing Restrictions: None
Other Services: Hospice
Referrals:
Uzair Thomas MD [Active] - 09/18/23 8:40 am (You have a follow up visit with Dr. Thomas at the [place] office. Please call with questions. )
Sagar Jade MD [Family Provider] -
Prescriptions:
New
lorazepam [Ativan] 2 mg/mL Solution
0.5 mg IV Q6HPRN PRN (Reason: anxiety /agitation) Qty: 1 0RF
prochlorperazine edisylate 10 mg/2 mL (5 mg/mL) Solution
5 mg IV Q6HPRN PRN (Reason: nausea/vomiting) Qty: 1 0RF
hydromorphone (PF) [Dilaudid (PF)] 0.5 mg/0.5 mL Syringe
1 mg IV Q3HPRN PRN (Reason: severe pain) Qty: 5 0RF
Discontinued
aspirin [Ecotrin Low Strength] 81 mg Tablet,Delayed Release (Dr/Ec)
81 mg PO DAILY
polyethylene glycol 3350 [Miralax] 17 gram Powder In Packet
17 g PO DAILY PRN (Reason: constipation)
tramadol 50 mg Tablet
50 mg PO PRN PRN (Reason: severe pain)
Patient Comments:
07/15/2023: last filled 06/20/23, 25 tabs for 7 days from [facility]
levothyroxine 50 mcg Tablet
50 mcg PO DAILY
docusate sodium [Stool Softener] 100 mg Capsule
200 mg PO PRN PRN (Reason: constipation)
Dulcolax (bisacodyl)
2 gummy PO DAILYPRN PRN (Reason: constipation)
acetaminophen [Tylenol Extra Strength] 500 mg Tablet
500 mg PO DAILYPRN PRN (Reason: mild pain)
prochlorperazine maleate [Compazine] 10 mg tablet
10 mg PO Q8H PRN (Reason: nausea and vomiting) Qty: 30 0RF
Discharge Orders:
Discharge Patient (As Directed); Ordered 08/25/23
Ordered By: Marek Mcfarlane
Discharge Date and Time
Print Language: GEORGIAN
--- NOTE | 2023-08-25 15:53 | PTCARENOTE ---
Medicating patient with IV dilaudid for pain. When patient becomes restless that usually indicates pain. Patient basically nonverbal , at times will respond to yes or no questions. Patient will be transferring to hospice. Family in room at
bedside. ST on monitor. Heart rates 90-120's.
[2023-08-25] MEDS: LEVOTHROID 37.5 MCG IV (17:05)
--- NOTE | 2023-08-25 17:05 | CM ---
Patient with Dx Metastatic progressive bladder cancer, Acute kidney injury , Partial small bowel obstruction versus ileus, Streptococcus mitis bacteremia. Plan transfer IMU to [facility].
[facility].
Plan [facility].
--- NOTE | 2023-08-25 18:16 | PTCARENOTE ---
Report given to Genia SCOTT. Patient transferred to [address] [place] [id number]. All belongings with the patient. Family with the patient.
== END 2023-08-25 17:51 | disposition hospice, inpatient (51) | DRG 686 ==
LOC: IMU 18:35
PROVIDERS: Internal Medicine; Internal Medicine Hematology & Oncology; Nurse Practitioner Family; Registered Nurse; Specialist; ADMITTING PHYSICIAN Internal Medicine; ATTENDING PHYSICIAN Internal Medicine; CONSULT PHYSICIAN Internal Medicine Cardiovascular Disease; CONSULT PHYSICIAN Internal Medicine Hematology & Oncology; CONSULT PHYSICIAN Specialist; CONSULT PHYSICIAN Student in an Organized Health Care Education/Training Program; CONSULT PHYSICIAN Surgery; EMERGENCY PHYSICIAN Emergency Medicine; FAMILY PHYSICIAN Internal Medicine; OTHER PHYSICIAN Student in an Organized Health Care Education/Training Program
DX: C67.9 Malignant neoplasm of bladder, unspecified (principal); E43 Unspecified severe protein-calorie malnutrition; C78.7 Secondary malignant neoplasm of liver and intrahepatic bile duct; N17.9 Acute kidney failure, unspecified; E87.1 Hypo-osmolality and hyponatremia; E87.20 Acidosis, unspecified; K56.7 Ileus, unspecified; K56.600 Partial intestinal obstruction, unspecified as to cause; I5A Non-ischemic myocardial injury (non-traumatic); Z87.891 Personal history of nicotine dependence; E86.0 Dehydration; N18.32 Chronic kidney disease, stage 3b; E03.9 Hypothyroidism, unspecified; I25.10 Atherosclerotic heart disease of native coronary artery without angina pectoris; Z95.5 Presence of coronary angioplasty implant and graft; Z93.3 Colostomy status; Z85.51 Personal history of malignant neoplasm of bladder; Z90.6 Acquired absence of other parts of urinary tract; E83.51 Hypocalcemia; Z79.82 Long term (current) use of aspirin; R62.7 Adult failure to thrive; D70.9 Neutropenia, unspecified; E83.42 Hypomagnesemia; I95.9 Hypotension, unspecified; Z68.30 Body mass index [BMI] 30.0-30.9, adult
CPT/HCPCS: 93308; 74018; 74176; 76770; 80048; 80053; 80202; 81003; 81015; 81099; 82085; 82248; 82306; 82330; 82533; 82550; 82553; 82570; 82607; 82962; 83605; 83735; 83880; 83970; 84100; 84156; 84300; 84425; 84443; 84478; 84484; 85025; 85027; 87040; 87086; 87149; 87186; 87205; 92610; 93005; 93970; 96361; 96374; 97116; 97162; 97166; 97530; 97535; 99285; J2997

== ENCOUNTER 2023-08-25 17:52 | Inpatient (IN) | payer OTHER, SELFPAY ==
--- NOTE | 2023-08-25 15:42 | HPS.HSE ---
Family Physician
-
Family Physician: NO INTERVIEW UNKNOWN
Chief Complaint
-
Inpatient hospice
History of Present Illness
.
Medical History
Past Medical History
Past Medical History: Reports Other
Additional Past Medical History:
Metastatic progressive bladder cancer
Acute kidney injury on chronic kidney disease stage IIIb
Partial small bowel obstruction versus ileus
Streptococcus mitis bacteremia
Coronary disease status post prior stent
Hypothyroidism
Past Surgical History: Reports Bowel Resection, Urological and Other
Social History
Tobacco: Non-smoker
Alcohol: None
Drug: None
Living: With Family
Family History
Family History: Not pertinent
Allergies / Home Medications
Allergies reflects when Allergies were last updated in [facility].
Home Medications with original date entered in [facility]
Allergy/Medication List:
Allergies
Allergy/AdvReac Type Severity Reaction Status Date / Time
egg Allergy Unknown Verified 08/16/23 14:56
shellfish derived Allergy Unknown Verified 08/16/23 14:56
Home Medications
hydromorphone (PF) 0.5 mg/0.5 mL injection syringe (Dilaudid (PF)) 1 mg IV Q3HPRN PRN severe pain #5 mL 08/25/23
lorazepam 2 mg/mL injection solution (Ativan) 0.5 mg (0.25 mL) IV Q6HPRN PRN anxiety /agitation #1 mL 08/25/23
prochlorperazine edisylate 10 mg/2 mL (5 mg/mL) injection solution 5 mg IV Q6HPRN PRN nausea/vomiting #1 mL 08/25/23
Review of Systems
-
Unable to obtain full review of systems at this time due to: Other (Patient lethargic)
Physical Exam
Physical Exam
General: No Apparent Distress and Comfortable
Respiratory: Non Labored Respirations; No Accessory Resp Muscle Use
Neuro: Awake; No Alert
Psych: Calm
Impression/Plan
-
Primary diagnosis:
Metastatic progressive bladder cancer
Acute kidney injury on chronic kidney disease stage IIIb
Partial small bowel obstruction versus ileus
Streptococcus mitis bacteremia
Secondary diagnosis:
Coronary disease status post prior stent
Hypothyroidism
Hospital course:
Patient with metastatic bladder cancer had 1 dose of chemotherapy/immunotherapy.
08/15/23 PET: Prominent mildly FDG avid left supraclavicular and high prevascular lymph nodes, suspicious for metastases. Redemonstration of extensive infiltrative lesions throughout the liver although only a few scattered hepatic lesions demonstrate
significant increased FDG activity above baseline, consistent with metastatic disease. Mildly FDG avid soft tissue metastatic disease about the common bile duct/pancreatic head and in the retroperitoneal and mesenteric regions, overall slightly
improved from prior CT.
He presents with acute kidney injury on chronic kidney disease stage IIIb. JANEY was felt secondary to hypotension and hemodynamic compromise. There is also oliguria from urostomy bag. There is no evidence of obvious obstruction. There is a
concern about checkpoint inhibitor nephrotoxicity. He was put on steroids. He also had GI symptoms concerning for either small bowel obstruction or ileus and he was not tolerating oral diet. He was put on TPN. Was seen by surgery. It was felt
high risk candidate for any surgical intervention. He had a prior abdominal resection including cystectomy bowel resection and has a urostomy and ileostomy.
Step meters bacteremia 1 out of 2 bottles. Echo showed no vegetation but was limited study. Was put on IV Rocephin.
Despite aggressive active treatments he continued to deteriorate and with prognosis less than 1 month per oncology and now with active other medical issues , family opted comfort as goal and transitioned into inpatient hospice at .
Admit to inpatient hospice at
[2023-08-25 18:12] VITALS: BP 109/61
--- NOTE | 2023-08-25 18:22 | PTCARENOTE ---
Patient downgraded to 2N from IMU as inpatient hospice. and family at bedside, very supportive to patient.
[2023-08-25 19:44] VITALS: BP 128/110
[2023-08-25] MEDS: MORPHINE SULFATE 2 MG IV ×3 (20:38→23:56)
[2023-08-25 23:20] VITALS: BP 94/65
[2023-08-26] MEDS: ATIVAN 0.5 MG IV ×6 (01:08→20:49)
[2023-08-26] MEDS: MORPHINE SULFATE 2 MG IV ×8 (01:09→20:48)
[2023-08-26] MEDS: NSS (PRESERVATIVE FREE) 0.25 ML IV ×2 (05:38→11:54)
--- NOTE | 2023-08-26 07:59 | HOSPNOTE ---
Patient was admitted into [facility] Hospice services on 08/25/23. Met with his hardik before this visit. She signed consents. Patient will remain [facility] due to needing freq skilled assessments of pain and anxiety levels to titrate medications for optimal
comfort. Patients is agreeable to the use of all medications for symptom management.Patient was lethargic during this visit however he did indicate severe pain when repositioned.
+
[2023-08-26 08:20] VITALS: BP 127/63
--- NOTE | 2023-08-26 10:42 | W.PN.UPDATE ---
Update Note
Progress Note Update
Patient currently on inpatient hospice.
Patient unresponsive. He is on morphine drip and getting as needed Ativan. Family at bedside who finds him comfortable .
Discussed with RN who finds him comfortable as well.
Continue with hospice care.
--- NOTE | 2023-08-26 11:10 | HOSPNOTE ---
Patient is lethargic almost unresponsive, patient appears comfortable at this time and has been given IV doses of morphine and ativan. Spoke with family for a while and provided emotional support. Patient will be seen daily by hospice nurse.
Encouraged medicating prior to any care. Patient continues to be inpatient hospice.
--- NOTE | 2023-08-26 16:04 | CM ---
Chart reviewed: Patient is receiving Inpatient Hospice Care
[2023-08-26 19:20] VITALS: BP 111/62
[2023-08-26] MEDS: NSS (PRESERVATIVE FREE) 10 ML IV (20:49)
[2023-08-27] MEDS: NSS (PRESERVATIVE FREE) 10 ML IV (01:27)
[2023-08-27] MEDS: ATIVAN 0.5 MG IV ×4 (01:27→16:42)
[2023-08-27] MEDS: MORPHINE SULFATE 2 MG IV ×4 (01:31→07:42)
[2023-08-27] MEDS: NSS (PRESERVATIVE FREE) 0.5 ML IV (06:22)
[2023-08-27 07:30] VITALS: BP 81/53
[2023-08-27] MEDS: MORPHINE 100 IV (08:13)
--- NOTE | 2023-08-27 09:00 | PTCARENOTE ---
Patient noted to be tachypneic with respirations in the 30's and HR in the 120'-130's during shift change. MD and hospice team notified and Morphine drip to be initiated. Plan of care explained to family at bedside, very supportive to patient.
--- NOTE | 2023-08-27 09:28 | W.PN.UPDATE ---
Update Note
Progress Note Update
Patient was becoming more uncomfortable with increased respiratory rate. IV morphine infusion started on step 2.
Continue with other hospice treatments.
Discussed with family at bedside.
--- NOTE | 2023-08-27 12:16 | HOSPNOTE ---
Patient was is distress this am and patient was started on a drip for increased resp and increased heart rate. Morphine drip was started on step 2. Family updated and emotional support given. Patient appears much more comfortable encouraged iv
pushes when patient is turned or repositioned. Patient will be seen daily by hospice nurse.
--- NOTE | 2023-08-27 12:17 | CM ---
[facility] is [facility] with . CM will remain available for support to hospice team and family.
--- NOTE | 2023-08-27 15:07 | CHAP ---
Mr. Singh was nonresponsive. He seemed comfortable. , Angela was at his side, along with his daughter and another family member. Angela shared that Francisco and his family had conversations ahead of this time, and he is well prepared and at
peace. The family also seems at peace. Cr has Sabianism background, as does Angela. Neurology Stroke Physician provided emotional and spiritual support and offered Sabianism prayers. Asked Angela if she would like a analytics manager to come - she and the family are
considering the question, and they know how to reach us. Neurology Stroke Physician will continue to follow.
[2023-08-27] MEDS: NSS (PRESERVATIVE FREE) 1 ML IV (16:42)
[2023-08-27 19:45] VITALS: BP 69/48
[2023-08-28 07:20] VITALS: BP 74/44
--- NOTE | 2023-08-28 08:21 | CHAP ---
Addendum entered by Mally Alcantara 08/28/23 13:17:
Fr. Stevens did come to provide Sacrament of the Sick/Last Rites for Mr. Singh.
Original Note:
Voice mail message left for piercer. Called rectory later and was told that the piercer (Fr. Stevens) did receive the call. Will follow up today to make sure he was able to come.
--- NOTE | 2023-08-28 10:52 | HOSPNOTE ---
Family at bedside, patient is unresponsive and a morphine drip is running. Patient continues to have plus 3 edema all extremities. Patient continues to be inpatient hospice. Patient will be seen daily by hospice nurse. Encouraged to medicate prior
to care or repositioning.
[2023-08-28] MEDS: MORPHINE SULFATE 2 MG IV (12:19)
--- NOTE | 2023-08-28 14:17 | W.PN.UPDATE ---
Update Note
Progress Note Update
Patient will inpatient hospice.
Looks comfortable. No acute respiratory distress. Unresponsive.
Family at bedside finds him comfortable.
Continue with comfort measures.
--- NOTE | 2023-08-28 14:39 | CM ---
Inpatient Hospice. CM will remain available to hospice team and family.
[2023-08-28 19:21] VITALS: BP 74/41
[2023-08-28] MEDS: MORPHINE 100 IV (22:15)
[2023-08-29] MEDS: MORPHINE SULFATE 2 MG IV ×5 (06:26→13:40)
[2023-08-29 07:14] VITALS: BP 82/47
--- NOTE | 2023-08-29 10:09 | W.PN.UPDATE ---
Update Note
Progress Note Update
Patient on inpatient hospice.
Not responsive. Breathing comfortable. No distress.
Family at bedside.
Continue with current comfort measures.
Hospice following.
[2023-08-29] MEDS: ATIVAN 0.5 MG IV (11:26)
[2023-08-29] MEDS: NSS (PRESERVATIVE FREE) 0.25 ML IV (11:26)
--- NOTE | 2023-08-29 14:44 | HOSPNOTE ---
Patient did not indicate pain or anxiety while lying still on his back during this visit. His states that he seems to startle when repositioned. His nurse also gave lorazepam because care and repositioning was planned to be given shortly. Spent
time with his providing support and listening .
[2023-08-29] MEDS: MORPHINE SULFATE 4 MG IV (18:34)
[2023-08-29] MEDS: ATIVAN IV (19:51)
[2023-08-29] MEDS: NSS (PRESERVATIVE FREE) IV (19:51)
--- NOTE | 2023-08-29 19:58 | PTCARENOTE ---
House KETTLE [employer]Y COOK OPERATOR notified to pronounce patient.
--- NOTE | 2023-08-29 20:05 | W.PN.DEATH ---
Pronouncement of
-
Called to see patient to pronounce.
No spontaneous heart tones or respirations noted.
Patient not responsive to verbal stimuli.
Patient is pronounced .
Time of : 20:05
Date of : 08/29/23
Cause of : Acute kidney injury due to metastatic bladder cancer
Family Notified: Yes
--- NOTE | 2023-08-29 21:15 | PTCARENOTE ---
[facility] called.
== END 2023-08-29 22:23 | disposition expired | DRG 951 ==
LOC: 2 NORTH 17:52
PROVIDERS: ADMITTING PHYSICIAN Internal Medicine
DX: Z51.5 Encounter for palliative care (principal); C78.7 Secondary malignant neoplasm of liver and intrahepatic bile duct; C79.89 Secondary malignant neoplasm of other specified sites; N17.9 Acute kidney failure, unspecified; R78.81 Bacteremia; C67.9 Malignant neoplasm of bladder, unspecified; N18.32 Chronic kidney disease, stage 3b; B95.4 Other streptococcus as the cause of diseases classified elsewhere; E03.9 Hypothyroidism, unspecified